=== PATIENT | male | born 1975 | race Caucasian/White ===

== ENCOUNTER 2017-05-29 23:29 | Inpatient (IN) | payer BC ==
[~2017-05-29] VITALS: Ht 182.9 cm; Wt 120.7 kg
[2017-05-29 23:34] VITALS: BP 114/59; PULSE 78; RESP 16; TEMP 98.5; O2SAT 98
[2017-05-29 23:39] VITALS: BP 104/69; PULSE 103; RESP 20; TEMP 97.8; O2SAT 97
[2017-05-29] MEDS ORDERED: SODIUM CHLOR 0.9% 1000 ML INJ 1,000 ML IV SCH (23:46)
[2017-05-29] MEDS ORDERED: PANTOPRAZOLE INJ 80 MG in SODIUM CHLORIDE 0.9% INJ 35 ML IV ONE (23:46)
[2017-05-29 23:53] VITALS: BP 99/56; PULSE 89; RESP 12; O2SAT 98
--- NOTE | 2017-05-29 23:56 | PD ---
HPI Chief Complaint: GI Complaint Time Seen by Provider: 23:40 Travel History International Travel<30 days: No Contact w/Intl Traveler<30days: No Traveled to known affect area: No History of Present Illness HPI 41-year-old male here for evaluation of hematemesis. Patient reports that about 2 hours ago he developed cramping in his bilateral legs. He then became nauseous and had 3 episodes of hematemesis. He is having some generalized weakness. He denies noticing melena or hematochezia. He uses ibuprofen almost daily, especially when he works. Drinks alcohol occasionally, never in excess. No abdominal pain. No antiplatelets or anticoagulants. PFSH Past Medical History Medical History: Denies Significant Hx Past Surgical History Surgical History: No Previous Surgery Social History Alcohol Use: No Tobacco Use: No Substance Use: No Allergies-Medications (Allergen,Severity, Reaction): Coded Allergies: No Known Allergies (Unverified , 05/29/17) Reported Meds & Prescriptions Reported Meds & Active Scripts Active Reported Ibuprofen 400 Mg Tab 400 Mg PO DAILY Review of Systems Except as stated in HPI: all other systems reviewed are Neg Physical Exam Narrative GENERAL: Well-developed, well-nourished, comfortable, no acute distress. SKIN: Focused skin assessment warm/dry. Diffuse pallor. HEAD: Atraumatic. Normocephalic. EYES: Pupils equal and round. No scleral icterus. No injection or drainage. Conjunctival pallor. ENT: Mucous membranes pink and moist. Dried blood in oropharynx. NECK: Trachea midline. No JVD. CARDIOVASCULAR: Tachycardic, rate 105, regular. RESPIRATORY: No accessory muscle use. Clear to auscultation. Breath sounds equal bilaterally. GASTROINTESTINAL: Abdomen soft, non-tender, nondistended. RECTUM: No masses, no fissures, no hemorrhoids, heme positive black stool. MUSCULOSKELETAL: No obvious deformities. No clubbing. No cyanosis. No edema. NEUROLOGICAL: Awake and alert. No obvious cranial nerve deficits. Motor grossly within normal limits. Normal speech. PSYCHIATRIC: Appropriate mood and affect; insight and judgment normal. Data Data Last Documented VS Vital Signs Date Time Temp Pulse Resp B/P (MAP) Pulse Ox O2 Delivery O2 Flow Rate FiO2 05/30/17 00:35 82 14 90/55 (67) 96 05/29/17 23:53 Room Air 05/29/17 23:39 97.8 Orders Orders Complete Blood Count With Diff (05/29/17 23:46) Comprehensive Metabolic Panel (05/29/17 23:46) Prothrombin Time / Inr (Pt) (05/29/17 23:46) Act Partial Throm Time (Ptt) (05/29/17 23:46) Type And Screen (05/29/17 23:46) Ecg Monitoring (05/29/17 23:46) Iv Access Insert/Monitor (05/29/17 23:46) Oximetry (05/29/17 23:46) Ondansetron Inj (Zofran Inj) (05/30/17 00:00) Sodium Chlor 0.9% 1000 Ml Inj (Ns 1000 M (05/29/17 23:46) Sodium Chloride 0.9% Flush (Ns Flush) (05/30/17 00:00) Sodium Chloride 0.9... W/Pantoprazole In (05/29/17 23:46) Sodium Chloride 0.9... W/Pantoprazole In (05/29/17 23:46) Chest, Single Ap (05/30/17 ) Admit To Inpatient (05/30/17 ) Vital Signs (Adult) Q4H (05/30/17 01:04) Activity Oob With Assistance (05/30/17 01:04) Aerial Photographer / Telemetry .CONTINUOUS (05/30/17 01:04) Diet Npo (05/30/17 Breakfast) Sodium Chlor 0.9% 1000 Ml Inj (Ns 1000 M (05/30/17 01:04) Sodium Chloride 0.9% Flush (Ns Flush) (05/30/17 01:15) Sodium Chloride 0.9% Flush (Ns Flush) (05/30/17 09:00) Basic Metabolic Panel (Bmp) (05/31/17 06:00) Complete Blood Count With Diff (05/31/17 06:00) Scd Bilateral/Knee High URMILA.BID (05/30/17 01:04) Naloxone Inj (Narcan Inj) (05/30/17 01:15) Inpatient Certification (05/30/17 ) Consult Gastroenterology (05/30/17 ) Admit Order (Ed Use Only) (05/30/17 01:06) Labs Laboratory Tests Test 05/29/17 23:50 White Blood Count 10.0 TH/MM3 Red Blood Count 4.55 MIL/MM3 Hemoglobin 11.4 GM/DL Hematocrit 35.4 % Mean Corpuscular Volume 78.0 FL Mean Corpuscular Hemoglobin 25.1 PG Mean Corpuscular Hemoglobin Concent 32.1 % Red Cell Distribution Width 15.4 % Platelet Count 88 TH/MM3 Mean Platelet Volume 9.9 FL Neutrophils (%) (Auto) 74.8 % Lymphocytes (%) (Auto) 9.8 % Monocytes (%) (Auto) 11.2 % Eosinophils (%) (Auto) 3.2 % Basophils (%) (Auto) 1.0 % Neutrophils # (Auto) 7.5 TH/MM3 Lymphocytes # (Auto) 1.0 TH/MM3 Monocytes # (Auto) 1.1 TH/MM3 Eosinophils # (Auto) 0.3 TH/MM3 Basophils # (Auto) 0.1 TH/MM3 CBC Comment AUTO DIFF Differential Comment AUTO DIFF CONFIRMED Platelet Estimate LOW Platelet Morphology Comment NORMAL Prothrombin Time 13.4 SEC Prothromb Time International Ratio 1.2 RATIO Activated Partial Thromboplast Time 25.9 SEC Blood Urea Nitrogen 27 MG/DL Creatinine 0.85 MG/DL Random Glucose 86 MG/DL Total Protein 6.3 GM/DL Albumin 2.8 GM/DL Calcium Level 8.6 MG/DL Alkaline Phosphatase 160 U/L Aspartate Amino Transf (AST/SGOT) 56 U/L Alanine Aminotransferase (ALT/SGPT) 59 U/L Total Bilirubin 1.4 MG/DL Sodium Level 144 MEQ/L Potassium Level 3.8 MEQ/L Chloride Level 110 MEQ/L Carbon Dioxide Level 27.6 MEQ/L Anion Gap 6 MEQ/L Estimat Glomerular Filtration Rate 100 ML/MIN [facility] Medical Decision Making Medical Screen Exam Complete: Yes Emergency Medical Condition: Yes Differential Diagnosis Upper GI bleed, anemia, peptic ulcer disease, gastritis, esophageal varicies, dashawn thomas tears, Boerhaave syndrome unlikely Narrative Course Initial vital signs show heart rate 103, blood pressure 104/69, pulse ox 97% on room air, oral temp of 97.8F. Blood pressure at one point dropped to 85/47. The patient was given a liter of normal saline IV bolus with improvement in pressure to 90/55. CBC shows to be BC 10, hemoglobin 11.4, hematocrit 35.4, platelets 88. CMP is remarkable for AST 56, ALT 59, albumin 2.8, BUN 27 which is likely because of his upper GI bleed. Chest x-ray interpreted by me shows no free air, no ptx, no PNA, normal mediastinum. Patient was given a liter of normal saline IV, a bolus of IV Protonix followed by Protonix drip. He was also given Zofran with improvement in nausea. His stool is heme positive and black. He likely is suffering from an upper GI bleed given hematemesis and melena. He is also slightly tachycardic and hypotensive. He will be admitted for further treatment and evaluation and likely GI consultation. Case discussed with hospitalist Dr Kearney who will admit the patient to her service. HemaPrompt Point of Care Internal Pos. & Neg. Controls: Passed Fecal Specimen Occult Blood: Positive Comment Heme positive, black stool. Diagnosis Primary Impression: Hematemesis Qualified Codes: K92.0 - Hematemesis; R11.0 - Nausea Additional Impressions: Melena Thrombocytopenia Donte Almonte MD May 29, 2017 23:56
[2017-05-30] VITALS (22 sets, daily range): BP systolic 67–117; BP diastolic 38–65; PULSE 81–112; RESP 12–22; TEMP 96.5–100.3; O2SAT 91–100
[2017-05-30] MEDS ORDERED: ONDANSETRON HCL 4 MG/2 ML VIAL IVP ONE
[2017-05-30] MEDS ORDERED: SODIUM CHLORIDE 0.9% FLUSH 10 ML FLUSH IVF PRN
[2017-05-30 00:19] LABS: AUTOMATED NEUTROPHIL # 7.5 TH/MM3 (1.8-7.7); BASOPHIL # 0.1 TH/MM3 (0-0.2); EOSINOPHIL # 0.3 TH/MM3 (0-0.4); EOSINOPHIL % 3.2 % (0.0-4.0); HEMATOCRIT 35.4 % (39.0-51.0); LYMPH % 9.8 % (9.0-44.0); MEAN CORPUSCULAR HEMOGLOBIN 25.1 PG (27.0-34.0); MEAN CORPUSCULAR HGB CONC 32.1 % (32.0-36.0); MONO % 11.2 % (0.0-8.0); NEUT % 74.8 % (16.0-70.0); PLATELET COUNT 88 TH/MM3 (150-450); RED BLOOD COUNT 4.55 MIL/MM3 (4.50-5.90); RED CELL DISTRIBUTION WIDTH 15.4 % (11.6-17.2)
[2017-05-30 00:30] LABS: APTT (PATIENT) 25.9 SEC (24.3-30.1); INTERNATIONAL NORMALIZED RATIO 1.2 RATIO; PROTHROMBIN TIME - PATIENT 13.4 SEC (9.8-11.6)
[2017-05-30 00:36] LABS: ALT (GPT) 59 U/L (12-78); ANION GAP 6 MEQ/L (5-15); AST (GOT) 56 U/L (15-37); BICARBONATE 27.6 MEQ/L (21.0-32.0); BLOOD UREA NITROGEN 27 MG/DL (7-18); CHLORIDE 110 MEQ/L (98-107); GLOMERULAR FILTRATION RATE 100 ML/MIN (>89); POTASSIUM 3.8 MEQ/L (3.5-5.1); SODIUM (NA) 144 MEQ/L (136-145)
[2017-05-30 00:38] LABS: ALKALINE PHOSPHATASE 160 U/L (45-117); TOTAL BILIRUBIN ADULT 1.4 MG/DL (0.2-1.0)
[2017-05-30] MEDS: PANTOPRAZOLE INJ 80 MG in SODIUM CHLORIDE 0.9% INJ 100 ML IV SCH ×3 (00:43→23:45)
[2017-05-30 00:47] LABS: HEMO FLAGS AUTO DIFF; PLATELET ESTIMATE SMEAR LOW (NORMAL); PLATELET MORPHOLOGY NORMAL (NORMAL); SCAN/DIFF AUTO DIFF CONFIRMED
[2017-05-30] MEDS ORDERED: IBUP400T20 PO (00:56)
[2017-05-30] MEDS: SODIUM CHLOR 0.9% 1000 ML INJ 1,000 ML IV SCH ×3 (01:04→11:43)
[2017-05-30] MEDS ORDERED: SODIUM CHLORIDE 0.9% FLUSH 10 ML FLUSH IV FLUSH PRN (01:15)
[2017-05-30] MEDS ORDERED: NALOXONE HCL 0.4 MG/ML AMP IV PRN (01:15)
--- NOTE | 2017-05-30 01:17 | RADRPT ---
EXAM DATE/TIME: 05/30/2017 01:02 [facility] COMPARISON: No previous studies available for comparison. INDICATIONS : Short of breath. MEDICAL HISTORY : None. SURGICAL HISTORY : None. ENCOUNTER: Initial ACUITY: 1 day PAIN SCORE: 7/10 LOCATION: Left chest FINDINGS: A single view of the chest demonstrates the lungs to be symmetrically aerated without evidence of mas s, infiltrate or effusion. The cardiomediastinal contours are unremarkable. Osseous structures are intact. CONCLUSION: 1. No acute cardiopulmonary disease. Oh Escobedo MD on May 30, 2017 at 1:15 Board Certified Radiologist. This report was verified electronically.
[2017-05-30] MEDS: ONDANSETRON HCL 4 MG/2 ML VIAL IV PUSH PRN ×2 (01:55→16:53)
--- NOTE | 2017-05-30 02:07 | HHI.HP ---
HPI Service [facility] Primary Care Physician No Primary Care Physician Admission Diagnosis hematemesis, melena, thrombocytopenia Diagnoses: (1) GI bleed (2) Transaminitis (3) Hematemesis (4) Melena (5) Thrombocytopenia Chief Complaint: hematemesis, melena Travel History International Travel<30 Days: No Contact w/Intl Traveler <30 Da: No Traveled to Known Affected Are: No History of Present Illness Written by Karol Lopez, acting as scribe for Dr. Kearney on 05/30/17 at 02:06. Patient reports hematemesis over about an hour and a half. The color was dark; accompanied by nausea but denies abdominal pain. Just had a dark stool. The patient reports taking Tylenol 1000 mg per day 5 days per week. He denies any history of peptic ulcer. He started taking generic Aleve or naproxen 200 mg when extra strength Tylenol wore off over the past week. The patient reports that last week he had "a really nasty flu". He had also put in extra hours at work last week and thought it might be related to work-related exhaustion. He denies chest pain, shortness of breath. . Review of Systems Except as stated in HPI: all other systems reviewed are Neg Past Family Social History Past Medical History Denies hypertension, diabetes, CAD, CHF, respiratory problems, liver problems, kidney problems, DVT, PE, CVA, seizures, thyroid problems, or cancers Past Surgical History Denies . Reported Medications Tylenol 1000 mg daily 5 days per week Naproxen 200 mg as needed for pain Allergies: Coded Allergies: No Known Allergies (Unverified , 05/29/17) Active Ordered Medications Current Medications Ondansetron HCl (Zofran Inj) 4 mg ONCE ONCE IVP Last administered on 05/30/17 00:04; Start 05/30/17 at 00:00; Stop 05/30/17 at 00:01; Status DC Sodium Chloride 1,000 ml @ 1,000 mls/hr Q1H IV Last administered on 05/30/17 00:03; Start 05/29/17 at 23:46; Stop 05/30/17 at 00:45; Status DC Sodium Chloride (NS Flush) 2 ml UNSCH PRN IVF FLUSH AFTER USING IV ACCESS; Start 05/30/17 at 00:00 Pantoprazole Sodium 80 mg/ Sodium Chloride 35 ml @ 420 mls/hr Q5M ONCE IV Last administered on 05/30/17 00:05; Start 05/29/17 at 23:46; Stop 05/29/17 at 23: 50; Status DC Pantoprazole Sodium 80 mg/ Sodium Chloride 100 ml @ 10 mls/hr Q10H IV Last administered on 05/30/17 00:43; Start 05/29/17 at 23:46 Sodium Chloride 1,000 ml @ 100 mls/hr Q10H IV Last administered on 05/30/17 02 :06; Start 05/30/17 at 01:04 Sodium Chloride (NS Flush) 2 ml UNSCH PRN IV FLUSH FLUSH AFTER USING IV ACCESS ; Start 05/30/17 at 01:15 Sodium Chloride (NS Flush) 2 ml BID IV FLUSH ; Start 05/30/17 at 09:00 Naloxone HCl (Narcan Inj) 0.4 mg UNSCH PRN IV SEE LABEL COMMENTS; Start at 01:15 Ondansetron HCl (Zofran Inj) 4 mg Q6HR PRN IV PUSH nausea Last administered on 05/30/17 01:55; Start 05/30/17 at 01:45 . Family History Mother with cancer Father with hypertension, RADHA, Alzheimer's . Social History Tobacco: denies every smoking Alcohol: infrequent drinker, denies any heavy use ever Illicit Drugs: stopped smoking marijuana a few months ago . Physical Exam Vital Signs Vital Signs Date Time Temp Pulse Resp B/P (MAP) Pulse Ox O2 Delivery O2 Flow Rate FiO2 05/30/17 01:00 88 14 100/59 (73) 96 Room Air 05/30/17 00:35 82 14 90/55 (67) 96 05/30/17 00:05 84 14 85/47 (60) 97 05/29/17 23:53 89 12 99/56 (70) 98 Room Air 05/29/17 23:39 97.8 103 20 104/69 (81) 97 05/29/17 23:34 98.5 78 16 114/59 (77) 98 Room Air Physical Exam GENERAL: This is a jaundiced, pale patient, complaining of nausea, appearing very tired. SKIN: No rashes, ecchymoses or lesions. Cool and dry. HEAD: Atraumatic. Normocephalic. EYES: No scleral icterus. No injection or drainage. ENT: Nose without bleeding, purulent drainage or septal hematoma. NECK: Trachea midline. No JVD. CARDIOVASCULAR: Regular rate and rhythm without murmurs, gallops, or rubs. RESPIRATORY: Clear to auscultation. Breath sounds equal bilaterally. No wheezes , rales, or rhonchi. GASTROINTESTINAL: Abdomen soft, non-tender, nondistended. MUSCULOSKELETAL: Extremities without clubbing, cyanosis, or edema. NEUROLOGICAL: Awake and alert. Motor and sensory grossly within normal limits. Normal speech. . Laboratory Laboratory Tests Test 05/29/17 23:50 White Blood Count 10.0 Red Blood Count 4.55 Hemoglobin 11.4 Hematocrit 35.4 Mean Corpuscular Volume 78.0 Mean Corpuscular Hemoglobin 25.1 Mean Corpuscular Hemoglobin Concent 32.1 Red Cell Distribution Width 15.4 Platelet Count 88 Mean Platelet Volume 9.9 Neutrophils (%) (Auto) 74.8 Lymphocytes (%) (Auto) 9.8 Monocytes (%) (Auto) 11.2 Eosinophils (%) (Auto) 3.2 Basophils (%) (Auto) 1.0 Neutrophils # (Auto) 7.5 Lymphocytes # (Auto) 1.0 Monocytes # (Auto) 1.1 Eosinophils # (Auto) 0.3 Basophils # (Auto) 0.1 CBC Comment AUTO DIFF Differential Comment AUTO DIFF CONFIRMED Platelet Estimate LOW Platelet Morphology Comment NORMAL Prothrombin Time 13.4 Prothromb Time International Ratio 1.2 Activated Partial Thromboplast Time 25.9 Blood Urea Nitrogen 27 Creatinine 0.85 Random Glucose 86 Total Protein 6.3 Albumin 2.8 Calcium Level 8.6 Alkaline Phosphatase 160 Aspartate Amino Transf (AST/SGOT) 56 Alanine Aminotransferase (ALT/SGPT) 59 Total Bilirubin 1.4 Sodium Level 144 Potassium Level 3.8 Chloride Level 110 Carbon Dioxide Level 27.6 Anion Gap 6 Estimat Glomerular Filtration Rate 100 Result Diagram: 05/29/17 2350 05/29/17 2350 Imaging Last Impressions Chest X-Ray 05/30/17 0000 Signed Impressions: Service Date/Time: May 01:02 - CONCLUSION: 1. No acute cardiopulmonary disease. Oh Escobedo MD . Capdiamond VTE Risk Assessment Caprini VTE Risk Assessment: Mod/High Risk (score >= 2) Caprini Risk Assessment Model Point Value = 1 Point Value = 2 Point Value = 3 Point Value = 5 Age 41-60 Minor surgery BMI > 25 kg/m2 Swollen legs Varicose veins or History of unexplained or recurrent spontaneous Oral contraceptives or hormone replacement Sepsis (< 1 month) Serious lung disease, including pneumonia (< 1 month) Abnormal pulmonary function Acute myocardial infarction Congestive heart failure (< 1 month) History of inflammatory bowel disease Medical patient at bed rest Age 61-74 Arthroscopic surgery Major open surgery (> 45 min) Laparoscopic surgery (> 45 min) Malignancy Confined to bed (> 72 hours) Immobilizing plaster cast Central venous access Age >= 75 History of VTE Family history of VTE Factor V Leiden Prothrombin [id number] Lupus anticoagulant Anticardiolipin antibodies Elevated serum homocysteine Heparin-induced thrombocytopenia Other congenital or acquired thrombophilia Stroke (< 1 month) Elective arthroplasty Hip, pelvis, or leg fracture Acute spinal cord injury (< 1 month) Prophylaxis Regimen Total Risk Factor Score Risk Level Prophylaxis Regimen 0-1 Low Early ambulation 2 Moderate Order ONE of the following: *Sequential Compression Device (SCD) *Heparin 5000 units SQ BID 3-4 Higher Order ONE of the following medications: *Heparin 5000 units SQ TID *Enoxaparin/Lovenox 40 mg SQ daily (WT < 150 kg, CrCl > 30 mL/min) *Enoxaparin/Lovenox 30 mg SQ daily (WT < 150 kg, CrCl > 10-29 mL/min) *Enoxaparin/Lovenox 30 mg SQ BID (WT < 150 kg, CrCl > 30 mL/min) AND/OR *Sequential Compression Device (SCD) 5 or more Highest Order ONE of the following medications: *Heparin 5000 units SQ TID (Preferred with Epidurals) *Enoxaparin/Lovenox 40 mg SQ daily (WT < 150 kg, CrCl > 30 mL/min) *Enoxaparin/Lovenox 30 mg SQ daily (WT < 150 kg, CrCl > 10-29 mL/min) *Enoxaparin/Lovenox 30 mg SQ BID (WT < 150 kg, CrCl > 30 mL/min) AND *Sequential Compression Device (SCD) Assessment and Plan Problem List: (1) GI bleed ICD Code: K92.2 - Gastrointestinal hemorrhage, unspecified (2) Melena ICD Code: K92.1 - Melena Status: Acute (3) Hematemesis ICD Code: K92.0 - Hematemesis Status: Acute (4) Transaminitis ICD Code: R74.0 - Nonspecific elevation of levels of transaminase and lactic acid dehydrogenase [LDH] (5) Thrombocytopenia ICD Code: D69.6 - Thrombocytopenia, unspecified Status: Acute Assessment and Plan 41 y/o male who presented with hematemesis and melena: Suspected GI bleed with hypotension (sbp dropped to 85) - initial H&H 11.4/35.4 - no prior available for comparison - Stat repeat H&H - follow results - NS bolus x 1 liter in ED, maintenance IVF NS at 100 cc/hr - Gastroenterology consultation - Protonix drip Transaminitis Daily Tylenol use - Hepatitis Profile - Liver ultrasound - Check Tylenol level Thrombocytopenia - Platelet count 88,000 - suspect liver disease - repeat CBC in a.m. and follow results - transfuse platelets if needed DVT prophylaxis - Early ambulation - SCDs/TEDs This note was transcribed by [email or web address] [Karol Lopez]. I, Dr. Afshan Kearney personally performed the history, physical exam, and medical decision making; and confirmed the accuracy of the information in the transcribed note. Authenticated by Dr. Afshan Kearney on 05/30/17 at 02:06. . Discussed Condition With ER physician or patient . Physician Certification 2 Midnight Certification Type: Admission for Inpatient Services Order for Inpatient Services The services are ordered in accordance with Medicare regulations or non- Medicare payer requirements, as applicable. In the case of services not specified as inpatient-only, they are appropriately provided as inpatient services in accordance with the 2-midnight benchmark. Estimated LOS (days): 3 days is the estimated time the patient will need to remain in the hospital, assuming treatment plan goals are met and no additional complications. Post-Hospital Plan: Home Problem Qualifiers (1) Hematemesis: Qualified Codes: K92.0 - Hematemesis; R11.0 - Nausea Karol Lopez May 30, 2017 02:07 Afhsan Kearney MD May 30, 2017 07:27
[2017-05-30] MEDS ORDERED: MEDI220T PO (02:17)
[2017-05-30] MEDS ORDERED: EXTRTAB5 PO (02:17)
[2017-05-30 02:19] LABS: HEMATOCRIT 27.6 % (39.0-51.0)
[2017-05-30 02:21] LABS: REVIEW FLAG FINAL
[2017-05-30] MEDS ORDERED: ONDANSETRON HCL 4 MG/2 ML VIAL IV PUSH ONE ×2 (02:30→12:00)
[2017-05-30] MEDS ORDERED: OCTREOTIDE INJ 50 MCG/ML AMP IV PUSH ONE (03:45)
[2017-05-30] MEDS ORDERED: CHLORHEXIDINE GLUCONATE 2 % 1 PACK (2 CLOTHS)(extra cloths) TOPICAL PRN (04:15)
[2017-05-30] MEDS: OCTREOTIDE INJ 500 MCG in SODIUM CHLORID 0.9% 500 ML INJ 499.5 ML IV SCH ×2 (05:50→16:33)
[2017-05-30] MEDS: SODIUM CHLORIDE 0.9% FLUSH 10 ML FLUSH IV FLUSH SCH ×2 (08:47→23:47)
--- NOTE | 2017-05-30 10:13 | HHI.PR ---
Subjective Remarks f/u GI bleed abdominal pain 11/02, had BM with dark colored stool before 2 am, last episode of emesis still bloody at 2 am, no N/V, no fever or SOB Objective Vitals Vital Signs Date Time Temp Pulse Resp B/P (MAP) Pulse Ox O2 Delivery O2 Flow Rate FiO2 05/30/17 08:26 98.2 102 12 106/59 97 05/30/17 08:00 99.8 100 18 103/53 96 05/30/17 06:00 96 Nasal Cannula 2.00 05/30/17 06:00 81 05/30/17 05:21 99.0 88 20 67/38 91 05/30/17 04:17 99.0 100 20 117/55 (75) 94 05/30/17 04:15 105 05/30/17 03:02 96.5 99 18 92/55 (67) 95 05/30/17 02:32 86 18 102/53 (69) 96 Room Air 05/30/17 02:20 86 16 91/53 (66) 96 05/30/17 01:00 88 14 100/59 (73) 96 Room Air 05/30/17 00:35 82 14 90/55 (67) 96 05/30/17 00:05 84 14 85/47 (60) 97 05/29/17 23:53 89 12 99/56 (70) 98 Room Air 05/29/17 23:39 97.8 103 20 104/69 (81) 97 05/29/17 23:34 98.5 78 16 114/59 (77) 98 Room Air I/O 05/29/17 05/29/17 05/29/17 05/30/17 05/30/17 05/30/17 07:00 15:00 23:00 07:00 15:00 23:00 Intake Total 649 ml 296 ml Balance 649 ml 296 ml Intake IV Total 649 ml Packed Cells 250 ml Blood Product IV Normal Saline Flush 46 ml # Voids 0 Result Diagram: 05/30/17 0201 05/29/17 4400 Objective Remarks GENERAL: This is a jaundiced, pale patient, complaining of nausea, appearing very tired. ENT: Nose without bleeding, purulent drainage or septal hematoma. NECK: Trachea midline. No JVD. CARDIOVASCULAR: Regular rate and rhythm without murmurs, gallops, or rubs. RESPIRATORY: Clear to auscultation. Breath sounds equal bilaterally. No wheezes , rales, or rhonchi. GASTROINTESTINAL: Abdomen soft, mildly tender, nondistended. MUSCULOSKELETAL: Extremities without clubbing, cyanosis, or edema. AAOx3 no focal deficits A/P Problem List: (1) GI bleed ICD Code: K92.2 - Gastrointestinal hemorrhage, unspecified (2) Melena ICD Code: K92.1 - Melena Status: Acute (3) Hematemesis ICD Code: K92.0 - Hematemesis Status: Acute (4) Transaminitis ICD Code: R74.0 - Nonspecific elevation of levels of transaminase and lactic acid dehydrogenase [LDH] (5) Thrombocytopenia ICD Code: D69.6 - Thrombocytopenia, unspecified Status: Acute Assessment and Plan 41 y/o male who presented with hematemesis and melena: Suspected GI bleed with hypotension (sbp dropped to 85) - initial H&H 11.4/35.4 - no prior available for comparison, receiving blood right now, recheck H/H, GI input pending, continue IVF, cont PPI drip and octreotide, patient has history of taking Aleve, NPO Transaminitis with Daily Tylenol use - Hepatitis Profile pending, very mild, liver US pending. Thrombocytopenia - Platelet count 88,000 , suspect liver disease, follow CBC DVT prophylaxis - Early ambulation - SCDs/TEDs Problem Qualifiers (1) Hematemesis: Qualified Codes: K92.0 - Hematemesis; R11.0 - Nausea Telly Tello MD May 30, 2017 10:13
--- NOTE | 2017-05-30 10:16 | RADRPT ---
EXAM DATE/TIME: 05/30/2017 09:04 [facility] COMPARISON: No previous studies available for comparison. INDICATIONS : Increased lab values. MEDICAL HISTORY : Hematemesis. SURGICAL HISTORY : None. ENCOUNTER: Initial ACUITY: 1 day PAIN SCORE: 10/02 LOCATION: Bilateral upper quadrant MEASUREMENTS: LIVER: 17.0 cm length COMMON DUCT: 7 mm RIGHT KIDNEY: 12.6 x 5.9 x 4.9 cm SPLEEN: 21.5 cm length FINDINGS: Small volume ascites. LIVER: Cirrhotic appearance. Heterogeneous echotexture. Question right lobe mass anteriorly where a vague ar ea of focally altered echogenicity is present measuring between 2 and 3 cm in size. Bidirectional ruth w in the portal vein. COMMON DUCT: No intraluminal mass or stone visualized. GALLBLADDER: Small stone in the gallbladder neck. No evidence of gallbladder wall thickening or distention. PANCREAS: The visualized portions are within normal limits. RIGHT KIDNEY: No hydronephrosis, stone or mass. SPLEEN: Enlarged without focal mass CONCLUSION: Cirrhotic liver appearance. Question focal right lobe mass. Recommend further evaluation with hepatic MRI with [facility]. David Terrazas MD on May 30, 2017 at 10:10 Board Certified Radiologist. This report was verified electronically.
--- NOTE | 2017-05-30 12:53 | PD.CONS ---
HPI History of Present Illness This is a 41 year old male with pos family hx leukemia and colon ca who presented with nausea and hematemesis. Started last night, had 3 episodes, none today. Never had hematemesis or GIB before. Also had dark blood intermingled in stool, per pt he was told after rectal exam his stool appeared black. Has been taking extra strength tylenol daily. He has also been taking aleve regularly for the last few months. No significant medical history. Never had EGD or colonoscopy. Does not have PCP. Denies weight loss, diarrhea. Admits occasional constipation he associates with stress and diet. (Ruchi Casas) PFSH Past Medical History Denies hypertension, diabetes, CAD, CHF, respiratory problems, liver problems, kidney problems, DVT, PE, CVA, seizures, thyroid problems, or cancers Past Surgical History Denies . (Ruchi Casas) Coded Allergies: No Known Allergies (Unverified , 05/29/17) Family History Mother with colon cancer, leukemia Father with hypertension, RADHA, Alzheimer's . Social History Tobacco: denies every smoking Alcohol: infrequent drinker, denies any heavy use ever Illicit Drugs: stopped smoking marijuana a few months ago . (Ruchi Casas) Review of Systems Constitutional: DENIES: Weight loss Eyes: DENIES: Blurred vision Ears, nose, mouth, throat: DENIES: Hearing loss Respiratory: DENIES: Hemoptysis Cardiovascular: DENIES: Chest pain Gastrointestinal: COMPLAINS OF: Black stools, Bloody stools, Nausea, Vomiting, Hematemesis, DENIES: Abdominal pain, Constipation, Diarrhea Genitourinary: DENIES: Hematuria Musculoskeletal: DENIES: Joint Swelling Integumentary: DENIES: Pruritus, Jaundice Neurologic: DENIES: Abnormal gait Psychiatric: DENIES: Confusion (Ruchi Casas) GI Exam Vitals I&O Vital Signs Date Time Temp Pulse Resp B/P (MAP) Pulse Ox O2 Delivery O2 Flow Rate FiO2 05/30/17 12:00 99.7 97 19 98/55 (69) 95 05/30/17 12:00 97 05/30/17 12:00 95 Nasal Cannula 1.50 05/30/17 10:15 99.2 101 22 104/57 94 05/30/17 10:00 103 05/30/17 08:26 98.2 102 12 106/59 97 05/30/17 08:00 99.8 100 18 103/53 96 05/30/17 08:00 96 Nasal Cannula 1.50 05/30/17 08:00 99.8 100 18 103/53 (70) 96 05/30/17 08:00 100 05/30/17 06:00 96 Nasal Cannula 2.00 05/30/17 06:00 81 05/30/17 05:21 99.0 88 20 67/38 91 05/30/17 04:17 99.0 100 20 117/55 (75) 94 05/30/17 04:15 105 05/30/17 03:02 96.5 99 18 92/55 (67) 95 05/30/17 02:32 86 18 102/53 (69) 96 Room Air 05/30/17 02:20 86 16 91/53 (66) 96 05/30/17 01:00 88 14 100/59 (73) 96 Room Air 05/30/17 00:35 82 14 90/55 (67) 96 05/30/17 00:05 84 14 85/47 (60) 97 05/29/17 23:53 89 12 99/56 (70) 98 Room Air 05/29/17 23:39 97.8 103 20 104/69 (81) 97 05/29/17 23:34 98.5 78 16 114/59 (77) 98 Room Air I/O 05/29/17 05/29/17 05/29/17 05/30/17 05/30/17 05/30/17 07:00 15:00 23:00 07:00 15:00 23:00 Intake Total 649 ml 1713 ml Balance 649 ml 1713 ml Intake IV Total 649 ml 1100 ml Packed Cells 500 ml Blood Product IV Normal Saline Flush 113 ml # Voids 0 Imaging Last Impressions Liver Ultrasound 05/30/17 0000 Signed Impressions: Service Date/Time: May 09:04 - CONCLUSION: Cirrhotic liver appearance. Question focal right lobe mass. Recommend further evaluation with hepatic MRI with Eovist. David Terrazas MD Chest X-Ray 05/30/17 0000 Signed Impressions: Service Date/Time: May 01:02 - CONCLUSION: 1. No acute cardiopulmonary disease. Oh Escobedo MD Laboratory Test 05/29/17 23:50 05/30/17 02:01 05/30/17 04:10 05/30/17 04:29 White Blood Count 10.0 TH/MM3 Red Blood Count 4.55 MIL/MM3 Hemoglobin 11.4 GM/DL 9.2 GM/DL Hematocrit 35.4 % 27.6 % Mean Corpuscular Volume 78.0 FL Mean Corpuscular Hemoglobin 25.1 PG Mean Corpuscular Hemoglobin Concent 32.1 % Red Cell Distribution Width 15.4 % Platelet Count 88 TH/MM3 Mean Platelet Volume 9.9 FL Neutrophils (%) (Auto) 74.8 % Lymphocytes (%) (Auto) 9.8 % Monocytes (%) (Auto) 11.2 % Eosinophils (%) (Auto) 3.2 % Basophils (%) (Auto) 1.0 % Neutrophils # (Auto) 7.5 TH/MM3 Lymphocytes # (Auto) 1.0 TH/MM3 Monocytes # (Auto) 1.1 TH/MM3 Eosinophils # (Auto) 0.3 TH/MM3 Basophils # (Auto) 0.1 TH/MM3 CBC Comment AUTO DIFF Differential Comment AUTO DIFF CONFIRMED Platelet Estimate LOW Platelet Morphology Comment NORMAL Prothrombin Time 13.4 SEC Prothromb Time International Ratio 1.2 RATIO Activated Partial Thromboplast Time 25.9 SEC Blood Urea Nitrogen 27 MG/DL Creatinine 0.85 MG/DL Random Glucose 86 MG/DL Total Protein 6.3 GM/DL Albumin 2.8 GM/DL Calcium Level 8.6 MG/DL Alkaline Phosphatase 160 U/L Aspartate Amino Transf (AST/SGOT) 56 U/L Alanine Aminotransferase (ALT/SGPT) 59 U/L Total Bilirubin 1.4 MG/DL Sodium Level 144 MEQ/L Potassium Level 3.8 MEQ/L Chloride Level 110 MEQ/L Carbon Dioxide Level 27.6 MEQ/L Anion Gap 6 MEQ/L Estimat Glomerular Filtration Rate 100 ML/MIN Acetaminophen Level LESS THAN 2.0 MCG/ML Nasal Screen MRSA (PCR) MRSA NOT DETECTED Physical Examination HEENT: PERRL; normocephalic; atraumatic; no jaundice. CHEST: CTA CARDIAC: RRR ABDOMEN: Soft, nondistended, nontender; no hepatosplenomegaly; bowel sounds are present in all four quadrants. EXTREMITIES: No clubbing, cyanosis, or edema. SKIN: Normal; no rash; no jaundice. [employer]: No focal deficits; alert and oriented times three. (Ruchi Casas) Assessment and Plan Plan PLAN - hematemesis - 3 episodes last night, none in the last 5 hours. recent hx NSAID use frequently. no prior hx GIB or significant medical hx. never had EGD or colonoscopy - anemia - 11.4 on admission and drop to 9.2 today, s/p 2 x PRBC and repeat HH pending - elev LFTs - mild, admits frequent use APAP. hep panel pending. no significant etoh use. APAP level >2.0 US showed cirrhotic liver appearance, questionable focal right lobe mass, suggested MRI liver with evoist - family hx colon ca - mother dx age 60 - thrombocytopenia - PLT 88 PLAN - EGD tonight - obtain consent - NPO - consider colonoscopy next week - continue ocreotide - continue protonix - MRI liver w/ evoist as outpatient - liver w/u - monitior CBC - transfuse as needed - further recs to follow This pt seen by myself and Dr Kinney and this note is written on his behalf (Ruchi Casas) Physician Comments Patient seen and examined, agree with the above noted, I was called by the nursing staff to tell me that the patient had been vomiting blood minutes, with some drop in his blood pressure. We will hold off on colonoscopy proceeded to an urgent upper endoscopy now meanwhile we'll continue supportive care packed RBC as needed, colonoscopy can be done as an outpatient in the near future (Jolly Kinney MD) Ruchi Casas May 30, 2017 12:53 Jolly Kinney MD May 30, 2017 19:23
[2017-05-30 15:23] LABS: HEMATOCRIT 28.8 % (39.0-51.0)
[2017-05-30 15:34] LABS: REVIEW FLAG FINAL
[2017-05-30] MEDS ORDERED: MAGNESIUM CITRATE SOLN 300 ML BTL PO ONE ×2 (16:00→18:00)
[2017-05-30] MEDS ORDERED: DO NOT ADM ANY ANTICOAGULANT DRUGS PRN (19:06)
[2017-05-30 19:19] LABS: HEMATOCRIT 23.4 % (39.0-51.0); REVIEW FLAG FINAL
[2017-05-30] MEDS ORDERED: PROPOFOL 1000 MG/100 ML INJ 100 ML ONE ×2 (19:38→22:14)
--- NOTE | 2017-05-30 19:40 | PD.PROCEDR ---
GI Procedure REFERRING PHYSICIAN Lizette PROCEDURE PERFORMED EGD with banding INDICATION FOR PROCEDURE Hematemesis PROCEDURE: The procedure, risks and benefits were discussed with Mr. Myers and informed consent was obtained. Anesthesia sedated him with Diprivan. He was placed in the left lateral decubitus position. EGD: The Pentax videoscope was introduced through the oropharynx and advanced to the second portion of the duodenum under direct visualization. Retroflexion was performed in the stomach. FINDINGS: The esophagus there was a large esophageal varix extending from top to bottom with active bleeding in the distal portion 3 bands were applied along the length of the varix and especially over the bleeding section The stomach this was filled with blood and it was a limited evaluation The duodenum was unremarkable ESTIMATED BLOOD LOSS: About 300 cc SPECIMENS REMOVED: None COMPLICATIONS: None IMPRESSION: Bleeding esophageal varices PLAN: Continue with current supportive care Monitor labs and transfuse as needed Coagulopathy needs to be corrected Continue with octreotide and Protonix drips We will proceed with CT of the abdomen for the abnormal ultrasound findings We'll evaluate for causes of liver cirrhosis Repeat EGD early next week Villa Mcdowell MD May 30, 2017 19:40
[2017-05-30] MEDS ORDERED: PHENYLEPHRINE HCL 10 MG/ML VIAL ONE (19:45)
[2017-05-30] MEDS ORDERED: PROPOFOL 200 MG/20 ML AMP IV PUSH ONE (19:50)
[2017-05-30] MEDS: PHENYLEPHRINE 40 MG in D5W 500 ML IV PRN (20:00)
[2017-05-30 20:33] LABS: BLOOD GAS BASE EXCESS -5.1 mmol/L (-2-2); BLOOD GAS CARBOXYHEMOGLOBIN 1.6 % (0-4); BLOOD GAS HCO3 20 mmol/L (22-26); BLOOD GAS METHEMOGLOBIN 1.1 % (0-2); BLOOD GAS O2 HGB SATURATION 97 % (90-100); BLOOD GAS OXYGEN CONTENT 11.5 Vol % (12.0-20.0); BLOOD GAS PCO2 43 mmHg (38-42); BLOOD GAS PO2 247 mmHg (61-120); CRITICAL VALUE NO; OXYGEN DEVICE VENTILATOR; TEMP CORR TO 98.6
[2017-05-30 20:34] LABS: DRAW SITE RT RADIAL; FIO2 100 %; NUMBER OF ARTERIAL PUNCTURES 1; STAT NO; ULNAR PULSE PRESENT; VENT SETTINGS IMV12/500/10PS/5PEEP
--- NOTE | 2017-05-30 22:16 | PD.CONS ---
HPI Service Critical Care Medicine Consult Requested By Primary Care Physician No Primary Care Physician History of Present Illness 41-year-old gentleman admitted with complaints of hematemesis over about an hour and a half. The color was dark; accompanied by nausea but denies abdominal pain. Just had a dark stool. He was taking Tylenol 1000 mg per day 5 days per week. He denies any history of peptic ulcer. He started taking generic Aleve or naproxen 200 mg when extra strength Tylenol wore off over the past week. The patient reports that last week he had "a really nasty flu". He had also put in extra hours at work last week and thought it might be related to work-related exhaustion. He denies chest pain, shortness of breath. He underwent urgent EGD by gastroenterology with the finding of a large esophageal varix extending from top to bottom with active bleeding in the distal portion, 3 bands were applied along the length of the varix and especially over the bleeding section. The stomach this was filled with blood and it was a limited evaluation. The duodenum was unremarkable. He has returned to ICU from OR sedated and intubated. . Review of Systems ROS Unobtainable patient is sedated and intubated Past Family Social History Allergies: Coded Allergies: No Known Allergies (Unverified , 05/29/17) Past Medical History No significant past medical history Past Surgical History Denies per chart Reported Medications Reported Meds & Active Scripts Active Reported Naproxen Sodium 220 Mg Tab 220 Mg PO DAILY Extra Strength Pain Relief (Acetaminophen) 500 Mg Tab 1,000 Mg PO DAILY Active Ordered Medications Current Medications Medications (Trade) Dose Ordered Sig/Maksim Route PRN Reason Start Time Stop Time Status Last Admin Dose Admin Sodium Chloride (NS Flush) 2 ml UNSCH PRN IVF FLUSH AFTER USING IV ACCESS 05/30/17 00:00 Pantoprazole Sodium 80 mg/ Sodium Chloride 100 ml @ 10 mls/hr Q10H IV 05/29/17 23:46 05/30/17 23:45 Sodium Chloride 1,000 ml @ 100 mls/hr Q10H IV 05/30/17 01:04 05/30/17 11:43 Sodium Chloride (NS Flush) 2 ml UNSCH PRN IV FLUSH FLUSH AFTER USING IV ACCESS 05/30/17 01:15 Sodium Chloride (NS Flush) 2 ml BID IV FLUSH 05/30/17 09:00 05/30/17 23:47 Naloxone HCl (Narcan Inj) 0.4 mg UNSCH PRN IV SEE LABEL COMMENTS 05/30/17 01:15 Ondansetron HCl (Zofran Inj) 4 mg Q6HR PRN IV PUSH nausea 05/30/17 01:45 05/30/17 16:53 Octreotide Acetate 500 mcg/ Sodium Chloride 500 ml @ 50 mls/hr Q10H IV 05/30/17 03:31 05/30/17 16:33 Miscellaneous Information Patient in critical care unit? Ass... [id number] .XX 05/30/17 04:15 05/30/17 04:15 Chlorhexidine Gluconate (Chlorhexidine 2% Cloth) 3 pack DAILY@04 TOPICAL 05/31/17 04:00 06/04/17 04:01 Chlorhexidine Gluconate (Chlorhexidine 2% Cloth) 3 pack UNSCH PRN TOPICAL HYGIENIC CARE 05/30/17 04:15 06/04/17 04:13 Phenylephrine HCl 40 mg/Dextrose 500 ml @ 30 mls/hr TITRATE PRN IV Blood Pressure Management 05/30/17 21:30 05/30/17 20:00 Miscellaneous Information ALL NURSING DEPARTME... UNSCH PRN .XX SEE LABEL COMMENTS 05/30/17 19:06 05/31/17 19:05 Propofol 100 ml @ 3.111 mls/ hr TITRATE PRN IV SEDATION 05/30/17 22:30 Family History Positive for cancer and diabetes Social History Denies alcohol or tobacco abuse Quit smoking medical marijuana few months ago Physical Exam Vital Signs Vital Signs Date Time Temp Pulse Resp B/P (MAP) Pulse Ox O2 Delivery O2 Flow Rate FiO2 05/30/17 21:25 100 05/30/17 21:25 98.3 86 20 90/52 (65) 99 Mechanical Ventilator 100 05/30/17 21:15 86 20 90/52 (65) 99 Mechanical Ventilator 100 05/30/17 21:00 86 20 91/44 (60) 100 Mechanical Ventilator 100 05/30/17 20:45 92 20 87/47 (60) 98 Mechanical Ventilator 100 05/30/17 20:30 101 20 100/55 (70) 96 Mechanical Ventilator 100 05/30/17 20:15 94 20 92/43 (59) 100 Mechanical Ventilator 100 05/30/17 20:00 100 87/53 05/30/17 19:56 100 05/30/17 19:56 98.3 109 20 72/39 (50) 92 Mechanical Ventilator 100 05/30/17 18:00 112 05/30/17 16:00 100.3 109 19 105/65 (78) 96 05/30/17 16:00 109 05/30/17 16:00 96 Nasal Cannula 1.50 05/30/17 14:00 99 05/30/17 12:00 99.7 97 19 98/55 (69) 95 05/30/17 12:00 97 05/30/17 12:00 95 Nasal Cannula 1.50 05/30/17 10:15 99.2 101 22 104/57 94 05/30/17 10:00 103 05/30/17 08:26 98.2 102 12 106/59 97 05/30/17 08:00 99.8 100 18 103/53 96 05/30/17 08:00 96 Nasal Cannula 1.50 05/30/17 08:00 99.8 100 18 103/53 (70) 96 05/30/17 08:00 100 05/30/17 06:00 96 Nasal Cannula 2.00 05/30/17 06:00 81 05/30/17 05:21 99.0 88 20 67/38 91 05/30/17 04:17 99.0 100 20 117/55 (75) 94 05/30/17 04:15 105 05/30/17 03:02 96.5 99 18 92/55 (67) 95 05/30/17 02:32 86 18 102/53 (69) 96 Room Air 05/30/17 02:20 86 16 91/53 (66) 96 05/30/17 01:00 88 14 100/59 (73) 96 Room Air 05/30/17 00:35 82 14 90/55 (67) 96 05/30/17 00:05 84 14 85/47 (60) 97 05/29/17 23:53 89 12 99/56 (70) 98 Room Air 05/29/17 23:39 97.8 103 20 104/69 (81) 97 05/29/17 23:34 98.5 78 16 114/59 (77) 98 Room Air Physical Exam GENERAL: Well-nourished, well-developed patient. Sedated and intubated SKIN: Warm and dry. HEAD: Normocephalic. EYES: No scleral icterus. No injection or drainage. NECK: Supple, trachea midline. No JVD or lymphadenopathy. CARDIOVASCULAR: Regular rate and rhythm without murmurs, gallops, or rubs. RESPIRATORY: Breath sounds equal bilaterally. No accessory muscle use. GASTROINTESTINAL: Abdomen soft, non-tender, nondistended. MUSCULOSKELETAL: No cyanosis, or edema. BACK: Nontender without obvious deformity. NEURO EXAM: GCS: M5 V5 E3 Mental Status: The patient is sedated and intubated Cranial Nerves: Pupils are round, reactive to light. Reflexes: Biceps, patellar, and Achilles are 2/4 bilaterally. No clonus. Laboratory Laboratory Tests Test 05/29/17 23:50 05/30/17 02:01 05/30/17 04:10 05/30/17 04:29 White Blood Count 10.0 Red Blood Count 4.55 Hemoglobin 11.4 9.2 Hematocrit 35.4 27.6 Mean Corpuscular Volume 78.0 Mean Corpuscular Hemoglobin 25.1 Mean Corpuscular Hemoglobin Concent 32.1 Red Cell Distribution Width 15.4 Platelet Count 88 Mean Platelet Volume 9.9 Neutrophils (%) (Auto) 74.8 Lymphocytes (%) (Auto) 9.8 Monocytes (%) (Auto) 11.2 Eosinophils (%) (Auto) 3.2 Basophils (%) (Auto) 1.0 Neutrophils # (Auto) 7.5 Lymphocytes # (Auto) 1.0 Monocytes # (Auto) 1.1 Eosinophils # (Auto) 0.3 Basophils # (Auto) 0.1 CBC Comment AUTO DIFF Differential Comment AUTO DIFF CONFIRMED Platelet Estimate LOW Platelet Morphology Comment NORMAL Prothrombin Time 13.4 Prothromb Time International Ratio 1.2 Activated Partial Thromboplast Time 25.9 Blood Urea Nitrogen 27 Creatinine 0.85 Random Glucose 86 Total Protein 6.3 Albumin 2.8 Calcium Level 8.6 Alkaline Phosphatase 160 Aspartate Amino Transf (AST/SGOT) 56 Alanine Aminotransferase (ALT/SGPT) 59 Total Bilirubin 1.4 Sodium Level 144 Potassium Level 3.8 Chloride Level 110 Carbon Dioxide Level 27.6 Anion Gap 6 Estimat Glomerular Filtration Rate 100 Acetaminophen Level LESS THAN 2.0 Nasal Screen MRSA (PCR) MRSA NOT DETECTED Test 05/30/17 14:54 05/30/17 19:05 05/30/17 20:17 Hemoglobin 9.5 7.5 Hematocrit 28.8 23.4 Blood Gas Puncture Site RT RADIAL Blood Gas Patient Temperature 98.6 Blood Gas HCO3 20 Blood Gas Base Excess -5.1 Blood Gas Oxygen Saturation 97 Arterial Blood pH 7.30 Arterial Blood Partial Pressure CO2 43 Arterial Blood Partial Pressure O2 247 Arterial Blood Oxygen Content 11.5 Arterial Blood Carboxyhemoglobin 1.6 Arterial Blood Methemoglobin 1.1 Blood Gas Hemoglobin 8.0 Oxygen Delivery Device VENTILATOR Blood Gas Ventilator Setting IMV12/500/10PS/5PEEP Blood Gas Inspired Oxygen 100 Result Diagram: 05/30/17 1905 05/29/17 4090 Assessment and Plan Assessment and Plan Respiratory failure - Postop - Intubated for an airway protection - Start weaning can extubated hemodynamically and H&H stable - Vent bundle - DuoNeb's when necessary GI bleed - large esophageal varix - 3 bands applied by GI - Protonix drip - Octreotide drip - Further management per GI Transaminitis/liver cirrhosis - Due to daily Tylenol use - Hepatitis Profile pending - Liver ultrasound reveals cirrhotic liver image - Tylenol level negative - Workup per gastroenterology Thrombocytopenia - Platelet count 88,000 - Due to liver cirrhosis - transfuse platelets if signs of acute bleeding DVT GI prophylaxis - Early ambulation - SCDs/TEDs - Protonix drip Critical Care: The total critical care time was 35 minutes. Time to perform other separately billable procedures was not included in the critical care time. Clarence Avendano MD May 30, 2017 22:16
[2017-05-31] VITALS (19 sets, daily range): BP systolic 77–120; BP diastolic 49–60; PULSE 96–129; RESP 20–134; TEMP 98.4–101.4; O2SAT 90–100
[2017-05-31] MEDS: PROPOFOL 1000 MG/100 ML INJ 100 ML IV PRN ×5 (01:30→19:02)
[2017-05-31 01:33] LABS: HEMATOCRIT 25.2 % (39.0-51.0)
[2017-05-31] MEDS: CHLORHEXIDINE GLUCONATE 2 % 1 PACK (2 CLOTHS)(taper/protocol) TOPICAL SCH (04:00)
[2017-05-31] MEDS ORDERED: SODIUM CHLOR 0.9% 1000 ML INJ 2,000 ML IV ONE (04:00)
[2017-05-31] MEDS: SODIUM CHLOR 0.9% 1000 ML INJ 1,000 ML IV SCH ×2 (06:00→13:11)
[2017-05-31] MEDS: OCTREOTIDE INJ 500 MCG in SODIUM CHLORID 0.9% 500 ML INJ 499.5 ML IV SCH ×3 (06:03→17:28)
[2017-05-31] MEDS: PANTOPRAZOLE INJ 80 MG in SODIUM CHLORIDE 0.9% INJ 100 ML IV SCH ×3 (06:04→23:34)
[2017-05-31 06:11] LABS: AUTOMATED NEUTROPHIL # 11.2 TH/MM3 (1.8-7.7); BASOPHIL # 0.1 TH/MM3 (0-0.2); BASOPHIL % 0.6 % (0.0-2.0); EOSINOPHIL # 0.4 TH/MM3 (0-0.4); EOSINOPHIL % 2.7 % (0.0-4.0); HEMATOCRIT 25.6 % (39.0-51.0); LYMPHOCYTE # 2.1 TH/MM3 (1.0-4.8); MEAN CELL VOLUME 80.7 FL (80.0-100.0); MEAN CORPUSCULAR HEMOGLOBIN 26.7 PG (27.0-34.0); MEAN CORPUSCULAR HGB CONC 33.1 % (32.0-36.0); MONO % 8.2 % (0.0-8.0); NEUT % 74.5 % (16.0-70.0); PLATELET COUNT 93 TH/MM3 (150-450); RED BLOOD COUNT 3.18 MIL/MM3 (4.50-5.90); RED CELL DISTRIBUTION WIDTH 16.7 % (11.6-17.2); WHITE BLOOD COUNT 15.1 TH/MM3 (4.0-11.0)
[2017-05-31 06:30] LABS: HEMO FLAGS AUTO DIFF
[2017-05-31 06:58] LABS: ANION GAP 6 MEQ/L (5-15); BICARBONATE 24.2 MEQ/L (21.0-32.0); BLOOD UREA NITROGEN 58 MG/DL (7-18); CHLORIDE 114 MEQ/L (98-107); FERRITIN 35 NG/ML (26-388); GLOMERULAR FILTRATION RATE 55 ML/MIN (>89); POTASSIUM 5.3 MEQ/L (3.5-5.1); SODIUM (NA) 144 MEQ/L (136-145); TRANSFERRIN IRON PROFILE 218 MG/DL (200-360)
[2017-05-31 07:17] LABS: CALCIUM-PROTEIN CORRECTED 8.2 MG/DL (8.5-10.1)
[2017-05-31 07:54] LABS: OVALOCYTES 1+ (NORMAL); PLATELET ESTIMATE SMEAR LOW (NORMAL); PLATELET MORPHOLOGY ENLARGED (NORMAL); SCAN/DIFF AUTO DIFF CONFIRMED
[2017-05-31] MEDS ORDERED: SODIUM CHLOR 0.9% 1000 ML INJ 1,000 ML IV ONE ×3 (12:00→22:30)
--- NOTE | 2017-05-31 12:05 | HHI.CCPN ---
Subjective Remarks/Hospital Course 41-year-old gentleman admitted with complaints of hematemesis over about an hour and a half. The color was dark; accompanied by nausea but denies abdominal pain. Just had a dark stool. He was taking Tylenol 1000 mg per day 5 days per week. He denies any history of peptic ulcer. He started taking generic Aleve or naproxen 200 mg when extra strength Tylenol wore off over the past week. The patient reports that last week he had "a really nasty flu". He had also put in extra hours at work last week and thought it might be related to work-related exhaustion. He denies chest pain, shortness of breath. He underwent urgent EGD by gastroenterology with the finding of a large esophageal varix extending from top to bottom with active bleeding in the distal portion, 3 bands were applied along the length of the varix and especially over the bleeding section. The stomach this was filled with blood and it was a limited evaluation. The duodenum was unremarkable. He has returned to ICU from OR sedated and intubated. Subjective: 05/31: Afebrile. The patient is noted to have low urine output, and sinus tachycardia heart rate 105-110, patient bolused with 1 L normal saline. Normal saline infusion continues at 100 cc/hour. H&H pending .Continues on Protonix and octreotide infusions currently remains sedated. The patient was noted to have 2 large melanotic stools postoperatively. Objective Vital Signs Date Time Temp Pulse Resp B/P (MAP) Pulse Ox O2 Delivery O2 Flow Rate FiO2 05/31/17 11:18 96 50 05/31/17 10:00 114 05/31/17 08:00 100.0 20 114/57 (76) 99/60 (73) 05/30/17 21:25 Mechanical Ventilator 05/30/17 16:00 1.50 Intake and Output 05/31/17 05/31/17 06/01/17 08:00 16:00 00:00 Intake Total 3266 ml Output Total 775 ml Balance 2491 ml Result Diagram: 05/31/17 0442 05/31/17 0442 Other Results Laboratory Tests Test 05/30/17 20:17 Blood Gas Puncture Site RT RADIAL Blood Gas Patient Temperature 98.6 Blood Gas HCO3 20 mmol/L (22-26) Blood Gas Base Excess -5.1 mmol/L (-2-2) Blood Gas Oxygen Saturation 97 % (90-100) Arterial Blood pH 7.30 (7.380-7.420) Arterial Blood Partial Pressure CO2 43 mmHg (38-42) Arterial Blood Partial Pressure O2 247 mmHg (61-120) Arterial Blood Oxygen Content 11.5 Vol % (12.0-20.0) Arterial Blood Carboxyhemoglobin 1.6 % (0-4) Arterial Blood Methemoglobin 1.1 % (0-2) Blood Gas Hemoglobin 8.0 G/DL (12.0-16.0) Oxygen Delivery Device VENTILATOR Blood Gas Ventilator Setting IMV12/500/10PS/5PEEP Blood Gas Inspired Oxygen 100 % Imaging Last Impressions Liver Ultrasound 05/30/17 0000 Signed Impressions: Service Date/Time: May 09:04 - CONCLUSION: Cirrhotic liver appearance. Question focal right lobe mass. Recommend further evaluation with hepatic MRI with Eovist. David Terrazas MD Chest X-Ray 05/30/17 0000 Signed Impressions: Service Date/Time: May 01:02 - CONCLUSION: 1. No acute cardiopulmonary disease. hO Escobedo MD Objective Remarks GENERAL: Well-nourished, well-developed patient. Sedated and intubated SKIN: Warm and dry. HEAD: Normocephalic. EYES: No scleral icterus. No injection or drainage. NECK: Supple, trachea midline. No JVD or lymphadenopathy. Orally intubated CARDIOVASCULAR: Regular rate and rhythm without murmurs, gallops, or rubs. RESPIRATORY: Mechanical ventilation Breath sounds equal bilaterally. No accessory muscle use. GASTROINTESTINAL: Abdomen soft, non-tender, nondistended. MUSCULOSKELETAL: No cyanosis, or edema. BACK: Nontender without obvious deformity. NEURO EXAM: GCS: M1 V1 E1 (3T) Mental Status: The patient is sedated and intubated Cranial Nerves: Pupils are round, reactive to light. Reflexes: Biceps, patellar, and Achilles are 2/4 bilaterally. No clonus. Procedures 05/30- EGD Urinary Catheter: Yes Assessment to: Continue A/P Assessment and Plan Respiratory failure - Postop - Intubated for an airway protection - Will wean and extubate when hemodynamically and H&H stable - Vent bundle - DuoNeb's when necessary GI bleed - large esophageal varix - 3 bands applied by GI - Protonix drip - Octreotide drip - Further management per GI - Monitor H&H every 6 hours, obtain fibrinogen level Sinus tachycardia -Bolused 1 L of normal saline -Continue normal saline at 100 cc/hour -Follow-up hemoglobin level Transaminitis/liver cirrhosis - Due to daily Tylenol use - Hepatitis Profile pending - Liver ultrasound reveals cirrhotic liver image - Tylenol level negative - Workup per gastroenterology -Monitor PT/INR Thrombocytopenia - Platelet count 88,000 - Due to liver cirrhosis - transfuse platelets if signs of acute bleeding, or less than 50,000 DVT GI prophylaxis - Early ambulation - SCDs/TEDs - Protonix drip Dispo: Discussed with [employer] SUPERINTENDENT at bedside. This patient remains critically ill with one or more organ systems which are or may become a threat to life. I have spent in excess of 31 minutes discontinuously in the care and management of this patient. This time is exclusive of procedures, and includes, but is not limited to, evaluation of the patient, review of the medical record, discussions with family, consultants, nursing staff, or respiratory therapy, and documentation in the medical record. Physician Sheela Herrera MD May 31, 2017 12:05
[2017-05-31] MEDS: SODIUM CHLORIDE 0.9% FLUSH 10 ML FLUSH IV FLUSH SCH ×2 (12:30→21:00)
[2017-05-31 13:19] LABS: HEMATOCRIT 27.7 % (39.0-51.0); REVIEW FLAG FINAL
[2017-05-31 13:31] LABS: INTERNATIONAL NORMALIZED RATIO 1.2 RATIO; PROTHROMBIN TIME - PATIENT 13.4 SEC (9.8-11.6)
--- NOTE | 2017-05-31 15:17 | HHI.GIFU ---
Subjective Remarks Resting in bed. Sedated on vent. Nurse reports that patient had one large dark maroon stool earlier. Became tachycardic- 120, mild hypotension. Also febrile per nurse. (Mercedes Richards) Objective Vitals I&O Vital Signs Date Time Temp Pulse Resp B/P (MAP) Pulse Ox O2 Delivery O2 Flow Rate FiO2 05/31/17 12:00 117 05/31/17 12:00 50 05/31/17 12:00 100.5 117 20 104/55 (71) 95 86/51 (63) 05/31/17 11:18 96 50 05/31/17 10:00 114 05/31/17 08:09 97 50 05/31/17 08:00 100.0 108 20 114/57 (76) 97 99/60 (73) 05/31/17 08:00 50 05/31/17 08:00 50 05/31/17 08:00 108 05/31/17 06:00 106 05/31/17 04:00 98.4 101 60 100/52 (68) 100 86/54 (65) 05/31/17 04:00 80 05/31/17 04:00 101 05/31/17 03:57 100 60 05/31/17 02:00 96 05/31/17 01:21 100 70 05/31/17 00:00 80 05/31/17 00:00 98.7 104 134 93/49 (64) 100 77/52 (60) 05/31/17 00:00 104 05/30/17 22:15 96 80 05/30/17 22:00 102 05/30/17 22:00 100 05/30/17 21:25 100 05/30/17 21:25 98.3 86 20 90/52 (65) 99 Mechanical Ventilator 100 05/30/17 21:25 100 100 05/30/17 21:15 86 20 90/52 (65) 99 Mechanical Ventilator 100 05/30/17 21:00 86 20 91/44 (60) 100 Mechanical Ventilator 100 05/30/17 20:45 92 20 87/47 (60) 98 Mechanical Ventilator 100 05/30/17 20:30 101 20 100/55 (70) 96 Mechanical Ventilator 100 05/30/17 20:15 94 20 92/43 (59) 100 Mechanical Ventilator 100 05/30/17 20:00 100 87/53 05/30/17 19:56 100 05/30/17 19:56 98.3 109 20 72/39 (50) 92 Mechanical Ventilator 100 05/30/17 19:50 99 100 05/30/17 18:00 112 05/30/17 16:00 100.3 109 19 105/65 (78) 96 05/30/17 16:00 109 05/30/17 16:00 96 Nasal Cannula 1.50 I/O 05/30/17 05/30/17 05/30/17 05/31/17 05/31/17 05/31/17 07:00 15:00 23:00 07:00 15:00 23:00 Intake Total 649 ml 1713 ml 2280 ml 3266 ml Output Total 1460 ml 775 ml Balance 649 ml 1713 ml 820 ml 2491 ml Intake Oral 480 ml IV Total 649 ml 1100 ml 500 ml 3266 ml Packed Cells 500 ml Blood Product IV Normal Saline Flush 113 ml Other 1300 ml Output Urine Total 860 ml 775 ml Emesis 600 ml # Voids 0 # Bowel Movements 1 3 Laboratory Laboratory Tests Test 05/30/17 14:54 05/30/17 19:05 05/30/17 20:17 05/31/17 01:10 Hemoglobin 9.5 7.5 8.3 Hematocrit 28.8 23.4 25.2 Blood Gas Puncture Site RT RADIAL Blood Gas Patient Temperature 98.6 Blood Gas HCO3 20 Blood Gas Base Excess -5.1 Blood Gas Oxygen Saturation 97 Arterial Blood pH 7.30 Arterial Blood Partial Pressure CO2 43 Arterial Blood Partial Pressure O2 247 Arterial Blood Oxygen Content 11.5 Arterial Blood Carboxyhemoglobin 1.6 Arterial Blood Methemoglobin 1.1 Blood Gas Hemoglobin 8.0 Oxygen Delivery Device VENTILATOR Blood Gas Ventilator Setting IMV12/500/10PS/5PEEP Blood Gas Inspired Oxygen 100 Test 05/31/17 04:42 05/31/17 12:38 White Blood Count 15.1 Red Blood Count 3.18 Hemoglobin 8.5 8.9 Hematocrit 25.6 27.7 Mean Corpuscular Volume 80.7 Mean Corpuscular Hemoglobin 26.7 Mean Corpuscular Hemoglobin Concent 33.1 Red Cell Distribution Width 16.7 Platelet Count 93 Mean Platelet Volume 9.3 Neutrophils (%) (Auto) 74.5 Lymphocytes (%) (Auto) 14.0 Monocytes (%) (Auto) 8.2 Eosinophils (%) (Auto) 2.7 Basophils (%) (Auto) 0.6 Neutrophils # (Auto) 11.2 Lymphocytes # (Auto) 2.1 Monocytes # (Auto) 1.2 Eosinophils # (Auto) 0.4 Basophils # (Auto) 0.1 CBC Comment AUTO DIFF Differential Comment AUTO DIFF CONFIRMED Platelet Estimate LOW Platelet Morphology Comment ENLARGED Ovalocytes 1+ Blood Urea Nitrogen 58 Creatinine 1.44 Random Glucose 139 Total Protein 4.5 Calcium Level 6.8 Sodium Level 144 Potassium Level 5.3 Chloride Level 114 Carbon Dioxide Level 24.2 Anion Gap 6 Estimat Glomerular Filtration Rate 55 Protein Corrected Calcium 8.2 Iron Level 66 Total Iron Binding Capacity 305 Percent Iron Saturation 21.6 Ferritin 35 Tumor Marker Alpha Fetoprotein 1.8 Anti-Nuclear Antibody Screen NEG Prothrombin Time 13.4 Prothromb Time International Ratio 1.2 Fibrinogen 146 Imaging Last Impressions Liver Ultrasound 05/30/17 0000 Signed Impressions: Service Date/Time: May 09:04 - CONCLUSION: Cirrhotic liver appearance. Question focal right lobe mass. Recommend further evaluation with hepatic MRI with Eovist. David Terrazas MD Chest X-Ray 05/30/17 0000 Signed Impressions: Service Date/Time: May 01:02 - CONCLUSION: 1. No acute cardiopulmonary disease. Oh Escobedo MD Physical Exam HEENT: Normocephalic; atraumatic; no jaundice. CHEST: Respirations even/unlabored. OETT to vent. CARDIAC: ST ABDOMEN: Soft, hepatosplenomegaly; bowel sounds are present in all four quadrants. EXTREMITIES: No clubbing, cyanosis, or edema. CASE SPECIALIST: Sedated on vent. (Mercedes Richards) Assessment and Plan Plan PLAN - Upper GIB with hematemesis on admission. S/P EGD (05/31/17)-----> Bleeding esophageal varices. On octreotide gtt, protonix gtt. No hematemesis, but patient passed a large maroon stool today x 1. HH has remained stable with this. Likely residual blood. Will closely monitor. - Anemia acute blood loss. S/P 2 units prbc, HH 8.9/27.7. - Coagulopathy/thrombocytopenia. Stable. - Elevated LFTs. Liver US (05/30/17)---> Cirrhotic liver appearance. Question focal right lobe mass. Recommend further evaluation with hepatic MRI with Eovist. Hepatitis profile negative. STEPHANIE negative. AMA and ASMA pending. AFP 1.8. Ceruloplasmin, ALpha [address] Scan abdomen and pelvis to further evaluation. CT scan abdomen and pelvis pending. - family hx colon ca - mother dx age 60 - thrombocytopenia - PLT 88 PLAN - NPO - Cont. Octreotide Gtt - Cont. Protonix Gtt - Monitor labs - Transfuse as needed - CT Scan abdomen and pelvis - Await liver workup - EGD next week - Supportive care - Further recommendations to follow based on results of above - Pt seen and examined by myself and Dr. Kinney and this note is written on his behalf (Mercedes Richards) Plan Patient was seen and examined, agree with the above note, patient had variceal bleed yesterday which was controlled by banding. Patient is still high risk for bleeding, we will continue monitoring and we will make sure that he is anticoagulation corrected as much as we can (Jolly Kinney MD) Mercedes Richards May 31, 2017 15:17 Jolly Kinney MD May 31, 2017 21:46
[2017-05-31] MEDS ORDERED: MIDAZOLAM 100 MG/100 ML INJ 100 ML IV PRN ×2 (19:45)
[2017-05-31] MEDS ORDERED: MIDAZOLAM HCL 2 MG/2 ML VIAL IV PUSH ONE (19:45)
[2017-05-31] MEDS ORDERED: fentaNYL DRIP 250 ML IV PRN (19:45)
[2017-05-31 19:49] LABS: HEMATOCRIT 26.8 % (39.0-51.0)
[2017-05-31 19:51] LABS: REVIEW FLAG FINAL
[2017-05-31] MEDS ORDERED: MIDAZOLAM HCL 5 MG/ML VIAL (1 ML) ONE (19:52)
[2017-05-31] MEDS ORDERED: VANCOMYCIN INJ 1,000 MG in SODIUM CHLOR 0.9% 250 ML INJ 250 ML IV ONE (21:30)
[2017-05-31] MEDS ORDERED: Vancomycin Consult Pharmacy 1 EA OTHER SCH (21:30)
[2017-05-31] MEDS ORDERED: ACETAMINOPHEN 1000 MG/100 ML VIAL IV ONE (21:45)
--- NOTE | 2017-05-31 21:50 | RADRPT ---
EXAM DATE/TIME: 05/31/2017 21:31 [facility] COMPARISON: CHEST SINGLE AP, May 30, 2017, 1:02. INDICATIONS : Shortness of breath. MEDICAL HISTORY : None. SURGICAL HISTORY : None. ENCOUNTER: Initial ACUITY: 1 day PAIN SCORE: Non-responsive. LOCATION: Bilateral chest FINDINGS: A single view of the chest demonstrates right basilar density most characteristic of atelectasis. No significant effusion. No pneumothorax. Endotracheal tube in satisfactory position. CONCLUSION: 1. Basilar atelectasis. Endotracheal tube in satisfactory position. Yuri Herring MD on May 31, 2017 at 21:46 Board Certified Radiologist. This report was verified electronically.
[2017-05-31] MEDS: CEFEPIME INJ 2,000 MG in SODIUM CHLORIDE 0.9% INJ 100 ML IV SCH (22:00)
[2017-05-31] MEDS ORDERED: CALCIUM GLUCONATE INJ 2 GM in SODIUM CHLORIDE 0.9% INJ 100 ML IV ONE (23:00)
[2017-05-31] MEDS ORDERED: VANCOMYCIN INJ 2,500 MG in SODIUM CHLORID 0.9% 500 ML INJ 500 ML IV ONE (23:00)
[2017-05-31] MEDS: fentaNYL DRIP 250 ML IV PRN (23:24)
[2017-05-31 23:28] LABS: HEMATOCRIT 25.6 % (39.0-51.0); REVIEW FLAG FINAL
[2017-06-01] VITALS (30 sets, daily range): BP systolic 92–150; BP diastolic 48–71; PULSE 105–129; RESP 10–29; TEMP 98.2–101.7; O2SAT 89–97
[2017-06-01 00:19] LABS: BLOOD GAS BASE EXCESS -7.5 mmol/L (-2-2); BLOOD GAS CARBOXYHEMOGLOBIN 1.7 % (0-4); BLOOD GAS HCO3 17 mmol/L (22-26); BLOOD GAS METHEMOGLOBIN 1.2 % (0-2); BLOOD GAS O2 HGB SATURATION 88 % (90-100); BLOOD GAS OXYGEN CONTENT 10.3 Vol % (12.0-20.0); BLOOD GAS PCO2 34 mmHg (38-42); BLOOD GAS PO2 67 mmHg (61-120); BLOOD GAS TOTAL HGB 8.3 G/DL (12.0-16.0); TEMP CORR TO 98.6
[2017-06-01 00:20] LABS: CRITICAL VALUE YES; OXYGEN DEVICE VENT
[2017-06-01 00:21] LABS: DRAW SITE ART LINE; FIO2 80 %; STAT NO; ULNAR PULSE PRESENT; VENT SETTINGS SEE COMMENTS
[2017-06-01] MEDS: AZITHROMYCIN INJ 500 MG in SODIUM CHLOR 0.9% 250 ML INJ 250 ML IV SCH ×2 (00:46→21:47)
[2017-06-01] MEDS ORDERED: IODIXANOL 320 MG/ML 10 ML VIAL (for Rad CT) IV ONE (02:45)
--- NOTE | 2017-06-01 03:08 | RADRPT ---
EXAM DATE/TIME: 06/01/2017 02:39 [facility] COMPARISON: No previous studies available for comparison. INDICATIONS : Respiratory failure. Evaluate for pulmonary embolism. IV CONTRAST: 89 cc Visipaque (iodixanol) IV ; Cumulative dose for multiple exams. RADIATION DOSE: 23.20 CTDIvol (mGy) MEDICAL HISTORY : Bleeding esophageal varices SURGICAL HISTORY : None. ENCOUNTER: Initial ACUITY: 1 day PAIN SCALE: Non-responsive LOCATION: chest TECHNIQUE: Volumetric scanning of the chest was performed using a pulmonary embolism protocol MIP images were re constructed. Using automated exposure control and adjustment of the mA and/or kV according to patien t size, radiation dose was kept as low as reasonably achievable to obtain optimal diagnostic quality images. DICOM format image data is available electronically for review and comparison. Follow-up recommendations for detected pulmonary nodules are based at a minimum on nodule size and pa tient risk factors according to Fleischner Society Guidelines. FINDINGS: Poor opacification of pulmonary arteries. Relatively decreased opacification seen in the left upper l obe, series 4 image 47 and left lower lobe, series 4 image 59, of concern for left-sided pulmonary em boli. There is no pulmonary embolus on the right demonstrated. Densely atelectatic lower lobes are noted, right more so than left. There is also some patchy in filtrate/pneumonia in the right lower lobe. An ill-defined right infrahilar/subcarinal mass is seen, estimated at approximately 4.2 x 4.8 cm in size. CONCLUSION: 1. Suspected left upper lobe and left lower lobe pulmonary emboli. No pulmonary embolus on the right. 2. Right infrahilar/subcarinal mass. 3. Bilateral lower lobe atelectasis, right worse than left. Also patchy pneumonia of the right lower lobe. David Quintero MD on June 01, 2017 at 3:03 Board Certified Radiologist. This report was verified electronically.
--- NOTE | 2017-06-01 03:14 | RADRPT ---
EXAM DATE/TIME: 06/01/2017 02:39 [facility] COMPARISON: CT PULMONARY ANGIOGRAM, June 01, 2017, 2:39. INDICATIONS : Abnormal liver on ultrasound IV CONTRAST: 89 cc Visipaque (iodixanol) IV ; Cumulative dose for multiple exams. ORAL CONTRAST: No oral contrast ingested. RADIATION DOSE: 17.03 CTDIvol (mGy) MEDICAL HISTORY : Bleeding esophageal varices SURGICAL HISTORY : None. ENCOUNTER: Initial ACUITY: 1 day PAIN SCALE: Non-responsive LOCATION: abdomen TECHNIQUE: Volumetric scanning of the abdomen and pelvis was performed. Using automated exposure control and ad justment of the mA and/or kV according to patient size, radiation dose was kept as low as reasonably achievable to obtain optimal diagnostic quality images. DICOM format image data is available electro nically for review and comparison. FINDINGS: Liver is cirrhotic and there is marked splenomegaly. Mildly heterogeneous enhancement of the liver bu t no well-defined/measurable mass. There are florid portosystemic collaterals including gastroesophageal varices. The varices extend int o the lower chest posterior mediastinum and may be responsible for the masslike area seen in the subc arinal/right infrahilar region on the CT pulmonary angiogram. Esophageal wall is thickened. Small ascites. There is also body wall edema. Thickening noted of the colonic wall. No bowel obstruct ion. CONCLUSION: 1. Cirrhosis. Heterogeneously enhancing liver without a distinct/measurable focal lesion. 2. Marked splenomegaly, 10.3 x 17.6 x 18.1 cm. 3. Very severe portosystemic collaterals including gastroesophageal varices. The varices extend into the lower chest and probably account for the subcarinal/right infrahilar mass seen by chest CT. 4. Diffuse wall thickening of the colon, colitis versus secondary changes from cirrhosis. 5. Small ascites. Body wall edema/anasarca. David Quintero MD on June 01, 2017 at 3:07 Board Certified Radiologist. This report was verified electronically.
[2017-06-01] MEDS: CHLORHEXIDINE GLUCONATE 2 % 1 PACK (2 CLOTHS)(taper/protocol) TOPICAL SCH (04:00)
[2017-06-01 04:23] LABS: HEMATOCRIT 24.7 % (39.0-51.0); REVIEW FLAG FINAL
[2017-06-01 04:26] LABS: INTERNATIONAL NORMALIZED RATIO 1.2 RATIO; PROTHROMBIN TIME - PATIENT 13.6 SEC (9.8-11.6)
[2017-06-01 05:04] LABS: BICARBONATE 20.5 MEQ/L (21.0-32.0); CALCIUM-PROTEIN CORRECTED 8.1 MG/DL (8.5-10.1); MAGNESIUM 2.4 MG/DL (1.5-2.5); POTASSIUM 5.2 MEQ/L (3.5-5.1); TOTAL BILIRUBIN ADULT 2.1 MG/DL (0.2-1.0)
[2017-06-01] MEDS: OCTREOTIDE INJ 500 MCG in SODIUM CHLORID 0.9% 500 ML INJ 499.5 ML IV SCH ×3 (05:31→16:23)
--- NOTE | 2017-06-01 05:33 | PD.PROCEDR ---
Procedure Note Procedure Centerline placement A time-out was completed verifying correct patient, procedure, site, positioning , and special equipment if applicable. The patient was placed in a dependent position appropriate for central line placement based on the vein to be cannulated. The patients right neck was prepped and draped in sterile fashion. 1% Lidocaine was used to anesthetize the surrounding skin area. A triple lumen 9 -St Helenian Cordis catheter was introduced into the the internal jugular vein using the Seldinger technique and under ultrasound guidance. The catheter was threaded smoothly over the guide wire and appropriate blood return was obtained. Each lumen of the catheter was evacuated of air and flushed with sterile saline. The catheter was then sutured in place to the skin and a sterile dressing applied. Perfusion to the extremity distal to the point of catheter insertion was checked and found to be adequate. Estimated Blood Loss: 1ml The patient tolerated the procedure well and there were no complications. Clarence Avednano MD Jun 01, 2017 5:33 am
[2017-06-01 05:41] LABS: BLOOD GAS BASE EXCESS -8.6 mmol/L (-2-2); BLOOD GAS CARBOXYHEMOGLOBIN 1.6 % (0-4); BLOOD GAS HCO3 16 mmol/L (22-26); BLOOD GAS METHEMOGLOBIN 1.1 % (0-2); BLOOD GAS O2 HGB SATURATION 94 % (90-100); BLOOD GAS OXYGEN CONTENT 10.5 Vol % (12.0-20.0); BLOOD GAS PCO2 33 mmHg (38-42); BLOOD GAS PO2 86 mmHg (61-120); BLOOD GAS TOTAL HGB 7.9 G/DL (12.0-16.0); TEMP CORR TO 98.6
[2017-06-01 05:45] LABS: CRITICAL VALUE YES; DRAW SITE ART LINE; FIO2 90 %; OXYGEN DEVICE VENT; STAT NO; ULNAR PULSE PRESENT; VENT SETTINGS SEE COMMENTS
--- NOTE | 2017-06-01 06:11 | RADRPT ---
EXAM DATE/TIME: 06/01/2017 05:41 [facility] COMPARISON: CHEST SINGLE AP, May 31, 2017, 21:31. INDICATIONS : Central line placement, MEDICAL HISTORY : None. SURGICAL HISTORY : None. ENCOUNTER: Subsequent ACUITY: 2 days PAIN SCORE: Non-responsive. LOCATION: Bilateral chest FINDINGS: Trace right base atelectasis noted. No pleural effusion. No pneumothorax. New right internal jugular central venous catheter has its tip at the atriocaval junction. Endotracheal tube remains in place, tip about 4 cm above the eboni. CONCLUSION: 1. No significant change trace right base atelectasis. 2. Right IJ line has been placed, tip at the atriocaval junction. No pneumothorax. David Quintero MD on June 01, 2017 at 6:08 Board Certified Radiologist. This report was verified electronically.
[2017-06-01] MEDS: PHENYLEPHRINE 40 MG in D5W 500 ML IV PRN (07:09)
[2017-06-01] MEDS: SODIUM BICARBONATE 8.4% INJ 150 MEQ in DEXTROSE 5% IN WATE 1000ML INJ 1,000 ML IV SCH ×4 (07:10→21:51)
[2017-06-01] MEDS: SODIUM CHLORIDE 0.9% FLUSH 10 ML FLUSH IV FLUSH SCH (09:00)
[2017-06-01] MEDS: CEFEPIME INJ 2,000 MG in SODIUM CHLORIDE 0.9% INJ 100 ML IV SCH ×2 (10:42→21:50)
[2017-06-01] MEDS: PANTOPRAZOLE INJ 80 MG in SODIUM CHLORIDE 0.9% INJ 100 ML IV SCH ×2 (10:42→21:41)
[2017-06-01] MEDS: VANCOMYCIN 1,500 MG/NS 500 ML IV SCH ×4 (10:43→23:41)
[2017-06-01 12:46] LABS: BLOOD GAS BASE EXCESS -10.9 mmol/L (-2-2); BLOOD GAS CARBOXYHEMOGLOBIN 1.6 % (0-4); BLOOD GAS HCO3 14 mmol/L (22-26); BLOOD GAS METHEMOGLOBIN 1.2 % (0-2); BLOOD GAS O2 HGB SATURATION 93 % (90-100); BLOOD GAS OXYGEN CONTENT 9.3 Vol % (12.0-20.0); BLOOD GAS PCO2 30 mmHg (38-42); BLOOD GAS PO2 82 mmHg (61-120); TEMP CORR TO 98.6
[2017-06-01 12:47] LABS: FIO2 90 %; OXYGEN DEVICE VENT
[2017-06-01 12:48] LABS: DRAW SITE ALINE; STAT NO
--- NOTE | 2017-06-01 13:11 | HHI.CCPN ---
Subjective Remarks/Hospital Course 41-year-old gentleman admitted with complaints of hematemesis over about an hour and a half. The color was dark; accompanied by nausea but denies abdominal pain. Just had a dark stool. He was taking Tylenol 1000 mg per day 5 days per week. He denies any history of peptic ulcer. He started taking generic Aleve or naproxen 200 mg when extra strength Tylenol wore off over the past week. The patient reports that last week he had "a really nasty flu". He had also put in extra hours at work last week and thought it might be related to work-related exhaustion. He denies chest pain, shortness of breath. He underwent urgent EGD by gastroenterology with the finding of a large esophageal varix extending from top to bottom with active bleeding in the distal portion, 3 bands were applied along the length of the varix and especially over the bleeding section. The stomach this was filled with blood and it was a limited evaluation. The duodenum was unremarkable. He has returned to ICU from OR sedated and intubated. Subjective: 05/31: Afebrile. The patient is noted to have low urine output, and sinus tachycardia heart rate 105-110, patient bolused with 1 L normal saline. Normal saline infusion continues at 100 cc/hour. H&H pending .Continues on Protonix and octreotide infusions currently remains sedated. The patient was noted to have 2 large melanotic stools postoperatively. 06/01: During the night the patient became hypoxic and tachycardic. CTA pulmonary perform revealed bilateral upper and lower left lobe pulmonary embolus. Oxygen requirement significantly increased to currently FiO2 of 0.9. Patient not a candidate for TPA in the setting of acute upper GI bleed currently on Protonix and octreotide. Discussed with interventional radiology, , regarding possibility of catheter directed TPA to left upper and lower lobe, patient also deemed not a candidate. Ultrasound bilateral upper and lower extremities ordered today. Plan for IVC filter placement. Patient currently hemodynamically unstable requiring phenylephrine infusion, stat echo pending. The patient was noted to have abnormal liver ultrasound CT abdomen and pelvis was also performed revealing esophageal varices extending into the lower chest and florid portal systemic collaterals. Objective Vital Signs Date Time Temp Pulse Resp B/P (MAP) Pulse Ox O2 Delivery O2 Flow Rate FiO2 06/01/17 12:05 92 90 06/01/17 07:09 119 95/54 06/01/17 04:00 100.2 10 05/30/17 21:25 Mechanical Ventilator 05/30/17 16:00 1.50 Intake and Output 06/01/17 06/01/17 06/01/17 07:59 15:59 23:59 Intake Total 3814 ml 341 ml Output Total 650 ml Balance 3164 ml 341 ml Result Diagram: 06/01/17 0400 06/01/17 0400 Other Results Microbiology Date/Time Source Procedure Growth Status 05/31/17 23:00 Urine Catheterized Urine Legionella Antigen - Final PRESUMPTIVE NEGATIVE FOR LEGIONELLA P... Complete 05/31/17 23:00 Urine Catheterized Urine Streptococcus pneumoniae Antigen (M - Final PRESUMPTIVE NEGATIVE FOR STREPTOCOCCU... Complete Laboratory Tests Test 06/01/17 00:00 06/01/17 05:25 Blood Gas Puncture Site ART LINE ART LINE Blood Gas Patient Temperature 98.6 98.6 Blood Gas HCO3 17 mmol/L (22-26) 16 mmol/L (22-26) Blood Gas Base Excess -7.5 mmol/L (-2-2) -8.6 mmol/L (-2-2) Blood Gas Oxygen Saturation 88 % (90-100) 94 % (90-100) Arterial Blood pH 7.33 (7.380-7.420) 7.32 (7.380-7.420) Arterial Blood Partial Pressure CO2 34 mmHg (38-42) 33 mmHg (38-42) Arterial Blood Partial Pressure O2 67 mmHg (61-120) 86 mmHg (61-120) Arterial Blood Oxygen Content 10.3 Vol % (12.0-20.0) 10.5 Vol % (12.0-20.0) Arterial Blood Carboxyhemoglobin 1.7 % (0-4) 1.6 % (0-4) Arterial Blood Methemoglobin 1.2 % (0-2) 1.1 % (0-2) Blood Gas Hemoglobin 8.3 G/DL (12.0-16.0) 7.9 G/DL (12.0-16.0) Oxygen Delivery Device VENT VENT Blood Gas Ventilator Setting SEE COMMENTS SEE COMMENTS Blood Gas Inspired Oxygen 80 % 90 % Imaging Last Impressions Liver Ultrasound 05/30/17 0000 Signed Impressions: Service Date/Time: May 09:04 - CONCLUSION: Cirrhotic liver appearance. Question focal right lobe mass. Recommend further evaluation with hepatic MRI with Eovist. David Terrazas MD Chest X-Ray 05/30/17 0000 Signed Impressions: Service Date/Time: , May 30, 2017 01:02 - CONCLUSION: 1. No acute cardiopulmonary disease. Oh Escobedo MD Objective Remarks GENERAL: Well-nourished, well-developed patient. Sedated and intubated SKIN: Warm and dry. HEAD: Normocephalic. EYES: No scleral icterus. No injection or drainage. NECK: Supple, trachea midline. No JVD or lymphadenopathy. Orally intubated CARDIOVASCULAR: Regular rate and rhythm without murmurs, gallops, or rubs. RESPIRATORY: Mechanical ventilation Breath sounds equal bilaterally. No accessory muscle use. GASTROINTESTINAL: Abdomen soft, non-tender, nondistended. MUSCULOSKELETAL: No cyanosis, or edema. BACK: Nontender without obvious deformity. NEURO EXAM: GCS: M1 V1 E1 (3T) Mental Status: The patient is sedated and intubated Cranial Nerves: Pupils are round, reactive to light. Reflexes: Biceps, patellar, and Achilles are 2/4 bilaterally. No clonus. Procedures 05/30- EGD Side: Right Location: Subclavian Reason for Continuation Vasopressor support A/P Assessment and Plan Hypoxic Respiratory failure Pulmonary embolus-left upper lobe, left lower lobe Multilobar Pneumonia - Maintain O2 saturation greater than 92%, -Fentanyl infusion 50 mics/hour for ventilator synchrony -05/29 Intubated for an airway protection - Vent bundle - DuoNeb's every 6 hours scheduled every 2 hours when necessary -06/01 CTA pulmonary-suspected left upper lobe, left lower lobe pulmonary emboli, no pulmonary emboli on the right. Bilateral lower lobe atelectasis. Patchy pneumonia right lower lobe. Noted ill-defined right infrahilar/subcarinal mass 4.2 x 4.8 cm (likely esophageal varices- per CT abdomen report). Extensive discussion with Dr. Terrazas (IR) patient is not a candidate for catheter directed TPA in the setting of GI bleeding. -Patient on azithromycin, cefepime and vancomycin empiric antibiotics -Consult for IVC filter -Pulmonology consulted GI bleed Hematemesis Splenomegaly Cirrhosis Esophageal varices Elevated transaminase levels Hyperammonemia Ascites - large esophageal varix -06/01 CT abdomen-splenomegaly, ascites, esophageal varices extend into the lower chest and may account for subcarinal and infrahilar masses. Florid portosystemic collaterals - 3 bands applied by GI - Protonix drip - Octreotide drip - Further management per GI- Dr. Chong - Monitor H&H every 6 hours, 8.2->7.8 will transfuse if < 7. Obtain 2 units packed red blood cells ahead Sinus tachycardia Shock-cardiogenic versus hypovolemic -Bolused 1 L of normal saline -Sodium bicarbonate 75 cc/hour -Follow-up hemoglobin level -06/01 Obtain stat echo-evaluate function and clot burden Transaminitis/liver cirrhosis - Due to daily Tylenol use - Hepatitis Profile pending -AST 692, ALT 593, T bili 2.1 - Liver ultrasound reveals cirrhotic liver image - Tylenol level negative - Workup per gastroenterology -Monitor PT/INR -06/01 CT abdomen Thrombocytopenia -Monitor H&H every 6 hours -Fibrinogen level 146, follow up fibrinogen level if decreases plan for cryoprecipitate post placement of IVC filter - transfuse platelets if signs of acute bleeding, or less than 50,000 -Hematology consulted DVT GI prophylaxis - No pharmacological DVT prophylaxis. Plan for IVC filter -06/01 follow-up ultrasound venous Doppler bilateral upper extremities and bilateral lower extremities - SCDs/TEDs - Protonix drip Dispo: Discussed with HERBIC[employer] SPRAYER at bedside. Following patient's mother and updated her on patient's medical status. the patient's prognosis is guarded at this point, family made aware. This patient remains critically ill with one or more organ systems which are or may become a threat to life. I have spent in excess of 67 minutes discontinuously in the care and management of this patient. This time is exclusive of procedures, and includes, but is not limited to, evaluation of the patient, review of the medical record, discussions with family, consultants, nursing staff, or respiratory therapy, and documentation in the medical record. Physician Sheela Herrera MD Jun 01, 2017 13:11
[2017-06-01 13:38] LABS: HEMATOCRIT 26.5 % (39.0-51.0)
[2017-06-01 13:39] LABS: REVIEW FLAG FINAL
--- NOTE | 2017-06-01 15:13 | RADRPT ---
EXAM DATE/TIME: 06/01/2017 13:30 [facility] COMPARISON: No previous studies available for comparison. INDICATIONS : Bilateral leg swelling. MEDICAL HISTORY : Nausea/vomiting. Hematemesis. Melena. SURGICAL HISTORY : None. ENCOUNTER: Initial ACUITY: 1 day PAIN SCORE: Non-responsive LOCATION: Bilateral leg. TECHNIQUE: Venous ultrasound of the left and right leg was performed from the inguinal ligament to the proximal calf. Real-time, color Doppler and spectral tracing, compression and augmentation techniques were us ed. FINDINGS: RIGHT LEG: There is normal compressibility of the deep venous system from the inguinal region to the proximal ca lf. No echogenic clot is seen in the lumen of the common femoral, femoral, popliteal, and posterior tibial veins. There is a normal response of the venous system to proximal and distal augmentation an d respiration. LEFT LEG: There is normal compressibility of the deep venous system from the inguinal region to the proximal ca lf. No echogenic clot is seen in the lumen of the common femoral, femoral, popliteal, and posterior tibial veins. There is a normal response of the venous system to proximal and distal augmentation an d respiration. CONCLUSION: No evidence of lower extremity DVT on the right or left. Angel Paredes MD on June 01, 2017 at 15:10 Board Certified Radiologist. This report was verified electronically.
--- NOTE | 2017-06-01 15:28 | RADRPT ---
EXAM DATE/TIME: 06/01/2017 13:47 [facility] COMPARISON: No previous studies available for comparison. INDICATIONS : Bilateral arm swelling. MEDICAL HISTORY : Nausea/vomiting. Hematemesis. Melena. SURGICAL HISTORY : None. ENCOUNTER: Initial ACUITY: 1 day PAIN SCORE: Non-responsive LOCATION: Bilateral arm. FINDINGS: RIGHT UPPER EXTREMITY: There is spontaneous flow documented in the brachial, basilic, cephalic, axillary, and subclavian vei ns. The vessels are compressible and augmentation response is documented. No filling defects are se en. The flow is phasic with respiration. Direction of flow in the jugular vein is caudal. LEFT UPPER EXTREMITY: There is spontaneous flow documented in the brachial, basilic, cephalic, axillary, and subclavian vei ns. The vessels are compressible and augmentation response is documented. No filling defects are se en. The flow is phasic with respiration. Direction of flow in the jugular vein is caudal. CONCLUSION: No evidence of upper extremity DVT on the right or left. Angel Paredes MD on June 01, 2017 at 15:26 Board Certified Radiologist. This report was verified electronically.
[2017-06-01] MEDS: fentaNYL DRIP 250 ML IV PRN (17:08)
--- NOTE | 2017-06-01 17:18 | MB ---
cc: YOSEF,YOSEF DATE OF CONSULTATION 06/01/17 REASON FOR CONSULTATION Respiratory failure, pulmonary embolism. HISTORY OF PRESENT ILLNESS The patient is a 41-year-old male admitted with hematemesis found to have large esophageal varices. The patient was intubated 05/29/2017 for hypoxemia and to protect his airway. The patient does not relate any history. His history is obtained from his record. The patient did undergo upper endoscopy and three bands were applied to the patient's varices. There is no active bleeding at present. He remains intubated on ventilatory support. PAST MEDICAL HISTORY Negative for diabetes, hypertension or heart disease. PAST SURGICAL HISTORY No previous surgeries. ALLERGIES None known to medication MEDICATIONS Upon presentation 1. Naprosyn. 2. Tylenol. Because of the patient's persistent, CT angiography was undertaken with evidence of left upper and lower lobe emboli. The right lung seems. Question mass lesion in the infrahilar region was suspect, however, there was a question whether this is indeed a mass or soft tissues related to his varices. Because of the patient's pulmonary embolization and GI bleed, IVC filter is planned. FAMILY HISTORY Noncontributory. REVIEW OF SYSTEMS 12-point review of systems as per HPI and past history otherwise negative. PHYSICAL EXAMINATION GENERAL: The patient sedated on ventilatory support VITAL SIGNS: Temperature 98, pulse 100, respirations 18, blood pressure 136, O2 saturation 94% on inspired oxygen fraction at 90%. HEENT: Exam unremarkable. Eyes without icterus. NECK: Without adenopathy or thyroid enlargement. CHEST: Without dullness to percussion, clear to auscultation. CARDIAC: PMI distant. S1-S2 audible. No murmur or rub. ABDOMEN: Lax, audible bowel sounds. EXTREMITIES: No clubbing, cyanosis or edema. LABORATORY DATA Hemoglobin 18.4, hematocrit 26, sodium 147, potassium 5.2, BUN 71, creatinine 1.9. Arterial blood gas today - pH 7.30, pCO2 30, pO2 82, 90% inspired oxygen fraction, INR 1.2. IMAGING STUDIES CT angiogram as discussed above with right pulmonary emboli, patchy bilateral infiltrates. IMPRESSION 1. Respiratory failure on ventilatory support 2. Pulmonary embolism. 3. GI bleed 4. Question lung mass 5. Thrombocytopenia, splenomegaly, ascites and esophageal varices being evaluated by GI at present. PLAN We will continue the patient's ventilatory support. I do agree with IVC filter placement in view of the patient's active bleeding, thrombocytopenia which precludes anticoagulation at least at present. Meanwhile, hematology evaluation for hypocoagulable state would be appropriate as well. We will follow the patient's course along with you and depending on progress proceed further. Yosef Navas MD WWW/ /3:12 PM /5:01 PM
--- NOTE | 2017-06-01 21:48 | MB ---
cc: ANTOINE PIERSON M.D. DATE OF CONSULTATION 06/01/17 REASON FOR CONSULTATION Consult requested by scrap dealer for evaluation of suspected pulmonary embolism in a patient who is admitted with massive GI bleeding. HISTORY OF PRESENT ILLNESS Liam is a 41-year-old male. He is on the ventilator, unable to give any history. The patient presented to the emergency room with hematemesis. GI was consulted. The patient underwent upper endoscopy which showed bleeding varices. The patient underwent bending of the varices by chief of vital statistics. The patient was kept on the ventilator to protect his airway. The patient is in the Intensive Care Unit. The patient had a CT angiogram which showed suspicious for left upper lobe and left lower lobe pulmonary embolism. There is no pulmonary embolism noted on the right side. There was a right infrahilar subcarinal mass noted. There is a bilateral lower lobe atelectasis noted more on the right than the left. Also, there is a patchy pneumonia on the right lower lobe noted as well. He had a Doppler ultrasound of both upper and lower extremities which failed to show any DVTs. He had an ultrasound of the liver which shows cirrhotic liver with questionable focal right lobe mass. Hepatic MRI with Eovist had been recommended by radiologist. I have been asked to see the patient for evaluation of pulmonary embolism. The patient is unable to give any history due to being on the ventilator. REVIEW OF SYSTEMS Review of systems is not possible. PAST MEDICAL HISTORY Unremarkable. PAST SURGICAL HISTORY Unremarkable. ALLERGIES None. MEDICATIONS Reported to be: 1. Tylenol. 2. Naprosyn. FAMILY HISTORY Noncontributory. SOCIAL HISTORY The patient drinks alcohol. Does not smoke cigarettes. PHYSICAL EXAMINATION GENERAL: This is a well-developed white male who is on the ventilator. VITAL SIGNS: Temperature 101, heart rate is 109, blood pressure is 125/60, O2 saturation 95%. HEENT: PERRLA, EOMI. ET-tube noted. NECK: No lymphadenopathy noted. LUNGS: Lungs are clear. No wheezing, rhonchi or rales. HEART: Heart is tachycardia. ABDOMEN: Soft. Bowel sounds present. EXTREMITIES: No pedal edema. NEUROLOGY: The patient is sedated on the ventilator. SKIN: No significant lesions noted. ASSESSMENT 1. GI bleeding due to varices. 2. Cirrhosis of the liver. 3. 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 4. Suspected pulmonary embolism on the left side with no evidence of DVT in the upper or lower extremities. PLAN I have reviewed his available records. Anticoagulation is contraindicated for his suspected pulmonary embolism due to the active GI bleeding. The IVC filter has been planned which I agree with that. The patient is also found to have right hilar mass and pulmonary, Dr. Navas has been consulted. The patient also has possible liver mass and an MRI of the liver has been recommended. His alpha-fetoprotein is normal at 1.8. GI is ordering the workup to find the cause of the cirrhosis of the liver. The patient is critically ill at this time. We will closely monitor him. Further recommendations based on his hospital stay. Thank you for asking my opinion. Harpal Pierson MD /NAYE /8:14 PM /9:24 PM CHARLENE
[2017-06-01 23:27] LABS: HEMATOCRIT 23.9 % (39.0-51.0); REVIEW FLAG FINAL
[2017-06-02] VITALS (24 sets, daily range): BP systolic 109–146; BP diastolic 55–70; PULSE 93–112; TEMP 99.8–101; O2SAT 97–100
[2017-06-02] MEDS: SODIUM CHLORIDE 0.9% FLUSH 10 ML FLUSH IV FLUSH SCH ×3 (01:03→20:46)
[2017-06-02] MEDS: CHLORHEXIDINE GLUCONATE 2 % 1 PACK (2 CLOTHS)(taper/protocol) TOPICAL SCH (04:00)
--- NOTE | 2017-06-02 04:25 | RADRPT ---
EXAM DATE/TIME: 06/02/2017 03:14 [facility] COMPARISON: CHEST SINGLE AP, June 01, 2017, 5:41. INDICATIONS : Shortness of breath. MEDICAL HISTORY : Nausea/vomiting. Hematemesis. Melena. SURGICAL HISTORY : None. ENCOUNTER: Initial ACUITY: 2 days PAIN SCORE: Non-responsive. LOCATION: Bilateral chest FINDINGS: Mild right base opacity persists, not significantly changed. Left lung appears clear. No large effusi on demonstrated. No evidence of pneumothorax. Endotracheal tube tip is about 4 cm above the eboni. There is a right internal jugular central venou s catheter with tip in the superior vena cava. CONCLUSION: No significant change. Mild right base airspace disease again noted. David Quintero MD on June 02, 2017 at 4:22 Board Certified Radiologist. This report was verified electronically.
[2017-06-02] MEDS: OCTREOTIDE INJ 500 MCG in SODIUM CHLORID 0.9% 500 ML INJ 499.5 ML IV SCH ×2 (04:57→15:46)
[2017-06-02 06:17] LABS: AUTOMATED NEUTROPHIL # 17.9 TH/MM3 (1.8-7.7); BASOPHIL # 0.1 TH/MM3 (0-0.2); BASOPHIL % 0.4 % (0.0-2.0); EOSINOPHIL # 1.1 TH/MM3 (0-0.4); EOSINOPHIL % 4.2 % (0.0-4.0); HEMATOCRIT 24.1 % (39.0-51.0); LYMPH % 14.7 % (9.0-44.0); LYMPHOCYTE # 3.7 TH/MM3 (1.0-4.8); MEAN CELL VOLUME 82.1 FL (80.0-100.0); MEAN CORPUSCULAR HEMOGLOBIN 26.3 PG (27.0-34.0); MONO % 10.3 % (0.0-8.0); NEUT % 70.4 % (16.0-70.0); PLATELET COUNT 137 TH/MM3 (150-450); RED BLOOD COUNT 2.94 MIL/MM3 (4.50-5.90); RED CELL DISTRIBUTION WIDTH 18.2 % (11.6-17.2); WHITE BLOOD COUNT 25.4 TH/MM3 (4.0-11.0)
[2017-06-02] MEDS: PHENYLEPHRINE HCL 160 MG/D5W 484 ML ADMIX IV PRN ×2 (06:21)
[2017-06-02] MEDS: PANTOPRAZOLE INJ 80 MG in SODIUM CHLORIDE 0.9% INJ 100 ML IV SCH ×2 (06:26→15:48)
[2017-06-02 06:36] LABS: HEMO FLAGS AUTO DIFF
[2017-06-02 07:25] LABS: CALCIUM-PROTEIN CORRECTED 7.5 MG/DL (8.5-10.1); MAGNESIUM 2.7 MG/DL (1.5-2.5); POTASSIUM 4.8 MEQ/L (3.5-5.1); TOTAL BILIRUBIN ADULT 2.7 MG/DL (0.2-1.0)
[2017-06-02] MEDS: CEFEPIME INJ 2,000 MG in SODIUM CHLORIDE 0.9% INJ 100 ML IV SCH (08:34)
--- NOTE | 2017-06-02 08:37 | ECHRPT ---
Indication: shortness of breath CONCLUSIONS The left ventricular systolic function is normal with an estimated ejection fraction in the range of 55-60%. Normal left ventricular size. Wall thickness is normal. No regional wall motion abnormalities are present. The aortic valve is not well visualized. There is trace tricuspid valve regurgitation. Normal estimated pulmonary pressures. Though very technically difficult, grossly normal heart and valve function seen. BP: 136 / 61 HR: 86 Rhythm: Sinus MEASUREMENTS (Male / Female) Normal Values Technical Quality:Very technically difficult study 2D ECHO LV Diastolic Diameter PLAX 3.8 cm 4.2 - 5.9 / 3.9 - 5.3 cm LV Systolic Diameter PLAX 2.6 cm IVS Diastolic Thickness 0.9 cm 0.6 - 1.0 / 0.6 - 0.9 cm LVPW Diastolic Thickness 1.0 cm 0.6 - 1.0 / 0.6 - 0.9 cm LV Relative Wall Thickness 0.5 LVOT Diameter 2.0 cm M-MODE Aortic Root Diameter MM 3.9 cm AV Cusp Separation MM 2.4 cm DOPPLER AV Peak Velocity 138.0 cm/s AV Peak Gradient 7.6 mmHg LVOT Peak Velocity 133.0 cm/s LVOT Peak Gradient 7.1 mmHg AV Area Cont Eq pk 3.0 cm MV Area PHT 5.9 cm Mitral E Point Velocity 86.9 cm/s Mitral A Point Velocity 69.1 cm/s Mitral E to A Ratio 1.3 LV E' Lateral Velocity 12.6 cm/s Mitral E to LV E' Lateral Ratio 6.9 LV E' Septal Velocity 8.1 cm/s Mitral E to LV E' Septal Ratio 10.7 TR Peak Velocity 134.0 cm/s TR Peak Gradient 7.2 mmHg FINDINGS LEFT VENTRICLE The left ventricular systolic function is normal with an estimated ejection fraction in the range of 55-60%. Normal left ventricular size. Wall thickness is normal. No regional wall motion abnormalities are present. RIGHT VENTRICLE Normal right ventricular size and systolic function. LEFT ATRIUM The left atrial size is normal. RIGHT ATRIUM The right atrial size is normal. ATRIAL SEPTUM Normal atrial septal thickness without atrial level shunting by limited color doppler interrogation. AORTA The aortic root and proximal ascending aorta are normal in size on limited imaging. MITRAL VALVE Structurally normal mitral valve. No mitral valve stenosis or regurgitation. AORTIC VALVE The aortic valve is not well visualized. TRICUSPID VALVE There is trace tricuspid valve regurgitation. Normal estimated pulmonary pressures. PULMONARY VALVE The pulmonary valve is not well visualized. VESSELS The inferior vena cava is normal in size. PERICARDIUM No pericardial effusion. Alden Martin MD (Electronically Signed) Final Date:02 June 2017 08:36
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
[2017-06-02] MEDS ORDERED: PHARMACY ORDERED LAB ONE (11:45)
[2017-06-02] MEDS ORDERED: Vancomycin Consult Pharmacy 1 EA OTHER SCH (11:45)
--- NOTE | 2017-06-02 11:45 | HHI.CCPN ---
Subjective Remarks/Hospital Course 41-year-old gentleman admitted with complaints of hematemesis over about an hour and a half. The color was dark; accompanied by nausea but denies abdominal pain. Just had a dark stool. He was taking Tylenol 1000 mg per day 5 days per week. He denies any history of peptic ulcer. He started taking generic Aleve or naproxen 200 mg when extra strength Tylenol wore off over the past week. The patient reports that last week he had "a really nasty flu". He had also put in extra hours at work last week and thought it might be related to work-related exhaustion. He denies chest pain, shortness of breath. He underwent urgent EGD by gastroenterology with the finding of a large esophageal varix extending from top to bottom with active bleeding in the distal portion, 3 bands were applied along the length of the varix and especially over the bleeding section. The stomach this was filled with blood and it was a limited evaluation. The duodenum was unremarkable. He has returned to ICU from OR sedated and intubated. Subjective: 05/31: Afebrile. The patient is noted to have low urine output, and sinus tachycardia heart rate 105-110, patient bolused with 1 L normal saline. Normal saline infusion continues at 100 cc/hour. H&H pending .Continues on Protonix and octreotide infusions currently remains sedated. The patient was noted to have 2 large melanotic stools postoperatively. 06/01: During the night the patient became hypoxic and tachycardic. CTA pulmonary perform revealed bilateral upper and lower left lobe pulmonary embolus. Oxygen requirement significantly increased to currently FiO2 of 0.9. Patient not a candidate for TPA in the setting of acute upper GI bleed currently on Protonix and octreotide. Discussed with interventional radiology, , regarding possibility of catheter directed TPA to left upper and lower lobe, patient also deemed not a candidate. Ultrasound bilateral upper and lower extremities ordered today. Plan for IVC filter placement. Patient currently hemodynamically unstable requiring phenylephrine infusion, stat echo pending. The patient was noted to have abnormal liver ultrasound CT abdomen and pelvis was also performed revealing esophageal varices extending into the lower chest and florid portal systemic collaterals. 06/02: Remains unstable. Hgb no change. LFTs indicate deteriorating hepatic function. Objective Vital Signs Date Time Temp Pulse Resp B/P (MAP) Pulse Ox O2 Delivery O2 Flow Rate FiO2 06/02/17 09:30 102 06/02/17 09:30 139/60 (86) 98 126/61 (82) 06/02/17 08:00 60 06/02/17 06:00 99.8 06/01/17 14:00 11 05/30/17 21:25 Mechanical Ventilator 05/30/17 16:00 1.50 Intake and Output 06/02/17 06/02/17 06/02/17 07:59 15:59 23:59 Output Total 500 ml Balance -500 ml Result Diagram: 06/02/17 0545 06/02/17 0545 Other Results Microbiology Date/Time Source Procedure Growth Status 05/31/17 23:00 Urine Catheterized Urine Legionella Antigen - Final PRESUMPTIVE NEGATIVE FOR LEGIONELLA P... Complete 05/31/17 23:00 Urine Catheterized Urine Streptococcus pneumoniae Antigen (M - Final PRESUMPTIVE NEGATIVE FOR STREPTOCOCCU... Complete Laboratory Tests Test 06/01/17 12:30 Blood Gas Puncture Site STEFANI Blood Gas Patient Temperature 98.6 Blood Gas HCO3 14 mmol/L (22-26) Blood Gas Base Excess -10.9 mmol/L (-2-2) Blood Gas Oxygen Saturation 93 % (90-100) Arterial Blood pH 7.30 (7.380-7.420) Arterial Blood Partial Pressure CO2 30 mmHg (38-42) Arterial Blood Partial Pressure O2 82 mmHg (61-120) Arterial Blood Oxygen Content 9.3 Vol % (12.0-20.0) Arterial Blood Carboxyhemoglobin 1.6 % (0-4) Arterial Blood Methemoglobin 1.2 % (0-2) Blood Gas Hemoglobin 7.0 G/DL (12.0-16.0) Oxygen Delivery Device VENT Blood Gas Ventilator Setting AC.12.550/10/90 Blood Gas Inspired Oxygen 90 % Imaging Last Impressions Liver Ultrasound 05/30/17 0000 Signed Impressions: Service Date/Time: May 09:04 - CONCLUSION: Cirrhotic liver appearance. Question focal right lobe mass. Recommend further evaluation with hepatic MRI with Eovist. David Terrazas MD Chest X-Ray 05/30/17 0000 Signed Impressions: Service Date/Time: May 01:02 - CONCLUSION: 1. No acute cardiopulmonary disease. Oh Escobedo MD Objective Remarks GENERAL: Sedated and intubated SKIN: Warm and dry. HEAD: Normocephalic. EYES: Conjunctival icterus present. No injection or drainage. NECK: Supple, trachea midline. Orally intubated CARDIOVASCULAR: Regular rate and rhythm without murmurs, gallops, or rubs. RESPIRATORY: Mechanical ventilation. Breath sounds equal bilaterally. Clear. GASTROINTESTINAL: Abdomen soft, non-tender, nondistended. BS active. MUSCULOSKELETAL: No cyanosis, or edema. Well perfused. NEURO EXAM: Moves 4 limbs spontaneously. CECY. Breathes over vent Procedures 05/30- EGD Side: Right Location: Subclavian A/P Assessment and Plan Hypoxic Respiratory failure Pulmonary embolus-left upper lobe, left lower lobe Multilobar Pneumonia - Maintain O2 saturation greater than 92%, -Fentanyl infusion 50 mics/hour for ventilator synchrony -05/29 Intubated for an airway protection - Vent bundle - DuoNeb's every 6 hours scheduled every 2 hours when necessary -06/01 CTA pulmonary-suspected left upper lobe, left lower lobe pulmonary emboli, no pulmonary emboli on the right. Bilateral lower lobe atelectasis. Patchy pneumonia right lower lobe. Noted ill-defined right infrahilar/subcarinal mass 4.2 x 4.8 cm (likely esophageal varices- per CT abdomen report). Extensive discussion with Dr. Terrazas (IR) patient is not a candidate for catheter directed TPA in the setting of GI bleeding. -Patient on azithromycin, cefepime and vancomycin empiric antibiotics -Consult for IVC filter -Pulmonology consulted GI bleed Hematemesis Splenomegaly Cirrhosis Esophageal varices Elevated transaminase levels Hyperammonemia Ascites - large esophageal varix -06/01 CT abdomen-splenomegaly, ascites, esophageal varices extend into the lower chest and may account for subcarinal and infrahilar masses. Florid portosystemic collaterals - 3 bands applied by GI - Protonix drip - Octreotide drip - Further management per GI- Dr. Chong - Monitor H&H every 6 hours, 8.2->7.8 will transfuse if < 7. Obtain 2 units packed red blood cells ahead Sinus tachycardia Shock-cardiogenic versus hypovolemic -Bolused 1 L of normal saline -Sodium bicarbonate 75 cc/hour -Follow-up hemoglobin level -9/9 Obtain stat echo-evaluate function and clot burden Transaminitis/liver cirrhosis - Due to daily Tylenol use - Hepatitis Profile pending -AST 692, ALT 593, T bili 2.1 - Liver ultrasound reveals cirrhotic liver image - Tylenol level negative - Workup per gastroenterology -Monitor PT/INR -06/01 CT abdomen Thrombocytopenia -Monitor H&H every 6 hours -Fibrinogen level 146, follow up fibrinogen level if decreases plan for cryoprecipitate post placement of IVC filter - transfuse platelets if signs of acute bleeding, or less than 50,000 -Hematology consulted DVT GI prophylaxis - No pharmacological DVT prophylaxis. 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 Overall impression: Deteriorating clinical condition. Unable to wean ventilator. Worsening hepatic function. Critical Care 44 mins Billy Chavarria MD Jun 02, 2017 11:45
[2017-06-02] MEDS: VANCOMYCIN 1,500 MG/NS 500 ML IV SCH ×2 (12:13)
[2017-06-02] MEDS: SODIUM BICARBONATE 8.4% INJ 150 MEQ in DEXTROSE 5% IN WATE 1000ML INJ 1,000 ML IV SCH ×2 (12:14)
--- NOTE | 2017-06-02 12:14 | HHI.GIFU ---
Subjective Remarks Resting in bed. No active bleeding. Sedated on vent. (Mercedes Richards) Objective Vitals I&O Vital Signs Date Time Temp Pulse Resp B/P (MAP) Pulse Ox O2 Delivery O2 Flow Rate FiO2 06/02/17 11:50 97 60 06/02/17 09:30 102 06/02/17 09:30 102 139/60 (86) 98 126/61 (82) 06/02/17 09:00 103 132/60 (84) 97 127/62 (83) 06/02/17 09:00 103 06/02/17 08:30 102 137/62 (87) 98 122/61 (81) 06/02/17 08:30 102 06/02/17 08:00 102 130/60 (83) 100 122/60 (80) 06/02/17 08:00 60 06/02/17 08:00 102 06/02/17 07:51 100 60 06/02/17 06:21 101 117/56 06/02/17 06:00 99 06/02/17 06:00 90 06/02/17 06:00 99.8 99 134/61 (85) 99 126/58 (80) 06/02/17 03:06 100 70 06/02/17 02:00 96 06/02/17 01:05 97 80 06/02/17 00:00 90 06/02/17 00:00 101.0 96 122/56 (78) 100 113/55 (74) 06/02/17 00:00 96 06/01/17 22:00 105 06/01/17 20:03 96 80 06/01/17 20:00 101.7 106 119/57 (77) 97 112/57 (75) 06/01/17 20:00 90 06/01/17 20:00 106 06/01/17 18:00 90 06/01/17 18:00 107 124/58 (80) 96 112/58 (76) 06/01/17 17:00 107 128/56 (80) 96 113/60 (77) 06/01/17 16:00 101.0 108 125/60 (81) 95 114/60 (78) 06/01/17 16:00 90 06/01/17 15:00 109 129/59 (82) 96 115/62 (79) 06/01/17 14:56 96 90 06/01/17 14:00 111 11 129/61 (83) 95 114/62 (79) 06/01/17 14:00 90 06/01/17 13:30 114 06/01/17 13:00 117 06/01/17 13:00 117 21 136/61 (86) 94 118/64 (82) 06/01/17 12:30 119 13 142/67 (92) 91 120/62 (81) 06/01/17 12:30 119 I/O 06/01/17 06/01/17 06/01/17 06/02/17 06/02/17 06/02/17 07:00 15:00 23:00 07:00 15:00 23:00 Intake Total 3814 ml 341 ml 515 ml Output Total 650 ml 950 ml 500 ml Balance 3164 ml 341 ml -435 ml -500 ml IV Total 3814 ml 341 ml 515 ml Output Urine Total 650 ml 950 ml 350 ml Stool Total 0 ml Drainage Total 150 ml # Bowel Movements 1 1 Laboratory Laboratory Tests Test 06/01/17 12:30 06/01/17 13:20 06/01/17 22:28 06/02/17 05:45 Blood Gas Puncture Site STEFANI Blood Gas Patient Temperature 98.6 Blood Gas HCO3 14 Blood Gas Base Excess -10.9 Blood Gas Oxygen Saturation 93 Arterial Blood pH 7.30 Arterial Blood Partial Pressure CO2 30 Arterial Blood Partial Pressure O2 82 Arterial Blood Oxygen Content 9.3 Arterial Blood Carboxyhemoglobin 1.6 Arterial Blood Methemoglobin 1.2 Blood Gas Hemoglobin 7.0 Oxygen Delivery Device VENT Blood Gas Ventilator Setting AC.12.550/10/90 Blood Gas Inspired Oxygen 90 Hemoglobin 8.4 7.7 7.7 Hematocrit 26.5 23.9 24.1 Fibrinogen 357 White Blood Count 25.4 Red Blood Count 2.94 Mean Corpuscular Volume 82.1 Mean Corpuscular Hemoglobin 26.3 Mean Corpuscular Hemoglobin Concent 32.0 Red Cell Distribution Width 18.2 Platelet Count 137 Mean Platelet Volume 8.1 Neutrophils (%) (Auto) 70.4 Lymphocytes (%) (Auto) 14.7 Monocytes (%) (Auto) 10.3 Eosinophils (%) (Auto) 4.2 Basophils (%) (Auto) 0.4 Neutrophils # (Auto) 17.9 Lymphocytes # (Auto) 3.7 Monocytes # (Auto) 2.6 Eosinophils # (Auto) 1.1 Basophils # (Auto) 0.1 CBC Comment AUTO DIFF Blood Urea Nitrogen 84 Creatinine 1.39 Random Glucose 153 Total Protein 4.7 Albumin 1.9 Calcium Level 6.3 Phosphorus Level 2.2 Magnesium Level 2.7 Alkaline Phosphatase 121 Aspartate Amino Transf (AST/SGOT) 748 Alanine Aminotransferase (ALT/SGPT) 912 Total Bilirubin 2.7 Sodium Level 145 Potassium Level 4.8 Chloride Level 116 Carbon Dioxide Level 26.0 Anion Gap 3 Estimat Glomerular Filtration Rate 57 Protein Corrected Calcium 7.5 Date/Time Source Procedure Growth Status 06/01/17 01:53 Blood Peripheral Aerobic Blood Culture - Preliminary NO GROWTH IN 1 DAY Resulted 06/01/17 01:53 Blood Peripheral Anaerobic Blood Culture - Preliminary NO GROWTH IN 1 DAY Resulted 06/01/17 03:30 Sputum Endotracheal Gram Stain - Final Resulted 06/01/17 03:30 Sputum Culture - Preliminary S. Aureus Mrsa Resulted 05/31/17 23:00 Urine Catheterized Urine Legionella Antigen - Final PRESUMPTIVE NEGATIVE FOR LEGIONELLA P... Complete 05/31/17 23:00 Urine Catheterized Urine Streptococcus pneumoniae Antigen (M - Final PRESUMPTIVE NEGATIVE FOR STREPTOCOCCU... Complete Imaging Last Impressions Chest X-Ray 06/02/17 0600 Signed Impressions: Service Date/Time: Friday, June 02, 2017 03:14 - CONCLUSION: No significant change. Mild right base airspace disease again noted. David Quintero MD Upper Extremity Ultrasound 06/01/17 0000 Signed Impressions: Service Date/Time: Thursday, June 01, 2017 13:47 - CONCLUSION: No evidence of upper extremity DVT on the right or left. Angel Paredes MD Lower Extremity Ultrasound 06/01/17 0000 Signed Impressions: Service Date/Time: Thursday, June 01, 2017 13:30 - CONCLUSION: No evidence of lower extremity DVT on the right or left. Angel Paredes MD CT Angiography 06/01/17 0000 Signed Impressions: Service Date/Time: Thursday, June 01, 2017 02:39 - CONCLUSION: 1. Suspected left upper lobe and left lower lobe pulmonary emboli. No pulmonary embolus on the right. 2. Right infrahilar/subcarinal mass. 3. Bilateral lower lobe atelectasis, right worse than left. Also patchy pneumonia of the right lower lobe. David Quintero MD Abdomen/Pelvis CT 06/01/17 0000 Signed Impressions: Service Date/Time: Thursday, June 01, 2017 02:39 - CONCLUSION: 1. Cirrhosis. Heterogeneously enhancing liver without a distinct/measurable focal lesion. 2. Marked splenomegaly, 10.3 x 17.6 x 18.1 cm. 3. Very severe portosystemic collaterals including gastroesophageal varices. The varices extend into the lower chest and probably account for the subcarinal/right infrahilar mass seen by chest CT. 4. Diffuse wall thickening of the colon, colitis versus secondary changes from cirrhosis. 5. Small ascites. Body wall edema/anasarca. David Quintero MD Liver Ultrasound 05/30/17 0000 Signed Impressions: Service Date/Time: May 09:04 - CONCLUSION: Cirrhotic liver appearance. Question focal right lobe mass. Recommend further evaluation with hepatic MRI with Eovist. David Terrazas MD Physical Exam HEENT: Normocephalic; atraumatic; no jaundice. CHEST: Respirations even/unlabored. OETT to vent. CARDIAC: ST- 100 ABDOMEN: Soft, hepatosplenomegaly; bowel sounds are present in all four quadrants. EXTREMITIES: No clubbing, cyanosis, or edema. 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 (Mercedes Richards) Assessment and Plan Plan PLAN - Upper GIB with hematemesis on admission. S/P EGD (05/31/17)-----> Bleeding esophageal varices. On octreotide gtt, protonix gtt. No hematemesis, but patient passed a large maroon stool Saturday x 1. HH remained stable with this. Likely residual blood. Nurse reports that he has not had any further GI bleeding. HH 7.7/24.1. - Anemia acute blood loss. S/P 2 units prbc, HH 7.7/24.1. - Coagulopathy/thrombocytopenia. Stable. - Elevated LFTs. Liver US (05/30/17)---> Cirrhotic liver appearance. Question focal right lobe mass. Recommend further evaluation with hepatic MRI with Eovist. Hepatitis profile negative. STEPHANIE negative. AMA pending, ASMA neg. AFP 1.8. Ceruloplasmin, ALpha [address] Scan abdomen and pelvis to further evaluation. CT scan abdomen and pelvis with iv contrast (06/01/17)----> cirrhosis, heterogeneously enhancing liver without a distinct/measurable focal lesion, marked splenomegaly, 10.3 x 17.6 x 18.1 cm, very severe portosystemic collaterals including gastroesophageal varices. The varices extend into the lower chest and probably accound for the subcarinal/right infrahilar mass seen by chest CT, diffuse wall thickening of the colon, colitis versus secondary changes from cirrhosis. Small ascites, body wall edema/anasarca. T. Bili 2.7, AST 748, ALT 912, Alk Phosph 121. - Hepatic encephalopathy with ammonia 183. Add lactulose - family hx colon ca - mother dx age 60 - thrombocytopenia - PLT 137 - AKIKO. Creat 1.39 - Resp. Failure. Vent per [facility] PLAN - NPO - Cont. Octreotide Gtt - Cont. Protonix Gtt - Add Lactulose enemas (no ngt) - Monitor labs - Transfuse as needed - Await liver workup - EGD next week, ? NGT placement with endoscopy at that time vs. TPN (of note, does have worsening LFTs) - Supportive care - Further recommendations to follow based on results of above - Pt seen and examined by myself and Dr. Rubin and this note is written on her behalf (Mercedes Richards) Mercedes Richards Jun 02, 2017 12:14 Sofy Rubin MD Jun 02, 2017 19:58
[2017-06-02] MEDS: fentaNYL DRIP 250 ML IV PRN ×2 (12:15→23:19)
[2017-06-02] MEDS ORDERED: RIFAXIMIN 550 MG TAB PO SCH (12:15)
[2017-06-02] MEDS ORDERED: LACTULOSE SYRUP 20 GM/30 ML CUP PO SCH (13:00)
[2017-06-02 13:23] LABS: BANDS 1 % (0-6); CORRECTED NUCLEATED RBC 1 /100 WBC (0-0); EOSINOPHILS 4 % (0-4); NEUTROPHIL # MANUAL DIFF 21.6 TH/MM3 (1.8-7.7); POLYS (SEG NEUTROPHILS) 84 % (16-70); WBC DIFF SAMPLE 100
[2017-06-02 13:24] LABS: OVALOCYTES 1+ (NORMAL); PLATELET ESTIMATE SMEAR LOW (NORMAL); PLATELET MORPHOLOGY NORMAL (NORMAL); POLYCHROMASIA 2.7 % (0.0-1.9); SCAN/DIFF FINAL DIFF MANUAL
--- NOTE | 2017-06-02 13:42 | HHI.PR ---
Subjective Remarks Sedated on the ventilator Objective Laboratory Tests Test 05/30/17 14:54 05/30/17 19:05 05/30/17 20:17 05/31/17 01:10 Hemoglobin 9.5 GM/DL (13.0-17.0) 7.5 GM/DL (13.0-17.0) 8.3 GM/DL (13.0-17.0) Hematocrit 28.8 % (39.0-51.0) 23.4 % (39.0-51.0) 25.2 % (39.0-51.0) Blood Gas HCO3 20 mmol/L (22-26) Blood Gas Base Excess -5.1 mmol/L (-2-2) Arterial Blood pH 7.30 (7.380-7.420) Arterial Blood Partial Pressure CO2 43 mmHg (38-42) Arterial Blood Partial Pressure O2 247 mmHg (61-120) Arterial Blood Oxygen Content 11.5 Vol % (12.0-20.0) Blood Gas Hemoglobin 8.0 G/DL (12.0-16.0) Test 05/31/17 04:42 05/31/17 12:38 05/31/17 19:30 05/31/17 22:45 White Blood Count 15.1 TH/MM3 (4.0-11.0) Red Blood Count 3.18 MIL/MM3 (4.50-5.90) Hemoglobin 8.5 GM/DL (13.0-17.0) 8.9 GM/DL (13.0-17.0) 8.6 GM/DL (13.0-17.0) 8.2 GM/DL (13.0-17.0) Hematocrit 25.6 % (39.0-51.0) 27.7 % (39.0-51.0) 26.8 % (39.0-51.0) 25.6 % (39.0-51.0) Mean Corpuscular Hemoglobin 26.7 PG (27.0-34.0) Platelet Count 93 TH/MM3 (150-450) Neutrophils (%) (Auto) 74.5 % (16.0-70.0) Monocytes (%) (Auto) 8.2 % (0.0-8.0) Neutrophils # (Auto) 11.2 TH/MM3 (1.8-7.7) Monocytes # (Auto) 1.2 TH/MM3 (0-0.9) Platelet Estimate LOW (NORMAL) Platelet Morphology Comment ENLARGED (NORMAL) Ovalocytes 1+ (NORMAL) Blood Urea Nitrogen 58 MG/DL (7-18) Creatinine 1.44 MG/DL (0.60-1.30) Random Glucose 139 MG/DL (74-106) Total Protein 4.5 GM/DL (6.4-8.2) Calcium Level 6.8 MG/DL (8.5-10.1) Potassium Level 5.3 MEQ/L (3.5-5.1) Chloride Level 114 MEQ/L (98-107) Estimat Glomerular Filtration Rate 55 ML/MIN (>89) Protein Corrected Calcium 8.2 MG/DL (8.5-10.1) Prothrombin Time 13.4 SEC (9.8-11.6) Fibrinogen 146 mg/dL (227-377) Test 06/01/17 00:00 06/01/17 04:00 06/01/17 05:25 06/01/17 12:30 Blood Gas HCO3 17 mmol/L (22-26) 16 mmol/L (22-26) 14 mmol/L (22-26) Blood Gas Base Excess -7.5 mmol/L (-2-2) -8.6 mmol/L (-2-2) -10.9 mmol/L (-2-2) Blood Gas Oxygen Saturation 88 % (90-100) Arterial Blood pH 7.33 (7.380-7.420) 7.32 (7.380-7.420) 7.30 (7.380-7.420) Arterial Blood Partial Pressure CO2 34 mmHg (38-42) 33 mmHg (38-42) 30 mmHg (38-42) Arterial Blood Oxygen Content 10.3 Vol % (12.0-20.0) 10.5 Vol % (12.0-20.0) 9.3 Vol % (12.0-20.0) Blood Gas Hemoglobin 8.3 G/DL (12.0-16.0) 7.9 G/DL (12.0-16.0) 7.0 G/DL (12.0-16.0) Hemoglobin 7.8 GM/DL (13.0-17.0) Hematocrit 24.7 % (39.0-51.0) Prothrombin Time 13.6 SEC (9.8-11.6) Blood Urea Nitrogen 71 MG/DL (7-18) Creatinine 1.93 MG/DL (0.60-1.30) Random Glucose 137 MG/DL (74-106) Total Protein 4.5 GM/DL (6.4-8.2) Albumin 1.9 GM/DL (3.4-5.0) Calcium Level 6.7 MG/DL (8.5-10.1) Aspartate Amino Transf (AST/SGOT) 692 U/L (15-37) Alanine Aminotransferase (ALT/SGPT) 593 U/L (12-78) Total Bilirubin 2.1 MG/DL (0.2-1.0) Sodium Level 147 MEQ/L (136-145) Potassium Level 5.2 MEQ/L (3.5-5.1) Chloride Level 118 MEQ/L (98-107) Carbon Dioxide Level 20.5 MEQ/L (21.0-32.0) Estimat Glomerular Filtration Rate 39 ML/MIN (>89) Protein Corrected Calcium 8.1 MG/DL (8.5-10.1) Ammonia 183 MCMOL/L (11-32) Test 06/01/17 13:20 06/01/17 22:28 06/02/17 05:45 Hemoglobin 8.4 GM/DL (13.0-17.0) 7.7 GM/DL (13.0-17.0) 7.7 GM/DL (13.0-17.0) Hematocrit 26.5 % (39.0-51.0) 23.9 % (39.0-51.0) 24.1 % (39.0-51.0) White Blood Count 25.4 TH/MM3 (4.0-11.0) Red Blood Count 2.94 MIL/MM3 (4.50-5.90) Mean Corpuscular Hemoglobin 26.3 PG (27.0-34.0) Red Cell Distribution Width 18.2 % (11.6-17.2) Platelet Count 137 TH/MM3 (150-450) Neutrophils (%) (Auto) 70.4 % (16.0-70.0) Monocytes (%) (Auto) 10.3 % (0.0-8.0) Eosinophils (%) (Auto) 4.2 % (0.0-4.0) Neutrophils # (Auto) 17.9 TH/MM3 (1.8-7.7) Monocytes # (Auto) 2.6 TH/MM3 (0-0.9) Eosinophils # (Auto) 1.1 TH/MM3 (0-0.4) Neutrophils % (Manual) 84 % (16-70) Lymphocytes % 7 % (9-44) Neutrophils # (Manual) 21.6 TH/MM3 (1.8-7.7) Nucleated Red Blood Cells 1 /100 WBC (0-0) Platelet Estimate LOW (NORMAL) Polychromasia 2.7 % (0.0-1.9) Ovalocytes 1+ (NORMAL) Blood Urea Nitrogen 84 MG/DL (7-18) Creatinine 1.39 MG/DL (0.60-1.30) Random Glucose 153 MG/DL (74-106) Total Protein 4.7 GM/DL (6.4-8.2) Albumin 1.9 GM/DL (3.4-5.0) Calcium Level 6.3 MG/DL (8.5-10.1) Phosphorus Level 2.2 MG/DL (2.5-4.9) Magnesium Level 2.7 MG/DL (1.5-2.5) Alkaline Phosphatase 121 U/L (45-117) Aspartate Amino Transf (AST/SGOT) 748 U/L (15-37) Alanine Aminotransferase (ALT/SGPT) 912 U/L (12-78) Total Bilirubin 2.7 MG/DL (0.2-1.0) Chloride Level 116 MEQ/L (98-107) Anion Gap 3 MEQ/L (5-15) Estimat Glomerular Filtration Rate 57 ML/MIN (>89) Protein Corrected Calcium 7.5 MG/DL (8.5-10.1) Vital Signs Date Time Temp Pulse Resp B/P (MAP) Pulse Ox O2 Delivery O2 Flow Rate FiO2 06/02/17 12:30 104 06/02/17 12:00 60 06/02/17 12:00 105 06/02/17 11:50 97 60 06/02/17 09:30 102 06/02/17 09:30 102 139/60 (86) 98 126/61 (82) 06/02/17 09:00 103 132/60 (84) 97 127/62 (83) 06/02/17 09:00 103 06/02/17 08:30 102 137/62 (87) 98 122/61 (81) 06/02/17 08:30 102 06/02/17 08:00 102 130/60 (83) 100 122/60 (80) 06/02/17 08:00 60 06/02/17 08:00 102 06/02/17 07:51 100 60 06/02/17 06:21 101 117/56 06/02/17 06:00 99 06/02/17 06:00 90 06/02/17 06:00 99.8 99 134/61 (85) 99 126/58 (80) 06/02/17 03:06 100 70 06/02/17 02:00 96 06/02/17 01:05 97 80 06/02/17 00:00 90 06/02/17 00:00 101.0 96 122/56 (78) 100 113/55 (74) 06/02/17 00:00 96 06/01/17 22:00 105 06/01/17 20:03 96 80 06/01/17 20:00 101.7 106 119/57 (77) 97 112/57 (75) 06/01/17 20:00 90 06/01/17 20:00 106 06/01/17 18:00 90 06/01/17 18:00 107 124/58 (80) 96 112/58 (76) 06/01/17 17:00 107 128/56 (80) 96 113/60 (77) 06/01/17 16:00 101.0 108 125/60 (81) 95 114/60 (78) 06/01/17 16:00 90 06/01/17 15:00 109 129/59 (82) 96 115/62 (79) 06/01/17 14:56 96 90 06/01/17 14:00 111 11 129/61 (83) 95 114/62 (79) 06/01/17 14:00 90 I/O 06/01/17 06/01/17 06/01/17 06/02/17 06/02/17 06/02/17 06:59 14:59 22:59 06:59 14:59 22:59 Intake Total 3814 ml 341 ml 515 ml 100 ml Output Total 650 ml 950 ml 500 ml Balance 3164 ml 341 ml -435 ml -500 ml 100 ml IV Total 3814 ml 341 ml 515 ml 100 ml Output Urine Total 650 ml 950 ml 350 ml Stool Total 0 ml Drainage Total 150 ml # Bowel Movements 1 1 Result Diagram: 06/02/17 0545 06/02/17 0545 Objective Remarks GENERAL: SKIN: Warm and dry. HEAD: Atraumatic. Normocephalic. EYES: Pupils equal and round. No scleral icterus. No injection or drainage. ENT: No nasal bleeding or discharge. Mucous membranes pink and moist. NECK: Trachea midline. No JVD. CARDIOVASCULAR: Regular rate and rhythm. RESPIRATORY: No accessory muscle use. Clear to auscultation. Breath sounds equal bilaterally. GASTROINTESTINAL: Abdomen soft, non-tender, nondistended. Hepatic and splenic margins not palpable. MUSCULOSKELETAL: Extremities without clubbing, cyanosis, or edema. No obvious deformities. NEUROLOGICAL: Awake and alert. No obvious cranial nerve deficits. Motor grossly within normal limits. Five out of 5 muscle strength in the arms and legs. Normal speech. PSYCHIATRIC: Appropriate mood and affect; insight and judgment normal. Assessment and Plan Assessment and Plan respiratory failure pneumonia pulmonary embolism Gi bleed PLAN Ventilatory support ANTIBIOTICS IVC FILTER WEAN TOLERATED Yosef Navas MD Jun 02, 2017 13:42
--- NOTE | 2017-06-02 13:51 | PD.ID.CON ---
History of Present Illness Service ID Consult Requested By Dr Villarreal Reason for Consult PNA Primary Care Physician No Primary Care Physician Diagnoses: History of Present Illness pt is a 41 yo male wo significant ppast med history who presented with hematoemesis 4 days ago He was scopped and was found to have bleeding esophageal varices that were banded' He was diagnosed with liver cirrhosis He also was co of flu like symptoms and presented with worsening hypoxia He was started initially on broad spectruma abx and now he is on vancomycin On 06/01 during the night the patient became hypoxic and tachycardic. CTA pulmonary perform revealed bilateral upper and lower left lobe pulmonary embolus. Oxygen requirement significantly increased to currently FiO2 of 0.9. Patient not a candidate for TPA in the setting of acute upper GI bleed He was found to have PE involving TREVON and LLL as well as RLL PNA His sputum clx is + for MRSA Patient currently hemodynamically unstable requiring phenylephrine infusion, LFTs indicate deteriorating hepatic function. Ammonia over 180s Creatinine improved In the last 24 hrs, pt is febrile up to 101.7 F, WBC went up to 25 K bLood clx are negative Review of Systems ROS Limitations: Clinical Condition, Intubated, Altered Mental Status, Unresponsive Past Family Social History Allergies: Coded Allergies: No Known Allergies (Unverified , 05/29/17) Past Medical History none prior Past Surgical History none Active Ordered Medications Medications where reviewed in EMR Antibiotics Include: vancomycin azithro, cefepime - stopped Family History Mother with cancer Father with hypertension, RADHA, Alzheimer's Social History Tobacco: denies every smoking Alcohol: infrequent drinker, denies any heavy use ever Illicit Drugs: stopped smoking marijuana a few months ago . Physical Exam Vital Signs Vital Signs Date Time Temp Pulse Resp B/P (MAP) Pulse Ox O2 Delivery O2 Flow Rate FiO2 06/02/17 12:30 104 06/02/17 12:00 60 06/02/17 12:00 105 06/02/17 11:50 97 60 06/02/17 09:30 102 06/02/17 09:30 102 139/60 (86) 98 126/61 (82) 06/02/17 09:00 103 132/60 (84) 97 127/62 (83) 06/02/17 09:00 103 06/02/17 08:30 102 137/62 (87) 98 122/61 (81) 06/02/17 08:30 102 9/10/17 08:00 102 130/60 (83) 100 122/60 (80) 06/02/17 08:00 60 06/02/17 08:00 102 06/02/17 07:51 100 60 06/02/17 06:21 101 117/56 06/02/17 06:00 99 06/02/17 06:00 90 06/02/17 06:00 99.8 99 134/61 (85) 99 126/58 (80) 06/02/17 03:06 100 70 06/02/17 02:00 96 06/02/17 01:05 97 80 06/02/17 00:00 90 06/02/17 00:00 101.0 96 122/56 (78) 100 113/55 (74) 06/02/17 00:00 96 06/01/17 22:00 105 06/01/17 20:03 96 80 06/01/17 20:00 101.7 106 119/57 (77) 97 112/57 (75) 06/01/17 20:00 90 06/01/17 20:00 106 06/01/17 18:00 90 06/01/17 18:00 107 124/58 (80) 96 112/58 (76) 06/01/17 17:00 107 128/56 (80) 96 113/60 (77) 06/01/17 16:00 101.0 108 125/60 (81) 95 114/60 (78) 06/01/17 16:00 90 06/01/17 15:00 109 129/59 (82) 96 115/62 (79) 06/01/17 14:56 96 90 06/01/17 14:00 111 11 129/61 (83) 95 114/62 (79) 06/01/17 14:00 90 06/01/17 13:30 114 Physical Exam CONSTITUTIONAL/GENERAL: This is an adequately nourished patient, in no apparent distress. TUBES/LINES/DRAINS: SKIN: No jaundice, rashes, or lesions. Skin temperature appropriate. Not diaphoretic. HEAD: Atraumatic. Normocephalic. EYES: Pupils equal and round and reactive. Extraocular motions intact. + mild scleral icterus. No injection or drainage. Fundi not examined. ENT: Hearing not tested Nose without bleeding or purulent drainage. oral mucosae partially visulaised without visible erythema, exudates, masses, or lesions. NECK: Trachea midline. Supple, nontender. CARDIOVASCULAR: Regular rate and rhythm without murmurs, gallops, or rubs. No JVD. Peripheral pulses symmetric. RESPIRATORY/CHEST: Symmetric, unlabored respirations. Clear to auscultation. Breath sounds equal bilaterally. No wheezes, rales, or rhonchi. GASTROINTESTINAL: Abdomen soft, non-tender, nondistended. No hepato-splenomegaly , or palpable masses. No guarding. Bowel sounds present. GENITOURINARY: Without palpable bladder distension. Menchaca catheter in place with clear yellow urine MUSCULOSKELETAL: Extremities without clubbing, cyanosis, + trace edema. No joint tenderness or effusion noted. No calf tenderness. No mottling or clubbing. LYMPHATICS: No palpable cervical or supraclavicular adenopathy. NEUROLOGICAL: Sedated. Unresponsive PSYCHIATRIC: unable to assess Laboratory Laboratory Tests Test 06/01/17 22:28 06/02/17 05:45 Hemoglobin 7.7 7.7 Hematocrit 23.9 24.1 Fibrinogen 357 White Blood Count 25.4 Red Blood Count 2.94 Mean Corpuscular Volume 82.1 Mean Corpuscular Hemoglobin 26.3 Mean Corpuscular Hemoglobin Concent 32.0 Red Cell Distribution Width 18.2 Platelet Count 137 Mean Platelet Volume 8.1 Neutrophils (%) (Auto) 70.4 Lymphocytes (%) (Auto) 14.7 Monocytes (%) (Auto) 10.3 Eosinophils (%) (Auto) 4.2 Basophils (%) (Auto) 0.4 Neutrophils # (Auto) 17.9 Lymphocytes # (Auto) 3.7 Monocytes # (Auto) 2.6 Eosinophils # (Auto) 1.1 Basophils # (Auto) 0.1 CBC Comment AUTO DIFF Blood Urea Nitrogen 84 Creatinine 1.39 Random Glucose 153 Total Protein 4.7 Albumin 1.9 Calcium Level 6.3 Phosphorus Level 2.2 Magnesium Level 2.7 Alkaline Phosphatase 121 Aspartate Amino Transf (AST/SGOT) 748 Alanine Aminotransferase (ALT/SGPT) 912 Total Bilirubin 2.7 Sodium Level 145 Potassium Level 4.8 Chloride Level 116 Carbon Dioxide Level 26.0 Anion Gap 3 Estimat Glomerular Filtration Rate 57 Protein Corrected Calcium 7.5 Date/Time Source Procedure Growth Status 06/01/17 01:53 Blood Peripheral Aerobic Blood Culture - Preliminary NO GROWTH IN 1 DAY Resulted 06/01/17 01:53 Blood Peripheral Anaerobic Blood Culture - Preliminary NO GROWTH IN 1 DAY Resulted 06/01/17 03:30 Sputum Endotracheal Gram Stain - Final Resulted 06/01/17 03:30 Sputum Culture - Preliminary S. Aureus Mrsa Resulted 05/31/17 23:00 Urine Catheterized Urine Legionella Antigen - Final PRESUMPTIVE NEGATIVE FOR LEGIONELLA P... Complete 05/31/17 23:00 Urine Catheterized Urine Streptococcus pneumoniae Antigen (M - Final PRESUMPTIVE NEGATIVE FOR STREPTOCOCCU... Complete Result Diagram: 06/02/17 0545 06/02/17 0545 Imaging Last Impressions Chest X-Ray 06/02/17 0600 Signed Impressions: Service Date/Time: Friday, June 02, 2017 03:14 - CONCLUSION: No significant change. Mild right base airspace disease again noted. David Quintero MD Upper Extremity Ultrasound 06/01/17 0000 Signed Impressions: Service Date/Time: Thursday, June 01, 2017 13:47 - CONCLUSION: No evidence of upper extremity DVT on the right or left. Angel Paredes MD Lower Extremity Ultrasound 06/01/17 0000 Signed Impressions: Service Date/Time: Thursday, June 01, 2017 13:30 - CONCLUSION: No evidence of lower extremity DVT on the right or left. Angel Paredes MD CT Angiography 06/01/17 0000 Signed Impressions: Service Date/Time: Thursday, June 01, 2017 02:39 - CONCLUSION: 1. Suspected left upper lobe and left lower lobe pulmonary emboli. No pulmonary embolus on the right. 2. Right infrahilar/subcarinal mass. 3. Bilateral lower lobe atelectasis, right worse than left. Also patchy pneumonia of the right lower lobe. David Quintero MD Abdomen/Pelvis CT 06/01/17 0000 Signed Impressions: Service Date/Time: Thursday, June 01, 2017 02:39 - CONCLUSION: 1. Cirrhosis. Heterogeneously enhancing liver without a distinct/measurable focal lesion. 2. Marked splenomegaly, 10.3 x 17.6 x 18.1 cm. 3. Very severe portosystemic collaterals including gastroesophageal varices. The varices extend into the lower chest and probably account for the subcarinal/right infrahilar mass seen by chest CT. 4. Diffuse wall thickening of the colon, colitis versus secondary changes from cirrhosis. 5. Small ascites. Body wall edema/anasarca. David Quintero MD Liver Ultrasound 05/30/17 0000 Signed Impressions: Service Date/Time: May 09:04 - CONCLUSION: Cirrhotic liver appearance. Question focal right lobe mass. Recommend further evaluation with hepatic MRI with Eovist. David Terrazas MD Assessment and Plan Assessment and Plan Liver cirrhosis Upper GI bleed 2/2 esophageal varices VDRF MRSA PNA PE, multilobar change vancomycin to zyvox monitor WBC, temps monitor clincally - monitor CBC , bicarb while on zyvox Karon Thomson MD Jun 02, 2017 13:51
[2017-06-02] MEDS: LACTULOSE LIQ 300 ML in WATER STERILE FOR IRR BTL 700 ML RECTAL SCH ×2 (15:57→20:00)
[2017-06-02] MEDS: LINEZOLID 600 MG PREMIX 300 ML IV SCH (16:27)
[2017-06-03] VITALS (42 sets, daily range): BP systolic 95–140; BP diastolic 52–105; PULSE 90–129; TEMP 100.4–102.7; O2SAT 96–100
[2017-06-03] MEDS: PANTOPRAZOLE INJ 80 MG in SODIUM CHLORIDE 0.9% INJ 100 ML IV SCH ×3 (00:57→22:05)
[2017-06-03] MEDS: OCTREOTIDE INJ 500 MCG in SODIUM CHLORID 0.9% 500 ML INJ 499.5 ML IV SCH ×3 (00:58→22:05)
[2017-06-03 03:24] LABS: AUTOMATED NEUTROPHIL # 14.9 TH/MM3 (1.8-7.7); BASOPHIL # 0.1 TH/MM3 (0-0.2); BASOPHIL % 0.3 % (0.0-2.0); EOSINOPHIL # 1.5 TH/MM3 (0-0.4); EOSINOPHIL % 6.4 % (0.0-4.0); HEMATOCRIT 22.7 % (39.0-51.0); LYMPH % 17.2 % (9.0-44.0); LYMPHOCYTE # 3.9 TH/MM3 (1.0-4.8); MEAN CELL VOLUME 82.9 FL (80.0-100.0); MEAN CORPUSCULAR HEMOGLOBIN 26.6 PG (27.0-34.0); MEAN CORPUSCULAR HGB CONC 32.1 % (32.0-36.0); MONO % 10.6 % (0.0-8.0); NEUT % 65.5 % (16.0-70.0); PLATELET COUNT 128 TH/MM3 (150-450); RED BLOOD COUNT 2.74 MIL/MM3 (4.50-5.90); RED CELL DISTRIBUTION WIDTH 18.9 % (11.6-17.2); WHITE BLOOD COUNT 22.8 TH/MM3 (4.0-11.0)
[2017-06-03 03:28] LABS: HEMO FLAGS AUTO DIFF
[2017-06-03 03:33] LABS: APTT (PATIENT) 33.4 SEC (24.3-30.1); INTERNATIONAL NORMALIZED RATIO 1.1 RATIO
[2017-06-03 03:45] LABS: BICARBONATE 28.1 MEQ/L (21.0-32.0); INDIRECT BILIRUBIN 0.8 MG/DL (0.0-0.8); POTASSIUM 4.9 MEQ/L (3.5-5.1); TOTAL BILIRUBIN ADULT 2.6 MG/DL (0.2-1.0)
[2017-06-03] MEDS: LINEZOLID 600 MG PREMIX 300 ML IV SCH (04:25)
[2017-06-03] MEDS: PHENYLEPHRINE HCL 160 MG/D5W 484 ML ADMIX IV PRN ×2 (04:34)
[2017-06-03 04:45] LABS: CALCIUM-PROTEIN CORRECTED 8.3 MG/DL (8.5-10.1)
[2017-06-03 05:00] LABS: BANDS 8 % (0-6); BASOPHILS 1 % (0-2); CORRECTED NUCLEATED RBC 4 /100 WBC (0-0); EOSINOPHILS 5 % (0-4); NEUTROPHIL # MANUAL DIFF 19.6 TH/MM3 (1.8-7.7); POLYS (SEG NEUTROPHILS) 78 % (16-70); WBC DIFF SAMPLE 100
[2017-06-03 05:01] LABS: PLATELET ESTIMATE SMEAR LOW (NORMAL); PLATELET MORPHOLOGY NORMAL (NORMAL); SCAN/DIFF FINAL DIFF MANUAL
[2017-06-03 05:11] LABS: SPHEROCYTES OCC (NORMAL)
[2017-06-03] MEDS: LACTULOSE LIQ 300 ML in WATER STERILE FOR IRR BTL 700 ML RECTAL SCH ×4 (05:38→21:15)
[2017-06-03] MEDS: SODIUM BICARBONATE 8.4% INJ 150 MEQ in DEXTROSE 5% IN WATE 1000ML INJ 1,000 ML IV SCH ×2 (07:43)
[2017-06-03] MEDS: SODIUM CHLORIDE 0.9% FLUSH 10 ML FLUSH IV FLUSH SCH ×2 (07:44→21:15)
--- NOTE | 2017-06-03 12:10 | HHI.IDPN ---
Subjective Subjective Remarks remains on vent + secretions off pressors having bloody diarrhea + fever up to 102.7 this am Antibiotics zyvox iv Allergies: Coded Allergies: No Known Allergies (Unverified , 05/29/17) Objective . Vital Signs Date Time Temp Pulse Resp B/P (MAP) Pulse Ox O2 Delivery O2 Flow Rate FiO2 06/03/17 11:00 105 06/03/17 10:30 101 06/03/17 10:00 101 06/03/17 09:45 101 133/62 (85) 100 06/03/17 09:30 101 06/03/17 09:30 101 140/68 (92) 100 132/68 (89) 06/03/17 09:28 101 136/65 (88) 100 115/105 (108) 06/03/17 09:28 101 06/03/17 09:15 102 115/92 (100) 100 06/03/17 09:00 101 06/03/17 09:00 101 133/62 (85) 100 126/71 (89) 06/03/17 08:45 100 117/87 (97) 100 06/03/17 08:30 98 06/03/17 08:30 98 138/59 (85) 100 131/66 (87) 06/03/17 08:15 98 102/86 (91) 100 06/03/17 08:00 50 06/03/17 08:00 96 134/60 (84) 100 111/70 (84) 06/03/17 08:00 96 06/03/17 07:06 96 50 06/03/17 06:00 91 06/03/17 05:46 98 06/03/17 04:34 97 134/61 06/03/17 04:00 50 06/03/17 04:00 102.7 98 139/63 (88) 98 127/53 (77) 06/03/17 03:57 97 50 06/03/17 02:00 93 06/03/17 01:02 100 50 06/03/17 00:00 60 06/03/17 00:00 90 06/03/17 00:00 100.6 90 137/62 (87) 100 116/52 (73) 06/02/17 22:00 93 06/02/17 20:47 100 60 06/02/17 20:00 97 06/02/17 20:00 60 06/02/17 20:00 100.7 97 143/62 (89) 100 118/55 (76) 06/02/17 18:00 100 06/02/17 16:30 105 138/63 (88) 100 136/70 (92) 06/02/17 16:00 112 146/70 (95) 98 131/68 (89) 06/02/17 16:00 112 06/02/17 16:00 60 06/02/17 15:16 100 60 06/02/17 14:30 99 06/02/17 14:30 99 140/60 (86) 100 115/57 (76) 06/02/17 14:00 101 06/02/17 14:00 101 139/60 (86) 100 115/57 (76) 06/02/17 13:30 101 133/59 (83) 100 113/58 (76) 06/02/17 13:00 103 130/60 (83) 99 109/57 (74) 06/02/17 12:30 104 137/60 (85) 98 113/58 (76) 06/02/17 12:30 104 . Laboratory Tests Test 06/01/17 13:20 06/01/17 22:28 06/02/17 05:45 06/03/17 03:00 Hemoglobin 8.4 GM/DL 7.7 GM/DL 7.7 GM/DL 7.3 GM/DL Hematocrit 26.5 % 23.9 % 24.1 % 22.7 % White Blood Count 25.4 TH/MM3 22.8 TH/MM3 Red Blood Count 2.94 MIL/MM3 2.74 MIL/MM3 Mean Corpuscular Volume 82.1 FL 82.9 FL Mean Corpuscular Hemoglobin 26.3 PG 26.6 PG Mean Corpuscular Hemoglobin Concent 32.0 % 32.1 % Red Cell Distribution Width 18.2 % 18.9 % Platelet Count 137 TH/MM3 128 TH/MM3 Mean Platelet Volume 8.1 FL 8.6 FL Neutrophils (%) (Auto) 70.4 % 65.5 % Lymphocytes (%) (Auto) 14.7 % 17.2 % Monocytes (%) (Auto) 10.3 % 10.6 % Eosinophils (%) (Auto) 4.2 % 6.4 % Basophils (%) (Auto) 0.4 % 0.3 % Neutrophils # (Auto) 17.9 TH/MM3 14.9 TH/MM3 Lymphocytes # (Auto) 3.7 TH/MM3 3.9 TH/MM3 Monocytes # (Auto) 2.6 TH/MM3 2.4 TH/MM3 Eosinophils # (Auto) 1.1 TH/MM3 1.5 TH/MM3 Basophils # (Auto) 0.1 TH/MM3 0.1 TH/MM3 CBC Comment AUTO DIFF AUTO DIFF Differential Total Cells Counted 100 100 Neutrophils % (Manual) 84 % 78 % Band Neutrophils % 1 % 8 % Lymphocytes % 7 % 7 % Monocytes % 4 % 1 % Eosinophils % 4 % 5 % Neutrophils # (Manual) 21.6 TH/MM3 19.6 TH/MM3 Nucleated Red Blood Cells 1 /100 WBC 4 /100 WBC Differential Comment FINAL DIFF MANUAL FINAL DIFF MANUAL Platelet Estimate LOW LOW Platelet Morphology Comment NORMAL NORMAL Polychromasia 2.7 % 2.0 % Ovalocytes 1+ Basophils % 1 % Basophilic Stippling FAINT Spherocytes OCC Laboratory Tests Test 06/02/17 05:45 06/03/17 03:00 06/03/17 03:15 Blood Urea Nitrogen 84 MG/DL 70 MG/DL Creatinine 1.39 MG/DL 1.19 MG/DL Random Glucose 153 MG/DL 140 MG/DL Total Protein 4.7 GM/DL 4.9 GM/DL Albumin 1.9 GM/DL 1.9 GM/DL Calcium Level 6.3 MG/DL 7.1 MG/DL Phosphorus Level 2.2 MG/DL Magnesium Level 2.7 MG/DL Alkaline Phosphatase 121 U/L 146 U/L Aspartate Amino Transf (AST/SGOT) 748 U/L 599 U/L Alanine Aminotransferase (ALT/SGPT) 912 U/L 889 U/L Total Bilirubin 2.7 MG/DL 2.6 MG/DL Sodium Level 145 MEQ/L 149 MEQ/L Potassium Level 4.8 MEQ/L 4.9 MEQ/L Chloride Level 116 MEQ/L 118 MEQ/L Carbon Dioxide Level 26.0 MEQ/L 28.1 MEQ/L Anion Gap 3 MEQ/L 3 MEQ/L Estimat Glomerular Filtration Rate 57 ML/MIN 68 ML/MIN Protein Corrected Calcium 7.5 MG/DL 8.3 MG/DL Direct Bilirubin 1.8 MG/DL Indirect Bilirubin 0.8 MG/DL Ammonia 84 MCMOL/L Microbiology Date/Time Source Procedure Growth Status 06/01/17 01:53 Blood Peripheral Aerobic Blood Culture - Preliminary NO GROWTH IN 2 DAYS Resulted 06/01/17 01:53 Blood Peripheral Anaerobic Blood Culture - Preliminary NO GROWTH IN 2 DAYS Resulted 05/31/17 22:45 Blood Peripheral Aerobic Blood Culture - Preliminary NO GROWTH IN 3 DAYS Resulted 05/31/17 22:45 Blood Peripheral Anaerobic Blood Culture - Preliminary NO GROWTH IN 3 DAYS Resulted 06/01/17 03:30 Sputum Endotracheal Gram Stain - Final Complete 06/01/17 03:30 Sputum Culture - Final Staphylococcus Aureus Complete 05/31/17 23:00 Urine Catheterized Urine Legionella Antigen - Final PRESUMPTIVE NEGATIVE FOR LEGIONELLA P... Complete 05/31/17 23:00 Urine Catheterized Urine Streptococcus pneumoniae Antigen (M - Final PRESUMPTIVE NEGATIVE FOR STREPTOCOCCU... Complete 05/31/17 23:00 Urine Catheterized Urine Urine Culture - Final NO GROWTH IN 48 HOURS. Complete Imaging Last Impressions Chest X-Ray 06/02/17 0600 Signed Impressions: Service Date/Time: Friday, June 02, 2017 03:14 - CONCLUSION: No significant change. Mild right base airspace disease again noted. David Quintero MD Upper Extremity Ultrasound 06/01/17 0000 Signed Impressions: Service Date/Time: Thursday, June 01, 2017 13:47 - CONCLUSION: No evidence of upper extremity DVT on the right or left. Angel Paredes MD Lower Extremity Ultrasound 06/01/17 0000 Signed Impressions: Service Date/Time: Thursday, June 01, 2017 13:30 - CONCLUSION: No evidence of lower extremity DVT on the right or left. Angel Paredes MD CT Angiography 06/01/17 0000 Signed Impressions: Service Date/Time: Thursday, June 01, 2017 02:39 - CONCLUSION: 1. Suspected left upper lobe and left lower lobe pulmonary emboli. No pulmonary embolus on the right. 2. Right infrahilar/subcarinal mass. 3. Bilateral lower lobe atelectasis, right worse than left. Also patchy pneumonia of the right lower lobe. David Quintero MD Abdomen/Pelvis CT 06/01/17 0000 Signed Impressions: Service Date/Time: Thursday, June 01, 2017 02:39 - CONCLUSION: 1. Cirrhosis. Heterogeneously enhancing liver without a distinct/measurable focal lesion. 2. Marked splenomegaly, 10.3 x 17.6 x 18.1 cm. 3. Very severe portosystemic collaterals including gastroesophageal varices. The varices extend into the lower chest and probably account for the subcarinal/right infrahilar mass seen by chest CT. 4. Diffuse wall thickening of the colon, colitis versus secondary changes from cirrhosis. 5. Small ascites. Body wall edema/anasarca. David Quintero MD Liver Ultrasound 05/30/17 0000 Signed Impressions: Service Date/Time: May 09:04 - CONCLUSION: Cirrhotic liver appearance. Question focal right lobe mass. Recommend further evaluation with hepatic MRI with Eovist. David Terrazas MD Physical Exam CONSTITUTIONAL/GENERAL: This is an adequately nourished patient, in no apparent distress. TUBES/LINES/DRAINS: SKIN: No jaundice, rashes, or lesions. Skin temperature appropriate. Not diaphoretic. EYES: Pupils equal and round and reactive. Extraocular motions intact. + mild scleral icterus. No injection or drainage. Fundi not examined. ENT: Hearing not tested Nose without bleeding or purulent drainage. oral mucosae partially visulaised without visible erythema, exudates, masses, or lesions. CARDIOVASCULAR: Regular rate and rhythm without murmurs, gallops, or rubs. No JVD. Peripheral pulses symmetric. RESPIRATORY/CHEST: Symmetric, unlabored respirations. Clear to auscultation. Breath sounds equal bilaterally. No wheezes, rales, or rhonchi. GASTROINTESTINAL: Abdomen soft, non-tender, nondistended. No hepato-splenomegaly , or palpable masses. No guarding. Bowel sounds present. Incontinent of bloody dark brown stool GENITOURINARY: Without palpable bladder distension. Menchaca catheter in place with clear yellow urine MUSCULOSKELETAL: Extremities without clubbing, cyanosis, + trace edema. No joint tenderness or effusion noted. No calf tenderness. No mottling or clubbing. LYMPHATICS: No palpable cervical or supraclavicular adenopathy. NEUROLOGICAL: Sedated. Unresponsive PSYCHIATRIC: unable to assess Assessment & Plan Remarks Liver cirrhosis Upper GI bleed 2/2 esophageal varices VDRF MSSA PNA - final S showed MSSA PE, multilobar High fever x 24-48 hrs - wortse dc zyvox repeat blood clx start cefepime , vancomycin repeat sputum, UA/C+S monitor WBC, temps Karon Thomson MD Jun 03, 2017 12:10
[2017-06-03] MEDS ORDERED: Vancomycin Consult Pharmacy 1 EA OTHER SCH (12:15)
[2017-06-03] MEDS: CEFEPIME INJ 2,000 MG in SODIUM CHLORIDE 0.9% INJ 100 ML IV SCH ×2 (13:40→21:44)
--- NOTE | 2017-06-03 13:57 | HHI.CCPN ---
Subjective Remarks/Hospital Course 41-year-old gentleman admitted with complaints of hematemesis over about an hour and a half. The color was dark; accompanied by nausea but denies abdominal pain. Just had a dark stool. He was taking Tylenol 1000 mg per day 5 days per week. He denies any history of peptic ulcer. He started taking generic Aleve or naproxen 200 mg when extra strength Tylenol wore off over the past week. The patient reports that last week he had "a really nasty flu". He had also put in extra hours at work last week and thought it might be related to work-related exhaustion. He denies chest pain, shortness of breath. He underwent urgent EGD by gastroenterology with the finding of a large esophageal varix extending from top to bottom with active bleeding in the distal portion, 3 bands were applied along the length of the varix and especially over the bleeding section. The stomach this was filled with blood and it was a limited evaluation. The duodenum was unremarkable. He has returned to ICU from OR sedated and intubated. Subjective: 05/31: Afebrile. The patient is noted to have low urine output, and sinus tachycardia heart rate 105-110, patient bolused with 1 L normal saline. Normal saline infusion continues at 100 cc/hour. H&H pending .Continues on Protonix and octreotide infusions currently remains sedated. The patient was noted to have 2 large melanotic stools postoperatively. 06/01: During the night the patient became hypoxic and tachycardic. CTA pulmonary perform revealed bilateral upper and lower left lobe pulmonary embolus. Oxygen requirement significantly increased to currently FiO2 of 0.9. Patient not a candidate for TPA in the setting of acute upper GI bleed currently on Protonix and octreotide. Discussed with interventional radiology, , regarding possibility of catheter directed TPA to left upper and lower lobe, patient also deemed not a candidate. Ultrasound bilateral upper and lower extremities ordered today. Plan for IVC filter placement. Patient currently hemodynamically unstable requiring phenylephrine infusion, stat echo pending. The patient was noted to have abnormal liver ultrasound CT abdomen and pelvis was also performed revealing esophageal varices extending into the lower chest and florid portal systemic collaterals. 06/02: Remains unstable. Hgb no change. LFTs indicate deteriorating hepatic function. 06/03: No lower or upper extremity DVT.ECHO normal. Now off Neosynephrine. Hgb unchanged. Transaminitis resolving. Etiology of hepatic injury appears chronic; unclear what role tylenol played. Objective Vital Signs Date Time Temp Pulse Resp B/P (MAP) Pulse Ox O2 Delivery O2 Flow Rate FiO2 06/03/17 12:45 111 06/03/17 12:45 140/69 (92) 100 95/78 (84) 06/03/17 12:00 50 06/03/17 04:00 102.7 06/01/17 14:00 11 05/30/17 21:25 Mechanical Ventilator 05/30/17 16:00 1.50 Intake and Output 06/03/17 06/03/17 06/04/17 08:00 16:00 00:00 Intake Total 300 ml Output Total 1400 ml Balance -1100 ml Result Diagram: 06/03/17 0300 06/03/17 0300 Other Results Microbiology Date/Time Source Procedure Growth Status 06/01/17 03:30 Sputum Endotracheal Gram Stain - Final Complete 06/01/17 03:30 Sputum Culture - Final Staphylococcus Aureus Complete 05/31/17 23:00 Urine Catheterized Urine Legionella Antigen - Final PRESUMPTIVE NEGATIVE FOR LEGIONELLA P... Complete 05/31/17 23:00 Urine Catheterized Urine Streptococcus pneumoniae Antigen (M - Final PRESUMPTIVE NEGATIVE FOR STREPTOCOCCU... Complete 05/31/17 23:00 Urine Catheterized Urine Urine Culture - Final NO GROWTH IN 48 HOURS. Complete Imaging Last Impressions Liver Ultrasound 05/30/17 0000 Signed Impressions: Service Date/Time: May 09:04 - CONCLUSION: Cirrhotic liver appearance. Question focal right lobe mass. Recommend further evaluation with hepatic MRI with Eovist. David Terrazas MD Chest X-Ray 05/30/17 0000 Signed Impressions: Service Date/Time: May 01:02 - CONCLUSION: 1. No acute cardiopulmonary disease. Oh Escobedo MD Objective Remarks GENERAL: Lightly sedated and intubated SKIN: Warm and dry. HEAD: Normocephalic. EYES: Conjunctival icterus present. No injection or drainage. NECK: Supple, trachea midline. Orally intubated CARDIOVASCULAR: Regular rate and rhythm without murmurs, gallops, or rubs. No JVD. RESPIRATORY: Mechanical ventilation. Breath sounds equal bilaterally. Clear. No wheezes or crackles. GASTROINTESTINAL: Abdomen soft, non-tender, nondistended. BS active. MUSCULOSKELETAL: No cyanosis, or edema. Well perfused. Pale toes, tepid. NEURO EXAM: Moves 4 limbs spontaneously. CECY. Breathes over vent Procedures 05/30- EGD Side: Right Location: Subclavian A/P Assessment and Plan Hypoxic Respiratory failure Pulmonary embolus-left upper lobe, left lower lobe Multilobar Pneumonia - Maintain O2 saturation greater than 92%, -Fentanyl infusion 50 mics/hour for ventilator synchrony -05/29 Intubated for an airway protection - Vent bundle - DuoNeb's every 6 hours scheduled every 2 hours when necessary -06/01 CTA pulmonary-suspected left upper lobe, left lower lobe pulmonary emboli, no pulmonary emboli on the right. Bilateral lower lobe atelectasis. Patchy pneumonia right lower lobe. Noted ill-defined right infrahilar/subcarinal mass 4.2 x 4.8 cm (likely esophageal varices- per CT abdomen report). Extensive discussion with Dr. Terrazas (IR) patient is not a candidate for catheter directed TPA in the setting of GI bleeding. -Patient on azithromycin, cefepime and vancomycin empiric antibiotics -Consult for IVC filter -Pulmonology consulted GI bleed Hematemesis Splenomegaly Cirrhosis Esophageal varices Elevated transaminase levels Hyperammonemia Ascites - large esophageal varix -06/01 CT abdomen-splenomegaly, ascites, esophageal varices extend into the lower chest and may account for subcarinal and infrahilar masses. Florid portosystemic collaterals - 3 bands applied by GI - Protonix drip - Octreotide drip - Further management per GI- Dr. Chong - Monitor H&H every 6 hours, 8.2->7.8 will transfuse if < 7. - Ammonia decreasing Sinus tachycardia Shock, hypovolemic -Bolused 1 L of normal saline -Sodium bicarbonate 75 cc/hour -Follow-up hemoglobin level -06/01 Obtain stat echo-evaluate function and clot burden Transaminitis/liver cirrhosis - Due to daily Tylenol use - Hepatitis Profile pending -AST 692, ALT 593, T bili 2.1 - Liver ultrasound reveals cirrhotic liver image - Tylenol level negative - Workup per gastroenterology -Monitor PT/INR -06/01 CT abdomen Thrombocytopenia -Monitor H&H every 6 hours -Fibrinogen level 146, follow up fibrinogen level if decreases plan for cryoprecipitate post placement of IVC filter - transfuse platelets if signs of acute bleeding, or less than 50,000 -Hematology consulted DVT GI prophylaxis - No pharmacological DVT prophylaxis. Plan for IVC filter -06/01 follow-up ultrasound venous Doppler bilateral upper extremities and bilateral lower extremities - SCDs/TEDs - Protonix drip Dispo: Discussed with NOVELTY CANDY MAKER at bedside. Overall impression: Critically ill but less unstable today. Better peripheral perfusion. Etiology of hepatic dysfunction unclear; hep screen negative. Critical Care 38 mins Billy Chavarria MD Jun 03, 2017 13:57
[2017-06-03] MEDS: LACTATED RINGER'S 1000 ML INJ 1,000 ML IV SCH (14:51)
--- NOTE | 2017-06-03 16:36 | PD.ONC.PN ---
Subjective Subjective Remarks obtunded. Objective Data Date Time Temp Pulse Resp B/P (MAP) Pulse Ox O2 Delivery O2 Flow Rate FiO2 06/03/17 15:00 120 06/03/17 14:55 100 35 06/03/17 14:45 115 06/03/17 14:31 117 06/03/17 14:15 115 06/03/17 14:00 114 06/03/17 12:45 111 06/03/17 12:45 111 140/69 (92) 100 95/78 (84) 06/03/17 12:45 111 06/03/17 12:30 106 130/64 (86) 100 127/61 (83) 06/03/17 12:30 106 06/03/17 12:30 106 06/03/17 12:15 108 134/65 (88) 100 132/61 (84) 06/03/17 12:15 108 06/03/17 12:15 108 06/03/17 12:00 106 06/03/17 12:00 106 06/03/17 12:00 106 134/63 (86) 100 139/60 (86) 06/03/17 12:00 50 06/03/17 11:00 105 06/03/17 10:30 101 06/03/17 10:00 101 06/03/17 09:45 101 133/62 (85) 100 06/03/17 09:30 101 06/03/17 09:30 101 140/68 (92) 100 132/68 (89) 06/03/17 09:28 101 136/65 (88) 100 115/105 (108) 06/03/17 09:28 101 06/03/17 09:15 102 115/92 (100) 100 06/03/17 09:00 101 06/03/17 09:00 101 133/62 (85) 100 126/71 (89) 06/03/17 08:45 100 117/87 (97) 100 06/03/17 08:30 98 06/03/17 08:30 98 138/59 (85) 100 131/66 (87) 06/03/17 08:15 98 102/86 (91) 100 06/03/17 08:00 50 06/03/17 08:00 96 134/60 (84) 100 111/70 (84) 06/03/17 08:00 96 06/03/17 07:06 96 50 06/03/17 06:00 91 06/03/17 05:46 98 06/03/17 04:34 97 134/61 06/03/17 04:00 50 06/03/17 04:00 102.7 98 139/63 (88) 98 127/53 (77) 06/03/17 03:57 97 50 06/03/17 02:00 93 06/03/17 01:02 100 50 06/03/17 00:00 60 06/03/17 00:00 90 06/03/17 00:00 100.6 90 137/62 (87) 100 116/52 (73) 06/02/17 22:00 93 06/02/17 20:47 100 60 06/02/17 20:00 97 06/02/17 20:00 60 06/02/17 20:00 100.7 97 143/62 (89) 100 118/55 (76) 06/02/17 18:00 100 06/02/17 16:30 105 138/63 (88) 100 136/70 (92) 06/03/17 06/03/17 06/03/17 07:00 15:00 23:00 Intake Total 300 ml Output Total 1400 ml Balance -1100 ml Result Diagram: 06/03/17 0300 06/03/17 0300 Laboratory Results Laboratory Tests Test 06/03/17 03:00 06/03/17 03:15 White Blood Count 22.8 TH/MM3 Red Blood Count 2.74 MIL/MM3 Hemoglobin 7.3 GM/DL Hematocrit 22.7 % Mean Corpuscular Volume 82.9 FL Mean Corpuscular Hemoglobin 26.6 PG Mean Corpuscular Hemoglobin Concent 32.1 % Red Cell Distribution Width 18.9 % Platelet Count 128 TH/MM3 Mean Platelet Volume 8.6 FL Neutrophils (%) (Auto) 65.5 % Lymphocytes (%) (Auto) 17.2 % Monocytes (%) (Auto) 10.6 % Eosinophils (%) (Auto) 6.4 % Basophils (%) (Auto) 0.3 % Neutrophils # (Auto) 14.9 TH/MM3 Lymphocytes # (Auto) 3.9 TH/MM3 Monocytes # (Auto) 2.4 TH/MM3 Eosinophils # (Auto) 1.5 TH/MM3 Basophils # (Auto) 0.1 TH/MM3 CBC Comment AUTO DIFF Differential Total Cells Counted 100 Neutrophils % (Manual) 78 % Band Neutrophils % 8 % Lymphocytes % 7 % Monocytes % 1 % Eosinophils % 5 % Basophils % 1 % Neutrophils # (Manual) 19.6 TH/MM3 Nucleated Red Blood Cells 4 /100 WBC Differential Comment FINAL DIFF MANUAL Platelet Estimate LOW Platelet Morphology Comment NORMAL Polychromasia 2.0 % Basophilic Stippling FAINT Spherocytes OCC Prothrombin Time 12.0 SEC Prothromb Time International Ratio 1.1 RATIO Activated Partial Thromboplast Time 33.4 SEC Blood Urea Nitrogen 70 MG/DL Creatinine 1.19 MG/DL Random Glucose 140 MG/DL Total Protein 4.9 GM/DL Albumin 1.9 GM/DL Calcium Level 7.1 MG/DL Alkaline Phosphatase 146 U/L Aspartate Amino Transf (AST/SGOT) 599 U/L Alanine Aminotransferase (ALT/SGPT) 889 U/L Total Bilirubin 2.6 MG/DL Direct Bilirubin 1.8 MG/DL Sodium Level 149 MEQ/L Potassium Level 4.9 MEQ/L Chloride Level 118 MEQ/L Carbon Dioxide Level 28.1 MEQ/L Anion Gap 3 MEQ/L Estimat Glomerular Filtration Rate 68 ML/MIN Protein Corrected Calcium 8.3 MG/DL Indirect Bilirubin 0.8 MG/DL Ammonia 84 MCMOL/L Culture Results Microbiology Date/Time Source Procedure Growth Status 06/01/17 01:53 Blood Peripheral Aerobic Blood Culture - Preliminary NO GROWTH IN 2 DAYS Resulted 06/01/17 01:53 Blood Peripheral Anaerobic Blood Culture - Preliminary NO GROWTH IN 2 DAYS Resulted 05/31/17 22:45 Blood Peripheral Aerobic Blood Culture - Preliminary NO GROWTH IN 3 DAYS Resulted 05/31/17 22:45 Blood Peripheral Anaerobic Blood Culture - Preliminary NO GROWTH IN 3 DAYS Resulted 06/01/17 03:30 Sputum Endotracheal Gram Stain - Final Complete 06/01/17 03:30 Sputum Culture - Final Staphylococcus Aureus Complete 05/31/17 23:00 Urine Catheterized Urine Legionella Antigen - Final PRESUMPTIVE NEGATIVE FOR LEGIONELLA P... Complete 05/31/17 23:00 Urine Catheterized Urine Streptococcus pneumoniae Antigen (M - Final PRESUMPTIVE NEGATIVE FOR STREPTOCOCCU... Complete 05/31/17 23:00 Urine Catheterized Urine Urine Culture - Final NO GROWTH IN 48 HOURS. Complete Administered Medications Medications (Trade) Dose Ordered Sig/Maksim Route PRN Reason Start Time Stop Time Status Last Admin Dose Admin Pantoprazole Sodium 80 mg/ Sodium Chloride 100 ml @ 10 mls/hr Q10H IV 05/29/17 23:46 06/03/17 13:41 Sodium Chloride (NS Flush) 2 ml BID IV FLUSH 05/30/17 09:00 06/02/17 20:46 Ondansetron HCl (Zofran Inj) 4 mg Q6HR PRN IV PUSH nausea 05/30/17 01:45 05/30/17 16:53 Octreotide Acetate 500 mcg/ Sodium Chloride 500 ml @ 50 mls/hr Q10H IV 05/30/17 03:31 06/03/17 07:44 Miscellaneous Information Patient in critical care unit? Ass... Q361D .XX 05/30/17 04:15 05/30/17 04:15 Chlorhexidine Gluconate (Chlorhexidine 2% Cloth) 3 pack DAILY@04 TOPICAL 05/31/17 04:00 06/04/17 04:01 06/01/17 04:00 Propofol 100 ml @ 3.111 mls/ hr TITRATE PRN IV SEDATION 05/30/17 22:30 Future Hold 05/31/17 19:02 Fentanyl Citrate 250 ml @ 5 mls/hr TITRATE PRN IV SEDATION 05/31/17 21:30 06/02/17 23:19 Phenylephrine HCl 160 mg/Dextrose 500 ml @ 7.5 mls/hr TITRATE PRN IV Blood Pressure Management 06/01/17 10:00 06/03/17 04:34 Lactulose 300 ml/ Sterile Water 1,000 ml @ 0 mls/hr Q6H RECTAL 06/02/17 14:00 06/03/17 13:40 Cefepime HCl 2000 mg/Sodium Chloride 100 ml @ 200 mls/hr Q8HR IV 06/03/17 14:00 06/03/17 13:40 Lactated Ringer's 1,000 ml @ 84 mls/hr [id number] IV 06/03/17 14:15 06/03/17 14:51 Objective Remarks GENERAL: Well-nourished, overweight. SKIN: Warm and dry. HEAD: Normocephalic. EYES: slight icterus. No injection or drainage. NECK: Supple, trachea midline. No JVD or lymphadenopathy. LYMPHATIC: No adenopathy. CARDIOVASCULAR: Regular rate and rhythm without murmurs. RESPIRATORY: Breath sounds equal bilaterally. No accessory muscle use. GASTROINTESTINAL: Abdomen soft, non-tender, nondistended. EXTREMITIES: No cyanosis, or edema. MUSCULOSKELETAL: Adequate muscle tone. NEUROLOGICAL: sedated. Assessment/Plan Assessment 1:41 y/o male admitted with GI bleeding, found to also have probable pulmonary embolism. He remains acutely ill and agree with placement of umbrella given recent bleeding and presence of varices. 2: once he has recovered it will be essential to evaluate liver and lung. will order CEA and Alpha fetoprotein. Miguel Ángel Hassan MD Jun 03, 2017 16:36
[2017-06-03] MEDS: VANCOMYCIN INJ 1,500 MG in SODIUM CHLORID 0.9% 500 ML INJ 500 ML IV SCH (16:42)
[2017-06-03] MEDS: fentaNYL DRIP 250 ML IV PRN (16:48)
--- NOTE | 2017-06-03 17:27 | HHI.GIFU ---
GI Follow-up Note Consult Follow-up Subjective: Patient laying in bed comfortably, no new complaints except Objective: PHYSICAL EXAMINATION: Vitals signs stable No fever HEENT: Pupils round and reactive to light; normocephalic; atraumatic; jaundice. Throat is clear. NECK: Neck is supple, no JVD, no lymphadenopathy. CHEST: Chest is clear to auscultation and percussion. CARDIAC: Regular rate and rhythm with no murmur gallop or rubs. ABDOMEN: Soft, distended, nontender; no hepatosplenomegaly; bowel sounds are present in all four quadrants. EXTREMITIES: No clubbing, cyanosis, edema 2 plus. SKIN: Normal; no rash; jaundice. EQUITY TRADER: No focal deficits; alert and oriented times three. Available Data (labs, X- Rays, Procedues) : Vital Signs Date Time Temp Pulse Resp B/P (MAP) Pulse Ox O2 Delivery O2 Flow Rate FiO2 06/03/17 15:00 120 06/03/17 14:55 100 35 06/03/17 14:45 115 06/03/17 14:31 117 06/03/17 14:15 115 06/03/17 14:00 114 06/03/17 12:45 111 06/03/17 12:45 111 140/69 (92) 100 95/78 (84) 06/03/17 12:45 111 06/03/17 12:30 106 130/64 (86) 100 127/61 (83) 06/03/17 12:30 106 06/03/17 12:30 106 06/03/17 12:15 108 134/65 (88) 100 132/61 (84) 06/03/17 12:15 108 06/03/17 12:15 108 06/03/17 12:00 106 06/03/17 12:00 106 06/03/17 12:00 106 134/63 (86) 100 139/60 (86) 06/03/17 12:00 50 06/03/17 11:00 105 06/03/17 10:30 101 06/03/17 10:00 101 06/03/17 09:45 101 133/62 (85) 100 06/03/17 09:30 101 06/03/17 09:30 101 140/68 (92) 100 132/68 (89) 9/11/17 09:28 101 136/65 (88) 100 115/105 (108) 06/03/17 09:28 101 ASSESSMENT/PLAN: portal hypertension-unclear etiology at this point -work-up negative - ceruloplasmin pending no reports of etoh , still possible chronic use of etoh, doubt this is the only cause of his liver disease gi bleeding secondary esophageal varices-s/p banding elevated lfts-worsening -possible superimposed tylenol effect/hypoperfusipn Recommendations consider liver biopsy if not better and no etiology for his liver disease identified celiac panel egd in [facility] possible ngt placement we will send hep b and c viral load mucomyst lasix/spironolactone/albumin if increase in edema and ascites It was a pleasure seeing Calvin Myers. Thank you for this consult. Entered by: Sofy Wilcox MD Jun 03, 2017 17:27
[2017-06-03] MEDS ORDERED: ACETYLCYSTEINE IV 6000 MG/30 ML VIAL IV SCH (17:30)
[2017-06-03] MEDS ORDERED: ACETYLCYSTEINE INJ 15,000 MG in DEXTROSE 5% IN WATER INJ 200 ML IV ONE ×2 (19:00)
[2017-06-03 19:02] LABS: BACTERIA, URINE RARE /hpf; BLOOD, URINE MOD (NEG); GLUCOSE,URINE NEG (NEG); KETONE, URINE NEG (NEG); MUCUS URINE FEW /lpf (OCC); NITRITE,URINE NEG (NEG); PH, URINE 5.5 (5.0-8.5); SQUAMOUS EPITHELIAL CELL URINE <1 /hpf (0-5); URINE COLOR YELLOW (YELLW/STRAW)
[2017-06-03 19:03] LABS: COMMENT (UR) CATH-CULTURE IND; CULTURE IF INDICATED CATH CULTURE IND
--- NOTE | 2017-06-03 19:24 | HHI.PR ---
Subjective Remarks Sedated on the ventilator Objective Vital Signs Date Time Temp Pulse Resp B/P (MAP) Pulse Ox O2 Delivery O2 Flow Rate FiO2 06/03/17 18:15 118 06/03/17 18:00 117 06/03/17 17:30 118 134/63 (86) 99 06/03/17 17:30 118 06/03/17 17:15 117 135/63 (87) 100 06/03/17 17:15 117 06/03/17 17:00 117 130/60 (83) 98 06/03/17 17:00 117 06/03/17 16:45 117 06/03/17 16:45 117 130/59 (82) 100 06/03/17 16:30 117 133/62 (85) 99 06/03/17 16:30 117 06/03/17 16:15 118 131/60 (83) 98 06/03/17 16:15 118 06/03/17 16:00 35 06/03/17 16:00 117 06/03/17 16:00 117 130/62 (84) 98 06/03/17 15:00 120 06/03/17 14:55 100 35 06/03/17 14:45 115 06/03/17 14:31 117 06/03/17 14:15 115 06/03/17 14:00 114 06/03/17 12:45 111 06/03/17 12:45 111 140/69 (92) 100 95/78 (84) 06/03/17 12:45 111 06/03/17 12:30 106 130/64 (86) 100 127/61 (83) 06/03/17 12:30 106 06/03/17 12:30 106 06/03/17 12:15 108 134/65 (88) 100 132/61 (84) 06/03/17 12:15 108 06/03/17 12:15 108 06/03/17 12:00 106 06/03/17 12:00 106 06/03/17 12:00 106 134/63 (86) 100 139/60 (86) 06/03/17 12:00 50 06/03/17 11:00 105 06/03/17 10:30 101 06/03/17 10:00 101 06/03/17 09:45 101 133/62 (85) 100 06/03/17 09:30 101 9/11/17 09:30 101 140/68 (92) 100 132/68 (89) 06/03/17 09:28 101 136/65 (88) 100 115/105 (108) 06/03/17 09:28 101 06/03/17 09:15 102 115/92 (100) 100 06/03/17 09:00 101 06/03/17 09:00 101 133/62 (85) 100 126/71 (89) 06/03/17 08:45 100 117/87 (97) 100 06/03/17 08:30 98 06/03/17 08:30 98 138/59 (85) 100 131/66 (87) 06/03/17 08:15 98 102/86 (91) 100 06/03/17 08:00 50 06/03/17 08:00 96 134/60 (84) 100 111/70 (84) 06/03/17 08:00 96 06/03/17 07:06 96 50 06/03/17 06:00 91 06/03/17 05:46 98 06/03/17 04:34 97 134/61 06/03/17 04:00 50 06/03/17 04:00 102.7 98 139/63 (88) 98 127/53 (77) 06/03/17 03:57 97 50 06/03/17 02:00 93 06/03/17 01:02 100 50 06/03/17 00:00 60 06/03/17 00:00 90 06/03/17 00:00 100.6 90 137/62 (87) 100 116/52 (73) 06/02/17 22:00 93 06/02/17 20:47 100 60 06/02/17 20:00 97 06/02/17 20:00 60 06/02/17 20:00 100.7 97 143/62 (89) 100 118/55 (76) I/O 06/02/17 06/02/17 06/02/17 06/03/17 06/03/17 06/03/17 07:00 15:00 23:00 07:00 15:00 23:00 Intake Total 100 ml 300 ml 2060 ml Output Total 500 ml 1100 ml 1400 ml 3050 ml Balance -500 ml 100 ml -1100 ml -1100 ml -990 ml IV Total 100 ml 300 ml 2060 ml Output Urine Total 350 ml 1100 ml 1400 ml 1250 ml Stool Total 1800 ml Drainage Total 150 ml # Bowel Movements 1 1 Result Diagram: 06/03/1729906/03/17299 Objective Remarks GENERAL: SKIN: Warm and dry. HEAD: Atraumatic. Normocephalic. EYES: Pupils equal and round. No scleral icterus. No injection or drainage. ENT: No nasal bleeding or discharge. Mucous membranes pink and moist. NECK: Trachea midline. No JVD. CARDIOVASCULAR: Regular rate and rhythm. RESPIRATORY: No accessory muscle use. Clear to auscultation. Breath sounds equal bilaterally. GASTROINTESTINAL: Abdomen soft, non-tender, nondistended. Hepatic and splenic margins not palpable. MUSCULOSKELETAL: Extremities without clubbing, cyanosis, or edema. No obvious deformities. NEUROLOGICAL: Awake and alert. No obvious cranial nerve deficits. Motor grossly within normal limits. Five out of 5 muscle strength in the arms and legs. Normal speech. PSYCHIATRIC: Appropriate mood and affect; insight and judgment normal. Assessment and Plan Assessment and Plan respiratory failure pneumonia pulmonary embolism Gi bleed PLAN Ventilatory support ANTIBIOTICS IVC FILTER WEAN TOLERATED Yosef Navas MD Jun 03, 2017 19:24
[2017-06-03] MEDS ORDERED: ACETYLCYSTEINE INJ 5,000 MG in DEXTROSE 5% IN WATE 500 ML INJ 500 ML IV ONE ×2 (20:00)
[2017-06-04] VITALS (17 sets, daily range): BP systolic 136–174; BP diastolic 66–96; PULSE 79–126; RESP 12–14; TEMP 99.6–100.5; O2SAT 90–99
[2017-06-04] MEDS ORDERED: LACTATED RINGER'S 1000 ML INJ 1,000 ML IV ONE
[2017-06-04] MEDS ORDERED: ACETYLCYSTEINE INJ 10,000 MG in DEXTROSE 5% IN WATE 1000ML INJ 1,000 ML IV ONE ×2
[2017-06-04 00:52] LABS: REVIEW FLAG FINAL
[2017-06-04 00:53] LABS: HEMATOCRIT 21.2 % (39.0-51.0)
[2017-06-04] MEDS ORDERED: SODIUM CHLOR 0.9% 250 ML INJ 250 ML IV ONE ×2 (01:45→07:00)
[2017-06-04] MEDS: LACTULOSE LIQ 300 ML in WATER STERILE FOR IRR BTL 700 ML RECTAL SCH ×3 (02:00→14:18)
[2017-06-04] MEDS: LACTATED RINGER'S 1000 ML INJ 1,000 ML IV SCH ×2 (02:18→14:18)
[2017-06-04] MEDS: CEFEPIME INJ 2,000 MG in SODIUM CHLORIDE 0.9% INJ 100 ML IV SCH ×2 (06:06→14:18)
[2017-06-04] MEDS: fentaNYL DRIP 250 ML IV PRN ×2 (06:06→16:16)
[2017-06-04 06:26] LABS: AUTOMATED NEUTROPHIL # 9.6 TH/MM3 (1.8-7.7); BASOPHIL % 0.3 % (0.0-2.0); EOSINOPHIL # 0.6 TH/MM3 (0-0.4); EOSINOPHIL % 4.4 % (0.0-4.0); HEMATOCRIT 22.1 % (39.0-51.0); LYMPH % 8.7 % (9.0-44.0); LYMPHOCYTE # 1.1 TH/MM3 (1.0-4.8); MEAN CELL VOLUME 82.5 FL (80.0-100.0); MEAN CORPUSCULAR HEMOGLOBIN 26.9 PG (27.0-34.0); MEAN CORPUSCULAR HGB CONC 32.6 % (32.0-36.0); MONO % 9.7 % (0.0-8.0); NEUT % 76.9 % (16.0-70.0); PLATELET COUNT 66 TH/MM3 (150-450); RED BLOOD COUNT 2.67 MIL/MM3 (4.50-5.90); RED CELL DISTRIBUTION WIDTH 18.8 % (11.6-17.2); WHITE BLOOD COUNT 12.6 TH/MM3 (4.0-11.0)
[2017-06-04 06:28] LABS: HEMO FLAGS AUTO DIFF
[2017-06-04 06:33] LABS: INTERNATIONAL NORMALIZED RATIO 1.1 RATIO; PROTHROMBIN TIME - PATIENT 12.5 SEC (9.8-11.6)
[2017-06-04] MEDS: VANCOMYCIN INJ 1,500 MG in SODIUM CHLORID 0.9% 500 ML INJ 500 ML IV SCH ×2 (06:52→16:17)
[2017-06-04 06:59] LABS: BICARBONATE 29.2 MEQ/L (21.0-32.0); CALCIUM-PROTEIN CORRECTED 8.6 MG/DL (8.5-10.1); POTASSIUM 4.2 MEQ/L (3.5-5.1); TOTAL BILIRUBIN ADULT 2.1 MG/DL (0.2-1.0)
[2017-06-04 07:41] LABS: BANDS 10 % (0-6); CORRECTED NUCLEATED RBC 5 /100 WBC (0-0); EOSINOPHILS 2 % (0-4); NEUTROPHIL # MANUAL DIFF 10.1 TH/MM3 (1.8-7.7); POLYS (SEG NEUTROPHILS) 70 % (16-70); WBC DIFF SAMPLE 100
[2017-06-04 07:42] LABS: OVALOCYTES 1+ (NORMAL); PLATELET ESTIMATE SMEAR LOW (NORMAL); PLATELET MORPHOLOGY ENLARGED (NORMAL)
[2017-06-04 07:43] LABS: SCAN/DIFF FINAL DIFF MANUAL
[2017-06-04] MEDS: PANTOPRAZOLE INJ 80 MG in SODIUM CHLORIDE 0.9% INJ 100 ML IV SCH ×2 (08:10→18:19)
[2017-06-04] MEDS: SODIUM CHLORIDE 0.9% FLUSH 10 ML FLUSH IV FLUSH SCH ×2 (08:10→20:45)
[2017-06-04] MEDS: OCTREOTIDE INJ 500 MCG in SODIUM CHLORID 0.9% 500 ML INJ 499.5 ML IV SCH ×2 (08:10→18:19)
--- NOTE | 2017-06-04 08:42 | PD.ONC.PN ---
Subjective Subjective Remarks Tmax 100.5 overnight. Patient intubated, sedated. Objective Data Date Time Temp Pulse Resp B/P (MAP) Pulse Ox O2 Delivery O2 Flow Rate FiO2 06/04/17 07:58 98 35 06/04/17 06:00 116 06/04/17 04:00 116 06/04/17 04:00 35 06/04/17 04:00 100.3 116 12 150/73 (98) 98 06/04/17 03:35 99 35 06/04/17 02:00 79 06/04/17 00:00 100.5 122 12 136/66 (89) 97 06/04/17 00:00 121 06/04/17 00:00 35 06/03/17 22:00 129 06/03/17 20:00 35 06/03/17 20:00 119 06/03/17 20:00 100.4 119 137/63 (87) 97 Arterial Line 06/03/17 19:55 96 35 06/03/17 18:15 118 06/03/17 18:00 117 06/03/17 17:30 118 134/63 (86) 99 06/03/17 17:30 118 06/03/17 17:15 117 135/63 (87) 100 06/03/17 17:15 117 06/03/17 17:00 117 130/60 (83) 98 06/03/17 17:00 117 06/03/17 16:45 117 06/03/17 16:45 117 130/59 (82) 100 06/03/17 16:30 117 133/62 (85) 99 06/03/17 16:30 117 06/03/17 16:15 118 131/60 (83) 98 06/03/17 16:15 118 06/03/17 16:00 35 06/03/17 16:00 117 06/03/17 16:00 117 130/62 (84) 98 06/03/17 15:00 120 06/03/17 14:55 100 35 06/03/17 14:45 115 06/03/17 14:31 117 06/03/17 14:15 115 06/03/17 14:00 114 06/03/17 12:45 111 06/03/17 12:45 111 140/69 (92) 100 95/78 (84) 06/03/17 12:45 111 9/11/17 12:30 106 130/64 (86) 100 127/61 (83) 06/03/17 12:30 106 06/03/17 12:30 106 06/03/17 12:15 108 134/65 (88) 100 132/61 (84) 06/03/17 12:15 108 06/03/17 12:15 108 06/03/17 12:00 106 06/03/17 12:00 106 06/03/17 12:00 106 134/63 (86) 100 139/60 (86) 06/03/17 12:00 50 06/03/17 11:00 105 06/03/17 10:30 101 06/03/17 10:00 101 06/03/17 09:45 101 133/62 (85) 100 06/03/17 09:30 101 06/03/17 09:30 101 140/68 (92) 100 132/68 (89) 06/03/17 09:28 101 136/65 (88) 100 115/105 (108) 06/03/17 09:28 101 06/03/17 09:15 102 115/92 (100) 100 06/03/17 09:00 101 06/03/17 09:00 101 133/62 (85) 100 126/71 (89) 06/03/17 08:45 100 117/87 (97) 100 06/04/17 06/04/17 06/04/17 07:00 15:00 23:00 Intake Total 1525 ml 155 ml Output Total 2450 ml Balance -925 ml 155 ml Result Diagram: 06/04/1761406/04/17614 Laboratory Results Laboratory Tests Test 06/03/17 12:40 06/04/17 00:05 06/04/17 06:15 Urine Color YELLOW Urine Turbidity CLEAR Urine pH 5.5 Urine Specific [place] 1.023 Urine Protein TRACE mg/dL Urine Glucose (UA) NEG mg/dL Urine Ketones NEG mg/dL Urine Occult Blood MOD Urine Nitrite NEG Urine Bilirubin NEG Urine Urobilinogen LESS THAN 2.0 MG/DL Urine Leukocyte Esterase TRACE Urine RBC 132 /hpf Urine WBC 5 /hpf Urine Squamous Epithelial Cells <1 /hpf Urine Amorphous Sediment RARE Urine Bacteria RARE /hpf Urine Mucus FEW /lpf Microscopic Urinalysis Comment CATH-CULTURE IND Hemoglobin 6.7 GM/DL 7.2 GM/DL Hematocrit 21.2 % 22.1 % White Blood Count 12.6 TH/MM3 Red Blood Count 2.67 MIL/MM3 Mean Corpuscular Volume 82.5 FL Mean Corpuscular Hemoglobin 26.9 PG Mean Corpuscular Hemoglobin Concent 32.6 % Red Cell Distribution Width 18.8 % Platelet Count 66 TH/MM3 Mean Platelet Volume 8.2 FL Neutrophils (%) (Auto) 76.9 % Lymphocytes (%) (Auto) 8.7 % Monocytes (%) (Auto) 9.7 % Eosinophils (%) (Auto) 4.4 % Basophils (%) (Auto) 0.3 % Neutrophils # (Auto) 9.6 TH/MM3 Lymphocytes # (Auto) 1.1 TH/MM3 Monocytes # (Auto) 1.2 TH/MM3 Eosinophils # (Auto) 0.6 TH/MM3 Basophils # (Auto) 0.0 TH/MM3 CBC Comment AUTO DIFF Differential Total Cells Counted 100 Neutrophils % (Manual) 70 % Band Neutrophils % 10 % Lymphocytes % 9 % Monocytes % 9 % Eosinophils % 2 % Neutrophils # (Manual) 10.1 TH/MM3 Nucleated Red Blood Cells 5 /100 WBC Differential Comment FINAL DIFF MANUAL Platelet Estimate LOW Platelet Morphology Comment ENLARGED Ovalocytes 1+ Prothrombin Time 12.5 SEC Prothromb Time International Ratio 1.1 RATIO Blood Urea Nitrogen 46 MG/DL Creatinine 0.84 MG/DL Random Glucose 139 MG/DL Total Protein 5.0 GM/DL Albumin 1.7 GM/DL Calcium Level 7.4 MG/DL Alkaline Phosphatase 138 U/L Aspartate Amino Transf (AST/SGOT) 305 U/L Alanine Aminotransferase (ALT/SGPT) 699 U/L Total Bilirubin 2.1 MG/DL Sodium Level 150 MEQ/L Potassium Level 4.2 MEQ/L Chloride Level 117 MEQ/L Carbon Dioxide Level 29.2 MEQ/L Anion Gap 4 MEQ/L Estimat Glomerular Filtration Rate 102 ML/MIN Protein Corrected Calcium 8.6 MG/DL Ammonia 46 MCMOL/L Tumor Marker Alpha Fetoprotein 2.0 NG/ML Carcinoembryonic Antigen 1.9 NG/ML Culture Results Microbiology Date/Time Source Procedure Growth Status 06/04/17 00:05 Blood Peripheral Aerobic Blood Culture Pending Received 06/04/17 00:05 Blood Peripheral Anaerobic Blood Culture Pending Received 06/03/17 12:40 Urine Catheterized Urine Urine Culture Pending Received Administered Medications Medications (Trade) Dose Ordered Sig/Maksim Route PRN Reason Start Time Stop Time Status Last Admin Dose Admin Pantoprazole Sodium 80 mg/ Sodium Chloride 100 ml @ 10 mls/hr Q10H IV 05/29/17 23:46 06/04/17 08:10 Sodium Chloride (NS Flush) 2 ml BID IV FLUSH 05/30/17 09:00 06/04/17 08:10 Ondansetron HCl (Zofran Inj) 4 mg Q6HR PRN IV PUSH nausea 05/30/17 01:45 05/30/17 16:53 Octreotide Acetate 500 mcg/ Sodium Chloride 500 ml @ 50 mls/hr Q10H IV 05/30/17 03:31 06/04/17 08:10 Miscellaneous Information Patient in critical care unit? Ass... Q361D .XX 05/30/17 04:15 05/30/17 04:15 Propofol 100 ml @ 3.111 mls/ hr TITRATE PRN IV SEDATION 05/30/17 22:30 Future Hold 05/31/17 19:02 Fentanyl Citrate 250 ml @ 5 mls/hr TITRATE PRN IV SEDATION 05/31/17 21:30 06/04/17 06:06 Lactulose 300 ml/ Sterile Water 1,000 ml @ 0 mls/hr Q6H RECTAL 06/02/17 14:00 06/03/17 21:15 Cefepime HCl 2000 mg/Sodium Chloride 100 ml @ 200 mls/hr Q8HR IV 06/03/17 14:00 06/04/17 06:06 Lactated Ringer's 1,000 ml @ 84 mls/hr [id number] IV 06/03/17 14:15 06/04/17 02:18 Vancomycin HCl 1500 mg/Sodium Chloride 515 ml @ 257.5 mls/ hr Q12H IV 06/03/17 16:00 06/04/17 06:52 Acetylcysteine 21825 mg/Dextrose 1,050 ml @ 62.5 mls/hr ONCE ONCE IV 06/04/17 00:00 06/04/17 16:47 06/04/17 00:09 Sodium Chloride 250 ml @ 15 mls/hr ONCE ONCE IV 06/04/17 01:45 06/04/17 18:24 06/04/17 06:07 Objective Remarks GENERAL: Edematous sedated, intubated male, supine in bed. SKIN: Warm and dry. HEAD: Normocephalic. EYES: No scleral icterus. No injection or drainage. NECK: Supple, trachea midline. CARDIOVASCULAR: +S1/S2, tachy RESPIRATORY: anterior yost clear. on mechanical ventilation. GASTROINTESTINAL: Abdomen soft, nondistended. EXTREMITIES: No cyanosis. +anasarca NEUROLOGICAL: intubated, sedated Assessment/Plan Problem List: (1) Pulmonary embolism ICD Codes: I26.99 - Other pulmonary embolism without acute cor pulmonale Plan: 06/04: hold anticoagulation. plan for IVC filter placement once available. -- CT angiogram showed suspicion for left upper lobe and left lower lobe pulmonary embolism -- Also noted was a right infrahilar subcarinal mass -- Upper and lower ultrasound extremities showed no evidence of DVT. Hx/Workup: Initially presented to the emergency room with hematemesis. Recent upper endoscopy with short bleeding varices. These were banded by the financial services internship. He has been intubated to protect his airway. (2) GI bleed ICD Codes: K92.2 - Gastrointestinal hemorrhage, unspecified Plan: -- GI following -- hogan-endoscopy planned --transfuse as needed (3) Liver mass, right lobe ICD Codes: R16.0 - Hepatomegaly, not elsewhere classified Plan: -- Ultrasound of the liver shows a questionable right lobe liver mass -- The radiologist recommends MRI for further evaluation. -- Will do once stabilized Assessment 41 y/o male admitted with GI bleeding, found to also have a pulmonary embolism. Attending Statement SEDATED AND ON VENT. FOR REPEAT EGD TODAY. D/W DR NORTH. NO ANTICOAG. AWAIT IVC FILTER. The exam, history, and the medical decision-making described in the above note were completed with the assistance of the mid-level provider. I reviewed and agree with the findings presented. I attest that I had a [id number] encounter with the patient on the same day, and personally performed and documented my assessment and findings in the medical record. Kiara Laneg Jun 04, 2017 08:42 Irma Pierson MD Jun 04, 2017 15:46
[2017-06-04 10:41] LABS: CRITICAL VALUE YES
--- NOTE | 2017-06-04 13:49 | HHI.PR ---
Subjective Remarks Sedated on the ventilator no furthur bleeding Objective Laboratory Tests Test 06/01/17 22:28 06/02/17 05:45 06/02/17 12:05 06/03/17 03:00 Hemoglobin 7.7 GM/DL (13.0-17.0) 7.7 GM/DL (13.0-17.0) 7.3 GM/DL (13.0-17.0) Hematocrit 23.9 % (39.0-51.0) 24.1 % (39.0-51.0) 22.7 % (39.0-51.0) White Blood Count 25.4 TH/MM3 (4.0-11.0) 22.8 TH/MM3 (4.0-11.0) Red Blood Count 2.94 MIL/MM3 (4.50-5.90) 2.74 MIL/MM3 (4.50-5.90) Mean Corpuscular Hemoglobin 26.3 PG (27.0-34.0) 26.6 PG (27.0-34.0) Red Cell Distribution Width 18.2 % (11.6-17.2) 18.9 % (11.6-17.2) Platelet Count 137 TH/MM3 (150-450) 128 TH/MM3 (150-450) Neutrophils (%) (Auto) 70.4 % (16.0-70.0) Monocytes (%) (Auto) 10.3 % (0.0-8.0) 10.6 % (0.0-8.0) Eosinophils (%) (Auto) 4.2 % (0.0-4.0) 6.4 % (0.0-4.0) Neutrophils # (Auto) 17.9 TH/MM3 (1.8-7.7) 14.9 TH/MM3 (1.8-7.7) Monocytes # (Auto) 2.6 TH/MM3 (0-0.9) 2.4 TH/MM3 (0-0.9) Eosinophils # (Auto) 1.1 TH/MM3 (0-0.4) 1.5 TH/MM3 (0-0.4) Neutrophils % (Manual) 84 % (16-70) 78 % (16-70) Lymphocytes % 7 % (9-44) 7 % (9-44) Neutrophils # (Manual) 21.6 TH/MM3 (1.8-7.7) 19.6 TH/MM3 (1.8-7.7) Nucleated Red Blood Cells 1 /100 WBC (0-0) 4 /100 WBC (0-0) Platelet Estimate LOW (NORMAL) LOW (NORMAL) Polychromasia 2.7 % (0.0-1.9) 2.0 % (0.0-1.9) Ovalocytes 1+ (NORMAL) Blood Urea Nitrogen 84 MG/DL (7-18) 70 MG/DL (7-18) Creatinine 1.39 MG/DL (0.60-1.30) Random Glucose 153 MG/DL (74-106) 140 MG/DL (74-106) Total Protein 4.7 GM/DL (6.4-8.2) 4.9 GM/DL (6.4-8.2) Albumin 1.9 GM/DL (3.4-5.0) 1.9 GM/DL (3.4-5.0) Calcium Level 6.3 MG/DL (8.5-10.1) 7.1 MG/DL (8.5-10.1) Phosphorus Level 2.2 MG/DL (2.5-4.9) Magnesium Level 2.7 MG/DL (1.5-2.5) Alkaline Phosphatase 121 U/L (45-117) 146 U/L (45-117) Aspartate Amino Transf (AST/SGOT) 748 U/L (15-37) 599 U/L (15-37) Alanine Aminotransferase (ALT/SGPT) 912 U/L (12-78) 889 U/L (12-78) Total Bilirubin 2.7 MG/DL (0.2-1.0) 2.6 MG/DL (0.2-1.0) Chloride Level 116 MEQ/L (98-107) 118 MEQ/L (98-107) Anion Gap 3 MEQ/L (5-15) 3 MEQ/L (5-15) Estimat Glomerular Filtration Rate 57 ML/MIN (>89) 68 ML/MIN (>89) Protein Corrected Calcium 7.5 MG/DL (8.5-10.1) 8.3 MG/DL (8.5-10.1) Vancomycin Level Trough 18.1 MCG/ML (5.0-10.0) Band Neutrophils % 8 % (0-6) Eosinophils % 5 % (0-4) Basophilic Stippling FAINT (NORMAL) Prothrombin Time 12.0 SEC (9.8-11.6) Activated Partial Thromboplast Time 33.4 SEC (24.3-30.1) Direct Bilirubin 1.8 MG/DL (0.0-0.2) Sodium Level 149 MEQ/L (136-145) Test 06/03/17 03:15 06/03/17 12:40 06/04/17 00:05 06/04/17 06:15 Ammonia 84 MCMOL/L (11-32) 46 MCMOL/L (11-32) Urine Occult Blood MOD (NEG) Urine Leukocyte Esterase TRACE (NEG) Urine RBC 132 /hpf (0-3) Urine Bacteria RARE /hpf (NONE) Urine Mucus FEW /lpf (OCC) Hemoglobin 6.7 GM/DL (13.0-17.0) 7.2 GM/DL (13.0-17.0) Hematocrit 21.2 % (39.0-51.0) 22.1 % (39.0-51.0) White Blood Count 12.6 TH/MM3 (4.0-11.0) Red Blood Count 2.67 MIL/MM3 (4.50-5.90) Mean Corpuscular Hemoglobin 26.9 PG (27.0-34.0) Red Cell Distribution Width 18.8 % (11.6-17.2) Platelet Count 66 TH/MM3 (150-450) Neutrophils (%) (Auto) 76.9 % (16.0-70.0) Lymphocytes (%) (Auto) 8.7 % (9.0-44.0) Monocytes (%) (Auto) 9.7 % (0.0-8.0) Eosinophils (%) (Auto) 4.4 % (0.0-4.0) Neutrophils # (Auto) 9.6 TH/MM3 (1.8-7.7) Monocytes # (Auto) 1.2 TH/MM3 (0-0.9) Eosinophils # (Auto) 0.6 TH/MM3 (0-0.4) Band Neutrophils % 10 % (0-6) Monocytes % 9 % (0-8) Neutrophils # (Manual) 10.1 TH/MM3 (1.8-7.7) Nucleated Red Blood Cells 5 /100 WBC (0-0) Platelet Estimate LOW (NORMAL) Platelet Morphology Comment ENLARGED (NORMAL) Ovalocytes 1+ (NORMAL) Prothrombin Time 12.5 SEC (9.8-11.6) Blood Urea Nitrogen 46 MG/DL (7-18) Random Glucose 139 MG/DL (74-106) Total Protein 5.0 GM/DL (6.4-8.2) Albumin 1.7 GM/DL (3.4-5.0) Calcium Level 7.4 MG/DL (8.5-10.1) Alkaline Phosphatase 138 U/L (45-117) Aspartate Amino Transf (AST/SGOT) 305 U/L (15-37) Alanine Aminotransferase (ALT/SGPT) 699 U/L (12-78) Total Bilirubin 2.1 MG/DL (0.2-1.0) Sodium Level 150 MEQ/L (136-145) Chloride Level 117 MEQ/L (98-107) Anion Gap 4 MEQ/L (5-15) Vital Signs Date Time Temp Pulse Resp B/P (MAP) Pulse Ox O2 Delivery O2 Flow Rate FiO2 06/04/17 12:00 126 06/04/17 12:00 99.6 126 13 174/96 (122) 90 06/04/17 12:00 35 06/04/17 10:30 99.6 118 13 145/71 93 06/04/17 10:30 99.6 118 13 145/71 93 06/04/17 10:00 117 06/04/17 08:00 35 06/04/17 08:00 115 06/04/17 08:00 99.8 115 14 141/78 (99) 98 06/04/17 07:58 98 35 06/04/17 06:00 116 06/04/17 04:00 116 06/04/17 04:00 35 06/04/17 04:00 100.3 116 12 150/73 (98) 98 06/04/17 03:35 99 35 06/04/17 02:00 79 06/04/17 00:00 100.5 122 12 136/66 (89) 97 06/04/17 00:00 121 06/04/17 00:00 35 06/03/17 22:00 129 06/03/17 20:00 35 06/03/17 20:00 119 06/03/17 20:00 100.4 119 137/63 (87) 97 Arterial Line 06/03/17 19:55 96 35 06/03/17 18:15 118 06/03/17 18:00 117 06/03/17 17:30 118 134/63 (86) 99 06/03/17 17:30 118 06/03/17 17:15 117 135/63 (87) 100 06/03/17 17:15 117 06/03/17 17:00 117 130/60 (83) 98 06/03/17 17:00 117 06/03/17 16:45 117 06/03/17 16:45 117 130/59 (82) 100 06/03/17 16:30 117 133/62 (85) 99 06/03/17 16:30 117 06/03/17 16:15 118 131/60 (83) 98 06/03/17 16:15 118 06/03/17 16:00 35 06/03/17 16:00 117 06/03/17 16:00 117 130/62 (84) 98 06/03/17 15:00 120 06/03/17 14:55 100 35 06/03/17 14:45 115 06/03/17 14:31 117 06/03/17 14:15 115 06/03/17 14:00 114 I/O 06/03/17 06/03/17 06/03/17 06/04/17 06/04/17 06/04/17 07:00 15:00 23:00 07:00 15:00 23:00 Intake Total 300 ml 2335 ml 1525 ml 1262 ml Output Total 1400 ml 3050 ml 2450 ml Balance -1100 ml -715 ml -925 ml 1262 ml IV Total 300 ml 2335 ml 1525 ml 881 ml Packed Cells 341 ml Blood Product IV Normal Saline Flush 40 ml Output Urine Total 1400 ml 1250 ml 1450 ml Stool Total 1800 ml 1000 ml Result Diagram: 06/04/1761406/04/17614 Objective Remarks GENERAL: SKIN: Warm and dry. HEAD: Atraumatic. Normocephalic. EYES: Pupils equal and round. No scleral icterus. No injection or drainage. ENT: No nasal bleeding or discharge. Mucous membranes pink and moist. NECK: Trachea midline. No JVD. CARDIOVASCULAR: Regular rate and rhythm. RESPIRATORY: No accessory muscle use. Clear to auscultation. Breath sounds equal bilaterally. GASTROINTESTINAL: Abdomen soft, non-tender, nondistended. Hepatic and splenic margins not palpable. MUSCULOSKELETAL: Extremities without clubbing, cyanosis, or edema. No obvious deformities. NEUROLOGICAL: Awake and alert. No obvious cranial nerve deficits. Motor grossly within normal limits. Five out of 5 muscle strength in the arms and legs. Normal speech. PSYCHIATRIC: Appropriate mood and affect; insight and judgment normal. Assessment and Plan Assessment and Plan respiratory failure pneumonia pulmonary embolism Gi bleed portal htn ? lung mass PLAN Ventilatory support ANTIBIOTICS IVC FILTER WEAN TOLERATED Yosef Navas MD Jun 04, 2017 13:48
[2017-06-04 13:52] LABS: MITOCHONDRIAL ABS LESS THAN 20.0 U (<=20.0)
[2017-06-04] MEDS ORDERED: PROPOFOL 200 MG/20 ML AMP IV PUSH ONE (14:53)
--- NOTE | 2017-06-04 14:55 | GIPROC ---
[facility] [address] [facility]. [facility], [address] EGD PROCEDURE REPORT EXAM DATE: 06/04/2017 PATIENT NAME: Calvin Myers MR #: [id number] BIRTHDATE: 1975 ATTENDING: Sofy Rubin MD ORDER #: [id number] LATHER APPRENTICE: Viviane Alexander and Iraj Badillo STATUS: inpatient INDICATIONS: The patient is a 41 yr old male here for an EGD due to liver cirrhosis esophgeal varices needs ngt placement PROCEDURE PERFORMED: egd with og placement MEDICATIONS: None and Per Anesthesia. TOPICAL ANESTHETIC: none CONSENT: The patient understands the risks and benefits of the procedure and understands that these risks include, but are not limited to: sedation, allergic reaction, infection, perforation and/or bleeding. Alternative means of evaluation and treatment include, among others: physical exam, x-rays, and/or surgical intervention. The patient elects to proceed with this endoscopic procedure. medical equipment was checked for proper function. Hand hygiene and appropriate measures for infection prevention was taken. After the risks, benefits and alternatives of the procedure were thoroughly explained, Informed consent was verified, confirmed and timeout was successfully executed by the treatment team. The patient was anesthetized with topical anesthesia and the Pentax EG-[id number] endoscope was introduced through the mouth and advanced to the second portion of the duodenum. Retroflexed views revealed a hiatal hernia and Retroflexed views revealed gastric varices The gastroscope was then slowly withdrawn and removed. Esophageal varices grade 3 old bands seen over variceal columns og tube placed in stomach under direct visualisation. Portal gastopathy. ADVERSE EVENTS: There were no complications. IMPRESSIONS: 1. Esophageal varices grade 3 old bands seen over variceal columns og tube placed in stomach under direct visualisation 2. Retroflexed views revealed a hiatal hernia 3. Retroflexed views revealed gastric varices RECOMMENDATIONS: Start tf lactuloa/rifaximin/pentoxifillin PATIENT CONDITION: stable DISPOSITION: Inpatient REPEAT EXAM: Return 2 weeks EGD Sofy Rubin MD eSigned: Sofy Rubin MD 06/04/2017 2:54 PM cc:
[2017-06-04 15:38] LABS: HEMATOCRIT 24.2 % (39.0-51.0)
[2017-06-04 15:39] LABS: REVIEW FLAG FINAL
[2017-06-04] MEDS: ceFAZolin 2 GM PREMIX 50 ML IV SCH (17:15)
[2017-06-04] MEDS: LACTULOSE SYRUP 20 GM/30 ML CUP PO SCH ×2 (17:15→20:45)
--- NOTE | 2017-06-04 18:22 | HHI.CCPN ---
Subjective Remarks/Hospital Course 41-year-old gentleman admitted with complaints of hematemesis over about an hour and a half. The color was dark; accompanied by nausea but denies abdominal pain. Just had a dark stool. He was taking Tylenol 1000 mg per day 5 days per week. He denies any history of peptic ulcer. He started taking generic Aleve or naproxen 200 mg when extra strength Tylenol wore off over the past week. The patient reports that last week he had "a really nasty flu". He had also put in extra hours at work last week and thought it might be related to work-related exhaustion. He denies chest pain, shortness of breath. He underwent urgent EGD by gastroenterology with the finding of a large esophageal varix extending from top to bottom with active bleeding in the distal portion, 3 bands were applied along the length of the varix and especially over the bleeding section. The stomach this was filled with blood and it was a limited evaluation. The duodenum was unremarkable. He has returned to ICU from OR sedated and intubated. Subjective: 05/31: Afebrile. The patient is noted to have low urine output, and sinus tachycardia heart rate 105-110, patient bolused with 1 L normal saline. Normal saline infusion continues at 100 cc/hour. H&H pending .Continues on Protonix and octreotide infusions currently remains sedated. The patient was noted to have 2 large melanotic stools postoperatively. 06/01: During the night the patient became hypoxic and tachycardic. CTA pulmonary perform revealed bilateral upper and lower left lobe pulmonary embolus. Oxygen requirement significantly increased to currently FiO2 of 0.9. Patient not a candidate for TPA in the setting of acute upper GI bleed currently on Protonix and octreotide. Discussed with interventional radiology, , regarding possibility of catheter directed TPA to left upper and lower lobe, patient also deemed not a candidate. Ultrasound bilateral upper and lower extremities ordered today. Plan for IVC filter placement. Patient currently hemodynamically unstable requiring phenylephrine infusion, stat echo pending. The patient was noted to have abnormal liver ultrasound CT abdomen and pelvis was also performed revealing esophageal varices extending into the lower chest and florid portal systemic collaterals. 06/02: Remains unstable. Hgb no change. LFTs indicate deteriorating hepatic function. 06/03: No lower or upper extremity DVT.ECHO normal. Now off Neosynephrine. Hgb unchanged. Transaminitis resolving. Etiology of hepatic injury appears chronic; unclear what role tylenol played. 06/04: Tmax 100.4. Patient was noted to have significant drop in hemoglobin overnight. The patient received 2 units packed blood cells. Repeat EGD was performed today, varices with no active bleeding. OGT was placed per gastroenterology, tube feeds have been ordered to begin. The patient continues on Sandostatin and Protonix infusions per gastroenterology. Objective Vital Signs Date Time Temp Pulse Resp B/P (MAP) Pulse Ox O2 Delivery O2 Flow Rate FiO2 06/04/17 17:41 97 35 06/04/17 16:00 119 06/04/17 16:00 100.0 13 152/76 (101) Intake and Output 06/04/17 06/04/17 06/05/17 08:00 16:00 00:00 Intake Total 1525 ml 2141 ml 610 ml Output Total 2450 ml Balance -925 ml 2141 ml 610 ml Result Diagram: 06/04/17 1400 06/04/17 0615 Imaging Last Impressions Liver Ultrasound 05/30/17 0000 Signed Impressions: Service Date/Time: May 09:04 - CONCLUSION: Cirrhotic liver appearance. Question focal right lobe mass. Recommend further evaluation with hepatic MRI with Eovist. David Terrazas MD Chest X-Ray 05/30/17 0000 Signed Impressions: Service Date/Time: May 01:02 - CONCLUSION: 1. No acute cardiopulmonary disease. Oh Escobedo MD Objective Remarks GENERAL: Critically ill-appearing male Lightly sedated and intubated SKIN: Warm and dry. HEAD: Normocephalic. EYES: Conjunctival icterus present. No injection or drainage. NECK: Supple, trachea midline. Orally intubated CARDIOVASCULAR: Regular rate and rhythm without murmurs, gallops, or rubs. No JVD. RESPIRATORY: Mechanical ventilation. Breath sounds equal bilaterally. Clear. No wheezes or crackles. GASTROINTESTINAL: Abdomen soft, non-tender, nondistended. BS active. MUSCULOSKELETAL: No cyanosis, or 2+ peripheral edema bilateral upper and lower extremities Well perfused. Pale toes, tepid. NEURO EXAM: Moves 4 limbs spontaneously. CECY. Breathes over vent Procedures 05/30- EGD 06/04-EGD Side: Right Location: Subclavian A/P Assessment and Plan Hypoxic Respiratory failure Pulmonary embolus-left upper lobe, left lower lobe Multilobar Pneumonia - Maintain O2 saturation greater than 92%, -Fentanyl infusion 50 mics/hour for ventilator synchrony -05/29 Intubated for an airway protection - Vent bundle - DuoNeb's every 6 hours scheduled every 2 hours when necessary -06/01 CTA pulmonary-suspected left upper lobe, left lower lobe pulmonary emboli, no pulmonary emboli on the right. Bilateral lower lobe atelectasis. Patchy pneumonia right lower lobe. Noted ill-defined right infrahilar/subcarinal mass 4.2 x 4.8 cm (likely esophageal varices- per CT abdomen report). Extensive discussion with Dr. Terrazas (IR) patient is not a candidate for catheter directed TPA in the setting of GI bleeding. -Patient on azithromycin, cefepime and vancomycin empiric antibiotics -06/01 Consulted for IVC filter-per Dr. Trejo not a candidate for IVC filter, ultrasound bilateral lower extremities negative for DVT -Pulmonology following GI bleed Hematemesis Splenomegaly Cirrhosis Esophageal varices Elevated transaminase levels Hyperammonemia Ascites - large esophageal varix -06/01 CT abdomen-splenomegaly, ascites, esophageal varices extend into the lower chest and may account for subcarinal and infrahilar masses. Florid portosystemic collaterals - 3 bands applied by GI - Protonix drip - Octreotide drip -06/05 repeat EGDvarices no active bleeding - Further management per GI - Monitor H&H every 6 hours, 8.2->7.8 will transfuse if < 7. - Ammonia decreasing Sinus tachycardia Shock, hypovolemic -Bolused 1 L of normal saline -Sodium bicarbonate 75 cc/hour -Follow-up hemoglobin level -06/01 ECHO ejection fraction 55-60%. No RWMA. Trace TR Transaminitis/liver cirrhosis - Due to daily Tylenol use-Mucomyst - Hepatitis Profile pending -AST 692, ALT 593, T bili 2.1 - Liver ultrasound reveals cirrhotic liver image - Tylenol level negative - Workup per gastroenterology -Monitor PT/INR -06/01 CT abdomen Thrombocytopenia -Monitor H&H every 12 hours - transfuse platelets if signs of acute bleeding, or less than 50,000 -Hematology following -06/04 2 units PRBC 6.7->7.2 DVT GI prophylaxis - No pharmacological DVT prophylaxis. Plan for IVC filter -06/01 follow-up ultrasound venous Doppler bilateral upper extremities and bilateral lower extremities - SCDs/TEDs - Protonix drip Dispo: Discussed with SUPERVISOR F[employer]RICATION at bedside. Overall impression: Critically ill but less unstable today. Better peripheral perfusion. Etiology of hepatic dysfunction unclear; hep screen negative. Critical Care 35 mins Physician Sheela Herrera MD Jun 04, 2017 18:22
[2017-06-04] MEDS: RIFAXIMIN 550 MG TAB PO SCH (20:45)
[2017-06-04 21:06] LABS: HEMATOCRIT 24.9 % (39.0-51.0)
[2017-06-04 21:07] LABS: REVIEW FLAG FINAL
[2017-06-05] VITALS (20 sets, daily range): BP systolic 133–146; BP diastolic 71–74; PULSE 113–130; RESP 12–14; TEMP 99–102; O2SAT 92–97
[2017-06-05] MEDS: ceFAZolin 2 GM PREMIX 50 ML IV SCH ×3 (01:21→18:39)
[2017-06-05] MEDS: fentaNYL DRIP 250 ML IV PRN ×3 (01:21→21:32)
[2017-06-05] MEDS: LACTATED RINGER'S 1000 ML INJ 1,000 ML IV SCH (03:21)
[2017-06-05] MEDS: PANTOPRAZOLE INJ 80 MG in SODIUM CHLORIDE 0.9% INJ 100 ML IV SCH ×2 (03:21→11:51)
[2017-06-05] MEDS: OCTREOTIDE INJ 500 MCG in SODIUM CHLORID 0.9% 500 ML INJ 499.5 ML IV SCH ×3 (03:22→22:56)
[2017-06-05] MEDS: CHLORHEXIDINE GLUCONATE 2 % 1 PACK (2 CLOTHS)(taper/protocol) TOPICAL SCH (03:23)
[2017-06-05] MEDS ORDERED: PHARMACY ORDERED LAB ONE (03:45)
[2017-06-05 04:29] LABS: BLOOD GAS BASE EXCESS 1.9 mmol/L (-2-2); BLOOD GAS HCO3 26 mmol/L (22-26); BLOOD GAS METHEMOGLOBIN 1.1 % (0-2); BLOOD GAS O2 HGB SATURATION 92 % (90-100); BLOOD GAS OXYGEN CONTENT 10.4 Vol % (12.0-20.0); BLOOD GAS PCO2 44 mmHg (38-42); BLOOD GAS PO2 73 mmHg (61-120); CRITICAL VALUE NO; TEMP CORR TO 98.6
[2017-06-05 04:30] LABS: DRAW SITE LT RADIAL; FIO2 35 %; NUMBER OF ARTERIAL PUNCTURES 1; OXYGEN DEVICE VENTILATOR; STAT NO; ULNAR PULSE PRESENT; VENT SETTINGS VAC12/550/PEEP8
[2017-06-05 05:46] LABS: HEMATOCRIT 24.4 % (39.0-51.0); MEAN CELL VOLUME 83.3 FL (80.0-100.0); MEAN CORPUSCULAR HEMOGLOBIN 26.6 PG (27.0-34.0); PLATELET COUNT 67 TH/MM3 (150-450); RED BLOOD COUNT 2.93 MIL/MM3 (4.50-5.90); RED CELL DISTRIBUTION WIDTH 18.8 % (11.6-17.2); WHITE BLOOD COUNT 14.4 TH/MM3 (4.0-11.0)
[2017-06-05 05:48] LABS: REVIEW FLAG FINAL
--- NOTE | 2017-06-05 06:06 | RADRPT ---
EXAM DATE/TIME: 06/05/2017 04:25 [place] COMPARISON: CHEST SINGLE AP, June 02, 2017, 3:14. INDICATIONS : Shortness of breath. MEDICAL HISTORY : None. SURGICAL HISTORY : None. ENCOUNTER: Subsequent ACUITY: 4 - 6 days PAIN SCORE: Non-responsive. LOCATION: Bilateral chest FINDINGS: A single view of the chest demonstrates endotracheal tube in good position. Nasogastric tube enters s tomach. Right central line in superior vena cava. Bilateral mostly basilar airspace disease. No signi ficant effusion. No pneumothorax. CONCLUSION: 1. Bilateral mostly basilar airspace disease most characteristic of atelectasis. Nasogastric tube, en dotracheal tube and right central line in good position. Yuri Herring MD on June 05, 2017 at 6:03 Board Certified Radiologist. This report was verified electronically.
[2017-06-05 06:39] LABS: BICARBONATE 28.2 MEQ/L (21.0-32.0); MAGNESIUM 2.7 MG/DL (1.5-2.5); POTASSIUM 4.2 MEQ/L (3.5-5.1)
[2017-06-05 07:03] LABS: CALCIUM-PROTEIN CORRECTED 8.2 MG/DL (8.5-10.1)
[2017-06-05] MEDS: LACTULOSE SYRUP 20 GM/30 ML CUP PO SCH ×4 (08:33→21:32)
[2017-06-05] MEDS: RIFAXIMIN 550 MG TAB PO SCH ×2 (08:33→21:32)
[2017-06-05] MEDS: SODIUM CHLORIDE 0.9% FLUSH 10 ML FLUSH IV FLUSH SCH ×2 (08:34→21:33)
--- NOTE | 2017-06-05 09:19 | HHI.GIFU ---
Subjective Remarks Sedated on vent. No active GI bleeding noted per nurse. Tolerating TF. (Mercedes Richards) Objective Vitals I&O Vital Signs Date Time Temp Pulse Resp B/P (MAP) Pulse Ox O2 Delivery O2 Flow Rate FiO2 06/05/17 08:05 95 35 06/05/17 06:00 118 06/05/17 04:07 96 35 06/05/17 04:00 35 06/05/17 04:00 99.1 118 139/71 (93) 96 06/05/17 04:00 118 06/05/17 02:00 118 06/05/17 01:45 96 35 06/05/17 00:00 100.6 121 141/74 (96) 97 06/05/17 00:00 121 06/05/17 00:00 35 06/04/17 22:00 122 06/04/17 21:07 99 35 06/04/17 20:00 100.4 123 154/78 (103) 97 06/04/17 20:00 123 06/04/17 20:00 35 06/04/17 18:00 121 06/04/17 17:41 97 35 06/04/17 16:00 35 06/04/17 16:00 119 06/04/17 16:00 100.0 119 13 152/76 (101) 97 06/04/17 14:00 117 06/04/17 12:00 126 06/04/17 12:00 99.6 126 13 174/96 (122) 90 06/04/17 12:00 35 06/04/17 10:30 99.6 118 13 145/71 93 06/04/17 10:30 99.6 118 13 145/71 93 06/04/17 10:00 117 I/O 06/04/17 06/04/17 06/04/17 06/05/17 06/05/17 06/05/17 07:00 15:00 23:00 07:00 15:00 23:00 Intake Total 1525 ml 2141 ml 2477 ml 944 ml Output Total 2450 ml 1200 ml 1100 ml Balance -925 ml 2141 ml 1277 ml -156 ml IV Total 1525 ml 1660 ml 2377 ml 752 ml Tube Feeding 132 ml Packed Cells 341 ml Blood Product IV Normal Saline Flush 40 ml Other 100 ml 100 ml 60 ml Output Urine Total 1450 ml 900 ml 700 ml Stool Total 1000 ml 300 ml 400 ml Laboratory Laboratory Tests Test 06/04/17 14:00 06/04/17 20:30 06/05/17 04:09 06/05/17 05:30 Hemoglobin 7.8 7.9 7.8 Hematocrit 24.2 24.9 24.4 Blood Gas Puncture Site LT RADIAL Blood Gas Patient Temperature 98.6 Blood Gas HCO3 26 Blood Gas Base Excess 1.9 Blood Gas Oxygen Saturation 92 Arterial Blood pH 7.39 Arterial Blood Partial Pressure CO2 44 Arterial Blood Partial Pressure O2 73 Arterial Blood Oxygen Content 10.4 Arterial Blood Carboxyhemoglobin 2.0 Arterial Blood Methemoglobin 1.1 Blood Gas Hemoglobin 8.0 Oxygen Delivery Device VENTILATOR Blood Gas Ventilator Setting VAC12/550/PEEP8 Blood Gas Inspired Oxygen 35 White Blood Count 14.4 Red Blood Count 2.93 Mean Corpuscular Volume 83.3 Mean Corpuscular Hemoglobin 26.6 Mean Corpuscular Hemoglobin Concent 32.0 Red Cell Distribution Width 18.8 Platelet Count 67 Mean Platelet Volume 7.9 Blood Urea Nitrogen 38 Creatinine 0.94 Random Glucose 144 Total Protein 5.2 Calcium Level 7.2 Phosphorus Level 1.8 Magnesium Level 2.7 Sodium Level 154 Potassium Level 4.2 Chloride Level 120 Carbon Dioxide Level 28.2 Anion Gap 6 Estimat Glomerular Filtration Rate 89 Protein Corrected Calcium 8.2 Date/Time Source Procedure Growth Status 06/04/17 05:35 Blood Peripheral Aerobic Blood Culture Pending Received 06/04/17 05:35 Blood Peripheral Anaerobic Blood Culture Pending Received 06/01/17 03:30 Sputum Endotracheal Gram Stain - Final Complete 06/01/17 03:30 Sputum Culture - Final Staphylococcus Aureus Complete 06/03/17 12:40 Urine Catheterized Urine Urine Culture - Preliminary NO GROWTH IN 24 HOURS. Resulted Imaging Last Impressions Chest X-Ray 06/05/17 0600 Signed Impressions: Service Date/Time: Monday, June 05, 2017 04:25 - CONCLUSION: 1. Bilateral mostly basilar airspace disease most characteristic of atelectasis. Nasogastric tube, endotracheal tube and right central line in good position. Yuri Herring MD Upper Extremity Ultrasound 06/01/17 0000 Signed Impressions: Service Date/Time: Thursday, June 01, 2017 13:47 - CONCLUSION: No evidence of upper extremity DVT on the right or left. Angel Paredes MD Lower Extremity Ultrasound 06/01/17 0000 Signed Impressions: Service Date/Time: Thursday, June 01, 2017 13:30 - CONCLUSION: No evidence of lower extremity DVT on the right or left. Angel Paredes MD CT Angiography 06/01/17 0000 Signed Impressions: Service Date/Time: Thursday, June 01, 2017 02:39 - CONCLUSION: 1. Suspected left upper lobe and left lower lobe pulmonary emboli. No pulmonary embolus on the right. 2. Right infrahilar/subcarinal mass. 3. Bilateral lower lobe atelectasis, right worse than left. Also patchy pneumonia of the right lower lobe. David Quintero MD Abdomen/Pelvis CT 06/01/17 0000 Signed Impressions: Service Date/Time: Thursday, June 01, 2017 02:39 - CONCLUSION: 1. Cirrhosis. Heterogeneously enhancing liver without a distinct/measurable focal lesion. 2. Marked splenomegaly, 10.3 x 17.6 x 18.1 cm. 3. Very severe portosystemic collaterals including gastroesophageal varices. The varices extend into the lower chest and probably account for the subcarinal/right infrahilar mass seen by chest CT. 4. Diffuse wall thickening of the colon, colitis versus secondary changes from cirrhosis. 5. Small ascites. Body wall edema/anasarca. David Quintero MD Liver Ultrasound 05/30/17 0000 Signed Impressions: Service Date/Time: May 09:04 - CONCLUSION: Cirrhotic liver appearance. Question focal right lobe mass. Recommend further evaluation with hepatic MRI with Eovist. David Terrazas MD Physical Exam HEENT: Normocephalic; atraumatic; CHEST: Respirations even/unlabored. OETT to vent. CARDIAC: ST- 116 ABDOMEN: Soft, hepatosplenomegaly; bowel sounds are present in all four quadrants. EXTREMITIES: Generalized edema. CAREERS ADVISER: Sedated on vent. (Mercedes Richards) Assessment and Plan Plan PLAN - Upper GIB with hematemesis on admission. S/P EGD (05/31/17)-----> Bleeding esophageal varices. Rpt. EGD with OGT placement (06/04/17)---> 1. Esophageal varices grade 3 old bands seen over variceal columns, og tube placed in stomach under direct visualization 2. Retroflexed views revealed a hiatal hernia 3. Retroflexed views revealed gastric varices. HH did drop yesterday to 6.7, but no obvious active bleeding noted per nurse. S/P 6 units PRBC, HH 7.8/24.4. Octreotide Gtt, Protonix Gtt. - Anemia acute blood loss. S/P 6 units prbc, HH 7.7/24.1. - Coagulopathy/thrombocytopenia. Plt 67,000. INR 1.1. - Elevated LFTs. Liver US (05/30/17)---> Cirrhotic liver appearance. Question focal right lobe mass. Recommend further evaluation with hepatic MRI with Eovist. Hepatitis profile negative. STEPHANIE negative. AMA pending, ASMA neg. AFP 1.8. Ceruloplasmin 24, ALpha [address] Scan abdomen and pelvis to further evaluation. CT scan abdomen and pelvis with iv contrast (06/01/17)----> cirrhosis, heterogeneously enhancing liver without a distinct/measurable focal lesion, marked splenomegaly, 10.3 x 17.6 x 18.1 cm, very severe portosystemic collaterals including gastroesophageal varices. The varices extend into the lower chest and probably account for the subcarinal/right infrahilar mass seen by chest CT, diffuse wall thickening of the colon, colitis versus secondary changes from cirrhosis. Small ascites, body wall edema/anasarca. LFTs slowly trending down. Pentoxifylline. - Hepatic encephalopathy with ammonia. Lactulose, Xifaxan. - Family hx colon ca. Mother dx age 60 - Thrombocytopenia - PLT 67,000 - AKIKO. Creat 0.94 - Resp. Failure. Vent per [facility] PLAN - TF as tolerated - Cont. Octreotide Gtt - Cont. Protonix Gtt - Cont. Xifaxan - Cont. Lactulose - Cont. Pentoxifylline - Monitor labs - Transfuse as needed - Supportive care - Further recommendations to follow based on results of above - Pt seen and examined by myself and Dr. Rubin and this note is written on her behalf (Mercedes Richards) Mercedes Richards Jun 05, 2017 09:19 oSfy Rubin MD Jun 06, 2017 05:06
--- NOTE | 2017-06-05 11:52 | HHI.CCPN ---
Subjective Remarks/Hospital Course 41-year-old gentleman admitted with complaints of hematemesis over about an hour and a half. The color was dark; accompanied by nausea but denies abdominal pain. Just had a dark stool. He was taking Tylenol 1000 mg per day 5 days per week. He denies any history of peptic ulcer. He started taking generic Aleve or naproxen 200 mg when extra strength Tylenol wore off over the past week. The patient reports that last week he had "a really nasty flu". He had also put in extra hours at work last week and thought it might be related to work-related exhaustion. He denies chest pain, shortness of breath. He underwent urgent EGD by gastroenterology with the finding of a large esophageal varix extending from top to bottom with active bleeding in the distal portion, 3 bands were applied along the length of the varix and especially over the bleeding section. The stomach this was filled with blood and it was a limited evaluation. The duodenum was unremarkable. He has returned to ICU from OR sedated and intubated. Subjective: 05/31: Afebrile. The patient is noted to have low urine output, and sinus tachycardia heart rate 105-110, patient bolused with 1 L normal saline. Normal saline infusion continues at 100 cc/hour. H&H pending .Continues on Protonix and octreotide infusions currently remains sedated. The patient was noted to have 2 large melanotic stools postoperatively. 06/01: During the night the patient became hypoxic and tachycardic. CTA pulmonary perform revealed bilateral upper and lower left lobe pulmonary embolus. Oxygen requirement significantly increased to currently FiO2 of 0.9. Patient not a candidate for TPA in the setting of acute upper GI bleed currently on Protonix and octreotide. Discussed with interventional radiology, , regarding possibility of catheter directed TPA to left upper and lower lobe, patient also deemed not a candidate. Ultrasound bilateral upper and lower extremities ordered today. Plan for IVC filter placement. Patient currently hemodynamically unstable requiring phenylephrine infusion, stat echo pending. The patient was noted to have abnormal liver ultrasound CT abdomen and pelvis was also performed revealing esophageal varices extending into the lower chest and florid portal systemic collaterals. 06/02: Remains unstable. Hgb no change. LFTs indicate deteriorating hepatic function. 06/03: No lower or upper extremity DVT.ECHO normal. Now off Neosynephrine. Hgb unchanged. Transaminitis resolving. Etiology of hepatic injury appears chronic; unclear what role tylenol played. 06/04: Tmax 100.4. Patient was noted to have significant drop in hemoglobin overnight. The patient received 2 units packed blood cells. Repeat EGD was performed today, varices with no active bleeding. OGT was placed per gastroenterology, tube feeds have been ordered to begin. The patient continues on Sandostatin and Protonix infusions per gastroenterology. 06/05: EGD today, No bleeding. Off pressors, start to diurese. Objective Vital Signs Date Time Temp Pulse Resp B/P (MAP) Pulse Ox O2 Delivery O2 Flow Rate FiO2 06/05/17 10:23 94 35 06/05/17 10:00 115 06/05/17 08:00 100.6 14 133/72 (92) Intake and Output 06/05/17 06/05/17 06/06/17 08:00 16:00 00:00 Intake Total 944 ml Output Total 1100 ml Balance -156 ml Result Diagram: 06/05/17 0530 06/05/17 0530 Other Results Microbiology Date/Time Source Procedure Growth Status 06/03/17 12:40 Urine Catheterized Urine Urine Culture - Final NO GROWTH IN 48 HOURS. Complete Laboratory Tests Test 06/05/17 04:09 Blood Gas Puncture Site LT RADIAL Blood Gas Patient Temperature 98.6 Blood Gas HCO3 26 mmol/L (22-26) Blood Gas Base Excess 1.9 mmol/L (-2-2) Blood Gas Oxygen Saturation 92 % (90-100) Arterial Blood pH 7.39 (7.380-7.420) Arterial Blood Partial Pressure CO2 44 mmHg (38-42) Arterial Blood Partial Pressure O2 73 mmHg (61-120) Arterial Blood Oxygen Content 10.4 Vol % (12.0-20.0) Arterial Blood Carboxyhemoglobin 2.0 % (0-4) Arterial Blood Methemoglobin 1.1 % (0-2) Blood Gas Hemoglobin 8.0 G/DL (12.0-16.0) Oxygen Delivery Device VENTILATOR Blood Gas Ventilator Setting VAC12/550/PEEP8 Blood Gas Inspired Oxygen 35 % Imaging Last Impressions Liver Ultrasound 05/30/17 0000 Signed Impressions: Service Date/Time: May 09:04 - CONCLUSION: Cirrhotic liver appearance. Question focal right lobe mass. Recommend further evaluation with hepatic MRI with Eovist. David Terrazas MD Chest X-Ray 05/30/17 0000 Signed Impressions: Service Date/Time: May 01:02 - CONCLUSION: 1. No acute cardiopulmonary disease. Oh Escobedo MD Objective Remarks GENERAL: Critically ill-appearing male Lightly sedated and intubated SKIN: Warm and dry. HEAD: Normocephalic. EYES: Conjunctival icterus present. No injection or drainage. NECK: Supple, trachea midline. Orally intubated CARDIOVASCULAR: Regular rate and rhythm without murmurs, gallops, or rubs. No JVD. RESPIRATORY: Mechanical ventilation. Breath sounds equal bilaterally. Clear. No wheezes or crackles. GASTROINTESTINAL: Abdomen soft, non-tender, nondistended. BS active. MUSCULOSKELETAL: No cyanosis, or 2+ peripheral edema bilateral upper and lower extremities Well perfused. Pale toes, tepid. NEURO EXAM: Moves 4 limbs spontaneously but does not follow commands.. CECY. Breathes over vent Procedures 05/30- EGD 06/04-EGD Side: Right Location: Subclavian A/P Assessment and Plan Hypoxic Respiratory failure Pulmonary embolus-left upper lobe, left lower lobe Multilobar Pneumonia - Maintain O2 saturation greater than 92%, -Fentanyl infusion 50 mics/hour for ventilator synchrony -05/29 Intubated for an airway protection - Vent bundle - DuoNeb's every 6 hours scheduled every 2 hours when necessary -06/01 CTA pulmonary-suspected left upper lobe, left lower lobe pulmonary emboli, no pulmonary emboli on the right. Bilateral lower lobe atelectasis. Patchy pneumonia right lower lobe. Noted ill-defined right infrahilar/subcarinal mass 4.2 x 4.8 cm (likely esophageal varices- per CT abdomen report). Extensive discussion with Dr. Terrazas (IR) patient is not a candidate for catheter directed TPA in the setting of GI bleeding. -Patient on azithromycin, cefepime and vancomycin empiric antibiotics -06/01 Consulted for IVC filter-per Dr. Trejo not a candidate for IVC filter, ultrasound bilateral lower extremities negative for DVT -Pulmonology following GI bleed Hematemesis Splenomegaly Cirrhosis Esophageal varices Elevated transaminase levels Hyperammonemia Ascites - large esophageal varix -9/9 CT abdomen-splenomegaly, ascites, esophageal varices extend into the lower chest and may account for subcarinal and infrahilar masses. Florid portosystemic collaterals - 3 bands applied by GI - Protonix drip - Octreotide drip -06/05 repeat EGDvarices no active bleeding - Further management per GI - Monitor H&H every 6 hours, 8.2->7.8 will transfuse if < 7. - Ammonia decreasing Sinus tachycardia Shock, hypovolemic -Bolused 1 L of normal saline -Sodium bicarbonate 75 cc/hour -Follow-up hemoglobin level -06/01 ECHO ejection fraction 55-60%. No RWMA. Trace TR Transaminitis/liver cirrhosis - Due to daily Tylenol use-Mucomyst - Hepatitis Profile pending -AST 692, ALT 593, T bili 2.1 - Liver ultrasound reveals cirrhotic liver image - Tylenol level negative - Workup per gastroenterology -Monitor PT/INR -06/01 CT abdomen Thrombocytopenia -Monitor H&H every 12 hours - transfuse platelets if signs of acute bleeding, or less than 50,000 -Hematology following -06/04 2 units PRBC 6.7->7.2 DVT GI prophylaxis - No pharmacological DVT prophylaxis. Plan for IVC filter -06/01 follow-up ultrasound venous Doppler bilateral upper extremities and bilateral lower extremities - SCDs/TEDs - Protonix drip Dispo: Discussed with KITCHEN CLEANER at bedside. Overall impression: Critically ill but less unstable today. Better peripheral perfusion and weaning vasopressors. Etiology of hepatic dysfunction unclear; hep screen negative. Unresponsive, lactulose increased. Critical Care 37 mins Billy Chavarria MD Jun 05, 2017 11:52
--- NOTE | 2017-06-05 11:53 | PD.ONC.PN ---
Subjective Subjective Remarks Off pressors per RN Has not yet had IVC filter placed No obvious bleeding Repeat EGD yesterday showed no bleeding Objective Data Date Time Temp Pulse Resp B/P (MAP) Pulse Ox O2 Delivery O2 Flow Rate FiO2 06/05/17 10:23 94 35 06/05/17 10:00 115 06/05/17 08:05 95 35 06/05/17 08:00 113 06/05/17 08:00 100.6 113 14 133/72 (92) 95 06/05/17 08:00 35 06/05/17 06:00 118 06/05/17 04:07 96 35 06/05/17 04:00 35 06/05/17 04:00 99.1 118 139/71 (93) 96 06/05/17 04:00 118 06/05/17 02:00 118 06/05/17 01:45 96 35 06/05/17 00:00 100.6 121 141/74 (96) 97 06/05/17 00:00 121 06/05/17 00:00 35 06/04/17 22:00 122 06/04/17 21:07 99 35 06/04/17 20:00 100.4 123 154/78 (103) 97 06/04/17 20:00 123 06/04/17 20:00 35 06/04/17 18:00 121 06/04/17 17:41 97 35 06/04/17 16:00 35 06/04/17 16:00 119 06/04/17 16:00 100.0 119 13 152/76 (101) 97 06/04/17 14:00 117 06/04/17 12:00 126 06/04/17 12:00 99.6 126 13 174/96 (122) 90 06/04/17 12:00 35 06/05/17 06/05/17 06/05/17 07:00 15:00 23:00 Intake Total 944 ml Output Total 1100 ml Balance -156 ml Result Diagram: 06/05/17 0530 06/05/17 0530 Laboratory Results Laboratory Tests Test 06/04/17 14:00 06/04/17 20:30 06/05/17 04:09 06/05/17 05:30 Hemoglobin 7.8 GM/DL 7.9 GM/DL 7.8 GM/DL Hematocrit 24.2 % 24.9 % 24.4 % Blood Gas Puncture Site LT RADIAL Blood Gas Patient Temperature 98.6 Blood Gas HCO3 26 mmol/L Blood Gas Base Excess 1.9 mmol/L Blood Gas Oxygen Saturation 92 % Arterial Blood pH 7.39 Arterial Blood Partial Pressure CO2 44 mmHg Arterial Blood Partial Pressure O2 73 mmHg Arterial Blood Oxygen Content 10.4 Vol % Arterial Blood Carboxyhemoglobin 2.0 % Arterial Blood Methemoglobin 1.1 % Blood Gas Hemoglobin 8.0 G/DL Oxygen Delivery Device VENTILATOR Blood Gas Ventilator Setting VAC12/550/PEEP8 Blood Gas Inspired Oxygen 35 % White Blood Count 14.4 TH/MM3 Red Blood Count 2.93 MIL/MM3 Mean Corpuscular Volume 83.3 FL Mean Corpuscular Hemoglobin 26.6 PG Mean Corpuscular Hemoglobin Concent 32.0 % Red Cell Distribution Width 18.8 % Platelet Count 67 TH/MM3 Mean Platelet Volume 7.9 FL Blood Urea Nitrogen 38 MG/DL Creatinine 0.94 MG/DL Random Glucose 144 MG/DL Total Protein 5.2 GM/DL Calcium Level 7.2 MG/DL Phosphorus Level 1.8 MG/DL Magnesium Level 2.7 MG/DL Sodium Level 154 MEQ/L Potassium Level 4.2 MEQ/L Chloride Level 120 MEQ/L Carbon Dioxide Level 28.2 MEQ/L Anion Gap 6 MEQ/L Estimat Glomerular Filtration Rate 89 ML/MIN Protein Corrected Calcium 8.2 MG/DL Culture Results Microbiology Date/Time Source Procedure Growth Status 06/04/17 05:35 Blood Peripheral Aerobic Blood Culture Pending Received 06/04/17 05:35 Blood Peripheral Anaerobic Blood Culture Pending Received 06/04/17 00:05 Blood Peripheral Aerobic Blood Culture - Preliminary NO GROWTH IN 1 DAY Resulted 06/04/17 00:05 Blood Peripheral Anaerobic Blood Culture - Preliminary NO GROWTH IN 1 DAY Resulted 06/03/17 12:40 Urine Catheterized Urine Urine Culture - Final NO GROWTH IN 48 HOURS. Complete Imaging Studies Last 24 hours Impressions Chest X-Ray 06/05/17 0600 Signed Impressions: Service Date/Time: Monday, June 05, 2017 04:25 - CONCLUSION: 1. Bilateral mostly basilar airspace disease most characteristic of atelectasis. Nasogastric tube, endotracheal tube and right central line in good position. Yuri Herring MD Administered Medications Medications (Trade) Dose Ordered Sig/Maksim Route PRN Reason Start Time Stop Time Status Last Admin Dose Admin Pantoprazole Sodium 80 mg/ Sodium Chloride 100 ml @ 10 mls/hr Q10H IV 05/29/17 23:46 06/05/17 03:21 Sodium Chloride (NS Flush) 2 ml BID IV FLUSH 05/30/17 09:00 06/05/17 08:34 Ondansetron HCl (Zofran Inj) 4 mg Q6HR PRN IV PUSH nausea 05/30/17 01:45 05/30/17 16:53 Octreotide Acetate 500 mcg/ Sodium Chloride 500 ml @ 50 mls/hr Q10H IV 05/30/17 03:31 06/05/17 03:22 Miscellaneous Information Patient in critical care unit? Ass... [id number] 05/30/17 04:15 05/30/17 04:15 Propofol 100 ml @ 3.111 mls/ hr TITRATE PRN IV SEDATION 05/30/17 22:30 Future Hold 05/31/17 19:02 Fentanyl Citrate 250 ml @ 5 mls/hr TITRATE PRN IV SEDATION 05/31/17 21:30 06/05/17 01:21 Lactated Ringer's 1,000 ml @ 84 mls/hr [id number] IV 06/03/17 14:15 06/05/17 03:21 Lactulose (Lactulose Liq) 30 ml QID PO 06/04/17 18:00 06/05/17 08:33 Rifaximin (Xifaxan) 550 mg BID PO 06/04/17 21:00 06/05/17 08:33 Cefazolin Sodium/ Dextrose 50 ml @ 150 mls/hr Q8H IV 06/04/17 17:00 06/05/17 08:32 Objective Remarks GENERAL: Young male, resting in bed sedated and mechanically ventilated. SKIN: Warm and dry. HEAD: Normocephalic. EYES: No injection or drainage. NECK: Supple, trachea midline. CARDIOVASCULAR: CM shows ST in the 110's RESPIRATORY: Clear anteriorly. Mechanically ventilated. GASTROINTESTINAL: Abdomen soft, non-tender, nondistended. EXTREMITIES: No cyanosis. Generalized edema. MUSCULOSKELETAL: Adequate muscle tone. NEUROLOGICAL: Sedated. Assessment/Plan Problem List: (1) Pulmonary embolism ICD Codes: I26.99 - Other pulmonary embolism without acute cor pulmonale Plan: 06/05: Reconsulted IR for IVC filter. Continue to monitor for bleeding. No anticoagulation. -- CT angiogram showed suspicion for left upper lobe and left lower lobe pulmonary embolism -- Also noted was a right infrahilar subcarinal mass -- Upper and lower ultrasound extremities showed no evidence of DVT. Hx/Workup: Initially presented to the emergency room with hematemesis. Recent upper endoscopy with short bleeding varices. 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 He has been intubated to protect his airway. (2) GI bleed ICD Codes: K92.2 - Gastrointestinal hemorrhage, unspecified Plan: -- GI following -- hogan-endoscopy planned --transfuse as needed (3) Liver mass, right lobe ICD Codes: R16.0 - Hepatomegaly, not elsewhere classified Plan: -- Ultrasound of the liver shows a questionable right lobe liver mass -- The radiologist recommends MRI for further evaluation. -- Will do once stabilized Assessment 41 y/o male admitted with GI bleeding, found to also have a pulmonary embolism. Attending Statement sedated, on vent Repeat EGD = no bleeding. Reconsult IR for IVC filter. will follow, The exam, history, and the medical decision-making described in the above note were completed with the assistance of the mid-level provider. I reviewed and agree with the findings presented. I attest that I had a [id number] encounter with the patient on the same day, and personally performed and documented my assessment and findings in the medical record. Ivy Maradiaga Jun 05, 2017 11:53 Irma Pierson MD Jun 05, 2017 23:44
[2017-06-05] MEDS: FUROSEMIDE 40 MG/4 ML VIAL IV PUSH SCH ×2 (12:09→18:39)
[2017-06-05] MEDS: D5W + KCL 20 MEQ INJ 1,000 ML IV SCH (12:09)
--- NOTE | 2017-06-05 12:13 | HHI.PR ---
Subjective Remarks Sedated on the ventilator no furthur bleeding Objective Vital Signs Date Time Temp Pulse Resp B/P (MAP) Pulse Ox O2 Delivery O2 Flow Rate FiO2 06/05/17 10:23 94 35 06/05/17 10:00 115 06/05/17 08:05 95 35 06/05/17 08:00 113 06/05/17 08:00 100.6 113 14 133/72 (92) 95 06/05/17 08:00 35 06/05/17 06:00 118 06/05/17 04:07 96 35 06/05/17 04:00 35 06/05/17 04:00 99.1 118 139/71 (93) 96 06/05/17 04:00 118 06/05/17 02:00 118 06/05/17 01:45 96 35 06/05/17 00:00 100.6 121 141/74 (96) 97 06/05/17 00:00 121 06/05/17 00:00 35 06/04/17 22:00 122 06/04/17 21:07 99 35 06/04/17 20:00 100.4 123 154/78 (103) 97 06/04/17 20:00 123 06/04/17 20:00 35 06/04/17 18:00 121 06/04/17 17:41 97 35 06/04/17 16:00 35 06/04/17 16:00 119 06/04/17 16:00 100.0 119 13 152/76 (101) 97 06/04/17 14:00 117 I/O 06/04/17 06/04/17 06/04/17 06/05/17 06/05/17 06/05/17 06:59 14:59 22:59 06:59 14:59 22:59 Intake Total 1525 ml 2141 ml 2477 ml 944 ml 635 ml Output Total 2450 ml 1200 ml 1100 ml Balance -925 ml 2141 ml 1277 ml -156 ml 635 ml IV Total 1525 ml 1660 ml 2377 ml 752 ml 635 ml Tube Feeding 132 ml Packed Cells 341 ml Blood Product IV Normal Saline Flush 40 ml Other 100 ml 100 ml 60 ml Output Urine Total 1450 ml 900 ml 700 ml Stool Total 1000 ml 300 ml 400 ml Result Diagram: 06/05/1752906/05/17529 Objective Remarks GENERAL: SKIN: Warm and dry. HEAD: Atraumatic. Normocephalic. EYES: Pupils equal and round. No scleral icterus. No injection or drainage. ENT: No nasal bleeding or discharge. Mucous membranes pink and moist. NECK: Trachea midline. No JVD. CARDIOVASCULAR: Regular rate and rhythm. RESPIRATORY: No accessory muscle use. Clear to auscultation. Breath sounds equal bilaterally. GASTROINTESTINAL: Abdomen soft, non-tender, nondistended. Hepatic and splenic margins not palpable. MUSCULOSKELETAL: Extremities without clubbing, cyanosis, or edema. No obvious deformities. NEUROLOGICAL: Awake and alert. No obvious cranial nerve deficits. Motor grossly within normal limits. Five out of 5 muscle strength in the arms and legs. Normal speech. PSYCHIATRIC: Appropriate mood and affect; insight and judgment normal. Assessment and Plan Assessment and Plan respiratory failure pneumonia pulmonary embolism Gi bleed portal htn ? lung mass PLAN Ventilatory support ANTIBIOTICS IVC FILTER WEAN TOLERATED Yosef Navas MD Jun 05, 2017 12:12
--- NOTE | 2017-06-05 16:55 | PD.RAD ---
Post Procedure Progress Note Pre Procedure Diagnosis: (1) GI bleed (2) Pulmonary embolism Post Procedure Diagnosis: (1) GI bleed (2) Pulmonary embolism Procedure Date: Jun 05, 2017 Supervising Radiologist: Chetan Aguila Anesthesia: Local Plan of Activity Patient to Unit: Critical Care Patient Condition: Poor Additional Comments: Retrievable IVC filter placed via a right jugular access. Filter is in good position. Full dictated report to follow See PACS Report for procedural detail/treatment Chetan Aguila MD Jun 05, 2017 16:55
[2017-06-05] MEDS ORDERED: IOHEXOL 350 MG/ML 50 ML BTL (for RAD DIAG) IVCONTRAST ONE (16:59)
--- NOTE | 2017-06-05 19:33 | HHI.IDPN ---
Subjective Subjective Remarks remains on vent + secretions + low grade fever sp IVC filter placement today Antibiotics cefaozline Allergies: Coded Allergies: No Known Allergies (Unverified , 05/29/17) Objective . Vital Signs Date Time Temp Pulse Resp B/P (MAP) Pulse Ox O2 Delivery O2 Flow Rate FiO2 06/05/17 18:00 130 06/05/17 17:38 96 50 06/05/17 16:09 97 06/05/17 16:00 99.0 124 12 146/71 (96) 94 06/05/17 16:00 124 06/05/17 16:00 35 06/05/17 14:00 123 06/05/17 13:01 92 35 06/05/17 12:00 117 06/05/17 12:00 35 06/05/17 12:00 100.0 117 12 137/72 (93) 94 06/05/17 10:23 94 35 06/05/17 10:00 115 06/05/17 08:05 95 35 06/05/17 08:00 113 06/05/17 08:00 100.6 113 14 133/72 (92) 95 06/05/17 08:00 35 06/05/17 06:00 118 06/05/17 04:07 96 35 06/05/17 04:00 35 06/05/17 04:00 99.1 118 139/71 (93) 96 06/05/17 04:00 118 06/05/17 02:00 118 06/05/17 01:45 96 35 06/05/17 00:00 100.6 121 141/74 (96) 97 06/05/17 00:00 121 06/05/17 00:00 35 06/04/17 22:00 122 06/04/17 21:07 99 35 06/04/17 20:00 100.4 123 154/78 (103) 97 06/04/17 20:00 123 06/04/17 20:00 35 06/05/17 06/05/17 06/06/17 15:00 23:00 07:00 Intake Total 718 ml 2036 ml Output Total 2000 ml Balance 718 ml 36 ml IV Total 718 ml 1477 ml Tube Feeding 379 ml Other 180 ml Output Urine Total 2000 ml . Laboratory Tests Test 06/04/17 00:05 06/04/17 06:15 06/04/17 14:00 06/04/17 20:30 Hemoglobin 6.7 GM/DL 7.2 GM/DL 7.8 GM/DL 7.9 GM/DL Hematocrit 21.2 % 22.1 % 24.2 % 24.9 % White Blood Count 12.6 TH/MM3 Red Blood Count 2.67 MIL/MM3 Mean Corpuscular Volume 82.5 FL Mean Corpuscular Hemoglobin 26.9 PG Mean Corpuscular Hemoglobin Concent 32.6 % Red Cell Distribution Width 18.8 % Platelet Count 66 TH/MM3 Mean Platelet Volume 8.2 FL Neutrophils (%) (Auto) 76.9 % Lymphocytes (%) (Auto) 8.7 % Monocytes (%) (Auto) 9.7 % Eosinophils (%) (Auto) 4.4 % Basophils (%) (Auto) 0.3 % Neutrophils # (Auto) 9.6 TH/MM3 Lymphocytes # (Auto) 1.1 TH/MM3 Monocytes # (Auto) 1.2 TH/MM3 Eosinophils # (Auto) 0.6 TH/MM3 Basophils # (Auto) 0.0 TH/MM3 CBC Comment AUTO DIFF Differential Total Cells Counted 100 Neutrophils % (Manual) 70 % Band Neutrophils % 10 % Lymphocytes % 9 % Monocytes % 9 % Eosinophils % 2 % Neutrophils # (Manual) 10.1 TH/MM3 Nucleated Red Blood Cells 5 /100 WBC Differential Comment FINAL DIFF MANUAL Platelet Estimate LOW Platelet Morphology Comment ENLARGED Ovalocytes 1+ Test 06/05/17 05:30 White Blood Count 14.4 TH/MM3 Red Blood Count 2.93 MIL/MM3 Hemoglobin 7.8 GM/DL Hematocrit 24.4 % Mean Corpuscular Volume 83.3 FL Mean Corpuscular Hemoglobin 26.6 PG Mean Corpuscular Hemoglobin Concent 32.0 % Red Cell Distribution Width 18.8 % Platelet Count 67 TH/MM3 Mean Platelet Volume 7.9 FL Laboratory Tests Test 06/04/17 06:15 06/05/17 05:30 Blood Urea Nitrogen 46 MG/DL 38 MG/DL Creatinine 0.84 MG/DL 0.94 MG/DL Random Glucose 139 MG/DL 144 MG/DL Total Protein 5.0 GM/DL 5.2 GM/DL Albumin 1.7 GM/DL Calcium Level 7.4 MG/DL 7.2 MG/DL Alkaline Phosphatase 138 U/L Aspartate Amino Transf (AST/SGOT) 305 U/L Alanine Aminotransferase (ALT/SGPT) 699 U/L Total Bilirubin 2.1 MG/DL Sodium Level 150 MEQ/L 154 MEQ/L Potassium Level 4.2 MEQ/L 4.2 MEQ/L Chloride Level 117 MEQ/L 120 MEQ/L Carbon Dioxide Level 29.2 MEQ/L 28.2 MEQ/L Anion Gap 4 MEQ/L 6 MEQ/L Estimat Glomerular Filtration Rate 102 ML/MIN 89 ML/MIN Protein Corrected Calcium 8.6 MG/DL 8.2 MG/DL Ammonia 46 MCMOL/L Tumor Marker Alpha Fetoprotein 2.0 NG/ML Carcinoembryonic Antigen 1.9 NG/ML Phosphorus Level 1.8 MG/DL Magnesium Level 2.7 MG/DL Microbiology Date/Time Source Procedure Growth Status 06/04/17 05:35 Blood Peripheral Aerobic Blood Culture Pending Received 06/04/17 05:35 Blood Peripheral Anaerobic Blood Culture Pending Received 06/04/17 00:05 Blood Peripheral Aerobic Blood Culture - Preliminary NO GROWTH IN 1 DAY Resulted 06/04/17 00:05 Blood Peripheral Anaerobic Blood Culture - Preliminary NO GROWTH IN 1 DAY Resulted 06/03/17 12:40 Urine Catheterized Urine Urine Culture - Final NO GROWTH IN 48 HOURS. Complete Imaging Last Impressions Chest X-Ray 06/05/17 0600 Signed Impressions: Service Date/Time: Monday, June 05, 2017 04:25 - CONCLUSION: 1. Bilateral mostly basilar airspace disease most characteristic of atelectasis. Nasogastric tube, endotracheal tube and right central line in good position. Yuri Herring MD Upper Extremity Ultrasound 06/01/17 0000 Signed Impressions: Service Date/Time: Thursday, June 01, 2017 13:47 - CONCLUSION: No evidence of upper extremity DVT on the right or left. Angel Paredes MD Lower Extremity Ultrasound 06/01/17 0000 Signed Impressions: Service Date/Time: Thursday, June 01, 2017 13:30 - CONCLUSION: No evidence of lower extremity DVT on the right or left. Angel Paredes MD CT Angiography 06/01/17 0000 Signed Impressions: Service Date/Time: Thursday, June 01, 2017 02:39 - CONCLUSION: 1. Suspected left upper lobe and left lower lobe pulmonary emboli. No pulmonary embolus on the right. 2. Right infrahilar/subcarinal mass. 3. Bilateral lower lobe atelectasis, right worse than left. Also patchy pneumonia of the right lower lobe. David Quintero MD Abdomen/Pelvis CT 06/01/17 0000 Signed Impressions: Service Date/Time: Thursday, June 01, 2017 02:39 - CONCLUSION: 1. Cirrhosis. Heterogeneously enhancing liver without a distinct/measurable focal lesion. 2. Marked splenomegaly, 10.3 x 17.6 x 18.1 cm. 3. Very severe portosystemic collaterals including gastroesophageal varices. The varices extend into the lower chest and probably account for the subcarinal/right infrahilar mass seen by chest CT. 4. Diffuse wall thickening of the colon, colitis versus secondary changes from cirrhosis. 5. Small ascites. Body wall edema/anasarca. David Quintero MD Liver Ultrasound 05/30/17 0000 Signed Impressions: Service Date/Time: May 09:04 - CONCLUSION: Cirrhotic liver appearance. Question focal right lobe mass. Recommend further evaluation with hepatic MRI with Eovist. David Terrazas MD Physical Exam CONSTITUTIONAL/GENERAL: This is an adequately nourished patient, in no apparent distress. TUBES/LINES/DRAINS: SKIN: No jaundice, rashes, or lesions. EYES: Pupils equal and round and reactive. Extraocular motions intact. + mild scleral icterus. No injection or drainage. Fundi not examined. ENT: Hearing not tested Nose without bleeding or purulent drainage. oral mucosae partially visulaised without visible erythema, exudates, masses, or lesions. CARDIOVASCULAR: Regular rate and rhythm without murmurs, gallops, or rubs. No JVD. Peripheral pulses symmetric. RESPIRATORY/CHEST: Symmetric, unlabored respirations. Clear to auscultation. Breath sounds equal bilaterally. No wheezes, rales, or rhonchi. GASTROINTESTINAL: Abdomen soft, non-tender, nondistended. No hepato-splenomegaly , or palpable masses. No guarding. Bowel sounds present. GENITOURINARY: Without palpable bladder distension. [place] catheter in place with clear yellow urine MUSCULOSKELETAL: Extremities without clubbing, cyanosis, + trace edema. NEUROLOGICAL: Sedated. Unresponsive PSYCHIATRIC: unable to assess Assessment & Plan Remarks Liver cirrhosis Upper GI bleed 2/2 esophageal varices VDRF MSSA PNA - final S showed MSSA PE, multilobar sp IVC filter placement High fever - improved Worsening leukocytosis cont cefaolizne repeat sputum, monitor WBC, temps Karon Thomson MD Jun 05, 2017 19:33
[2017-06-05 22:45] LABS: HEMATOCRIT 25.2 % (39.0-51.0)
[2017-06-05 22:50] LABS: REVIEW FLAG FINAL
[2017-06-06] VITALS (23 sets, daily range): BP systolic 116–153; BP diastolic 56–79; PULSE 100–129; TEMP 98.3–100.7; O2SAT 92–100
[2017-06-06] MEDS: D5W + KCL 20 MEQ INJ 1,000 ML IV SCH ×2 (00:41→12:07)
[2017-06-06] MEDS: PANTOPRAZOLE INJ 80 MG in SODIUM CHLORIDE 0.9% INJ 100 ML IV SCH ×3 (00:42→22:00)
[2017-06-06] MEDS: ceFAZolin 2 GM PREMIX 50 ML IV SCH ×3 (00:59→17:17)
[2017-06-06] MEDS ORDERED: SODIUM PHOSPHATE INJ 30 MMOL in SODIUM CHLOR 0.9% 250 ML INJ 240 ML IV PRN (01:00)
[2017-06-06] MEDS ORDERED: POTASSIUM PHOSPHATE MONOBASIC 500 MG TAB PO/TUBE PRN (01:00)
[2017-06-06] MEDS ORDERED: MAGNESIUM SULFATE INJ 4 GM in SODIUM CHLORIDE 0.9% INJ 92 ML IV PRN (01:00)
[2017-06-06] MEDS ORDERED: POTASSIUM CHLOR 20 MEQ PREMIX 100 ML IV PRN ×2 (01:00)
[2017-06-06] MEDS ORDERED: MAGNESIUM SULFATE INJ 2 GM in SODIUM CHLORIDE 0.9% INJ 96 ML IV PRN (01:00)
[2017-06-06] MEDS ORDERED: MAGNESIUM OXIDE 400 MG TAB PO PRN (01:00)
[2017-06-06] MEDS ORDERED: POTASSIUM PHOSPHATE INJ 30 MMOL in SODIUM CHLOR 0.9% 250 ML INJ 250 ML IV PRN (01:00)
[2017-06-06] MEDS ORDERED: POTASSIUM PHOSPHATE MONOBASIC 500 MG TAB PO PRN (01:00)
[2017-06-06] MEDS ORDERED: POTASSIUM CHLOR 40 MEQ PREMIX 100 ML IV PRN ×2 (01:00)
[2017-06-06] MEDS ORDERED: POTASSIUM CHLORIDE 25 MEQ EFFERVESCENT TAB PO PRN (01:00)
[2017-06-06] MEDS: PROPOFOL 1000 MG/100 ML INJ 100 ML IV PRN ×2 (02:27→06:15)
[2017-06-06] MEDS: fentaNYL DRIP 250 ML IV PRN (06:15)
[2017-06-06 06:48] LABS: AUTOMATED NEUTROPHIL # 7.6 TH/MM3 (1.8-7.7); BASOPHIL % 0.4 % (0.0-2.0); EOSINOPHIL # 0.4 TH/MM3 (0-0.4); EOSINOPHIL % 4.2 % (0.0-4.0); HEMATOCRIT 22.1 % (39.0-51.0); LYMPH % 11.7 % (9.0-44.0); LYMPHOCYTE # 1.2 TH/MM3 (1.0-4.8); MEAN CELL VOLUME 84.8 FL (80.0-100.0); MEAN CORPUSCULAR HEMOGLOBIN 26.7 PG (27.0-34.0); MEAN CORPUSCULAR HGB CONC 31.5 % (32.0-36.0); MONO % 11.2 % (0.0-8.0); NEUT % 72.5 % (16.0-70.0); PLATELET COUNT 62 TH/MM3 (150-450); RED BLOOD COUNT 2.61 MIL/MM3 (4.50-5.90); RED CELL DISTRIBUTION WIDTH 19.4 % (11.6-17.2); WHITE BLOOD COUNT 10.5 TH/MM3 (4.0-11.0)
[2017-06-06 07:01] LABS: BICARBONATE 29.9 MEQ/L (21.0-32.0); MAGNESIUM 2.4 MG/DL (1.5-2.5)
[2017-06-06 07:04] LABS: HEMO FLAGS AUTO DIFF
[2017-06-06 07:27] LABS: CALCIUM-PROTEIN CORRECTED 8.7 MG/DL (8.5-10.1)
[2017-06-06] MEDS: SODIUM CHLORIDE 0.9% FLUSH 10 ML FLUSH IV FLUSH SCH ×2 (08:01→21:15)
[2017-06-06] MEDS: FUROSEMIDE 40 MG/4 ML VIAL IV PUSH SCH ×2 (08:01→17:17)
[2017-06-06] MEDS: RIFAXIMIN 550 MG TAB PO SCH ×2 (08:01→21:15)
[2017-06-06] MEDS: LACTULOSE SYRUP 20 GM/30 ML CUP PO SCH ×4 (08:01→21:00)
[2017-06-06 08:08] LABS: BANDS 10 % (0-6); CORRECTED NUCLEATED RBC 3 /100 WBC (0-0); EOSINOPHILS 2 % (0-4); METAMYELOCYTES 1 % (0-1); PLATELET ESTIMATE SMEAR LOW (NORMAL); PLATELET MORPHOLOGY NORMAL (NORMAL); POLYS (SEG NEUTROPHILS) 75 % (16-70); SCAN/DIFF FINAL DIFF MANUAL; WBC DIFF SAMPLE 100
[2017-06-06] MEDS: OCTREOTIDE INJ 500 MCG in SODIUM CHLORID 0.9% 500 ML INJ 499.5 ML IV SCH (08:54)
--- NOTE | 2017-06-06 11:17 | HHI.GIFU ---
Subjective Remarks Awake, on cpap. Possible extubation today. No active gi bleeding. Denies abdominal pain. Denies ever being told that he has liver cirrhosis before. Denies significant ETOH use. (Mercedes Richards) Objective Vitals I&O Vital Signs Date Time Temp Pulse Resp B/P (MAP) Pulse Ox O2 Delivery O2 Flow Rate FiO2 06/06/17 08:10 96 35 06/06/17 08:00 99.1 06/06/17 08:00 35 06/06/17 06:00 102 06/06/17 04:10 94 35 06/06/17 04:00 99.0 106 116/56 (76) 95 06/06/17 04:00 40 06/06/17 04:00 106 06/06/17 02:00 121 06/06/17 00:15 94 40 06/06/17 00:00 129 06/06/17 00:00 100.7 129 153/76 (101) 98 06/06/17 00:00 40 06/05/17 22:00 128 146/73 (97) 93 06/05/17 22:00 128 06/05/17 20:23 96 50 06/05/17 20:00 127 06/05/17 20:00 40 06/05/17 20:00 102.0 127 144/73 (96) 96 06/05/17 18:00 130 06/05/17 17:38 96 50 06/05/17 16:09 97 06/05/17 16:00 99.0 124 12 146/71 (96) 94 06/05/17 16:00 124 06/05/17 16:00 35 06/05/17 14:00 123 06/05/17 13:01 92 35 06/05/17 12:00 117 06/05/17 12:00 35 06/05/17 12:00 100.0 117 12 137/72 (93) 94 I/O 06/05/17 06/05/17 06/05/17 06/06/17 06/06/17 06/06/17 07:00 15:00 23:00 07:00 15:00 23:00 Intake Total 944 ml 718 ml 2164 ml 1313 ml Output Total 1100 ml 2000 ml 1900 ml Balance -156 ml 718 ml 164 ml -587 ml IV Total 752 ml 718 ml 1605 ml 850 ml Tube Feeding 132 ml 379 ml 343 ml Other 60 ml 180 ml 120 ml Output Urine Total 700 ml 2000 ml 1400 ml Stool Total 400 ml 500 ml Laboratory Laboratory Tests Test 06/05/17 22:00 06/06/17 05:00 Hemoglobin 7.9 7.0 Hematocrit 25.2 22.1 White Blood Count 10.5 Red Blood Count 2.61 Mean Corpuscular Volume 84.8 Mean Corpuscular Hemoglobin 26.7 Mean Corpuscular Hemoglobin Concent 31.5 Red Cell Distribution Width 19.4 Platelet Count 62 Mean Platelet Volume 8.8 Neutrophils (%) (Auto) 72.5 Lymphocytes (%) (Auto) 11.7 Monocytes (%) (Auto) 11.2 Eosinophils (%) (Auto) 4.2 Basophils (%) (Auto) 0.4 Neutrophils # (Auto) 7.6 Lymphocytes # (Auto) 1.2 Monocytes # (Auto) 1.2 Eosinophils # (Auto) 0.4 Basophils # (Auto) 0.0 CBC Comment AUTO DIFF Differential Total Cells Counted 100 Neutrophils % (Manual) 75 Band Neutrophils % 10 Lymphocytes % 7 Monocytes % 5 Eosinophils % 2 Neutrophils # (Manual) 9.0 Metamyelocytes 1 Nucleated Red Blood Cells 3 Differential Comment FINAL DIFF MANUAL Platelet Estimate LOW Platelet Morphology Comment NORMAL Polychromasia 2.0 Basophilic Stippling FAINT Blood Urea Nitrogen 33 Creatinine 1.11 Random Glucose 135 Total Protein 4.5 Calcium Level 7.2 Phosphorus Level 2.4 Magnesium Level 2.4 Sodium Level 153 Potassium Level 4.0 Chloride Level 119 Carbon Dioxide Level 29.9 Anion Gap 4 Estimat Glomerular Filtration Rate 74 Protein Corrected Calcium 8.7 Date/Time Source Procedure Growth Status 06/04/17 05:35 Blood Peripheral Aerobic Blood Culture - Preliminary NO GROWTH IN 1 DAY Resulted 06/04/17 05:35 Blood Peripheral Anaerobic Blood Culture - Preliminary NO GROWTH IN 1 DAY Resulted 06/01/17 03:30 Sputum Endotracheal Gram Stain - Final Complete 06/01/17 03:30 Sputum Culture - Final Staphylococcus Aureus Complete 06/03/17 12:40 Urine Catheterized Urine Urine Culture - Final NO GROWTH IN 48 HOURS. Complete Imaging Last Impressions Chest X-Ray 06/05/17 0600 Signed Impressions: Service Date/Time: Saturday, June 05, 2017 04:25 - CONCLUSION: 1. Bilateral mostly basilar airspace disease most characteristic of atelectasis. Nasogastric tube, endotracheal tube and right central line in good position. Yuri Herring MD Upper Extremity Ultrasound 06/01/17 Signed Impressions: Service Date/Time: Thursday, June 01, 2017 13:47 - CONCLUSION: No evidence of upper extremity DVT on the right or left. Angel Paredes MD Lower Extremity Ultrasound 06/01/17 Signed Impressions: Service Date/Time: Thursday, June 01, 2017 13:30 - CONCLUSION: No evidence of lower extremity DVT on the right or left. Angel Paredes MD CT Angiography 06/01/17 Signed Impressions: Service Date/Time: Thursday, June 01, 2017 02:39 - CONCLUSION: 1. Suspected left upper lobe and left lower lobe pulmonary emboli. No pulmonary embolus on the right. 2. Right infrahilar/subcarinal mass. 3. Bilateral lower lobe atelectasis, right worse than left. Also patchy pneumonia of the right lower lobe. David Quintero MD Abdomen/Pelvis CT 06/01/17 Signed Impressions: Service Date/Time: Thursday, June 01, 2017 02:39 - CONCLUSION: 1. Cirrhosis. Heterogeneously enhancing liver without a distinct/measurable focal lesion. 2. Marked splenomegaly, 10.3 x 17.6 x 18.1 cm. 3. Very severe portosystemic collaterals including gastroesophageal varices. The varices extend into the lower chest and probably account for the subcarinal/right infrahilar mass seen by chest CT. 4. Diffuse wall thickening of the colon, colitis versus secondary changes from cirrhosis. 5. Small ascites. Body wall edema/anasarca. David Quintero MD Liver Ultrasound 05/30/17 Signed Impressions: Service Date/Time: May 09:04 - CONCLUSION: Cirrhotic liver appearance. Question focal right lobe mass. Recommend further evaluation with hepatic MRI with Eovist. David Terrazas MD Physical Exam HEENT: Normocephalic; atraumatic; CHEST: Respirations even/unlabored. OETT to CPAP CARDIAC: ST- 120's ABDOMEN: Soft, hepatosplenomegaly; bowel sounds are present in all four quadrants. EXTREMITIES: Generalized edema. [employer]: Awake on vent, nods appropriately, follows commands (Mercedes Richardsissa [facility]) Assessment and Plan Plan PLAN - Upper GIB with hematemesis on admission. S/P EGD (05/31/17)-----> Bleeding esophageal varices. Rpt. EGD with OGT placement (06/04/17)---> 1. Esophageal varices grade 3 old bands seen over variceal columns, og tube placed in stomach under direct visualization 2. Retroflexed views revealed a hiatal hernia 3. Retroflexed views revealed gastric varices. S/ P 6 units PRBC, HH 7.8/24.4. Octreotide Gtt, Protonix Gtt. - Anemia acute blood loss. S/P 6 units prbc, HH 7.0/22.1 - Coagulopathy/thrombocytopenia. Plt 62,000. INR 1.1. - Elevated LFTs. Liver US (05/30/17)---> Cirrhotic liver appearance. Question focal right lobe mass. Recommend further evaluation with hepatic MRI with Eovist. Hepatitis profile negative. STEPHANIE negative. AMA <20.0, ASMA neg. AFP 1.8. Ceruloplasmin 24, ALpha [address] Scan abdomen and pelvis to further evaluation. CT scan abdomen and pelvis with iv contrast (06/01/17)----> cirrhosis, heterogeneously enhancing liver without a distinct/measurable focal lesion, marked splenomegaly, 10.3 x 17.6 x 18.1 cm, very severe portosystemic collaterals including gastroesophageal varices. The varices extend into the lower chest and probably account for the subcarinal/right infrahilar mass seen by chest CT, diffuse wall thickening of the colon, colitis versus secondary changes from cirrhosis. Small ascites, body wall edema/anasarca. LFTs slowly trending down- last checked on 06/04. Will recheck in am. Pentoxifylline. - Hepatic encephalopathy with ammonia. Improved. He is on the ventilator, but awake and following commands. Lactulose, Xifaxan. - Family hx colon ca. Mother dx age 60 - Thrombocytopenia - PLT 67,000 - AKIKO. Creat 0.94. Improved - Resp. Failure, PE, PNA. S/P IVC filter. Vent per [facility] PLAN - TF as tolerated - Cont. Octreotide Gtt - Cont. Protonix Gtt - Cont. Xifaxan - Cont. Lactulose - Cont. Pentoxifylline - Monitor labs - Transfuse as needed - Supportive care - If extubated, then okay for clear liquids - Further recommendations to follow based on results of above - Pt seen and examined by myself and Dr. Rubin and this note is written on her behalf (Mercedes Richards) Physician Comments agree with above (Sofy Rubin MD) Mercedes Richards Jun 06, 2017 11:17 Sofy Rubin MD Jun 06, 2017 16:41
[2017-06-06 12:54] LABS: INDIRECT BILIRUBIN 0.4 MG/DL (0.0-0.8); TOTAL BILIRUBIN ADULT 1.7 MG/DL (0.2-1.0)
--- NOTE | 2017-06-06 12:54 | RADRPT ---
EXAM DATE/TIME: 06/05/2017 16:23 [place] COMPARISON: No previous studies available for comparison. INDICATIONS : Patient with history of PE and GI bleed in need of IVC filter placement. MEDICAL HISTORY : Hypertension Diabetes CAD CHF Respiratory problems Liver problems Kidney problems DVT PE CVA Seizures Thyroid problems SURGICAL HISTORY : None. ENCOUNTER: Initial ACUITY: 1 week PAIN SCORE: 0/10 FLUORO TIME: 2.4 minutes IMAGE SERIES: 2 ACCESS SITE: Right Internal jugular vein CONTRAST: 20 cc Omnipaque (iohexol) 350 DEVICE(S): 1.) Inferior vena cava retrievable Bard Jamee filter PROCEDURE : 1. Ultrasound-guided venipuncture. 2. Inferior venacavogram. 3. Inferior vena cava filter placement. 4. Conscious sedation with continuous EKG and oximetry monitoring. The risks, benefits and alternatives to the procedure were explained and verbal and written consent w as obtained. The site was prepped in sterile fashion. Full sterile technique was used, including ca p, mask, sterile gloves and gown and a large sterile sheet. Hand hygiene and 2% chlorhexidine and/or betadine/alcohol prep was utilized per protocol for cutaneous antisepsis. Sterile gel and sterile p robe cover were utilized for ultrasound guidance. The skin and subcutaneous tissues were infiltrated with local anesthetic solution. With ultrasound and fluoroscopic guidance the right internal jugular vein was punctured and a vascula r sheath was placed. Inferior venacavogram was performed to demonstrate level of renal veins. No cava l thrombus was identified. The filter was deployed in the infrarenal inferior vena cava. Following de ployment the filter was identified in good position. The procedure was performed in the presence of an independent trained radiology nurse to assist in th e monitoring of the patient. EKG and oximetry remained stable throughout the procedure. The patient tolerated the procedure well and there were no complications. The patient was sent back to the ICU i n stable condition. CONCLUSION: Uncomplicated inferior vena cava filter placement as above. A Bard Hemphill retrievable filter was placed. Chetan Aguila MD on June 06, 2017 at 12:46 Board Certified Radiologist. This report was verified electronically.
--- NOTE | 2017-06-06 13:19 | PD.ONC.PN ---
Subjective Subjective Remarks Patient currently on CPAP trials Per RN, no bleeding IVC filter placed yesterday Objective Data Date Time Temp Pulse Resp B/P (MAP) Pulse Ox O2 Delivery O2 Flow Rate FiO2 06/06/17 12:20 99 Nasal Cannula 4 06/06/17 08:10 Nasal Cannula 35 06/06/17 08:10 96 35 06/06/17 08:00 99.1 06/06/17 08:00 35 06/06/17 06:00 102 06/06/17 04:10 94 35 06/06/17 04:00 99.0 106 116/56 (76) 95 06/06/17 04:00 40 06/06/17 04:00 106 06/06/17 02:00 121 06/06/17 00:15 94 40 06/06/17 00:00 129 06/06/17 00:00 100.7 129 153/76 (101) 98 06/06/17 00:00 40 06/05/17 22:00 128 146/73 (97) 93 06/05/17 22:00 128 06/05/17 20:23 96 50 06/05/17 20:00 127 06/05/17 20:00 40 06/05/17 20:00 102.0 127 144/73 (96) 96 06/05/17 18:00 130 06/05/17 17:38 96 50 06/05/17 16:09 97 06/05/17 16:00 99.0 124 12 146/71 (96) 94 06/05/17 16:00 124 06/05/17 16:00 35 06/05/17 14:00 123 06/06/17 06/06/17 06/06/17 07:00 15:00 23:00 Intake Total 1313 ml Output Total 1900 ml Balance -587 ml Result Diagram: 06/06/17 0500 06/06/17 0500 Laboratory Results Laboratory Tests Test 06/05/17 22:00 06/06/17 05:00 06/06/17 12:05 Hemoglobin 7.9 GM/DL 7.0 GM/DL Hematocrit 25.2 % 22.1 % White Blood Count 10.5 TH/MM3 Red Blood Count 2.61 MIL/MM3 Mean Corpuscular Volume 84.8 FL Mean Corpuscular Hemoglobin 26.7 PG Mean Corpuscular Hemoglobin Concent 31.5 % Red Cell Distribution Width 19.4 % Platelet Count 62 TH/MM3 Mean Platelet Volume 8.8 FL Neutrophils (%) (Auto) 72.5 % Lymphocytes (%) (Auto) 11.7 % Monocytes (%) (Auto) 11.2 % Eosinophils (%) (Auto) 4.2 % Basophils (%) (Auto) 0.4 % Neutrophils # (Auto) 7.6 TH/MM3 Lymphocytes # (Auto) 1.2 TH/MM3 Monocytes # (Auto) 1.2 TH/MM3 Eosinophils # (Auto) 0.4 TH/MM3 Basophils # (Auto) 0.0 TH/MM3 CBC Comment AUTO DIFF Differential Total Cells Counted 100 Neutrophils % (Manual) 75 % Band Neutrophils % 10 % Lymphocytes % 7 % Monocytes % 5 % Eosinophils % 2 % Neutrophils # (Manual) 9.0 TH/MM3 Metamyelocytes 1 % Nucleated Red Blood Cells 3 /100 WBC Differential Comment FINAL DIFF MANUAL Platelet Estimate LOW Platelet Morphology Comment NORMAL Polychromasia 2.0 % Basophilic Stippling FAINT Blood Urea Nitrogen 33 MG/DL Creatinine 1.11 MG/DL Random Glucose 135 MG/DL Total Protein 4.5 GM/DL 5.3 GM/DL Calcium Level 7.2 MG/DL Phosphorus Level 2.4 MG/DL Magnesium Level 2.4 MG/DL Sodium Level 153 MEQ/L Potassium Level 4.0 MEQ/L Chloride Level 119 MEQ/L Carbon Dioxide Level 29.9 MEQ/L Anion Gap 4 MEQ/L Estimat Glomerular Filtration Rate 74 ML/MIN Protein Corrected Calcium 8.7 MG/DL Total Bilirubin 1.7 MG/DL Direct Bilirubin 1.3 MG/DL Indirect Bilirubin 0.4 MG/DL Aspartate Amino Transf (AST/SGOT) 97 U/L Alanine Aminotransferase (ALT/SGPT) 269 U/L Alkaline Phosphatase 126 U/L Ammonia 57 MCMOL/L Albumin 1.8 GM/DL Culture Results Microbiology Date/Time Source Procedure Growth Status 06/04/17 05:35 Blood Peripheral Aerobic Blood Culture - Preliminary NO GROWTH IN 1 DAY Resulted 06/04/17 05:35 Blood Peripheral Anaerobic Blood Culture - Preliminary NO GROWTH IN 1 DAY Resulted 06/04/17 00:05 Blood Peripheral Aerobic Blood Culture - Preliminary NO GROWTH IN 2 DAYS Resulted 06/04/17 00:05 Blood Peripheral Anaerobic Blood Culture - Preliminary NO GROWTH IN 2 DAYS Resulted Administered Medications Medications (Trade) Dose Ordered Sig/Maksim Route PRN Reason Start Time Stop Time Status Last Admin Dose Admin Pantoprazole Sodium 80 mg/ Sodium Chloride 100 ml @ 10 mls/hr Q10H IV 05/29/17 23:46 06/06/17 12:07 Sodium Chloride (NS Flush) 2 ml BID IV FLUSH 05/30/17 09:00 06/05/17 21:33 Ondansetron HCl (Zofran Inj) 4 mg Q6HR PRN IV PUSH nausea 05/30/17 01:45 05/30/17 16:53 Octreotide Acetate 500 mcg/ Sodium Chloride 500 ml @ 50 mls/hr Q10H IV 05/30/17 03:31 06/06/17 08:54 Miscellaneous Information Patient in critical care unit? Ass... [id number] .XX 05/30/17 04:15 05/30/17 04:15 Fentanyl Citrate 250 ml @ 5 mls/hr TITRATE PRN IV SEDATION 05/31/17 21:30 06/06/17 06:15 Lactulose (Lactulose Liq) 30 ml QID PO 06/04/17 18:00 06/06/17 08:01 Rifaximin (Xifaxan) 550 mg BID PO 06/04/17 21:00 06/06/17 08:01 Cefazolin Sodium/ Dextrose 50 ml @ 150 mls/hr Q8H IV 06/04/17 17:00 06/06/17 08:01 Potassium Chloride/Dextrose 1,000 ml @ 84 mls/hr [id number] IV 06/05/17 13:00 06/06/17 12:07 Furosemide (Lasix Inj) 40 mg BID@,18 IV PUSH 06/05/17 12:00 06/06/17 08:01 Sodium Phosphate 30 mmol/Sodium Chloride 250 ml @ 42 mls/hr UNSCH PRN IV For Phosphorus < 2.5 mg/dL 06/06/17 01:00 06/06/17 02:12 Objective Remarks GENERAL: Young male, resting in bed mechanically ventilated on CPAP trial SKIN: Warm and dry. HEAD: Normocephalic. EYES: No injection or drainage. NECK: Supple, trachea midline. CARDIOVASCULAR: CM shows ST in the 110's RESPIRATORY: Clear anteriorly. Mechanically ventilated. GASTROINTESTINAL: Abdomen soft, non-tender, nondistended. EXTREMITIES: No cyanosis. Generalized edema. MUSCULOSKELETAL: Adequate muscle tone. NEUROLOGICAL: Making eye contact. Shaking head yes/ no appropriately Assessment/Plan Problem List: (1) Pulmonary embolism ICD Codes: I26.99 - Other pulmonary embolism without acute cor pulmonale Plan: 06/06: IVC filter placed yesterday. Monitor CBC. Monitor for bleeding. 06/05: Reconsulted IR for IVC filter. Continue to monitor for bleeding. No anticoagulation. -- CT angiogram showed suspicion for left upper lobe and left lower lobe pulmonary embolism -- Also noted was a right infrahilar subcarinal mass -- Upper and lower ultrasound extremities showed no evidence of DVT. Hx/Workup: Initially presented to the emergency room with hematemesis. Recent upper endoscopy with short bleeding varices. These were banded by the patient support specialist. He has been intubated to protect his airway. (2) GI bleed ICD Codes: K92.2 - Gastrointestinal hemorrhage, unspecified Plan: -- GI following -- hogan-endoscopy planned --transfuse as needed (3) Liver mass, right lobe ICD Codes: R16.0 - Hepatomegaly, not elsewhere classified Plan: -- Ultrasound of the liver shows a questionable right lobe liver mass -- The radiologist recommends MRI for further evaluation. -- Will do once stabilized Assessment 41 y/o male admitted with GI bleeding, found to also have a pulmonary embolism. Attending Statement sedated , on vent no bleeding h/h stable. The exam, history, and the medical decision-making described in the above note were completed with the assistance of the mid-level provider. I reviewed and agree with the findings presented. I attest that I had a [id number] encounter with the patient on the same day, and personally performed and documented my assessment and findings in the medical record. Ivy Maradiaga Jun 06, 2017 13:19 Irma Pierson MD Jun 07, 2017 07:20
--- NOTE | 2017-06-06 16:10 | HHI.PR ---
Subjective Remarks extubated alert no sob Objective Vital Signs Date Time Temp Pulse Resp B/P (MAP) Pulse Ox O2 Delivery O2 Flow Rate FiO2 06/06/17 15:00 120 06/06/17 15:00 120 128/70 (89) 96 06/06/17 14:00 124 06/06/17 14:00 124 121/67 (85) 94 06/06/17 13:00 127 06/06/17 13:00 127 123/77 (92) 92 06/06/17 12:20 99 Nasal Cannula 4 06/06/17 12:00 129 128/78 (95) 95 06/06/17 12:00 129 06/06/17 11:00 124 06/06/17 10:00 124 06/06/17 09:00 126 06/06/17 08:10 Nasal Cannula 35 06/06/17 08:10 96 35 06/06/17 08:00 111 06/06/17 08:00 99.1 06/06/17 08:00 35 06/06/17 06:00 102 06/06/17 04:10 94 35 06/06/17 04:00 99.0 106 116/56 (76) 95 06/06/17 04:00 40 06/06/17 04:00 106 06/06/17 02:00 121 06/06/17 00:15 94 40 06/06/17 00:00 129 06/06/17 00:00 100.7 129 153/76 (101) 98 06/06/17 00:00 40 06/05/17 22:00 128 146/73 (97) 93 06/05/17 22:00 128 06/05/17 20:23 96 50 06/05/17 20:00 127 06/05/17 20:00 40 06/05/17 20:00 102.0 127 144/73 (96) 96 06/05/17 18:00 130 06/05/17 17:38 96 50 06/05/17 16:09 97 I/O 06/05/17 06/05/17 06/05/17 06/06/17 06/06/17 06/06/17 07:00 15:00 23:00 07:00 15:00 23:00 Intake Total 944 ml 718 ml 2164 ml 1313 ml 52 ml Output Total 1100 ml 2000 ml 1900 ml Balance -156 ml 718 ml 164 ml -587 ml 52 ml IV Total 752 ml 718 ml 1605 ml 850 ml 52 ml Tube Feeding 132 ml 379 ml 343 ml Other 60 ml 180 ml 120 ml Output Urine Total 700 ml 2000 ml 1400 ml Stool Total 400 ml 500 ml Result Diagram: 06/06/17 0500 06/06/17 0500 Objective Remarks GENERAL: SKIN: Warm and dry. HEAD: Atraumatic. Normocephalic. EYES: Pupils equal and round. No scleral icterus. No injection or drainage. ENT: No nasal bleeding or discharge. Mucous membranes pink and moist. NECK: Trachea midline. No JVD. CARDIOVASCULAR: Regular rate and rhythm. RESPIRATORY: No accessory muscle use. Clear to auscultation. Breath sounds equal bilaterally. GASTROINTESTINAL: Abdomen soft, non-tender, nondistended. Hepatic and splenic margins not palpable. MUSCULOSKELETAL: Extremities without clubbing, cyanosis, or edema. No obvious deformities. NEUROLOGICAL: Awake and alert. No obvious cranial nerve deficits. Motor grossly within normal limits. Five out of 5 muscle strength in the arms and legs. Normal speech. PSYCHIATRIC: Appropriate mood and affect; insight and judgment normal. Assessment and Plan Assessment and Plan extubated respiratory failure pneumonia pulmonary embolism Gi bleed portal htn ? lung mass PLAN o2 as needed ANTIBIOTICS IVC FILTER Yosef Navas MD Jun 06, 2017 16:10
--- NOTE | 2017-06-06 20:34 | HHI.CCPN ---
Subjective Remarks/Hospital Course 41-year-old gentleman admitted with complaints of hematemesis over about an hour and a half. The color was dark; accompanied by nausea but denies abdominal pain. Just had a dark stool. He was taking Tylenol 1000 mg per day 5 days per week. He denies any history of peptic ulcer. He started taking generic Aleve or naproxen 200 mg when extra strength Tylenol wore off over the past week. The patient reports that last week he had "a really nasty flu". He had also put in extra hours at work last week and thought it might be related to work-related exhaustion. He denies chest pain, shortness of breath. He underwent urgent EGD by gastroenterology with the finding of a large esophageal varix extending from top to bottom with active bleeding in the distal portion, 3 bands were applied along the length of the varix and especially over the bleeding section. The stomach this was filled with blood and it was a limited evaluation. The duodenum was unremarkable. He has returned to ICU from OR sedated and intubated. Subjective: 05/31: Afebrile. The patient is noted to have low urine output, and sinus tachycardia heart rate 105-110, patient bolused with 1 L normal saline. Normal saline infusion continues at 100 cc/hour. H&H pending .Continues on Protonix and octreotide infusions currently remains sedated. The patient was noted to have 2 large melanotic stools postoperatively. 06/01: During the night the patient became hypoxic and tachycardic. CTA pulmonary perform revealed bilateral upper and lower left lobe pulmonary embolus. Oxygen requirement significantly increased to currently FiO2 of 0.9. Patient not a candidate for TPA in the setting of acute upper GI bleed currently on Protonix and octreotide. Discussed with interventional radiology, , regarding possibility of catheter directed TPA to left upper and lower lobe, patient also deemed not a candidate. Ultrasound bilateral upper and lower extremities ordered today. Plan for IVC filter placement. Patient currently hemodynamically unstable requiring phenylephrine infusion, stat echo pending. The patient was noted to have abnormal liver ultrasound CT abdomen and pelvis was also performed revealing esophageal varices extending into the lower chest and florid portal systemic collaterals. 06/02: Remains unstable. Hgb no change. LFTs indicate deteriorating hepatic function. 06/03: No lower or upper extremity DVT.ECHO normal. Now off Neosynephrine. Hgb unchanged. Transaminitis resolving. Etiology of hepatic injury appears chronic; unclear what role tylenol played. 06/04: Tmax 100.4. Patient was noted to have significant drop in hemoglobin overnight. The patient received 2 units packed blood cells. Repeat EGD was performed today, varices with no active bleeding. OGT was placed per gastroenterology, tube feeds have been ordered to begin. The patient continues on Sandostatin and Protonix infusions per gastroenterology. 06/05: EGD today, No bleeding. Off pressors, start to diurese. 06/06: seen and evaluated around 06:45 this AM. delayed note entry. patient awake and alert this morning, on SBT. following commands. hgb slightly lower at 7, but no evidence of hypoperfusion and no evidence of ongoing active bleeding. Objective Vital Signs Date Time Temp Pulse Resp B/P (MAP) Pulse Ox O2 Delivery O2 Flow Rate FiO2 06/06/17 19:53 99 Nasal Cannula 3.00 06/06/17 18:00 111 06/06/17 17:00 140/75 (96) 06/06/17 08:10 35 06/06/17 08:00 99.1 06/05/17 16:00 12 Intake and Output 06/06/17 06/06/17 06/07/17 08:00 16:00 00:00 Intake Total 1313 ml 52 ml 861 ml Output Total 1900 ml 1900 ml Balance -587 ml 52 ml -1039 ml Result Diagram: 06/06/17 0500 06/06/17 0500 Imaging Last Impressions Liver Ultrasound 05/30/17 0000 Signed Impressions: Service Date/Time: May 09:04 - CONCLUSION: Cirrhotic liver appearance. Question focal right lobe mass. Recommend further evaluation with hepatic MRI with Eovist. David Terrazas MD Chest X-Ray 05/30/17 0000 Signed Impressions: Service Date/Time: May 01:02 - CONCLUSION: 1. No acute cardiopulmonary disease. Oh Escobedo MD Objective Remarks GENERAL: Critically ill-appearing male Lightly sedated and intubated SKIN: Warm and dry. HEAD: Normocephalic. EYES: Conjunctival icterus present. No injection or drainage. NECK: Supple, trachea midline. Orally intubated CARDIOVASCULAR: Regular rate and rhythm without murmurs, gallops, or rubs. No JVD. RESPIRATORY: Mechanical ventilation. Breath sounds equal bilaterally. Clear. No wheezes or crackles. GASTROINTESTINAL: Abdomen soft, non-tender, nondistended. MUSCULOSKELETAL: No cyanosis, or 2+ peripheral edema bilateral upper and lower extremities Well perfused. Pale toes, tepid. NEURO EXAM: Moves 4 limbs spontaneously. follows commands. RASS -1. Procedures 05/30- EGD 06/04-EGD Side: Right Location: Subclavian A/P Assessment and Plan Assessment: 41yM with ESLD, cirrhosis, complicated by multilobar pneumonia, PE, GI bleed. clinically starting to improve. will wean towards extubation today. Hypoxic Respiratory failure Pulmonary embolus-left upper lobe, left lower lobe Multilobar Pneumonia - Maintain O2 saturation greater than 92%, -Fentanyl infusion 50 mics/hour for ventilator synchrony -05/29 Intubated - Vent bundle - DuoNeb's every 6 hours scheduled every 2 hours when necessary -06/01 CTA pulmonary-suspected left upper lobe, left lower lobe pulmonary emboli, no pulmonary emboli on the right. Bilateral lower lobe atelectasis. Patchy pneumonia right lower lobe. Noted ill-defined right infrahilar/subcarinal mass 4.2 x 4.8 cm (likely esophageal varices- per CT abdomen report). Extensive discussion with Dr. Terrazas (IR) patient is not a candidate for catheter directed TPA in the setting of GI bleeding. -Patient on Ancef for MSSA pneumonia -06/01 Consulted for IVC filter-per Dr. Trejo not a candidate for IVC filter, ultrasound bilateral lower extremities negative for DVT -Pulmonology following - MSSA pneumonia. will continue abx until tomorrow and then d/c abx as he will have full 7 day course. GI bleed Hematemesis Splenomegaly Cirrhosis Esophageal varices Elevated transaminase levels Hyperammonemia Ascites - large esophageal varix -06/01 CT abdomen-splenomegaly, ascites, esophageal varices extend into the lower chest and may account for subcarinal and infrahilar masses. Florid portosystemic collaterals - 3 bands applied by GI - Protonix drip - Octreotide drip -06/05 repeat EGD varices no active bleeding - Further management per GI - Monitor H&H every 6 hours, 8.2->7.8 will transfuse if < 7. - Ammonia decreasing Sinus tachycardia Shock, hypovolemic- resolved. -06/01 ECHO ejection fraction 55-60%. No RWMA. Trace TR Transaminitis/liver cirrhosis - Due to daily Tylenol use-Mucomyst - Hepatitis Profile pending -AST 692, ALT 593, T bili 2.1 - Liver ultrasound reveals cirrhotic liver image - Tylenol level negative - Workup per gastroenterology -Monitor PT/INR -06/01 CT abdomen Thrombocytopenia -Monitor H&H every 12 hours - transfuse platelets if signs of acute bleeding, or less than 50,000 -Hematology following -06/04 2 units PRBC 6.7->7.2 DVT GI prophylaxis - No pharmacological DVT prophylaxis. Plan for IVC filter -06/01 follow-up ultrasound venous Doppler bilateral upper extremities and bilateral lower extremities - SCDs/TEDs - Protonix drip Dispo: Discussed with SAFETY PROFESSIONAL at bedside. Overall impression: Clinically starting to improve. highly complex with multiple organs involved which are still on the verge of failing. Salvatore Perkins MD Jun 06, 2017 20:34
[2017-06-06] MEDS: PROPRANOLOL HCL 10 MG TAB PO SCH (22:09)
[2017-06-07] VITALS (12 sets, daily range): BP systolic 86–121; BP diastolic 48–74; PULSE 81–100; RESP 16–25; TEMP 97.3–100.5; O2SAT 91–96
[2017-06-07 03:51] LABS: IGA SERUM 302 mg/dL (81-463)
[2017-06-07] MEDS: OCTREOTIDE INJ 500 MCG in SODIUM CHLORID 0.9% 500 ML INJ 499.5 ML IV SCH ×2 (04:19→11:31)
[2017-06-07] MEDS: ceFAZolin 2 GM PREMIX 50 ML IV SCH ×3 (04:19→16:30)
[2017-06-07] MEDS: PROPRANOLOL HCL 10 MG TAB PO SCH ×3 (05:21→21:07)
[2017-06-07] MEDS: PANTOPRAZOLE INJ 80 MG in SODIUM CHLORIDE 0.9% INJ 100 ML IV SCH (06:00)
[2017-06-07 07:07] LABS: BICARBONATE 29.5 MEQ/L (21.0-32.0); CALCIUM-PROTEIN CORRECTED 8.7 MG/DL (8.5-10.1); POTASSIUM 3.4 MEQ/L (3.5-5.1)
[2017-06-07 07:53] LABS: HCV RNA PCR IU/ML LESS THAN 15 IU/mL (0-14); HCV RNA PCR LOGIU/ML LESS THAN 1.18 (0-1.18)
--- NOTE | 2017-06-07 08:55 | HHI.PR ---
Subjective Remarks alert no sob Objective Vital Signs Date Time Temp Pulse Resp B/P (MAP) Pulse Ox O2 Delivery O2 Flow Rate FiO2 06/07/17 06:00 81 06/07/17 04:00 100 20 115/74 (88) 93 06/07/17 04:00 100 06/07/17 02:00 90 06/07/17 00:00 98.7 85 18 121/72 (88) 95 06/07/17 00:00 85 06/06/17 22:00 100 06/06/17 20:00 98.3 106 121/72 (88) 97 06/06/17 20:00 106 06/06/17 19:53 99 Nasal Cannula 3.00 06/06/17 18:00 111 100 06/06/17 18:00 111 06/06/17 17:16 99 Nasal Cannula 4.00 06/06/17 17:00 121 140/75 (96) 98 06/06/17 17:00 121 06/06/17 16:00 126 128/79 (95) 94 06/06/17 16:00 126 06/06/17 15:00 120 06/06/17 15:00 120 128/70 (89) 96 06/06/17 14:00 124 06/06/17 14:00 124 121/67 (85) 94 06/06/17 13:00 127 06/06/17 13:00 127 123/77 (92) 92 06/06/17 12:20 99 Nasal Cannula 4 06/06/17 12:00 129 128/78 (95) 95 06/06/17 12:00 129 06/06/17 11:00 124 06/06/17 10:00 124 06/06/17 09:00 126 I/O 06/06/17 06/06/17 06/06/17 06/07/17 06/07/17 06/07/17 07:00 15:00 23:00 07:00 15:00 23:00 Intake Total 1313 ml 52 ml 1861 ml 1250 ml Output Total 1900 ml 1900 ml 700 ml Balance -587 ml 52 ml -39 ml 550 ml Intake Oral 320 ml 600 ml IV Total 850 ml 52 ml 1000 ml 650 ml Tube Feeding 343 ml 241 ml 0 ml Other 120 ml 300 ml Output Urine Total 1400 ml 1700 ml 700 ml Stool Total 500 ml 200 ml # Bowel Movements 1 0 Result Diagram: 06/06/17 0500 06/07/17 0530 Objective Remarks GENERAL: SKIN: Warm and dry. HEAD: Atraumatic. Normocephalic. EYES: Pupils equal and round. No scleral icterus. No injection or drainage. ENT: No nasal bleeding or discharge. Mucous membranes pink and moist. NECK: Trachea midline. No JVD. CARDIOVASCULAR: Regular rate and rhythm. RESPIRATORY: No accessory muscle use. Clear to auscultation. Breath sounds equal bilaterally. GASTROINTESTINAL: Abdomen soft, non-tender, nondistended. Hepatic and splenic margins not palpable. MUSCULOSKELETAL: Extremities without clubbing, cyanosis, or edema. No obvious deformities. NEUROLOGICAL: Awake and alert. No obvious cranial nerve deficits. Motor grossly within normal limits. Five out of 5 muscle strength in the arms and legs. Normal speech. PSYCHIATRIC: Appropriate mood and affect; insight and judgment normal. Assessment and Plan Assessment and Plan respiratory failure pneumonia pulmonary embolism Gi bleed portal htn ? lung mass PLAN o2 as needed ANTIBIOTICS IVC FILTER Yosef Navas MD Jun 07, 2017 08:54
[2017-06-07] MEDS: SODIUM CHLORIDE 0.9% FLUSH 10 ML FLUSH IV FLUSH SCH ×2 (09:00→21:09)
--- NOTE | 2017-06-07 09:23 | HHI.PR ---
Subjective Remarks The patient was trying to climb out of bed. He said that he has not touched alcohol in 6 months. He said he is here because of taking Tylenol too frequently, along with Aleve. He had no acute complaints. Discussed with nursing at the bedside. Objective Vitals Vital Signs Date Time Temp Pulse Resp B/P (MAP) Pulse Ox O2 Delivery O2 Flow Rate FiO2 06/07/17 06:00 81 06/07/17 04:00 100 20 115/74 (88) 93 06/07/17 04:00 100 06/07/17 02:00 90 06/07/17 00:00 98.7 85 18 121/72 (88) 95 06/07/17 00:00 85 06/06/17 22:00 100 06/06/17 20:00 98.3 106 121/72 (88) 97 06/06/17 20:00 106 06/06/17 19:53 99 Nasal Cannula 3.00 06/06/17 18:00 111 100 06/06/17 18:00 111 06/06/17 17:16 99 Nasal Cannula 4.00 06/06/17 17:00 121 140/75 (96) 98 06/06/17 17:00 121 06/06/17 16:00 126 128/79 (95) 94 06/06/17 16:00 126 06/06/17 15:00 120 06/06/17 15:00 120 128/70 (89) 96 06/06/17 14:00 124 06/06/17 14:00 124 121/67 (85) 94 06/06/17 13:00 127 06/06/17 13:00 127 123/77 (92) 92 06/06/17 12:20 99 Nasal Cannula 4 06/06/17 12:00 129 128/78 (95) 95 06/06/17 12:00 129 06/06/17 11:00 124 06/06/17 10:00 124 I/O 06/06/17 06/06/17 06/06/17 06/07/17 06/07/17 06/07/17 07:00 15:00 23:00 07:00 15:00 23:00 Intake Total 1313 ml 52 ml 1861 ml 1250 ml Output Total 1900 ml 1900 ml 700 ml Balance -587 ml 52 ml -39 ml 550 ml Intake Oral 320 ml 600 ml IV Total 850 ml 52 ml 1000 ml 650 ml Tube Feeding 343 ml 241 ml 0 ml Other 120 ml 300 ml Output Urine Total 1400 ml 1700 ml 700 ml Stool Total 500 ml 200 ml # Bowel Movements 1 0 Result Diagram: 06/06/17 0500 06/07/17 0530 Imaging Last Impressions Chest X-Ray 06/05/17 0600 Signed Impressions: Service Date/Time: Monday, June 05, 2017 04:25 - CONCLUSION: 1. Bilateral mostly basilar airspace disease most characteristic of atelectasis. Nasogastric tube, endotracheal tube and right central line in good position. Yuri Herring MD IVC Filter Placement X-Ray 06/05/17 0000 Signed Impressions: Service Date/Time: Monday, June 05, 2017 16:23 - CONCLUSION: Uncomplicated inferior vena cava filter placement as above. A Bard Jamee retrievable filter was placed. Chetan Aguila MD Upper Extremity Ultrasound 06/01/17 0000 Signed Impressions: Service Date/Time: Thursday, June 01, 2017 13:47 - CONCLUSION: No evidence of upper extremity DVT on the right or left. Angel Paredes MD Lower Extremity Ultrasound 06/01/17 0000 Signed Impressions: Service Date/Time: Thursday, June 01, 2017 13:30 - CONCLUSION: No evidence of lower extremity DVT on the right or left. Angel Paredes MD CT Angiography 06/01/17 0000 Signed Impressions: Service Date/Time: Thursday, June 01, 2017 02:39 - CONCLUSION: 1. Suspected left upper lobe and left lower lobe pulmonary emboli. No pulmonary embolus on the right. 2. Right infrahilar/subcarinal mass. 3. Bilateral lower lobe atelectasis, right worse than left. Also patchy pneumonia of the right lower lobe. David Quintero MD Abdomen/Pelvis CT 06/01/17 0000 Signed Impressions: Service Date/Time: Thursday, June 01, 2017 02:39 - CONCLUSION: 1. Cirrhosis. Heterogeneously enhancing liver without a distinct/measurable focal lesion. 2. Marked splenomegaly, 10.3 x 17.6 x 18.1 cm. 3. Very severe portosystemic collaterals including gastroesophageal varices. The varices extend into the lower chest and probably account for the subcarinal/right infrahilar mass seen by chest CT. 4. Diffuse wall thickening of the colon, colitis versus secondary changes from cirrhosis. 5. Small ascites. Body wall edema/anasarca. David Quintero MD Liver Ultrasound 05/30/17 0000 Signed Impressions: Service Date/Time: May 09:04 - CONCLUSION: Cirrhotic liver appearance. Question focal right lobe mass. Recommend further evaluation with hepatic MRI with Eovist. David Terrazas MD Objective Remarks GENERAL: Appears restless in bed. SKIN: Warm and dry. HEAD: Normocephalic. EYES: Conjunctival icterus present. No injection or drainage. NECK: Supple, trachea midline. Orally intubated CARDIOVASCULAR: Regular rate and rhythm without murmurs, gallops, or rubs. No JVD. RESPIRATORY: Breath sounds equal bilaterally. Clear. No wheezes or crackles. GASTROINTESTINAL: Abdomen soft, non-tender, nondistended. MUSCULOSKELETAL: No cyanosis. 2+ peripheral edema bilateral upper and lower extremities. Well perfused. NEURO: A&O x 3. Moves upper and lower extremities. PSYCH: Flattened affect. Procedures 05/30- EGD 06/04-EGD Medications and IVs Current Medications Medications (Trade) Dose Ordered Sig/Maksim Route Start Time Stop Time Status Last Admin Pantoprazole Sodium 80 mg/ Sodium Chloride 100 ml @ 10 mls/hr Q10H IV 05/29/17 23:46 06/07/17 06:00 (NS Flush) 2 ml UNSCH PRN IV FLUSH 05/30/17 01:15 (NS Flush) 2 ml BID IV FLUSH 05/30/17 09:00 06/06/17 21:15 (Narcan Inj) 0.4 mg UNSCH PRN IV 05/30/17 01:15 (Zofran Inj) 4 mg Q6HR PRN IV PUSH 05/30/17 01:45 05/30/17 16:53 Octreotide Acetate 500 mcg/ Sodium Chloride 500 ml @ 50 mls/hr Q10H IV 05/30/17 03:31 06/07/17 04:19 Miscellaneous Information Patient in critical care unit? Ass... Q361D .XX 05/30/17 04:15 05/30/17 04:15 (Lactulose Liq) 30 ml QID PO 06/04/17 18:00 06/06/17 17:18 (Xifaxan) 550 mg BID PO 06/04/17 21:00 06/06/17 21:15 Cefazolin Sodium/ Dextrose 50 ml @ 150 mls/hr Q8H IV 06/04/17 17:00 06/07/17 17:00 06/07/17 04:19 (Lasix Inj) 40 mg BID@09,18 IV PUSH 06/05/17 12:00 06/06/17 17:17 Potassium Chloride 100 ml @ 50 mls/hr Q2H PRN IV 06/06/17 01:00 Potassium Chloride 100 ml @ 50 mls/hr Q2H PRN IV 06/06/17 01:00 (K-Lyte Cl Eff) 50 meq UNSCH PRN PO 06/06/17 01:00 Potassium Chloride 100 ml @ 25 mls/hr UNSCH PRN IV 06/06/17 01:00 Potassium Chloride 100 ml @ 50 mls/hr Q2H PRN IV 06/06/17 01:00 Magnesium Sulfate 4 gm/Sodium Chloride 100 ml @ 50 mls/hr UNSCH PRN IV 06/06/17 01:00 (Mag-Ox) 800 mg UNSCH PRN PO 06/06/17 01:00 Magnesium Sulfate 2 gm/Sodium Chloride 100 ml @ 50 mls/hr UNSCH PRN IV 06/06/17 01:00 (K-Phos) 2,000 mg Q4H PRN PO 06/06/17 01:00 Sodium Phosphate 30 mmol/Sodium Chloride 250 ml @ 42 mls/hr UNSCH PRN IV 06/06/17 01:00 06/06/17 02:12 (K-Phos) 2,000 mg UNSCH PRN PO/TUBE 06/06/17 01:00 Potassium Phosphate 30 mmol/ Sodium Chloride 260 ml @ 42 mls/hr UNSCH PRN IV 06/06/17 01:00 (Roxicodone) 5 mg Q4H PRN PO 06/06/17 20:30 (Inderal) 10 mg Q8HR PO 06/06/17 22:00 06/07/17 05:21 Side: Right Location: Subclavian A/P Problem List: (1) GI bleed ICD Code: K92.2 - Gastrointestinal hemorrhage, unspecified (2) Melena ICD Code: K92.1 - Melena Status: Acute (3) Hematemesis ICD Code: K92.0 - Hematemesis Status: Acute (4) Transaminitis ICD Code: R74.0 - Nonspecific elevation of levels of transaminase and lactic acid dehydrogenase [LDH] (5) Thrombocytopenia ICD Code: D69.6 - Thrombocytopenia, unspecified Status: Acute Assessment and Plan Hypoxic Respiratory failure 06/01 CTA pulmonary-suspected left upper lobe, left lower lobe pulmonary emboli, no pulmonary emboli on the right. Bilateral lower lobe atelectasis. Patchy pneumonia right lower lobe. Noted ill-defined right infrahilar/subcarinal mass 4.2 x 4.8 cm (likely esophageal varices- per CT abdomen report). Extensive discussion with Dr. Terrazas (IR) patient is not a candidate for catheter directed TPA in the setting of GI bleeding. Intubated 05/29 and extubated 06/06. Ultrasound bilateral lower extremities negative for DVT. 06/01 ECHO ejection fraction 55-60%. No RWMA. Trace TR. - Maintain O2 saturation greater than 92%. - DuoNeb's every 6 hours scheduled every 2 hours when necessary. - Patient on Ancef for MSSA pneumonia. Anticipate d/c 06/07. - S/p IVC filter. - Pulmonology following. - Incentive spirometry. - PT/ OT. GI bleed/ Hematemesis 06/01 CT abdomen-splenomegaly, ascites, esophageal varices extend into the lower chest and may account for subcarinal and infrahilar masses. [place] portosystemic collaterals. Large esophageal varix. 3 bands applied by GI. 06/05 repeat EGD varices no active bleeding. Ammonia decreasing. - Protonix drip. - Octreotide drip. - Further management per GI. - Monitor CBC and transfuse as needed. Transaminitis/liver cirrhosis Due to daily Tylenol use. S/p Mucomyst. AST 692, ALT 593, T bili 2.1. Liver ultrasound reveals cirrhotic liver image. Tylenol level negative. Hepatitis profile negative. - Workup per gastroenterology - Monitor PT/INR. - continue rifaximin, lactulose and pentoxifylline. Thrombocytopenia S/t liver disease. - Monitor CBC. - transfuse platelets if signs of acute bleeding, or less than 50,000. - Hematology following. Hypernatremia Sodium level has been elevated. - start D5W at 75 ml/hr and monitor. Hypokalemia Possibly s/t decreased PO intake. - on ICU protocol. - monitor and replete as needed. Liver mass Noted on imaging. - MRI per oncology. PPx: IVC filter Discharge Planning Transfer to the floor Problem Qualifiers (1) Hematemesis: Qualified Codes: K92.0 - Hematemesis; R11.0 - Nausea Kamari Platt DO Jun 07, 2017 09:22
[2017-06-07] MEDS: RIFAXIMIN 550 MG TAB PO SCH ×2 (09:29→21:07)
[2017-06-07] MEDS: FUROSEMIDE 40 MG/4 ML VIAL IV PUSH SCH ×2 (09:29→16:30)
[2017-06-07] MEDS: LACTULOSE SYRUP 20 GM/30 ML CUP PO SCH ×4 (09:29→21:08)
[2017-06-07] MEDS: DEXTROSE 5% IN WATE 1000ML INJ 1,000 ML IV SCH ×2 (10:36→22:07)
[2017-06-07 10:49] LABS: HEMATOCRIT 25.3 % (39.0-51.0); MEAN CELL VOLUME 82.7 FL (80.0-100.0); MEAN CORPUSCULAR HEMOGLOBIN 25.9 PG (27.0-34.0); MEAN CORPUSCULAR HGB CONC 31.3 % (32.0-36.0); PLATELET COUNT 82 TH/MM3 (150-450); RED BLOOD COUNT 3.06 MIL/MM3 (4.50-5.90); RED CELL DISTRIBUTION WIDTH 18.6 % (11.6-17.2); WHITE BLOOD COUNT 11.1 TH/MM3 (4.0-11.0)
[2017-06-07 10:52] LABS: REVIEW FLAG FINAL
--- NOTE | 2017-06-07 12:35 | PD.ONC.PN ---
Subjective Subjective Remarks Tmax 102F overnight. Patient resting in room with mother at bedside. No complaints. Objective Data Date Time Temp Pulse Resp B/P (MAP) Pulse Ox O2 Delivery O2 Flow Rate FiO2 06/07/17 10:36 92 Nasal Cannula 4.00 06/07/17 06:00 81 06/07/17 04:00 100 20 115/74 (88) 93 06/07/17 04:00 100 06/07/17 02:00 90 06/07/17 00:00 98.7 85 18 121/72 (88) 95 06/07/17 00:00 85 06/06/17 22:00 100 06/06/17 20:00 98.3 106 121/72 (88) 97 06/06/17 20:00 106 06/06/17 19:53 99 Nasal Cannula 3.00 06/06/17 18:00 111 100 06/06/17 18:00 111 06/06/17 17:16 99 Nasal Cannula 4.00 06/06/17 17:00 121 140/75 (96) 98 06/06/17 17:00 121 06/06/17 16:00 126 128/79 (95) 94 06/06/17 16:00 126 06/06/17 15:00 120 06/06/17 15:00 120 128/70 (89) 96 06/06/17 14:00 124 06/06/17 14:00 124 121/67 (85) 94 06/06/17 13:00 127 06/06/17 13:00 127 123/77 (92) 92 06/07/17 06/07/17 06/07/17 07:00 15:00 23:00 Intake Total 1250 ml Output Total 700 ml Balance 550 ml Result Diagram: 06/07/17 1010 06/07/17 0530 Laboratory Results Laboratory Tests Test 06/07/17 05:30 06/07/17 10:10 Blood Urea Nitrogen 29 MG/DL Creatinine 0.76 MG/DL Random Glucose 109 MG/DL Total Protein 4.7 GM/DL Albumin 1.6 GM/DL Calcium Level 7.3 MG/DL Alkaline Phosphatase 117 U/L Aspartate Amino Transf (AST/SGOT) 87 U/L Alanine Aminotransferase (ALT/SGPT) 178 U/L Total Bilirubin 2.0 MG/DL Sodium Level 150 MEQ/L Potassium Level 3.4 MEQ/L Chloride Level 115 MEQ/L Carbon Dioxide Level 29.5 MEQ/L Anion Gap 6 MEQ/L Estimat Glomerular Filtration Rate 114 ML/MIN Protein Corrected Calcium 8.7 MG/DL White Blood Count 11.1 TH/MM3 Red Blood Count 3.06 MIL/MM3 Hemoglobin 7.9 GM/DL Hematocrit 25.3 % Mean Corpuscular Volume 82.7 FL Mean Corpuscular Hemoglobin 25.9 PG Mean Corpuscular Hemoglobin Concent 31.3 % Red Cell Distribution Width 18.6 % Platelet Count 82 TH/MM3 Mean Platelet Volume 9.1 FL Administered Medications Medications (Trade) Dose Ordered Sig/Maksim Route PRN Reason Start Time Stop Time Status Last Admin Dose Admin Pantoprazole Sodium 80 mg/ Sodium Chloride 100 ml @ 10 mls/hr Q10H IV 05/29/17 23:46 06/07/17 06:00 Sodium Chloride (NS Flush) 2 ml BID IV FLUSH 05/30/17 09:00 06/06/17 21:15 Ondansetron HCl (Zofran Inj) 4 mg Q6HR PRN IV PUSH nausea 05/30/17 01:45 05/30/17 16:53 Octreotide Acetate 500 mcg/ Sodium Chloride 500 ml @ 50 mls/hr Q10H IV 05/30/17 03:31 06/07/17 04:19 Miscellaneous Information Patient in critical care unit? Ass... Q361D .XX 05/30/17 04:15 05/30/17 04:15 Lactulose (Lactulose Liq) 30 ml QID PO 06/04/17 18:00 06/07/17 09:29 Rifaximin (Xifaxan) 550 mg BID PO 06/04/17 21:00 06/07/17 09:29 Cefazolin Sodium/ Dextrose 50 ml @ 150 mls/hr Q8H IV 06/04/17 17:00 06/07/17 17:00 06/07/17 09:30 Furosemide (Lasix Inj) 40 mg BID@,18 IV PUSH 06/05/17 12:00 06/07/17 09:29 Sodium Phosphate 30 mmol/Sodium Chloride 250 ml @ 42 mls/hr UNSCH PRN IV For Phosphorus < 2.5 mg/dL 06/06/17 01:00 06/06/17 02:12 Propranolol HCl (Inderal) 10 mg Q8HR PO 06/06/17 22:00 06/07/17 05:21 Dextrose 1,000 ml @ 75 mls/hr [id number] IV 06/07/17 10:00 06/07/17 10:36 Objective Remarks GENERAL: Young man, sitting up right in bed. On O2 via NC SKIN: Warm and dry. HEAD: Normocephalic. EYES: No injection or drainage. NECK: Supple, trachea midline. CARDIOVASCULAR: Regular rate and rhythm RESPIRATORY: anterior yost clear. GASTROINTESTINAL: Abdomen soft, mildly distended, nontender EXTREMITIES: No cyanosis. edema noted all extremities. NEUROLOGICAL: awake and alert, normal speech. able to move extremities. somewhat slow in responding to questions/commands Assessment/Plan Problem List: (1) Pulmonary embolism ICD Codes: I26.99 - Other pulmonary embolism without acute cor pulmonale Plan: 06/07: monitor for bleeding. no anticoagulation 06/06: IVC filter placed yesterday. Monitor CBC. Monitor for bleeding. 06/05: Reconsulted IR for IVC filter. Continue to monitor for bleeding. No anticoagulation. -- CT angiogram showed suspicion for left upper lobe and left lower lobe pulmonary embolism -- Also noted was a right infrahilar subcarinal mass -- Upper and lower ultrasound extremities showed no evidence of DVT. Hx/Workup: Initially presented to the emergency room with hematemesis. Recent upper endoscopy with short bleeding varices. These were banded by the broadcast operations manager. He has been intubated to protect his airway. (2) GI bleed ICD Codes: K92.2 - Gastrointestinal hemorrhage, unspecified Plan: -- GI following -- EGD showed bleeding esophageal varices. --transfuse as needed --on sandostatin and protonix (3) Liver mass, right lobe ICD Codes: R16.0 - Hepatomegaly, not elsewhere classified Plan: -- Ultrasound of the liver shows a questionable right lobe liver mass -- The radiologist recommends MRI for further evaluation. -- Will do once stabilized (4) Mass of lung ICD Codes: R91.8 - Other nonspecific abnormal finding of lung field Plan: --CTA shows subcarinal mass. may need biopsy once stabilized Assessment 41 y/o male admitted with GI bleeding, found to also have a pulmonary embolism. Attending Statement no c/o no bleeding. s/p IVC filter plat are rising. The exam, history, and the medical decision-making described in the above note were completed with the assistance of the mid-level provider. I reviewed and agree with the findings presented. I attest that I had a [id number] encounter with the patient on the same day, and personally performed and documented my assessment and findings in the medical record. Kiara Lange Jun 07, 2017 12:34 Irma Pierson MD Jun 07, 2017 13:37
--- NOTE | 2017-06-07 13:19 | HHI.IDPN ---
Subjective Subjective Remarks remains on vent extubated, on NC O2 no fever sp IVC filter placement today Antibiotics cefaozline Allergies: Coded Allergies: No Known Allergies (Unverified , 05/29/17) Objective . Vital Signs Date Time Temp Pulse Resp B/P (MAP) Pulse Ox O2 Delivery O2 Flow Rate FiO2 06/07/17 10:36 92 Nasal Cannula 4.00 06/07/17 06:00 81 06/07/17 04:00 100 20 115/74 (88) 93 06/07/17 04:00 100 06/07/17 02:00 90 06/07/17 00:00 98.7 85 18 121/72 (88) 95 06/07/17 00:00 85 06/06/17 22:00 100 06/06/17 20:00 98.3 106 121/72 (88) 97 06/06/17 20:00 106 06/06/17 19:53 99 Nasal Cannula 3.00 06/06/17 18:00 111 100 06/06/17 18:00 111 06/06/17 17:16 99 Nasal Cannula 4.00 06/06/17 17:00 121 140/75 (96) 98 06/06/17 17:00 121 06/06/17 16:00 126 128/79 (95) 94 06/06/17 16:00 126 06/06/17 15:00 120 06/06/17 15:00 120 128/70 (89) 96 06/06/17 14:00 124 06/06/17 14:00 124 121/67 (85) 94 . Laboratory Tests Test 06/05/17 22:00 06/06/17 05:00 06/07/17 10:10 Hemoglobin 7.9 GM/DL 7.0 GM/DL 7.9 GM/DL Hematocrit 25.2 % 22.1 % 25.3 % White Blood Count 10.5 TH/MM3 11.1 TH/MM3 Red Blood Count 2.61 MIL/MM3 3.06 MIL/MM3 Mean Corpuscular Volume 84.8 FL 82.7 FL Mean Corpuscular Hemoglobin 26.7 PG 25.9 PG Mean Corpuscular Hemoglobin Concent 31.5 % 31.3 % Red Cell Distribution Width 19.4 % 18.6 % Platelet Count 62 TH/MM3 82 TH/MM3 Mean Platelet Volume 8.8 FL 9.1 FL Neutrophils (%) (Auto) 72.5 % Lymphocytes (%) (Auto) 11.7 % Monocytes (%) (Auto) 11.2 % Eosinophils (%) (Auto) 4.2 % Basophils (%) (Auto) 0.4 % Neutrophils # (Auto) 7.6 TH/MM3 Lymphocytes # (Auto) 1.2 TH/MM3 Monocytes # (Auto) 1.2 TH/MM3 Eosinophils # (Auto) 0.4 TH/MM3 Basophils # (Auto) 0.0 TH/MM3 CBC Comment AUTO DIFF Differential Total Cells Counted 100 Neutrophils % (Manual) 75 % Band Neutrophils % 10 % Lymphocytes % 7 % Monocytes % 5 % Eosinophils % 2 % Neutrophils # (Manual) 9.0 TH/MM3 Metamyelocytes 1 % Nucleated Red Blood Cells 3 /100 WBC Differential Comment FINAL DIFF MANUAL Platelet Estimate LOW Platelet Morphology Comment NORMAL Polychromasia 2.0 % Basophilic Stippling FAINT Laboratory Tests Test 06/06/17 05:00 06/06/17 12:05 06/07/17 05:30 Blood Urea Nitrogen 33 MG/DL 29 MG/DL Creatinine 1.11 MG/DL 0.76 MG/DL Random Glucose 135 MG/DL 109 MG/DL Total Protein 4.5 GM/DL 5.3 GM/DL 4.7 GM/DL Calcium Level 7.2 MG/DL 7.3 MG/DL Phosphorus Level 2.4 MG/DL Magnesium Level 2.4 MG/DL Sodium Level 153 MEQ/L 150 MEQ/L Potassium Level 4.0 MEQ/L 3.4 MEQ/L Chloride Level 119 MEQ/L 115 MEQ/L Carbon Dioxide Level 29.9 MEQ/L 29.5 MEQ/L Anion Gap 4 MEQ/L 6 MEQ/L Estimat Glomerular Filtration Rate 74 ML/MIN 114 ML/MIN Protein Corrected Calcium 8.7 MG/DL 8.7 MG/DL Total Bilirubin 1.7 MG/DL 2.0 MG/DL Direct Bilirubin 1.3 MG/DL Indirect Bilirubin 0.4 MG/DL Aspartate Amino Transf (AST/SGOT) 97 U/L 87 U/L Alanine Aminotransferase (ALT/SGPT) 269 U/L 178 U/L Alkaline Phosphatase 126 U/L 117 U/L Ammonia 57 MCMOL/L Albumin 1.8 GM/DL 1.6 GM/DL Imaging Last Impressions Chest X-Ray 06/05/17 0600 Signed Impressions: Service Date/Time: Monday, June 05, 2017 04:25 - CONCLUSION: 1. Bilateral mostly basilar airspace disease most characteristic of atelectasis. Nasogastric tube, endotracheal tube and right central line in good position. Yuri Herring MD IVC Filter Placement X-Ray 06/05/17 Signed Impressions: Service Date/Time: Monday, June 05, 2017 16:23 - CONCLUSION: Uncomplicated inferior vena cava filter placement as above. A Bard Lynn retrievable filter was placed. Chetan Aguila MD Upper Extremity Ultrasound 06/01/17 Signed Impressions: Service Date/Time: Thursday, June 01, 2017 13:47 - CONCLUSION: No evidence of upper extremity DVT on the right or left. Angel Paredes MD Lower Extremity Ultrasound 06/01/17 Signed Impressions: Service Date/Time: Thursday, June 01, 2017 13:30 - CONCLUSION: No evidence of lower extremity DVT on the right or left. Angel Paredes MD CT Angiography 06/01/17 Signed Impressions: Service Date/Time: Thursday, June 01, 2017 02:39 - CONCLUSION: 1. Suspected left upper lobe and left lower lobe pulmonary emboli. No pulmonary embolus on the right. 2. Right infrahilar/subcarinal mass. 3. Bilateral lower lobe atelectasis, right worse than left. Also patchy pneumonia of the right lower lobe. David Quintero MD Abdomen/Pelvis CT 06/01/17 Signed Impressions: Service Date/Time: Thursday, June 01, 2017 02:39 - CONCLUSION: 1. Cirrhosis. Heterogeneously enhancing liver without a distinct/measurable focal lesion. 2. Marked splenomegaly, 10.3 x 17.6 x 18.1 cm. 3. Very severe portosystemic collaterals including gastroesophageal varices. The varices extend into the lower chest and probably account for the subcarinal/right infrahilar mass seen by chest CT. 4. Diffuse wall thickening of the colon, colitis versus secondary changes from cirrhosis. 5. Small ascites. Body wall edema/anasarca. David Quintero MD Liver Ultrasound 05/30/17 Signed Impressions: Service Date/Time: May 09:04 - CONCLUSION: Cirrhotic liver appearance. Question focal right lobe mass. Recommend further evaluation with hepatic MRI with Eovist. David Terrazas MD Physical Exam CONSTITUTIONAL/GENERAL: This is an adequately nourished patient, in no apparent distress. TUBES/LINES/DRAINS: SKIN: No jaundice, rashes, or lesions. EYES: Pupils equal and round and reactive. Extraocular motions intact. no scleral icterus. No injection or drainage. Fundi not examined. ENT: Hearing normal Nose without bleeding or purulent drainage. oral mucosae partially visulaised without visible erythema, exudates, masses, or lesions. CARDIOVASCULAR: Regular rate and rhythm without murmurs, gallops, or rubs. No JVD. Peripheral pulses symmetric. RESPIRATORY/CHEST: Symmetric, unlabored respirations. Clear to auscultation. Breath sounds equal bilaterally. No wheezes, rales, or rhonchi. GASTROINTESTINAL: Abdomen soft, non-tender, nondistended. No hepato-splenomegaly , or palpable masses. No guarding. Bowel sounds present. GENITOURINARY: Without palpable bladder distension. MUSCULOSKELETAL: Extremities without clubbing, cyanosis, +2 pitting edema. NEUROLOGICAL:awake alert, non focal, normal speech PSYCHIATRIC: calm, coopertaive Assessment & Plan Remarks Liver cirrhosis - hepatitis profile negative - opt denies ETOh abuse Upper GI bleed 2/2 esophageal varices VDRF MSSA PNA - final S showed MSSA PE, multilobar sp IVC filter placement High fever - resolved Persistent mild leukocytosis complete cefaolizne tomorrow monitor WBC, temps will see as needed dw RN @ b/s Karon Thomson MD Jun 07, 2017 13:19
[2017-06-07 13:52] LABS: ENDOMYSIAL AB TITER ND (<1:5); TISSUE TRANSGLUTAMINASE AB LESS THAN 1 U/mL (0-4)
--- NOTE | 2017-06-07 14:57 | HHI.GIFU ---
Subjective Remarks Extubated. Denies any known hx of liver disease. States he only drinks socially- not heavy and that he has never been a heavy drinker. He reports that his cousin was told that she had liver disease and did not drink any ETOH. Abdomen bloated, tender, but no pain. (Mercedes Richards) Objective Vitals I&O Vital Signs Date Time Temp Pulse Resp B/P (MAP) Pulse Ox O2 Delivery O2 Flow Rate FiO2 06/07/17 10:36 92 Nasal Cannula 4.00 06/07/17 08:00 97.5 06/07/17 06:00 81 06/07/17 04:00 100 20 115/74 (88) 93 06/07/17 04:00 100 06/07/17 02:00 90 06/07/17 00:00 98.7 85 18 121/72 (88) 95 06/07/17 00:00 85 06/06/17 22:00 100 06/06/17 20:00 98.3 106 121/72 (88) 97 06/06/17 20:00 106 06/06/17 19:53 99 Nasal Cannula 3.00 06/06/17 18:00 111 100 06/06/17 18:00 111 06/06/17 17:16 99 Nasal Cannula 4.00 06/06/17 17:00 121 140/75 (96) 98 06/06/17 17:00 121 06/06/17 16:00 126 128/79 (95) 94 06/06/17 16:00 126 06/06/17 15:00 120 06/06/17 15:00 120 128/70 (89) 96 I/O 06/06/17 06/06/17 06/06/17 06/07/17 06/07/17 06/07/17 07:00 15:00 23:00 07:00 15:00 23:00 Intake Total 1313 ml 52 ml 1861 ml 1250 ml Output Total 1900 ml 1900 ml 700 ml Balance -587 ml 52 ml -39 ml 550 ml Intake Oral 320 ml 600 ml IV Total 850 ml 52 ml 1000 ml 650 ml Tube Feeding 343 ml 241 ml 0 ml Other 120 ml 300 ml Output Urine Total 1400 ml 1700 ml 700 ml Stool Total 500 ml 200 ml # Bowel Movements 1 0 Laboratory Laboratory Tests Test 06/07/17 05:30 06/07/17 10:10 Blood Urea Nitrogen 29 Creatinine 0.76 Random Glucose 109 Total Protein 4.7 Albumin 1.6 Calcium Level 7.3 Alkaline Phosphatase 117 Aspartate Amino Transf (AST/SGOT) 87 Alanine Aminotransferase (ALT/SGPT) 178 Total Bilirubin 2.0 Sodium Level 150 Potassium Level 3.4 Chloride Level 115 Carbon Dioxide Level 29.5 Anion Gap 6 Estimat Glomerular Filtration Rate 114 Protein Corrected Calcium 8.7 White Blood Count 11.1 Red Blood Count 3.06 Hemoglobin 7.9 Hematocrit 25.3 Mean Corpuscular Volume 82.7 Mean Corpuscular Hemoglobin 25.9 Mean Corpuscular Hemoglobin Concent 31.3 Red Cell Distribution Width 18.6 Platelet Count 82 Mean Platelet Volume 9.1 Date/Time Source Procedure Growth Status 06/04/17 05:35 Blood Peripheral Aerobic Blood Culture - Preliminary NO GROWTH IN 2 DAYS Resulted 06/04/17 05:35 Blood Peripheral Anaerobic Blood Culture - Preliminary NO GROWTH IN 2 DAYS Resulted 06/01/17 03:30 Sputum Endotracheal Gram Stain - Final Complete 06/01/17 03:30 Sputum Culture - Final Staphylococcus Aureus Complete 06/03/17 12:40 Urine Catheterized Urine Urine Culture - Final NO GROWTH IN 48 HOURS. Complete Imaging Last Impressions Chest X-Ray 06/05/17 0600 Signed Impressions: Service Date/Time: Monday, June 05, 2017 04:25 - CONCLUSION: 1. Bilateral mostly basilar airspace disease most characteristic of atelectasis. Nasogastric tube, endotracheal tube and right central line in good position. Yuri Herring MD IVC Filter Placement X-Ray 06/05/17 0000 Signed Impressions: Service Date/Time: Monday, June 05, 2017 16:23 - CONCLUSION: Uncomplicated inferior vena cava filter placement as above. A Bard Jamee retrievable filter was placed. Chetan Aguila MD Upper Extremity Ultrasound 06/01/17 0000 Signed Impressions: Service Date/Time: Thursday, June 01, 2017 13:47 - CONCLUSION: No evidence of upper extremity DVT on the right or left. Angel Paredes MD Lower Extremity Ultrasound 06/01/17 0000 Signed Impressions: Service Date/Time: Thursday, June 01, 2017 13:30 - CONCLUSION: No evidence of lower extremity DVT on the right or left. Angel Paredes MD CT Angiography 06/01/17 0000 Signed Impressions: Service Date/Time: Thursday, June 01, 2017 02:39 - CONCLUSION: 1. Suspected left upper lobe and left lower lobe pulmonary emboli. No pulmonary embolus on the right. 2. Right infrahilar/subcarinal mass. 3. Bilateral lower lobe atelectasis, right worse than left. Also patchy pneumonia of the right lower lobe. David Quintero MD Abdomen/Pelvis CT 06/01/17 0000 Signed Impressions: Service Date/Time: Thursday, June 01, 2017 02:39 - CONCLUSION: 1. Cirrhosis. Heterogeneously enhancing liver without a distinct/measurable focal lesion. 2. Marked splenomegaly, 10.3 x 17.6 x 18.1 cm. 3. Very severe portosystemic collaterals including gastroesophageal varices. The varices extend into the lower chest and probably account for the subcarinal/right infrahilar mass seen by chest CT. 4. Diffuse wall thickening of the colon, colitis versus secondary changes from cirrhosis. 5. Small ascites. Body wall edema/anasarca. David Quintero MD Liver Ultrasound 05/30/17 0000 Signed Impressions: Service Date/Time: May 09:04 - CONCLUSION: Cirrhotic liver appearance. Question focal right lobe mass. Recommend further evaluation with hepatic MRI with Eovist. David Terrazas MD Physical Exam HEENT: Normocephalic; atraumatic; CHEST: Respirations even/unlabored. Diminished CARDIAC: ST ABDOMEN: Soft, distended with ascites, hepatosplenomegaly; bowel sounds are present in all four quadrants. EXTREMITIES: Generalized edema. 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 S/P EGD (05/31/17)-----> Bleeding esophageal varices. Rpt. EGD with OGT placement (06/04/17)---> 1. Esophageal varices grade 3 old bands seen over variceal columns, og tube placed in stomach under direct visualization 2. Retroflexed views revealed a hiatal hernia 3. Retroflexed views revealed gastric varices. S/ P 6 units PRBC, HH 7.8/24.4. Octreotide Gtt, Protonix Gtt. No active bleeding. Will start soft low sodium diet. D/C octreotide and protonix gtts and start po PPI. - Anemia acute blood loss. S/P 6 units prbc, HH 7.8/24.4. - Coagulopathy/thrombocytopenia. Plt 82,000. INR 1.1. - Elevated LFTs. Liver US (05/30/17)---> Cirrhotic liver appearance. Question focal right lobe mass. Recommend further evaluation with hepatic MRI with Eovist. Hepatitis profile negative. STEPHANIE negative. AMA <20.0, ASMA neg. AFP 1.8. Ceruloplasmin 24, ALpha [address] Scan abdomen and pelvis to further evaluation. CT scan abdomen and pelvis with iv contrast (06/01/17)----> cirrhosis, heterogeneously enhancing liver without a distinct/measurable focal lesion, marked splenomegaly, 10.3 x 17.6 x 18.1 cm, very severe portosystemic collaterals including gastroesophageal varices. The varices extend into the lower chest and probably account for the subcarinal/right infrahilar mass seen by chest CT, diffuse wall thickening of the colon, colitis versus secondary changes from cirrhosis. Small ascites, body wall edema/anasarca. LFTs T. Bili 2.0, AST 87, ALT 178, Alk Phosph 117. Pentoxifylline. - Hepatic encephalopathy with ammonia. Improved. He is on the ventilator, but awake and following commands. Lactulose, Xifaxan. - Family hx colon ca. Mother dx age 60 - Thrombocytopenia - PLT 82,000 - AKIKO. Creat 0.76. Improved - Resp. Failure, PE, PNA. S/P IVC filter. Vent per [facility] PLAN - Heart healthy 2 gram sodium diet - D/C Octreotide Gtt - D/C Protonix Gtt - Protonix 40mg po BID - Cont. Xifaxan - Cont. Lactulose - Cont. Pentoxifylline - Monitor labs - Transfuse as needed - Supportive care - Further recommendations to follow based on results of above - Pt seen and examined by myself and Dr. Rubin and this note is written on her behalf (Mercedes Richards) Mercedes Richards Jun 07, 2017 14:57 Sofy Rubin MD Jun 07, 2017 20:08
[2017-06-07] MEDS: PANTOPRAZOLE SODIUM 40 MG VIAL IV PUSH SCH (16:30)
[2017-06-07 19:54] LABS: HEP B DNA R1 LESS THAN 20 IU/mL (0-19); HEP B DNA R2 LESS THAN 1.30 (<1.30)
[2017-06-08] VITALS (10 sets, daily range): BP systolic 109–132; BP diastolic 55–69; PULSE 74–96; RESP 18–25; TEMP 96.1–98.3; O2SAT 90–97
[2017-06-08] MEDS: ceFAZolin 2 GM PREMIX 50 ML IV SCH ×2 (00:50→09:33)
[2017-06-08] MEDS: PANTOPRAZOLE SODIUM 40 MG VIAL IV PUSH SCH ×2 (03:32→16:14)
[2017-06-08] MEDS: PROPRANOLOL HCL 10 MG TAB PO SCH ×3 (06:38→20:20)
[2017-06-08 07:34] LABS: HEMATOCRIT 24.1 % (39.0-51.0); MEAN CELL VOLUME 81.6 FL (80.0-100.0); MEAN CORPUSCULAR HEMOGLOBIN 26.2 PG (27.0-34.0); MEAN CORPUSCULAR HGB CONC 32.2 % (32.0-36.0); PLATELET COUNT 93 TH/MM3 (150-450); RED BLOOD COUNT 2.95 MIL/MM3 (4.50-5.90); RED CELL DISTRIBUTION WIDTH 18.6 % (11.6-17.2); WHITE BLOOD COUNT 9.3 TH/MM3 (4.0-11.0)
[2017-06-08 07:55] LABS: REVIEW FLAG FINAL
[2017-06-08 08:18] LABS: BICARBONATE 29.8 MEQ/L (21.0-32.0); INDIRECT BILIRUBIN 0.8 MG/DL (0.0-0.8); MAGNESIUM 1.9 MG/DL (1.5-2.5); TOTAL BILIRUBIN ADULT 1.9 MG/DL (0.2-1.0)
[2017-06-08 08:45] LABS: CALCIUM-PROTEIN CORRECTED 8.7 MG/DL (8.5-10.1)
[2017-06-08 08:51] LABS: POTASSIUM 2.8 MEQ/L (3.5-5.1)
[2017-06-08] MEDS: LACTULOSE SYRUP 20 GM/30 ML CUP PO SCH ×4 (09:32→20:21)
[2017-06-08] MEDS: SODIUM CHLORIDE 0.9% FLUSH 10 ML FLUSH IV FLUSH SCH ×2 (09:33→20:16)
[2017-06-08] MEDS: FUROSEMIDE 40 MG/4 ML VIAL IV PUSH SCH ×2 (09:35→18:07)
--- NOTE | 2017-06-08 10:03 | HHI.GIFU ---
Subjective Remarks Tx to medical floor yesterday. Doing well- no active gi bleeding. Denies n/v, abdominal pain. (Mercedes Richards) Objective Vitals I&O Vital Signs Date Time Temp Pulse Resp B/P (MAP) Pulse Ox O2 Delivery O2 Flow Rate FiO2 06/08/17 05:15 97.8 80 22 132/69 (90) 97 06/08/17 01:35 96.1 74 18 115/56 (75) 96 06/08/17 00:00 98.3 78 25 120/65 (83) 96 06/08/17 00:00 96 06/07/17 20:00 91 06/07/17 20:00 98.8 91 25 120/65 (83) 91 06/07/17 19:20 94 Nasal Cannula 4.00 06/07/17 16:00 98.6 82 16 117/67 (84) 96 06/07/17 16:00 82 06/07/17 12:00 97.3 06/07/17 12:00 87 06/07/17 10:45 100.5 92 25 86/48 (61) 95 06/07/17 10:36 92 Nasal Cannula 4.00 06/07/17 10:00 89 I/O 06/07/17 06/07/17 06/07/17 06/08/17 06/08/17 06/08/17 07:00 15:00 23:00 07:00 15:00 23:00 Intake Total 1250 ml 1520 ml 1320 ml Output Total 700 ml 400 ml 200 ml Balance 550 ml 1120 ml 1120 ml Intake Oral 600 ml 520 ml 900 ml IV Total 650 ml 1000 ml Tube Feeding 0 ml Packed Cells 400 ml Blood Product IV Normal Saline Flush 20 ml Output Urine Total 700 ml 400 ml 200 ml # Voids 4 # Bowel Movements 0 8 0 Laboratory Laboratory Tests Test 06/07/17 10:10 06/08/17 06:50 White Blood Count 11.1 9.3 Red Blood Count 3.06 2.95 Hemoglobin 7.9 7.7 Hematocrit 25.3 24.1 Mean Corpuscular Volume 82.7 81.6 Mean Corpuscular Hemoglobin 25.9 26.2 Mean Corpuscular Hemoglobin Concent 31.3 32.2 Red Cell Distribution Width 18.6 18.6 Platelet Count 82 93 Mean Platelet Volume 9.1 9.0 Blood Urea Nitrogen 27 Creatinine 0.94 Random Glucose 121 Total Protein 4.5 Albumin 1.5 Calcium Level 7.2 Magnesium Level 1.9 Alkaline Phosphatase 112 Aspartate Amino Transf (AST/SGOT) 73 Alanine Aminotransferase (ALT/SGPT) 118 Total Bilirubin 1.9 Direct Bilirubin 1.1 Sodium Level 146 Potassium Level 2.8 Chloride Level 109 Carbon Dioxide Level 29.8 Anion Gap 7 Estimat Glomerular Filtration Rate 89 Protein Corrected Calcium 8.7 Indirect Bilirubin 0.8 Date/Time Source Procedure Growth Status 06/04/17 05:35 Blood Peripheral Aerobic Blood Culture - Preliminary NO GROWTH IN 2 DAYS Resulted 06/04/17 05:35 Blood Peripheral Anaerobic Blood Culture - Preliminary NO GROWTH IN 2 DAYS Resulted 06/01/17 03:30 Sputum Endotracheal Gram Stain - Final Complete 06/01/17 03:30 Sputum Culture - Final Staphylococcus Aureus Complete 06/03/17 12:40 Urine Catheterized Urine Urine Culture - Final NO GROWTH IN 48 HOURS. Complete Imaging Last Impressions Chest X-Ray 06/05/17 0600 Signed Impressions: Service Date/Time: Monday, June 05, 2017 04:25 - CONCLUSION: 1. Bilateral mostly basilar airspace disease most characteristic of atelectasis. Nasogastric tube, endotracheal tube and right central line in good position. Yuri Herring MD IVC Filter Placement X-Ray 06/05/17 0000 Signed Impressions: Service Date/Time: Monday, June 05, 2017 16:23 - CONCLUSION: Uncomplicated inferior vena cava filter placement as above. A [place] retrievable filter was placed. Chetan Aguila MD Upper Extremity Ultrasound 06/01/17 0000 Signed Impressions: Service Date/Time: Thursday, June 01, 2017 13:47 - CONCLUSION: No evidence of upper extremity DVT on the right or left. Angel Paredes MD Lower Extremity Ultrasound 06/01/17 0000 Signed Impressions: Service Date/Time: Thursday, June 01, 2017 13:30 - CONCLUSION: No evidence of lower extremity DVT on the right or left. Angel Paredes MD CT Angiography 06/01/17 0000 Signed Impressions: Service Date/Time: Thursday, June 01, 2017 02:39 - CONCLUSION: 1. Suspected left upper lobe and left lower lobe pulmonary emboli. No pulmonary embolus on the right. 2. Right infrahilar/subcarinal mass. 3. Bilateral lower lobe atelectasis, right worse than left. Also patchy pneumonia of the right lower lobe. David Quintero MD Abdomen/Pelvis CT 06/01/17 0000 Signed Impressions: Service Date/Time: Thursday, June 01, 2017 02:39 - CONCLUSION: 1. Cirrhosis. Heterogeneously enhancing liver without a distinct/measurable focal lesion. 2. Marked splenomegaly, 10.3 x 17.6 x 18.1 cm. 3. Very severe portosystemic collaterals including gastroesophageal varices. The varices extend into the lower chest and probably account for the subcarinal/right infrahilar mass seen by chest CT. 4. Diffuse wall thickening of the colon, colitis versus secondary changes from cirrhosis. 5. Small ascites. Body wall edema/anasarca. David Quintero MD Liver Ultrasound 05/30/17 0000 Signed Impressions: Service Date/Time: May 09:04 - CONCLUSION: Cirrhotic liver appearance. Question focal right lobe mass. Recommend further evaluation with hepatic MRI with Eovist. David Terrazas MD Physical Exam HEENT: Normocephalic; atraumatic; CHEST: Respirations even/unlabored. Diminished CARDIAC: RR ABDOMEN: Soft, distended with ascites, hepatosplenomegaly; bowel sounds are present in all four quadrants. 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 S/P EGD (05/31/17)-----> Bleeding esophageal varices. Rpt. EGD with OGT placement (06/04/17)---> 1. Esophageal varices grade 3 old bands seen over variceal columns, og tube placed in stomach under direct visualization 2. Retroflexed views revealed a hiatal hernia 3. Retroflexed views revealed gastric varices. S/ P 6 units PRBC, HH 7.7/24.1. No active bleeding. PPI. - Anemia acute blood loss. S/P 6 units PRBC, HH 7.7/24.1. PPI. STABLE. - Coagulopathy/thrombocytopenia. Plt 93,000. INR 1.1. IMPROVING - Elevated LFTs. Liver US (05/30/17)---> Cirrhotic liver appearance. Question focal right lobe mass. Recommend further evaluation with hepatic MRI with Eovist. Hepatitis profile negative. STEPHANIE negative. AMA <20.0, ASMA neg. AFP 1.8. Ceruloplasmin 24, ALpha [address] Scan abdomen and pelvis to further evaluation. CT scan abdomen and pelvis with iv contrast (06/01/17)----> cirrhosis, heterogeneously enhancing liver without a distinct/measurable focal lesion, marked splenomegaly, 10.3 x 17.6 x 18.1 cm, very severe portosystemic collaterals including gastroesophageal varices. The varices extend into the lower chest and probably account for the subcarinal/right infrahilar mass seen by chest CT, diffuse wall thickening of the colon, colitis versus secondary changes from cirrhosis. Small ascites, body wall edema/anasarca. LFTs slowly trending down. T. Bili 1.9, AST 73, ALT 118, ALk PHosph 112. Pentoxifylline. - Hepatic encephalopathy with ammonia. Improved. Lactulose, Xifaxan. - AKIKO. Improved - Resp. Failure, PE, PNA. S/P IVC filter. S/P Extubation per CCM - Family hx colon ca. Mother dx age 60 PLAN - Heart healthy 2 gram sodium diet - Protonix 40mg po BID - Cont. Xifaxan - Cont. Lactulose - Cont. Pentoxifylline - Monitor labs - Transfuse as needed - Supportive care - ETOH Cessation - Further recommendations to follow based on results of above - Pt seen and examined by myself and Dr. Pfeiffer and this note is written on his behalf (Mercedes Richards) Physician Comments Seen and examined with OPEN END SPINNING OPERATOR, no active bleeding reported. Advance diet as tolerated. Monitor labs. (Goran Pfeiffer MD) Mercedes Richards Jun 08, 2017 10:03 Goran Pfeiffer MD Jun 08, 2017 12:06
--- NOTE | 2017-06-08 10:24 | PD.ONC.PN ---
Subjective Subjective Remarks Afebrile overnight. patient resting in bed in nad. No obvious bleeding. tx to med/surg floor. Objective Data Date Time Temp Pulse Resp B/P (MAP) Pulse Ox O2 Delivery O2 Flow Rate FiO2 06/08/17 08:00 97.7 74 21 109/60 (76) 95 06/08/17 05:15 97.8 80 22 132/69 (90) 97 06/08/17 01:35 96.1 74 18 115/56 (75) 96 06/08/17 00:00 98.3 78 25 120/65 (83) 96 06/08/17 00:00 96 06/07/17 20:00 91 06/07/17 20:00 98.8 91 25 120/65 (83) 91 06/07/17 19:20 94 Nasal Cannula 4.00 06/07/17 16:00 98.6 82 16 117/67 (84) 96 06/07/17 16:00 82 06/07/17 12:00 97.3 06/07/17 12:00 87 06/07/17 10:45 100.5 92 25 86/48 (61) 95 06/07/17 10:36 92 Nasal Cannula 4.00 06/08/17 06/08/17 06/08/17 07:00 15:00 23:00 Intake Total 1320 ml Output Total 200 ml Balance 1120 ml Result Diagram: 06/08/17 0650 06/08/17 0650 Laboratory Results Laboratory Tests Test 06/08/17 06:50 White Blood Count 9.3 TH/MM3 Red Blood Count 2.95 MIL/MM3 Hemoglobin 7.7 GM/DL Hematocrit 24.1 % Mean Corpuscular Volume 81.6 FL Mean Corpuscular Hemoglobin 26.2 PG Mean Corpuscular Hemoglobin Concent 32.2 % Red Cell Distribution Width 18.6 % Platelet Count 93 TH/MM3 Mean Platelet Volume 9.0 FL Blood Urea Nitrogen 27 MG/DL Creatinine 0.94 MG/DL Random Glucose 121 MG/DL Total Protein 4.5 GM/DL Albumin 1.5 GM/DL Calcium Level 7.2 MG/DL Magnesium Level 1.9 MG/DL Alkaline Phosphatase 112 U/L Aspartate Amino Transf (AST/SGOT) 73 U/L Alanine Aminotransferase (ALT/SGPT) 118 U/L Total Bilirubin 1.9 MG/DL Direct Bilirubin 1.1 MG/DL Sodium Level 146 MEQ/L Potassium Level 2.8 MEQ/L Chloride Level 109 MEQ/L Carbon Dioxide Level 29.8 MEQ/L Anion Gap 7 MEQ/L Estimat Glomerular Filtration Rate 89 ML/MIN Protein Corrected Calcium 8.7 MG/DL Indirect Bilirubin 0.8 MG/DL Administered Medications Medications (Trade) Dose Ordered Sig/Maksim Route PRN Reason Start Time Stop Time Status Last Admin Dose Admin Sodium Chloride (NS Flush) 2 ml BID IV FLUSH 05/30/17 09:00 06/08/17 09:33 Ondansetron HCl (Zofran Inj) 4 mg Q6HR PRN IV PUSH nausea 05/30/17 01:45 05/30/17 16:53 Miscellaneous Information Patient in critical care unit? Ass... [id number] .XX 05/30/17 04:15 05/30/17 04:15 Lactulose (Lactulose Liq) 30 ml QID PO 06/04/17 18:00 06/08/17 09:32 Rifaximin (Xifaxan) 550 mg BID PO 06/04/17 21:00 06/07/17 21:07 Furosemide (Lasix Inj) 40 mg BID@09,18 IV PUSH 06/05/17 12:00 06/08/17 09:35 Propranolol HCl (Inderal) 10 mg Q8HR PO 06/06/17 22:00 06/08/17 06:38 Dextrose 1,000 ml @ 75 mls/hr [id number] IV 06/07/17 10:00 06/07/17 22:07 Pantoprazole Sodium (Protonix Inj) 40 mg Q12H IV PUSH 06/07/17 16:00 06/08/17 03:32 Objective Remarks GENERAL: Young man, supine in bed in nad. SKIN: Warm and dry. HEAD: Normocephalic. EYES: No injection or drainage. NECK: Supple, trachea midline. CARDIOVASCULAR: Regular rate and rhythm RESPIRATORY: anterior yost clear. GASTROINTESTINAL: Abdomen soft, mildly distended, nontender EXTREMITIES: No cyanosis. +anasarca. NEUROLOGICAL: awake and alert, normal speech. Assessment/Plan Problem List: (1) Pulmonary embolism ICD Codes: I26.99 - Other pulmonary embolism without acute cor pulmonale Plan: 9/16: continue to hold AC 06/07: monitor for bleeding. no anticoagulation 06/06: IVC filter placed yesterday. Monitor CBC. Monitor for bleeding. 06/05: Reconsulted IR for IVC filter. Continue to monitor for bleeding. No anticoagulation. -- CT angiogram showed suspicion for left upper lobe and left lower lobe pulmonary embolism -- Also noted was a right infrahilar subcarinal mass -- Upper and lower ultrasound extremities showed no evidence of DVT. Hx/Workup: Initially presented to the emergency room with hematemesis. Recent upper endoscopy with short bleeding varices. These were banded by the radial saw operator. He has been intubated to protect his airway. (2) GI bleed ICD Codes: K92.2 - Gastrointestinal hemorrhage, unspecified Plan: -- GI following -- EGD showed bleeding esophageal varices. --transfuse as needed --on sandostatin and protonix (3) Liver mass, right lobe ICD Codes: R16.0 - Hepatomegaly, not elsewhere classified Plan: -- Ultrasound of the liver shows a questionable right lobe liver mass -- The radiologist recommends MRI for further evaluation. -- Will do once stabilized (4) Mass of lung ICD Codes: R91.8 - Other nonspecific abnormal finding of lung field Plan: --CTA shows subcarinal mass. may need biopsy once stabilized Assessment 41 y/o male admitted with GI bleeding, found to also have a pulmonary embolism. Plan 1. will need MRI once more stable 2. monitor CBC Attending Statement The exam, history, and the medical decision-making described in the above note were completed with the assistance of the mid-level provider. I reviewed and agree with the findings presented. I attest that I had a [id number] encounter with the patient on the same day, and personally performed and documented my assessment and findings in the medical record. No abdominal pain. No active bleeding noted. Continue supportive care. Await MRI of the liver. Kiara Lange Jun 08, 2017 10:24 Moses Hollis MD Jun 08, 2017 12:28
--- NOTE | 2017-06-08 10:26 | HHI.PR ---
Subjective Remarks Patient denies any GI bleed. He stated he is doing much better. He has no complaints. Deny any chest pain, palpitation, lightheadedness dizziness or any shortness of breathing. Objective Vitals Vital Signs Date Time Temp Pulse Resp B/P (MAP) Pulse Ox O2 Delivery O2 Flow Rate FiO2 06/08/17 08:00 97.7 74 21 109/60 (76) 95 06/08/17 05:15 97.8 80 22 132/69 (90) 97 06/08/17 01:35 96.1 74 18 115/56 (75) 96 06/08/17 00:00 98.3 78 25 120/65 (83) 96 06/08/17 00:00 96 06/07/17 20:00 91 06/07/17 20:00 98.8 91 25 120/65 (83) 91 06/07/17 19:20 94 Nasal Cannula 4.00 06/07/17 16:00 98.6 82 16 117/67 (84) 96 06/07/17 16:00 82 06/07/17 12:00 97.3 06/07/17 12:00 87 06/07/17 10:45 100.5 92 25 86/48 (61) 95 06/07/17 10:36 92 Nasal Cannula 4.00 I/O 06/07/17 06/07/17 06/07/17 06/08/17 06/08/17 06/08/17 07:00 15:00 23:00 07:00 15:00 23:00 Intake Total 1250 ml 1520 ml 1320 ml Output Total 700 ml 400 ml 200 ml Balance 550 ml 1120 ml 1120 ml Intake Oral 600 ml 520 ml 900 ml IV Total 650 ml 1000 ml Tube Feeding 0 ml Packed Cells 400 ml Blood Product IV Normal Saline Flush 20 ml Output Urine Total 700 ml 400 ml 200 ml # Voids 4 # Bowel Movements 0 8 0 Result Diagram: 06/08/1750 06/08/17 0650 Objective Remarks GENERAL: in NAD SKIN: Warm and dry. HEAD: Normocephalic. EYES: No scleral icterus. No injection or drainage. NECK: Supple, trachea midline. No JVD or lymphadenopathy. CARDIOVASCULAR: Regular rate and rhythm without murmurs, gallops, or rubs. RESPIRATORY: Breath sounds equal bilaterally. No accessory muscle use. GASTROINTESTINAL: Abdomen soft, non-tender, nondistended. MUSCULOSKELETAL: No cyanosis, or edema. BACK: Nontender without obvious deformity. No CVA tenderness. Procedures 05/30- EGD 06/04-EGD Medications and IVs Current Medications Ondansetron HCl (Zofran Inj) 4 mg ONCE ONCE IVP Last administered on 05/30/17 00:04; Start 05/30/17 at 00:00; Stop 05/30/17 at 00:01; Status DC Sodium Chloride 1,000 ml @ 1,000 mls/hr Q1H IV Last administered on 05/30/17 00:03; Start 05/29/17 at 23:46; Stop 05/30/17 at 00:45; Status DC Sodium Chloride (NS Flush) 2 ml UNSCH PRN IVF FLUSH AFTER USING IV ACCESS; Start 05/30/17 at 00:00; Stop 05/31/17 at 22:04; Status DC Pantoprazole Sodium 80 mg/ Sodium Chloride 35 ml @ 420 mls/hr Q5M ONCE IV Last administered on 05/30/17 00:05; Start 05/29/17 at 23:46; Stop 05/29/17 at 23: 50; Status DC Pantoprazole Sodium 80 mg/ Sodium Chloride 100 ml @ 10 mls/hr Q10H IV Last administered on 06/07/17 06:00; Start 05/29/17 at 23:46; Stop 06/07/17 at 14:50 ; Status DC Sodium Chloride 1,000 ml @ 100 mls/hr Q10H IV Last administered on 05/31/17 13 :11; Start 05/30/17 at 01:04; Stop 06/01/17 at 05:49; Status DC Sodium Chloride (NS Flush) 2 ml UNSCH PRN IV FLUSH FLUSH AFTER USING IV ACCESS ; Start 05/30/17 at 01:15 Sodium Chloride (NS Flush) 2 ml BID IV FLUSH Last administered on 06/08/17 09: 33; Start 05/30/17 at 09:00 Naloxone HCl (Narcan Inj) 0.4 mg UNSCH PRN IV SEE LABEL COMMENTS; Start at 01:15 Ondansetron HCl (Zofran Inj) 4 mg Q6HR PRN IV PUSH nausea Last administered on 05/30/17 16:53; Start 05/30/17 at 01:45 Ondansetron HCl (Zofran Inj) 4 mg ONCE ONCE IV PUSH Last administered on 02:34; Start 05/30/17 at 02:30; Stop 05/30/17 at 02:31; Status DC Octreotide Acetate (SandoSTATIN INJ) 50 mcg ONCE ONCE IV PUSH Last administered on 05/30/17 05:49; Start 05/30/17 at 03:45; Stop 05/30/17 at 03:46; Status DC Octreotide Acetate 500 mcg/ Sodium Chloride 500 ml @ 50 mls/hr Q10H IV Last administered on 06/07/17 04:19; Start 05/30/17 at 03:31; Stop 06/07/17 at 14:50 ; Status DC Miscellaneous Information Patient in critical care unit? Ass... [id number] .XX Last administered on 05/30/17 04:15; Start 05/30/17 at 04:15 Chlorhexidine Gluconate (Chlorhexidine 2% Cloth) 3 pack DAILY@04 TOPICAL Last administered on 06/05/17 03:23; Start 05/31/17 at 04:00; Stop 06/04/17 at 04:01 ; Status DC Chlorhexidine Gluconate (Chlorhexidine 2% Cloth) 3 pack UNSCH PRN TOPICAL HYGIENIC CARE; Start 05/30/17 at 04:15; Stop 06/04/17 at 04:13; Status DC Magnesium Citrate (Citroma Liq) 300 ml ONCE ONCE PO Last administered on 15:23; Start 05/30/17 at 16:00; Stop 05/30/17 at 17:42; Status DC Magnesium Citrate (Citroma Liq) 300 ml ONCE ONCE PO ; Start 05/30/17 at 18:00; Stop 05/30/17 at 18:00; Status DC Propofol 100 ml @ As Directed STK-MED ONCE .ROUTE Last administered on 20:00; Start 05/30/17 at 19:38; Stop 05/30/17 at 19:39; Status DC Phenylephrine HCl (Neosynephrine Inj) 40 mg STK-MED ONCE .ROUTE ; Start 05/30/17 at 19:45; Stop 05/30/17 at 19:46; Status DC Propofol (Diprivan 200 Mg/20 ml Inj) 290 mg STK-MED ONCE IV PUSH ; Start at 19:50; Stop 05/30/17 at 20:12; Status DC Phenylephrine HCl 40 mg/Dextrose 500 ml @ 30 mls/hr TITRATE PRN IV Blood Pressure Management Last administered on 06/01/17 07:09; Start 05/30/17 at 21:30 ; Stop 06/01/17 at 09:51; Status DC Miscellaneous Information ALL NURSING DEPARTME... UNSCH PRN .XX SEE LABEL COMMENTS; Start 05/30/17 at 19:06; Stop 05/31/17 at 19:05; Status DC Propofol 100 ml @ As Directed STK-MED ONCE .ROUTE Last administered on 22:52; Start 05/30/17 at 22:14; Stop 05/30/17 at 22:15; Status DC Propofol 100 ml @ 3.111 mls/ hr TITRATE PRN IV SEDATION Last administered on 19:02; Start 05/30/17 at 22:30; Stop 06/06/17 at 02:06; Status DC Sodium Chloride 2,000 ml @ 999 mls/hr ONCE ONCE IV Last administered on 01:00; Start 05/31/17 at 04:00; Stop 05/31/17 at 06:00; Status DC Ondansetron HCl (Zofran Inj) 4 mg STK-MED ONCE IV PUSH ; Start 05/30/17 at 12:00 ; Stop 05/31/17 at 10:14; Status DC Sodium Chloride 1,000 ml @ 999 mls/hr BOLUS ONCE IV Last administered on 15:19; Start 05/31/17 at 12:00; Stop 05/31/17 at 13:23; Status DC Fentanyl Citrate 250 ml @ 10 mls/hr TITRATE PRN IV SEDATION; Start 05/31/17 at 19:45; Status UNV Midazolam HCl 100 ml @ 3 mls/hr TITRATE PRN IV SEDATION; Start 05/31/17 at 19:45 ; Status UNV Midazolam HCl (Versed Inj) 2 mg ONCE ONCE IV PUSH Last administered on 19:45; Start 05/31/17 at 19:45; Stop 05/31/17 at 20:04; Status DC Midazolam HCl 100 ml @ 3 mls/hr TITRATE PRN IV SEDATION Last administered on 23:48; Start 05/31/17 at 19:45; Stop 06/03/17 at 14:04; Status DC Midazolam HCl (Versed Inj) 5 mg STK-MED ONCE .ROUTE Last administered on 20:11; Start 05/31/17 at 19:52; Stop 05/31/17 at 19:53; Status DC Fentanyl Citrate 250 ml @ 5 mls/hr TITRATE PRN IV SEDATION Last administered on 06/06/17 06:15; Start 05/31/17 at 21:30; Stop 06/06/17 at 20:34; Status DC Vancomycin HCl 1000 mg/Sodium Chloride 250 ml @ 250 mls/hr ONCE ONCE IV ; Start 05/31/17 at 21:30; Stop 05/31/17 at 21:39; Status DC Pharmacy Profile Note 0 ml @ 0 mls/hr UNSCH OTHER ; Start 05/31/17 at 21:30; Stop 06/02/17 at 11:38; Status DC Cefepime HCl 2000 mg/Sodium Chloride 100 ml @ 200 mls/hr Q12H IV Last administered on 06/02/17 08:34; Start 05/31/17 at 22:00; Stop 06/02/17 at 11:38 ; Status DC Azithromycin 500 mg/Sodium Chloride 250 ml @ 250 mls/hr Q24H IV Last administered on 06/01/17 21:47; Start 05/31/17 at 22:00; Stop 06/02/17 at 11:38; Status DC Calcium Gluconate 2 gm/Sodium Chloride 120 ml @ 120 mls/hr ONCE ONCE IV Last administered on 05/31/17 22:49; Start 05/31/17 at 23:00; Stop 05/31/17 at 23:59; Status DC Acetaminophen (Ofirmev 1000 Mg/ 100 ml Inj) 650 mg ONCE ONCE IV Last administered on 05/31/17 21:45; Start 05/31/17 at 21:45; Stop 05/31/17 at 21:46; Status DC Sodium Chloride 1,000 ml @ 999 mls/hr BOLUS ONCE IV Last administered on 21:30; Start 05/31/17 at 21:30; Stop 05/31/17 at 22:30; Status DC Sodium Chloride 1,000 ml @ 999 mls/hr BOLUS ONCE IV Last administered on 21:48; Start 05/31/17 at 22:30; Stop 05/31/17 at 23:30; Status DC Vancomycin HCl 2500 mg/Sodium Chloride 525 ml @ 250 mls/hr ONCE ONCE IV Last administered on 06/01/17 02:12; Start 05/31/17 at 23:00; Stop 06/01/17 at 01:05; Status DC Vancomycin HCl 1500 mg/Sodium Chloride 515 ml @ 257.5 mls/ hr Q12H IV Last administered on 06/02/17 12:13; Start 06/01/17 at 12:00; Stop 06/02/17 at 15:46 ; Status DC Miscellaneous Information SPECIFIC LAB TO BE NICOLE... ONCE ONCE .XX Last administered on 06/02/17 11:45; Start 06/02/17 at 11:45; Stop 06/02/17 at 11:46 ; Status DC Iodixanol (VISIPAQUE 320 INJ (Rad CT)) 89 ml STK-MED ONCE IV Last administered on 06/01/17 02:45; Start 06/01/17 at 02:45; Stop 06/01/17 at 02:46; Status DC Sodium Bicarbonate 150 meq/Dextrose 1,150 ml @ 75 mls/hr [id number] IV Last administered on 06/03/17 07:43; Start 06/01/17 at 06:00; Stop 06/03/17 at 14:04 ; Status DC Phenylephrine HCl 160 mg/Dextrose 500 ml @ 7.5 mls/hr TITRATE PRN IV Blood Pressure Management Last administered on 06/03/17 04:34; Start 06/01/17 at 10:00 ; Stop 06/03/17 at 23:56; Status DC Pharmacy Profile Note 0 ml @ 0 mls/hr UNSCH OTHER ; Start 06/02/17 at 11:45; Stop 06/02/17 at 15:46; Status DC Lactulose (Lactulose Liq) 30 ml QID PO ; Start 06/02/17 at 13:00; Stop 06/02/17 at 14:05; Status DC Rifaximin (Xifaxan) 550 mg BID PO ; Start 06/02/17 at 12:15; Stop 06/02/17 at 14 :05; Status DC Lactulose 300 ml/ Sterile Water 1,000 ml @ 0 mls/hr Q6H RECTAL Last administered on 06/04/17 14:18; Start 06/02/17 at 14:00; Stop 06/04/17 at 15:02 ; Status DC Linezolid 300 ml @ 300 mls/hr Q12H IV Last administered on 06/03/17 04:25; Start 06/02/17 at 16:00; Stop 06/03/17 at 12:12; Status DC Cefepime HCl 2000 mg/Sodium Chloride 100 ml @ 200 mls/hr Q8HR IV Last administered on 06/04/17 14:18; Start 06/03/17 at 14:00; Stop 06/04/17 at 16:20 ; Status DC Pharmacy Profile Note 0 ml @ 0 mls/hr UNSCH OTHER ; Start 06/03/17 at 12:15; Stop 06/04/17 at 16:20; Status DC Lactated Ringer's 1,000 ml @ 84 mls/hr [id number] IV Last administered on 03:21; Start 06/03/17 at 14:15; Stop 06/05/17 at 11:45; Status DC Vancomycin HCl 1500 mg/Sodium Chloride 515 ml @ 257.5 mls/ hr Q12H IV Last administered on 06/04/17 16:17; Start 06/03/17 at 16:00; Stop 06/04/17 at 16:20 ; Status DC Miscellaneous Information SPECIFIC LAB TO BE NICOLE... ONCE ONCE .XX ; Start 06/05 at 03:45; Stop 06/05/17 at 03:46; Status Cancel Acetylcysteine (Acetadote Inj) search Sets Overdose- ONCE IV ; Start 06/03/17 at 17:30; Status UNV Acetylcysteine 76521 mg/Dextrose 275 ml @ 200 mls/hr ONCE ONCE IV Last administered on 06/03/17 19:43; Start 06/03/17 at 19:00; Stop 06/03/17 at 20:22 ; Status DC Acetylcysteine 5000 mg/Dextrose 525 ml @ 125 mls/hr ONCE ONCE IV Last administered on 06/03/17 21:15; Start 06/03/17 at 20:00; Stop 06/04/17 at 00:11 ; Status DC Acetylcysteine 58368 mg/Dextrose 1,050 ml @ 62.5 mls/hr ONCE ONCE IV Last administered on 06/04/17 00:09; Start 06/04/17 at 00:00; Stop 06/04/17 at 16:47 ; Status DC Lactated Ringer's 1,000 ml @ 999 mls/hr BOLUS ONCE IV Last administered on 00:08; Start 06/04/17 at 00:00; Stop 06/04/17 at 01:00; Status DC Sodium Chloride 250 ml @ 15 mls/hr ONCE ONCE IV Last administered on 06:07; Start 06/04/17 at 01:45; Stop 06/04/17 at 18:24; Status DC Sodium Chloride 250 ml @ 15 mls/hr ONCE ONCE IV Last administered on 10:05; Start 06/04/17 at 07:00; Stop 06/04/17 at 23:39; Status DC Propofol (Diprivan 200 Mg/20 ml Inj) 100 mg STK-MED ONCE IV PUSH ; Start at 14:53; Stop 06/04/17 at 14:54; Status DC Lactulose (Lactulose Liq) 30 ml QID PO Last administered on 06/08/17 09:32; Start 06/04/17 at 18:00 Rifaximin (Xifaxan) 550 mg BID PO Last administered on 06/07/17 21:07; Start 06/04/17 at 21:00 Cefazolin Sodium/ Dextrose 50 ml @ 150 mls/hr Q8H IV Last administered on 06/08 09:33; Start 06/04/17 at 17:00; Stop 06/08/17 at 09:00; Status DC Potassium Chloride/Dextrose 1,000 ml @ 84 mls/hr [id number] IV Last administered on 06/06/17 12:07; Start 06/05/17 at 13:00; Stop 06/06/17 at 20:34; Status DC Furosemide (Lasix Inj) 40 mg BID@09,18 IV PUSH Last administered on 06/08/17t 09:35; Start 06/05/17 at 12:00 Iohexol (Omnipaque 350 Inj) 20 ml STK-MED ONCE IVCONTRAST Last administered on 06/05/17t 16:43; Start 06/05/17 at 16:59; Stop 06/05/17 at 17:01; Status DC Potassium Chloride 100 ml @ 50 mls/hr Q2H PRN IV For Potassium 2.8 - 3.2 mEq/L ; Start 06/06/17 at 01:00; Stop 06/07/17 at 23:44; Status DC Potassium Chloride 100 ml @ 50 mls/hr Q2H PRN IV For Potassium 2.8 - 3.2 mEq/L ; Start 06/06/17 at 01:00; Stop 06/07/17 at 23:45; Status DC Potassium Bicarb/ Potassium Chloride (K-Lyte Cl Eff) 50 meq UNSCH PRN PO For Potassium 3.3 - 3.5 mEq/L; Start 06/06/17 at 01:00; Stop 06/07/17 at 23:45; Status DC Potassium Chloride 100 ml @ 25 mls/hr UNSCH PRN IV For Potassium 3.3 - 3.5 mEq /L; Start 06/06/17 at 01:00; Stop 06/07/17 at 23:45; Status DC Potassium Chloride 100 ml @ 50 mls/hr Q2H PRN IV For Potassium 3.3 - 3.5 mEq/L ; Start 06/06/17 at 01:00; Stop 06/07/17 at 23:45; Status DC Magnesium Sulfate 4 gm/Sodium Chloride 100 ml @ 50 mls/hr UNSCH PRN IV For Magnesium 0.9 - 1.1 mg/dL; Start 06/06/17 at 01:00; Stop 06/07/17 at 23:44; Status DC Magnesium Oxide (Mag-Ox) 800 mg UNSCH PRN PO For Magnesium 1.2 - 1.6 mg/dL; Start 06/06/17 at 01:00; Stop 06/07/17 at 23:45; Status DC Magnesium Sulfate 2 gm/Sodium Chloride 100 ml @ 50 mls/hr UNSCH PRN IV For Magnesium 1.2 - 1.6 mg/dL; Start 06/06/17 at 01:00; Stop 06/07/17 at 23:44; Status DC Potassium Phosphate (K-Phos) 2,000 mg Q4H PRN PO For Phosphorus < 2.5 mg/dL; Start 06/06/17 at 01:00; Stop 06/07/17 at 23:45; Status DC Sodium Phosphate 30 mmol/Sodium Chloride 250 ml @ 42 mls/hr UNSCH PRN IV For Phosphorus < 2.5 mg/dL Last administered on 06/06/17 02:12; Start 06/06/17 at 01:00; Stop 06/07/17 at 23:45; Status DC Potassium Phosphate (K-Phos) 2,000 mg UNSCH PRN PO/TUBE SEE LABEL COMMENTS; Start 06/06/17 at 01:00; Stop 06/07/17 at 23:45; Status DC Potassium Phosphate 30 mmol/ Sodium Chloride 260 ml @ 42 mls/hr UNSCH PRN IV SEE LABEL COMMENTS; Start 06/06/17 at 01:00; Stop 06/07/17 at 23:45; Status DC Propofol 100 ml @ 3.78 mls/hr TITRATE PRN IV SEDATION Last administered on 06:15; Start 06/06/17 at 02:15; Stop 06/06/17 at 07:00; Status DC Oxycodone HCl (Roxicodone) 5 mg Q4H PRN PO pain 1-7; Start 06/06/17 at 20:30 Propranolol HCl (Inderal) 10 mg Q8HR PO Last administered on 06/08/17 06:38; Start 06/06/17 at 22:00 Dextrose 1,000 ml @ 75 mls/hr [id number] IV Last administered on 06/07/17 22:07 ; Start 06/07/17 at 10:00 Pantoprazole Sodium (Protonix Inj) 40 mg Q12H IV PUSH Last administered on 06/08 03:32; Start 06/07/17 at 16:00 Side: Right Location: Subclavian A/P Problem List: (1) GI bleed ICD Code: K92.2 - Gastrointestinal hemorrhage, unspecified (2) Melena ICD Code: K92.1 - Melena Status: Acute (3) Hematemesis ICD Code: K92.0 - Hematemesis Status: Acute (4) Transaminitis ICD Code: R74.0 - Nonspecific elevation of levels of transaminase and lactic acid dehydrogenase [LDH] (5) Thrombocytopenia ICD Code: D69.6 - Thrombocytopenia, unspecified Status: Acute Assessment and Plan Hypoxic Respiratory failure 06/01 CTA pulmonary-suspected left upper lobe, left lower lobe pulmonary emboli, no pulmonary emboli on the right. Bilateral lower lobe atelectasis. Patchy pneumonia right lower lobe. Noted ill-defined right infrahilar/subcarinal mass 4.2 x 4.8 cm (likely esophageal varices- per CT abdomen report). Extensive discussion with Dr. Terrazas (IR) patient is not a candidate for catheter directed TPA in the setting of GI bleeding. Intubated 05/29 and extubated 06/06. Ultrasound bilateral lower extremities negative for DVT. 06/01 ECHO ejection fraction 55-60%. No RWMA. Trace TR. - Maintain O2 saturation greater than 92%. - DuoNeb's every 6 hours scheduled every 2 hours when necessary. - Patient on Ancef for MSSA pneumonia. d/c 06/07. - S/p IVC filter. - Pulmonology following. - Incentive spirometry. - PT/ OT. GI bleed/ Hematemesis 06/01 CT abdomen-splenomegaly, ascites, esophageal varices extend into the lower chest and may account for subcarinal and infrahilar masses. [place] portosystemic collaterals. Large esophageal varix. 3 bands applied by GI. 06/05 repeat EGD varices no active bleeding. Ammonia decreasing. - Status post protonic and octreotide gtt. - Further management per GI. - Monitor CBC and transfuse as needed. Transaminitis/liver cirrhosis Due to daily Tylenol use. S/p Mucomyst. AST 692, ALT 593, T bili 2.1. Liver ultrasound reveals cirrhotic liver image. Tylenol level negative. Hepatitis profile negative. - Workup per gastroenterology - Monitor PT/INR. - continue rifaximin, lactulose and pentoxifylline. Thrombocytopenia S/t liver disease. - Monitor CBC. - transfuse platelets if signs of acute bleeding, or less than 50,000. - Hematology following. Hypernatremia Sodium level has been elevated. - start D5W at 75 ml/hr and monitor. Hypokalemia Possibly s/t decreased PO intake. - Will replenish as needed. - monitor and replete as needed. Liver mass Noted on imaging. - MRI per oncology. PPx: IVC filter Problem Qualifiers (1) Hematemesis: Qualified Codes: K92.0 - Hematemesis; R11.0 - Nausea Ericka Menard MD Jun 08, 2017 10:26
[2017-06-08] MEDS ORDERED: POTASSIUM CHLORIDE 25 MEQ EFFERVESCENT TAB PO ONE ×2 (11:00→20:00)
[2017-06-08] MEDS: RIFAXIMIN 550 MG TAB PO SCH ×2 (12:58→20:20)
[2017-06-08] MEDS: DEXTROSE 5% IN WATE 1000ML INJ 1,000 ML IV SCH ×2 (12:59→23:20)
[2017-06-09] VITALS (15 sets, daily range): BP systolic 95–119; BP diastolic 51–63; PULSE 73–82; RESP 18–22; TEMP 97–99.1; O2SAT 90–96
[2017-06-09] MEDS: PANTOPRAZOLE SODIUM 40 MG VIAL IV PUSH SCH (03:14)
[2017-06-09] MEDS: PROPRANOLOL HCL 10 MG TAB PO SCH ×3 (06:14→21:33)
[2017-06-09 07:24] LABS: MEAN CORPUSCULAR HEMOGLOBIN 26.4 PG (27.0-34.0); MEAN CORPUSCULAR HGB CONC 32.6 % (32.0-36.0); PLATELET COUNT 99 TH/MM3 (150-450); RED BLOOD COUNT 2.84 MIL/MM3 (4.50-5.90); RED CELL DISTRIBUTION WIDTH 18.5 % (11.6-17.2); WHITE BLOOD COUNT 9.5 TH/MM3 (4.0-11.0)
[2017-06-09 07:39] LABS: REVIEW FLAG FINAL
[2017-06-09 08:05] LABS: BICARBONATE 30.3 MEQ/L (21.0-32.0)
[2017-06-09 08:24] LABS: POTASSIUM 2.9 MEQ/L (3.5-5.1)
[2017-06-09 08:40] LABS: CALCIUM-PROTEIN CORRECTED 8.1 MG/DL (8.5-10.1)
[2017-06-09] MEDS ORDERED: POTASSIUM CHLORIDE 25 MEQ EFFERVESCENT TAB PO ONE (09:00)
[2017-06-09] MEDS: FUROSEMIDE 40 MG/4 ML VIAL IV PUSH SCH (09:56)
[2017-06-09] MEDS: SODIUM CHLORIDE 0.9% FLUSH 10 ML FLUSH IV FLUSH SCH ×2 (09:56→20:17)
[2017-06-09] MEDS: RIFAXIMIN 550 MG TAB PO SCH ×2 (09:57→20:16)
[2017-06-09] MEDS: LACTULOSE SYRUP 20 GM/30 ML CUP PO SCH ×4 (09:57→20:17)
--- NOTE | 2017-06-09 10:07 | HHI.PR ---
Subjective Remarks Patient has no complaints. Denied any GI bleed. He feels like he is doing well. Objective Vitals Vital Signs Date Time Temp Pulse Resp B/P (MAP) Pulse Ox O2 Delivery O2 Flow Rate FiO2 06/09/17 04:23 98.4 77 20 106/51 (69) 90 06/09/17 04:12 98.4 77 20 106/51 (69) 90 06/09/17 04:00 79 06/09/17 00:18 99.1 76 18 103/55 (71) 91 06/09/17 00:00 74 06/08/17 20:28 97.6 82 20 116/56 (76) 90 06/08/17 20:00 87 06/08/17 16:40 98.2 78 21 112/55 (74) 90 06/08/17 16:31 80 06/08/17 12:29 97.6 74 23 110/60 (77) 91 06/08/17 12:00 75 I/O 06/08/17 06/08/17 06/08/17 06/09/17 06/09/17 06/09/17 07:00 15:00 23:00 07:00 15:00 23:00 Intake Total 1320 ml 530 ml Output Total 200 ml 250 ml 250 ml Balance 1120 ml 280 ml -250 ml Intake Oral 900 ml 480 ml IV Total 50 ml Packed Cells 400 ml Blood Product IV Normal Saline Flush 20 ml Output Urine Total 200 ml 250 ml 250 ml # Voids 5 # Bowel Movements 0 6 1 Result Diagram: 06/09/1745 06/09/17644 Objective Remarks GENERAL: in NAD SKIN: Warm and dry. HEAD: Normocephalic. EYES: No scleral icterus. No injection or drainage. NECK: Supple, trachea midline. No JVD or lymphadenopathy. CARDIOVASCULAR: Regular rate and rhythm without murmurs, gallops, or rubs. RESPIRATORY: Breath sounds equal bilaterally. No accessory muscle use. GASTROINTESTINAL: Abdomen soft, non-tender, nondistended. MUSCULOSKELETAL: No cyanosis, or edema. BACK: Nontender without obvious deformity. No CVA tenderness. Procedures 05/30- EGD 06/04-EGD Medications and IVs Current Medications Ondansetron HCl (Zofran Inj) 4 mg ONCE ONCE IVP Last administered on 05/30/17t 00:04; Start 05/30/17 at 00:00; Stop 05/30/17 at 00:01; Status DC Sodium Chloride 1,000 ml @ 1,000 mls/hr Q1H IV Last administered on 05/30/17 00:03; Start 05/29/17 at 23:46; Stop 05/30/17 at 00:45; Status DC Sodium Chloride (NS Flush) 2 ml UNSCH PRN IVF FLUSH AFTER USING IV ACCESS; Start 05/30/17 at 00:00; Stop 05/31/17 at 22:04; Status DC Pantoprazole Sodium 80 mg/ Sodium Chloride 35 ml @ 420 mls/hr Q5M ONCE IV Last administered on 05/30/17 00:05; Start 05/29/17 at 23:46; Stop 05/29/17 at 23: 50; Status DC Pantoprazole Sodium 80 mg/ Sodium Chloride 100 ml @ 10 mls/hr Q10H IV Last administered on 06/07/17 06:00; Start 05/29/17 at 23:46; Stop 06/07/17 at 14:50 ; Status DC Sodium Chloride 1,000 ml @ 100 mls/hr Q10H IV Last administered on 05/31/17 13 :11; Start 05/30/17 at 01:04; Stop 06/01/17 at 05:49; Status DC Sodium Chloride (NS Flush) 2 ml UNSCH PRN IV FLUSH FLUSH AFTER USING IV ACCESS ; Start 05/30/17 at 01:15 Sodium Chloride (NS Flush) 2 ml BID IV FLUSH Last administered on 06/09/17 09: 56; Start 05/30/17 at 09:00 Naloxone HCl (Narcan Inj) 0.4 mg UNSCH PRN IV SEE LABEL COMMENTS; Start at 01:15 Ondansetron HCl (Zofran Inj) 4 mg Q6HR PRN IV PUSH nausea Last administered on 05/30/17 16:53; Start 05/30/17 at 01:45 Ondansetron HCl (Zofran Inj) 4 mg ONCE ONCE IV PUSH Last administered on 02:34; Start 05/30/17 at 02:30; Stop 05/30/17 at 02:31; Status DC Octreotide Acetate (SandoSTATIN INJ) 50 mcg ONCE ONCE IV PUSH Last administered on 05/30/17 05:49; Start 05/30/17 at 03:45; Stop 05/30/17 at 03:46; Status DC Octreotide Acetate 500 mcg/ Sodium Chloride 500 ml @ 50 mls/hr Q10H IV Last administered on 06/07/17 04:19; Start 05/30/17 at 03:31; Stop 06/07/17 at 14:50 ; Status DC Miscellaneous Information Patient in critical care unit? Ass... [id number] .XX Last administered on 05/30/17 04:15; Start 05/30/17 at 04:15 Chlorhexidine Gluconate (Chlorhexidine 2% Cloth) 3 pack DAILY@04 TOPICAL Last administered on 06/05/17 03:23; Start 05/31/17 at 04:00; Stop 06/04/17 at 04:01 ; Status DC Chlorhexidine Gluconate (Chlorhexidine 2% Cloth) 3 pack UNSCH PRN TOPICAL HYGIENIC CARE; Start 05/30/17 at 04:15; Stop 06/04/17 at 04:13; Status DC Magnesium Citrate (Citroma Liq) 300 ml ONCE ONCE PO Last administered on 15:23; Start 05/30/17 at 16:00; Stop 05/30/17 at 17:42; Status DC Magnesium Citrate (Citroma Liq) 300 ml ONCE ONCE PO ; Start 05/30/17 at 18:00; Stop 05/30/17 at 18:00; Status DC Propofol 100 ml @ As Directed STK-MED ONCE .ROUTE Last administered on 20:00; Start 05/30/17 at 19:38; Stop 05/30/17 at 19:39; Status DC Phenylephrine HCl (Neosynephrine Inj) 40 mg STK-MED ONCE .ROUTE ; Start 05/30/17 at 19:45; Stop 05/30/17 at 19:46; Status DC Propofol (Diprivan 200 Mg/20 ml Inj) 290 mg STK-MED ONCE IV PUSH ; Start at 19:50; Stop 05/30/17 at 20:12; Status DC Phenylephrine HCl 40 mg/Dextrose 500 ml @ 30 mls/hr TITRATE PRN IV Blood Pressure Management Last administered on 06/01/17 07:09; Start 05/30/17 at 21:30 ; Stop 06/01/17 at 09:51; Status DC Miscellaneous Information ALL NURSING DEPARTME... UNSCH PRN .XX SEE LABEL COMMENTS; Start 05/30/17 at 19:06; Stop 05/31/17 at 19:05; Status DC Propofol 100 ml @ As Directed STK-MED ONCE .ROUTE Last administered on 22:52; Start 05/30/17 at 22:14; Stop 05/30/17 at 22:15; Status DC Propofol 100 ml @ 3.111 mls/ hr TITRATE PRN IV SEDATION Last administered on 19:02; Start 05/30/17 at 22:30; Stop 06/06/17 at 02:06; Status DC Sodium Chloride 2,000 ml @ 999 mls/hr ONCE ONCE IV Last administered on 01:00; Start 05/31/17 at 04:00; Stop 05/31/17 at 06:00; Status DC Ondansetron HCl (Zofran Inj) 4 mg STK-MED ONCE IV PUSH ; Start 05/30/17 at 12:00 ; Stop 05/31/17 at 10:14; Status DC Sodium Chloride 1,000 ml @ 999 mls/hr BOLUS ONCE IV Last administered on 15:19; Start 05/31/17 at 12:00; Stop 05/31/17 at 13:23; Status DC Fentanyl Citrate 250 ml @ 10 mls/hr TITRATE PRN IV SEDATION; Start 05/31/17 at 19:45; Status UNV Midazolam HCl 100 ml @ 3 mls/hr TITRATE PRN IV SEDATION; Start 05/31/17 at 19:45 ; Status UNV Midazolam HCl (Versed Inj) 2 mg ONCE ONCE IV PUSH Last administered on 19:45; Start 05/31/17 at 19:45; Stop 05/31/17 at 20:04; Status DC Midazolam HCl 100 ml @ 3 mls/hr TITRATE PRN IV SEDATION Last administered on 23:48; Start 05/31/17 at 19:45; Stop 06/03/17 at 14:04; Status DC Midazolam HCl (Versed Inj) 5 mg STK-MED ONCE .ROUTE Last administered on 20:11; Start 05/31/17 at 19:52; Stop 05/31/17 at 19:53; Status DC Fentanyl Citrate 250 ml @ 5 mls/hr TITRATE PRN IV SEDATION Last administered on 06/06/17 06:15; Start 05/31/17 at 21:30; Stop 06/06/17 at 20:34; Status DC Vancomycin HCl 1000 mg/Sodium Chloride 250 ml @ 250 mls/hr ONCE ONCE IV ; Start 05/31/17 at 21:30; Stop 05/31/17 at 21:39; Status DC Pharmacy Profile Note 0 ml @ 0 mls/hr UNSCH OTHER ; Start 05/31/17 at 21:30; Stop 06/02/17 at 11:38; Status DC Cefepime HCl 2000 mg/Sodium Chloride 100 ml @ 200 mls/hr Q12H IV Last administered on 06/02/17 08:34; Start 05/31/17 at 22:00; Stop 06/02/17 at 11:38 ; Status DC Azithromycin 500 mg/Sodium Chloride 250 ml @ 250 mls/hr Q24H IV Last administered on 06/01/17 21:47; Start 05/31/17 at 22:00; Stop 06/02/17 at 11:38; Status DC Calcium Gluconate 2 gm/Sodium Chloride 120 ml @ 120 mls/hr ONCE ONCE IV Last administered on 05/31/17 22:49; Start 05/31/17 at 23:00; Stop 05/31/17 at 23:59; Status DC Acetaminophen (Ofirmev 1000 Mg/ 100 ml Inj) 650 mg ONCE ONCE IV Last administered on 05/31/17 21:45; Start 05/31/17 at 21:45; Stop 05/31/17 at 21:46; Status DC Sodium Chloride 1,000 ml @ 999 mls/hr BOLUS ONCE IV Last administered on 21:30; Start 05/31/17 at 21:30; Stop 05/31/17 at 22:30; Status DC Sodium Chloride 1,000 ml @ 999 mls/hr BOLUS ONCE IV Last administered on 21:48; Start 05/31/17 at 22:30; Stop 05/31/17 at 23:30; Status DC Vancomycin HCl 2500 mg/Sodium Chloride 525 ml @ 250 mls/hr ONCE ONCE IV Last administered on 06/01/17 02:12; Start 05/31/17 at 23:00; Stop 06/01/17 at 01:05; Status DC Vancomycin HCl 1500 mg/Sodium Chloride 515 ml @ 257.5 mls/ hr Q12H IV Last administered on 06/02/17 12:13; Start 06/01/17 at 12:00; Stop 06/02/17 at 15:46 ; Status DC Miscellaneous Information SPECIFIC LAB TO BE NICOLE... ONCE ONCE .XX Last administered on 06/02/17 11:45; Start 06/02/17 at 11:45; Stop 06/02/17 at 11:46 ; Status DC Iodixanol (VISIPAQUE 320 INJ (Rad CT)) 89 ml STK-MED ONCE IV Last administered on 06/01/17 02:45; Start 06/01/17 at 02:45; Stop 06/01/17 at 02:46; Status DC Sodium Bicarbonate 150 meq/Dextrose 1,150 ml @ 75 mls/hr [id number] IV Last administered on 06/03/17 07:43; Start 06/01/17 at 06:00; Stop 06/03/17 at 14:04 ; Status DC Phenylephrine HCl 160 mg/Dextrose 500 ml @ 7.5 mls/hr TITRATE PRN IV Blood Pressure Management Last administered on 06/03/17 04:34; Start 06/01/17 at 10:00 ; Stop 06/03/17 at 23:56; Status DC Pharmacy Profile Note 0 ml @ 0 mls/hr UNSCH OTHER ; Start 06/02/17 at 11:45; Stop 06/02/17 at 15:46; Status DC Lactulose (Lactulose Liq) 30 ml QID PO ; Start 06/02/17 at 13:00; Stop 06/02/17 at 14:05; Status DC Rifaximin (Xifaxan) 550 mg BID PO ; Start 06/02/17 at 12:15; Stop 06/02/17 at 14 :05; Status DC Lactulose 300 ml/ Sterile Water 1,000 ml @ 0 mls/hr Q6H RECTAL Last administered on 06/04/17 14:18; Start 06/02/17 at 14:00; Stop 06/04/17 at 15:02 ; Status DC Linezolid 300 ml @ 300 mls/hr Q12H IV Last administered on 06/03/17 04:25; Start 06/02/17 at 16:00; Stop 06/03/17 at 12:12; Status DC Cefepime HCl 2000 mg/Sodium Chloride 100 ml @ 200 mls/hr Q8HR IV Last administered on 06/04/17 14:18; Start 06/03/17 at 14:00; Stop 06/04/17 at 16:20 ; Status DC Pharmacy Profile Note 0 ml @ 0 mls/hr UNSCH OTHER ; Start 06/03/17 at 12:15; Stop 06/04/17 at 16:20; Status DC Lactated Ringer's 1,000 ml @ 84 mls/hr [id number] IV Last administered on 03:21; Start 06/03/17 at 14:15; Stop 06/05/17 at 11:45; Status DC Vancomycin HCl 1500 mg/Sodium Chloride 515 ml @ 257.5 mls/ hr Q12H IV Last administered on 06/04/17 16:17; Start 06/03/17 at 16:00; Stop 06/04/17 at 16:20 ; Status DC Miscellaneous Information SPECIFIC LAB TO BE NICOLE... ONCE ONCE .XX ; Start 06/05 at 03:45; Stop 06/05/17 at 03:46; Status Cancel Acetylcysteine (Acetadote Inj) search Sets Overdose- ONCE IV ; Start 06/03/17 at 17:30; Status UNV Acetylcysteine 43635 mg/Dextrose 275 ml @ 200 mls/hr ONCE ONCE IV Last administered on 06/03/17 19:43; Start 06/03/17 at 19:00; Stop 06/03/17 at 20:22 ; Status DC Acetylcysteine 5000 mg/Dextrose 525 ml @ 125 mls/hr ONCE ONCE IV Last administered on 06/03/17 21:15; Start 06/03/17 at 20:00; Stop 06/04/17 at 00:11 ; Status DC Acetylcysteine 14532 mg/Dextrose 1,050 ml @ 62.5 mls/hr ONCE ONCE IV Last administered on 06/04/17 00:09; Start 06/04/17 at 00:00; Stop 06/04/17 at 16:47 ; Status DC Lactated Ringer's 1,000 ml @ 999 mls/hr BOLUS ONCE IV Last administered on 00:08; Start 06/04/17 at 00:00; Stop 06/04/17 at 01:00; Status DC Sodium Chloride 250 ml @ 15 mls/hr ONCE ONCE IV Last administered on 06:07; Start 06/04/17 at 01:45; Stop 06/04/17 at 18:24; Status DC Sodium Chloride 250 ml @ 15 mls/hr ONCE ONCE IV Last administered on 10:05; Start 06/04/17 at 07:00; Stop 06/04/17 at 23:39; Status DC Propofol (Diprivan 200 Mg/20 ml Inj) 100 mg STK-MED ONCE IV PUSH ; Start at 14:53; Stop 06/04/17 at 14:54; Status DC Lactulose (Lactulose Liq) 30 ml QID PO Last administered on 06/08/17 09:32; Start 06/04/17 at 18:00 Rifaximin (Xifaxan) 550 mg BID PO Last administered on 06/09/17 09:57; Start 06/04/17 at 21:00 Cefazolin Sodium/ Dextrose 50 ml @ 150 mls/hr Q8H IV Last administered on 06/08 09:33; Start 06/04/17 at 17:00; Stop 06/08/17 at 09:00; Status DC Potassium Chloride/Dextrose 1,000 ml @ 84 mls/hr [id number] IV Last administered on 06/06/17 12:07; Start 06/05/17 at 13:00; Stop 06/06/17 at 20:34; Status DC Furosemide (Lasix Inj) 40 mg BID@09,18 IV PUSH Last administered on 06/09/17 09:56; Start 06/05/17 at 12:00 Iohexol (Omnipaque 350 Inj) 20 ml STK-MED ONCE IVCONTRAST Last administered on 06/05/17 16:43; Start 06/05/17 at 16:59; Stop 06/05/17 at 17:01; Status DC Potassium Chloride 100 ml @ 50 mls/hr Q2H PRN IV For Potassium 2.8 - 3.2 mEq/L ; Start 06/06/17 at 01:00; Stop 06/07/17 at 23:44; Status DC Potassium Chloride 100 ml @ 50 mls/hr Q2H PRN IV For Potassium 2.8 - 3.2 mEq/L ; Start 06/06/17 at 01:00; Stop 06/07/17 at 23:45; Status DC Potassium Bicarb/ Potassium Chloride (K-Lyte Cl Eff) 50 meq UNSCH PRN PO For Potassium 3.3 - 3.5 mEq/L; Start 06/06/17 at 01:00; Stop 06/07/17 at 23:45; Status DC Potassium Chloride 100 ml @ 25 mls/hr UNSCH PRN IV For Potassium 3.3 - 3.5 mEq /L; Start 06/06/17 at 01:00; Stop 06/07/17 at 23:45; Status DC Potassium Chloride 100 ml @ 50 mls/hr Q2H PRN IV For Potassium 3.3 - 3.5 mEq/L ; Start 06/06/17 at 01:00; Stop 06/07/17 at 23:45; Status DC Magnesium Sulfate 4 gm/Sodium Chloride 100 ml @ 50 mls/hr UNSCH PRN IV For Magnesium 0.9 - 1.1 mg/dL; Start 06/06/17 at 01:00; Stop 06/07/17 at 23:44; Status DC Magnesium Oxide (Mag-Ox) 800 mg UNSCH PRN PO For Magnesium 1.2 - 1.6 mg/dL; Start 06/06/17 at 01:00; Stop 06/07/17 at 23:45; Status DC Magnesium Sulfate 2 gm/Sodium Chloride 100 ml @ 50 mls/hr UNSCH PRN IV For Magnesium 1.2 - 1.6 mg/dL; Start 06/06/17 at 01:00; Stop 06/07/17 at 23:44; Status DC Potassium Phosphate (K-Phos) 2,000 mg Q4H PRN PO For Phosphorus < 2.5 mg/dL; Start 06/06/17 at 01:00; Stop 06/07/17 at 23:45; Status DC Sodium Phosphate 30 mmol/Sodium Chloride 250 ml @ 42 mls/hr UNSCH PRN IV For Phosphorus < 2.5 mg/dL Last administered on 06/06/17 02:12; Start 06/06/17 at 01:00; Stop 06/07/17 at 23:45; Status DC Potassium Phosphate (K-Phos) 2,000 mg UNSCH PRN PO/TUBE SEE LABEL COMMENTS; Start 06/06/17 at 01:00; Stop 06/07/17 at 23:45; Status DC Potassium Phosphate 30 mmol/ Sodium Chloride 260 ml @ 42 mls/hr UNSCH PRN IV SEE LABEL COMMENTS; Start 06/06/17 at 01:00; Stop 06/07/17 at 23:45; Status DC Propofol 100 ml @ 3.78 mls/hr TITRATE PRN IV SEDATION Last administered on 06:15; Start 06/06/17 at 02:15; Stop 06/06/17 at 07:00; Status DC Oxycodone HCl (Roxicodone) 5 mg Q4H PRN PO pain 1-7; Start 06/06/17 at 20:30 Propranolol HCl (Inderal) 10 mg Q8HR PO Last administered on 06/09/17 06:14; Start 06/06/17 at 22:00 Dextrose 1,000 ml @ 75 mls/hr [id number] IV Last administered on 06/08/17 23:20 ; Start 06/07/17 at 10:00 Pantoprazole Sodium (Protonix Inj) 40 mg Q12H IV PUSH Last administered on 06/09 03:14; Start 06/07/17 at 16:00 Potassium Bicarb/ Potassium Chloride (K-Lyte Cl Eff) 75 meq ONCE ONCE PO Last administered on 06/08/17 12:59; Start 06/08/17 at 11:00; Stop 06/08/17 at 11:01; Status DC Potassium Bicarb/ Potassium Chloride (K-Lyte Cl Eff) 75 meq ONCE ONCE PO Last administered on 06/08/17 20:21; Start 06/08/17 at 20:00; Stop 06/08/17 at 20:05; Status DC Potassium Bicarb/ Potassium Chloride (K-Lyte Cl Eff) 75 meq ONCE ONCE PO Last administered on 06/09/17t 09:57; Start 06/09/17 at 09:00; Stop 06/09/17 at 09:01; Status DC Side: Right Location: Subclavian A/P Problem List: (1) GI bleed ICD Code: K92.2 - Gastrointestinal hemorrhage, unspecified (2) Melena ICD Code: K92.1 - Melena Status: Acute (3) Hematemesis ICD Code: K92.0 - Hematemesis Status: Acute (4) Transaminitis ICD Code: R74.0 - Nonspecific elevation of levels of transaminase and lactic acid dehydrogenase [LDH] (5) Thrombocytopenia ICD Code: D69.6 - Thrombocytopenia, unspecified Status: Acute Assessment and Plan Hypoxic Respiratory failure 06/01 CTA pulmonary-suspected left upper lobe, left lower lobe pulmonary emboli, no pulmonary emboli on the right. Bilateral lower lobe atelectasis. Patchy pneumonia right lower lobe. Noted ill-defined right infrahilar/subcarinal mass 4.2 x 4.8 cm (likely esophageal varices- per CT abdomen report). Extensive discussion with Dr. Terrazas (IR) patient is not a candidate for catheter directed TPA in the setting of GI bleeding. Intubated 05/29 and extubated 06/06. Ultrasound bilateral lower extremities negative for DVT. 06/01 ECHO ejection fraction 55-60%. No RWMA. Trace TR. - Maintain O2 saturation greater than 92%. - DuoNeb's every 6 hours scheduled every 2 hours when necessary. - Patient on Ancef for MSSA pneumonia. d/c 06/07. - S/p IVC filter. - Pulmonology following. - Incentive spirometry. - PT/ OT. GI bleed/ Hematemesis 06/01 CT abdomen-splenomegaly, ascites, esophageal varices extend into the lower chest and may account for subcarinal and infrahilar masses. [place] portosystemic collaterals. Large esophageal varix. 3 bands applied by GI. 06/05 repeat EGD varices no active bleeding. Ammonia decreasing. - Status post protonic and octreotide gtt. -Patient on sandostatin and protonix - Monitor CBC and transfuse as needed. Transaminitis/liver cirrhosis Due to daily Tylenol use. S/p Mucomyst. AST 692, ALT 593, T bili 2.1. Liver ultrasound reveals cirrhotic liver image. Tylenol level negative. Hepatitis profile negative. - Workup per gastroenterology - Monitor PT/INR. - continue rifaximin, lactulose and pentoxifylline. Thrombocytopenia S/t liver disease. - Monitor CBC. - transfuse platelets if signs of acute bleeding, or less than 50,000. - Hematology following. Hypernatremia Sodium level has been elevated. - start D5W at 75 ml/hr and monitor. Hypokalemia Possibly s/t decreased PO intake. - Will replenish as needed. May need to schedule potassium. - monitor and replete as needed. Liver mass Noted on imaging. - Radiologist recommend hepatic MRI with Eovist. Dealt with MRI and they stated that we do not have Eovist here and he will have to get that done in a different facility. PPx: IVC filter Problem Qualifiers (1) Hematemesis: Qualified Codes: K92.0 - Hematemesis; R11.0 - Nausea Ericka Menard MD Jun 09, 2017 10:06
[2017-06-09] MEDS: FUROSEMIDE 20 MG TAB PO SCH (18:34)
--- NOTE | 2017-06-09 19:23 | RADRPT ---
EXAM DATE/TIME: 06/09/2017 18:58 [facility] COMPARISON: CHEST SINGLE AP, June 05, 2017, 4:25. INDICATIONS : Shortness of breath. MEDICAL HISTORY : None. SURGICAL HISTORY : None. ENCOUNTER: Initial ACUITY: 1 day PAIN SCORE: 0/10 LOCATION: Bilateral chest FINDINGS: Mild basilar consolidation and small pleural effusions are again seen, left more so than right and epifanio th sides similar in the interim. No pneumothorax. Heart size stable, upper limits of normal. Endotracheal tube and nasogastric tube have been removed. A right IJ line has also been taken out. CONCLUSION: 1. Left greater than right basilar consolidation and small effusions are not significantly changed. 2. Mildly enlarged heart similar to before. 3. Interim extubation. Nasogastric tube and right IJ central venous catheter also out. David Quintero MD on June 09, 2017 at 19:20 Board Certified Radiologist. This report was verified electronically.
[2017-06-09] MEDS: PANTOPRAZOLE SOD 40 MG DELAYED RELEASE TAB PO SCH (20:16)
[2017-06-09] MEDS: POTASSIUM CHLORIDE 25 MEQ EFFERVESCENT TAB PO SCH (20:17)
[2017-06-10] VITALS (13 sets, daily range): BP systolic 99–116; BP diastolic 52–64; PULSE 78–86; RESP 16–19; TEMP 97.5–100.1; O2SAT 90–94
[2017-06-10] MEDS: PROPRANOLOL HCL 10 MG TAB PO SCH ×3 (05:05→20:41)
[2017-06-10 08:07] LABS: HEMATOCRIT 22.7 % (39.0-51.0); MEAN CELL VOLUME 79.9 FL (80.0-100.0); MEAN CORPUSCULAR HEMOGLOBIN 26.1 PG (27.0-34.0); MEAN CORPUSCULAR HGB CONC 32.6 % (32.0-36.0); PLATELET COUNT 110 TH/MM3 (150-450); RED BLOOD COUNT 2.84 MIL/MM3 (4.50-5.90); RED CELL DISTRIBUTION WIDTH 18.9 % (11.6-17.2); REVIEW FLAG FINAL; WHITE BLOOD COUNT 9.9 TH/MM3 (4.0-11.0)
[2017-06-10 08:33] LABS: BICARBONATE 30.1 MEQ/L (21.0-32.0); POTASSIUM 3.3 MEQ/L (3.5-5.1)
[2017-06-10] MEDS ORDERED: POTASSIUM CHLORIDE 10 MEQ CONTROLLED RELEASE TAB PO ONE (08:45)
[2017-06-10 08:52] LABS: CALCIUM-PROTEIN CORRECTED 8.3 MG/DL (8.5-10.1)
[2017-06-10] MEDS: PANTOPRAZOLE SOD 40 MG DELAYED RELEASE TAB PO SCH ×2 (08:55→20:41)
[2017-06-10] MEDS: FUROSEMIDE 20 MG TAB PO SCH ×2 (08:57→18:43)
[2017-06-10] MEDS: LACTULOSE SYRUP 20 GM/30 ML CUP PO SCH ×4 (08:57→20:42)
[2017-06-10] MEDS: RIFAXIMIN 550 MG TAB PO SCH ×2 (08:57→20:41)
[2017-06-10] MEDS: SODIUM CHLORIDE 0.9% FLUSH 10 ML FLUSH IV FLUSH SCH ×2 (08:58→20:45)
[2017-06-10] MEDS: POTASSIUM CHLORIDE 25 MEQ EFFERVESCENT TAB PO SCH ×2 (08:58→20:45)
--- NOTE | 2017-06-10 09:47 | HHI.PR ---
Subjective Remarks Patient had fall yesterday. When I asked him in regards to this he stated that he thought he was able to get up on his own and use the commode. He stated that he just felt weak from being in his bed during his hospitalization and deconditioned. He stated that he knows he needs to work on getting stronger. Patient did not hit his head. Denied any pain. Otherwise he denies any GI bleed. Dealt with patient's nurse. Objective Vitals Vital Signs Date Time Temp Pulse Resp B/P (MAP) Pulse Ox O2 Delivery O2 Flow Rate FiO2 06/10/17 04:40 99.0 83 19 103/55 (71) 94 06/10/17 04:00 83 06/10/17 00:40 99.5 79 19 99/52 (68) 93 06/10/17 00:00 79 06/09/17 20:35 98.5 80 19 109/54 (72) 90 06/09/17 20:00 74 06/09/17 16:10 97.4 73 20 107/57 (74) 95 06/09/17 16:06 75 06/09/17 15:55 97.7 79 18 115/60 (78) 96 06/09/17 15:40 97.3 76 20 119/63 (81) 95 06/09/17 15:25 78 114/56 (75) 94 06/09/17 12:00 98.6 82 18 111/55 (73) 92 06/09/17 12:00 80 I/O 06/09/17 06/09/17 06/09/17 06/10/17 06/10/17 06/10/17 07:00 15:00 23:00 07:00 15:00 23:00 Intake Total 1000 ml 600 ml 720 ml Output Total 250 ml 700 ml 275 ml Balance -250 ml 1000 ml -100 ml 445 ml Intake Oral 600 ml 720 ml IV Total 1000 ml Output Urine Total 250 ml 700 ml 275 ml # Voids 2 1 # Bowel Movements 1 5 2 Result Diagram: 06/10/1772006/10/17720 Objective Remarks GENERAL: in NAD SKIN: Warm and dry. HEAD: Normocephalic. EYES: No scleral icterus. No injection or drainage. NECK: Supple, trachea midline. No JVD or lymphadenopathy. CARDIOVASCULAR: Regular rate and rhythm without murmurs, gallops, or rubs. RESPIRATORY: Breath sounds equal bilaterally. No accessory muscle use. GASTROINTESTINAL: Abdomen soft, non-tender, nondistended. MUSCULOSKELETAL: No cyanosis, or edema. BACK: Nontender without obvious deformity. No CVA tenderness. Procedures 05/30- EGD 06/04-EGD Medications and IVs Current Medications Ondansetron HCl (Zofran Inj) 4 mg ONCE ONCE IVP Last administered on 05/30/17 00:04; Start 05/30/17 at 00:00; Stop 05/30/17 at 00:01; Status DC Sodium Chloride 1,000 ml @ 1,000 mls/hr Q1H IV Last administered on 05/30/17 00:03; Start 05/29/17 at 23:46; Stop 05/30/17 at 00:45; Status DC Sodium Chloride (NS Flush) 2 ml UNSCH PRN IVF FLUSH AFTER USING IV ACCESS; Start 05/30/17 at 00:00; Stop 05/31/17 at 22:04; Status DC Pantoprazole Sodium 80 mg/ Sodium Chloride 35 ml @ 420 mls/hr Q5M ONCE IV Last administered on 05/30/17 00:05; Start 05/29/17 at 23:46; Stop 05/29/17 at 23: 50; Status DC Pantoprazole Sodium 80 mg/ Sodium Chloride 100 ml @ 10 mls/hr Q10H IV Last administered on 06/07/17 06:00; Start 05/29/17 at 23:46; Stop 06/07/17 at 14:50 ; Status DC Sodium Chloride 1,000 ml @ 100 mls/hr Q10H IV Last administered on 05/31/17 13 :11; Start 05/30/17 at 01:04; Stop 06/01/17 at 05:49; Status DC Sodium Chloride (NS Flush) 2 ml UNSCH PRN IV FLUSH FLUSH AFTER USING IV ACCESS ; Start 05/30/17 at 01:15 Sodium Chloride (NS Flush) 2 ml BID IV FLUSH Last administered on 06/10/17 08: 58; Start 05/30/17 at 09:00 Naloxone HCl (Narcan Inj) 0.4 mg UNSCH PRN IV SEE LABEL COMMENTS; Start at 01:15 Ondansetron HCl (Zofran Inj) 4 mg Q6HR PRN IV PUSH nausea Last administered on 05/30/17 16:53; Start 05/30/17 at 01:45 Ondansetron HCl (Zofran Inj) 4 mg ONCE ONCE IV PUSH Last administered on 02:34; Start 05/30/17 at 02:30; Stop 05/30/17 at 02:31; Status DC Octreotide Acetate (SandoSTATIN INJ) 50 mcg ONCE ONCE IV PUSH Last administered on 05/30/17 05:49; Start 05/30/17 at 03:45; Stop 05/30/17 at 03:46; Status DC Octreotide Acetate 500 mcg/ Sodium Chloride 500 ml @ 50 mls/hr Q10H IV Last administered on 06/07/17 04:19; Start 05/30/17 at 03:31; Stop 06/07/17 at 14:50 ; Status DC Miscellaneous Information Patient in critical care unit? Ass... [id number] .XX Last administered on 05/30/17 04:15; Start 05/30/17 at 04:15 Chlorhexidine Gluconate (Chlorhexidine 2% Cloth) 3 pack DAILY@04 TOPICAL Last administered on 06/05/17 03:23; Start 05/31/17 at 04:00; Stop 06/04/17 at 04:01 ; Status DC Chlorhexidine Gluconate (Chlorhexidine 2% Cloth) 3 pack UNSCH PRN TOPICAL HYGIENIC CARE; Start 05/30/17 at 04:15; Stop 06/04/17 at 04:13; Status DC Magnesium Citrate (Citroma Liq) 300 ml ONCE ONCE PO Last administered on 15:23; Start 05/30/17 at 16:00; Stop 05/30/17 at 17:42; Status DC Magnesium Citrate (Citroma Liq) 300 ml ONCE ONCE PO ; Start 05/30/17 at 18:00; Stop 05/30/17 at 18:00; Status DC Propofol 100 ml @ As Directed STK-MED ONCE .ROUTE Last administered on 20:00; Start 05/30/17 at 19:38; Stop 05/30/17 at 19:39; Status DC Phenylephrine HCl (Neosynephrine Inj) 40 mg STK-MED ONCE .ROUTE ; Start 05/30/17 at 19:45; Stop 05/30/17 at 19:46; Status DC Propofol (Diprivan 200 Mg/20 ml Inj) 290 mg STK-MED ONCE IV PUSH ; Start at 19:50; Stop 05/30/17 at 20:12; Status DC Phenylephrine HCl 40 mg/Dextrose 500 ml @ 30 mls/hr TITRATE PRN IV Blood Pressure Management Last administered on 06/01/17 07:09; Start 05/30/17 at 21:30 ; Stop 06/01/17 at 09:51; Status DC Miscellaneous Information ALL NURSING DEPARTME... UNSCH PRN .XX SEE LABEL COMMENTS; Start 05/30/17 at 19:06; Stop 05/31/17 at 19:05; Status DC Propofol 100 ml @ As Directed STK-MED ONCE .ROUTE Last administered on 22:52; Start 05/30/17 at 22:14; Stop 05/30/17 at 22:15; Status DC Propofol 100 ml @ 3.111 mls/ hr TITRATE PRN IV SEDATION Last administered on 19:02; Start 05/30/17 at 22:30; Stop 06/06/17 at 02:06; Status DC Sodium Chloride 2,000 ml @ 999 mls/hr ONCE ONCE IV Last administered on 01:00; Start 05/31/17 at 04:00; Stop 05/31/17 at 06:00; Status DC Ondansetron HCl (Zofran Inj) 4 mg STK-MED ONCE IV PUSH ; Start 05/30/17 at 12:00 ; Stop 05/31/17 at 10:14; Status DC Sodium Chloride 1,000 ml @ 999 mls/hr BOLUS ONCE IV Last administered on 15:19; Start 05/31/17 at 12:00; Stop 05/31/17 at 13:23; Status DC Fentanyl Citrate 250 ml @ 10 mls/hr TITRATE PRN IV SEDATION; Start 05/31/17 at 19:45; Status UNV Midazolam HCl 100 ml @ 3 mls/hr TITRATE PRN IV SEDATION; Start 05/31/17 at 19:45 ; Status UNV Midazolam HCl (Versed Inj) 2 mg ONCE ONCE IV PUSH Last administered on 19:45; Start 05/31/17 at 19:45; Stop 05/31/17 at 20:04; Status DC Midazolam HCl 100 ml @ 3 mls/hr TITRATE PRN IV SEDATION Last administered on 23:48; Start 05/31/17 at 19:45; Stop 06/03/17 at 14:04; Status DC Midazolam HCl (Versed Inj) 5 mg STK-MED ONCE .ROUTE Last administered on 20:11; Start 05/31/17 at 19:52; Stop 05/31/17 at 19:53; Status DC Fentanyl Citrate 250 ml @ 5 mls/hr TITRATE PRN IV SEDATION Last administered on 06/06/17 06:15; Start 05/31/17 at 21:30; Stop 06/06/17 at 20:34; Status DC Vancomycin HCl 1000 mg/Sodium Chloride 250 ml @ 250 mls/hr ONCE ONCE IV ; Start 05/31/17 at 21:30; Stop 05/31/17 at 21:39; Status DC Pharmacy Profile Note 0 ml @ 0 mls/hr UNSCH OTHER ; Start 05/31/17 at 21:30; Stop 06/02/17 at 11:38; Status DC Cefepime HCl 2000 mg/Sodium Chloride 100 ml @ 200 mls/hr Q12H IV Last administered on 06/02/17 08:34; Start 05/31/17 at 22:00; Stop 06/02/17 at 11:38 ; Status DC Azithromycin 500 mg/Sodium Chloride 250 ml @ 250 mls/hr Q24H IV Last administered on 06/01/17 21:47; Start 05/31/17 at 22:00; Stop 06/02/17 at 11:38; Status DC Calcium Gluconate 2 gm/Sodium Chloride 120 ml @ 120 mls/hr ONCE ONCE IV Last administered on 05/31/17 22:49; Start 05/31/17 at 23:00; Stop 05/31/17 at 23:59; Status DC Acetaminophen (Ofirmev 1000 Mg/ 100 ml Inj) 650 mg ONCE ONCE IV Last administered on 05/31/17 21:45; Start 05/31/17 at 21:45; Stop 05/31/17 at 21:46; Status DC Sodium Chloride 1,000 ml @ 999 mls/hr BOLUS ONCE IV Last administered on 21:30; Start 05/31/17 at 21:30; Stop 05/31/17 at 22:30; Status DC Sodium Chloride 1,000 ml @ 999 mls/hr BOLUS ONCE IV Last administered on 21:48; Start 05/31/17 at 22:30; Stop 05/31/17 at 23:30; Status DC Vancomycin HCl 2500 mg/Sodium Chloride 525 ml @ 250 mls/hr ONCE ONCE IV Last administered on 06/01/17 02:12; Start 05/31/17 at 23:00; Stop 06/01/17 at 01:05; Status DC Vancomycin HCl 1500 mg/Sodium Chloride 515 ml @ 257.5 mls/ hr Q12H IV Last administered on 06/02/17 12:13; Start 06/01/17 at 12:00; Stop 06/02/17 at 15:46 ; Status DC Miscellaneous Information SPECIFIC LAB TO BE NICOLE... ONCE ONCE .XX Last administered on 06/02/17 11:45; Start 06/02/17 at 11:45; Stop 06/02/17 at 11:46 ; Status DC Iodixanol (VISIPAQUE 320 INJ (Rad CT)) 89 ml STK-MED ONCE IV Last administered on 06/01/17 02:45; Start 06/01/17 at 02:45; Stop 06/01/17 at 02:46; Status DC Sodium Bicarbonate 150 meq/Dextrose 1,150 ml @ 75 mls/hr [id number] IV Last administered on 06/03/17 07:43; Start 06/01/17 at 06:00; Stop 06/03/17 at 14:04 ; Status DC Phenylephrine HCl 160 mg/Dextrose 500 ml @ 7.5 mls/hr TITRATE PRN IV Blood Pressure Management Last administered on 06/03/17 04:34; Start 06/01/17 at 10:00 ; Stop 06/03/17 at 23:56; Status DC Pharmacy Profile Note 0 ml @ 0 mls/hr UNSCH OTHER ; Start 06/02/17 at 11:45; Stop 06/02/17 at 15:46; Status DC Lactulose (Lactulose Liq) 30 ml QID PO ; Start 06/02/17 at 13:00; Stop 06/02/17 at 14:05; Status DC Rifaximin (Xifaxan) 550 mg BID PO ; Start 06/02/17 at 12:15; Stop 06/02/17 at 14 :05; Status DC Lactulose 300 ml/ Sterile Water 1,000 ml @ 0 mls/hr Q6H RECTAL Last administered on 06/04/17 14:18; Start 06/02/17 at 14:00; Stop 06/04/17 at 15:02 ; Status DC Linezolid 300 ml @ 300 mls/hr Q12H IV Last administered on 06/03/17 04:25; Start 06/02/17 at 16:00; Stop 06/03/17 at 12:12; Status DC Cefepime HCl 2000 mg/Sodium Chloride 100 ml @ 200 mls/hr Q8HR IV Last administered on 06/04/17 14:18; Start 06/03/17 at 14:00; Stop 06/04/17 at 16:20 ; Status DC Pharmacy Profile Note 0 ml @ 0 mls/hr UNSCH OTHER ; Start 06/03/17 at 12:15; Stop 06/04/17 at 16:20; Status DC Lactated Ringer's 1,000 ml @ 84 mls/hr [id number] IV Last administered on 03:21; Start 06/03/17 at 14:15; Stop 06/05/17 at 11:45; Status DC Vancomycin HCl 1500 mg/Sodium Chloride 515 ml @ 257.5 mls/ hr Q12H IV Last administered on 06/04/17 16:17; Start 06/03/17 at 16:00; Stop 06/04/17 at 16:20 ; Status DC Miscellaneous Information SPECIFIC LAB TO BE NICOLE... ONCE ONCE .XX ; Start 06/05 at 03:45; Stop 06/05/17 at 03:46; Status Cancel Acetylcysteine (Acetadote Inj) search Sets Overdose- ONCE IV ; Start 06/03/17 at 17:30; Status UNV Acetylcysteine 05755 mg/Dextrose 275 ml @ 200 mls/hr ONCE ONCE IV Last administered on 06/03/17 19:43; Start 06/03/17 at 19:00; Stop 06/03/17 at 20:22 ; Status DC Acetylcysteine 5000 mg/Dextrose 525 ml @ 125 mls/hr ONCE ONCE IV Last administered on 06/03/17 21:15; Start 06/03/17 at 20:00; Stop 06/04/17 at 00:11 ; Status DC Acetylcysteine 63648 mg/Dextrose 1,050 ml @ 62.5 mls/hr ONCE ONCE IV Last administered on 06/04/17 00:09; Start 06/04/17 at 00:00; Stop 06/04/17 at 16:47 ; Status DC Lactated Ringer's 1,000 ml @ 999 mls/hr BOLUS ONCE IV Last administered on 00:08; Start 06/04/17 at 00:00; Stop 06/04/17 at 01:00; Status DC Sodium Chloride 250 ml @ 15 mls/hr ONCE ONCE IV Last administered on 06:07; Start 06/04/17 at 01:45; Stop 06/04/17 at 18:24; Status DC Sodium Chloride 250 ml @ 15 mls/hr ONCE ONCE IV Last administered on 10:05; Start 06/04/17 at 07:00; Stop 06/04/17 at 23:39; Status DC Propofol (Diprivan 200 Mg/20 ml Inj) 100 mg STK-MED ONCE IV PUSH ; Start at 14:53; Stop 06/04/17 at 14:54; Status DC Lactulose (Lactulose Liq) 30 ml QID PO Last administered on 06/10/17 08:57; Start 06/04/17 at 18:00 Rifaximin (Xifaxan) 550 mg BID PO Last administered on 06/10/17 08:57; Start 06/04/17 at 21:00 Cefazolin Sodium/ Dextrose 50 ml @ 150 mls/hr Q8H IV Last administered on 06/08 09:33; Start 06/04/17 at 17:00; Stop 06/08/17 at 09:00; Status DC Potassium Chloride/Dextrose 1,000 ml @ 84 mls/hr [id number] IV Last administered on 06/06/17 12:07; Start 06/05/17 at 13:00; Stop 06/06/17 at 20:34; Status DC Furosemide (Lasix Inj) 40 mg BID@09,18 IV PUSH Last administered on 06/09/17 09:56; Start 06/05/17 at 12:00; Stop 06/09/17 at 10:11; Status DC Iohexol (Omnipaque 350 Inj) 20 ml STK-MED ONCE IVCONTRAST Last administered on 06/05/17t 16:43; Start 06/05/17 at 16:59; Stop 06/05/17 at 17:01; Status DC Potassium Chloride 100 ml @ 50 mls/hr Q2H PRN IV For Potassium 2.8 - 3.2 mEq/L ; Start 06/06/17 at 01:00; Stop 06/07/17 at 23:44; Status DC Potassium Chloride 100 ml @ 50 mls/hr Q2H PRN IV For Potassium 2.8 - 3.2 mEq/L ; Start 06/06/17 at 01:00; Stop 06/07/17 at 23:45; Status DC Potassium Bicarb/ Potassium Chloride (K-Lyte Cl Eff) 50 meq UNSCH PRN PO For Potassium 3.3 - 3.5 mEq/L; Start 06/06/17 at 01:00; Stop 06/07/17 at 23:45; Status DC Potassium Chloride 100 ml @ 25 mls/hr UNSCH PRN IV For Potassium 3.3 - 3.5 mEq /L; Start 06/06/17 at 01:00; Stop 06/07/17 at 23:45; Status DC Potassium Chloride 100 ml @ 50 mls/hr Q2H PRN IV For Potassium 3.3 - 3.5 mEq/L ; Start 06/06/17 at 01:00; Stop 06/07/17 at 23:45; Status DC Magnesium Sulfate 4 gm/Sodium Chloride 100 ml @ 50 mls/hr UNSCH PRN IV For Magnesium 0.9 - 1.1 mg/dL; Start 06/06/17 at 01:00; Stop 06/07/17 at 23:44; Status DC Magnesium Oxide (Mag-Ox) 800 mg UNSCH PRN PO For Magnesium 1.2 - 1.6 mg/dL; Start 06/06/17 at 01:00; Stop 06/07/17 at 23:45; Status DC Magnesium Sulfate 2 gm/Sodium Chloride 100 ml @ 50 mls/hr UNSCH PRN IV For Magnesium 1.2 - 1.6 mg/dL; Start 06/06/17 at 01:00; Stop 06/07/17 at 23:44; Status DC Potassium Phosphate (K-Phos) 2,000 mg Q4H PRN PO For Phosphorus < 2.5 mg/dL; Start 06/06/17 at 01:00; Stop 06/07/17 at 23:45; Status DC Sodium Phosphate 30 mmol/Sodium Chloride 250 ml @ 42 mls/hr UNSCH PRN IV For Phosphorus < 2.5 mg/dL Last administered on 06/06/17 02:12; Start 06/06/17 at 01:00; Stop 06/07/17 at 23:45; Status DC Potassium Phosphate (K-Phos) 2,000 mg UNSCH PRN PO/TUBE SEE LABEL COMMENTS; Start 06/06/17 at 01:00; Stop 06/07/17 at 23:45; Status DC Potassium Phosphate 30 mmol/ Sodium Chloride 260 ml @ 42 mls/hr UNSCH PRN IV SEE LABEL COMMENTS; Start 06/06/17 at 01:00; Stop 06/07/17 at 23:45; Status DC Propofol 100 ml @ 3.78 mls/hr TITRATE PRN IV SEDATION Last administered on 06:15; Start 06/06/17 at 02:15; Stop 06/06/17 at 07:00; Status DC Oxycodone HCl (Roxicodone) 5 mg Q4H PRN PO pain 1-7; Start 06/06/17 at 20:30 Propranolol HCl (Inderal) 10 mg Q8HR PO Last administered on 06/10/17 05:05; Start 06/06/17 at 22:00 Dextrose 1,000 ml @ 75 mls/hr [id number] IV Last administered on 06/08/17 23:20 ; Start 06/07/17 at 10:00; Stop 06/09/17 at 10:11; Status DC Pantoprazole Sodium (Protonix Inj) 40 mg Q12H IV PUSH Last administered on 06/09 03:14; Start 06/07/17 at 16:00; Stop 06/09/17 at 10:11; Status DC Potassium Bicarb/ Potassium Chloride (K-Lyte Cl Eff) 75 meq ONCE ONCE PO Last administered on 06/08/17 12:59; Start 06/08/17 at 11:00; Stop 06/08/17 at 11:01; Status DC Potassium Bicarb/ Potassium Chloride (K-Lyte Cl Eff) 75 meq ONCE ONCE PO Last administered on 06/08/17 20:21; Start 06/08/17 at 20:00; Stop 06/08/17 at 20:05; Status DC Potassium Bicarb/ Potassium Chloride (K-Lyte Cl Eff) 75 meq ONCE ONCE PO Last administered on 06/09/17 09:57; Start 06/09/17 at 09:00; Stop 06/09/17 at 09:01; Status DC Furosemide (Lasix) 20 mg BID@ PO Last administered on 06/10/17 08:57; Start 06/09/17 at 18:00 Pantoprazole Sodium (Protonix) 40 mg Q12HR PO Last administered on 06/10/17 08 :55; Start 06/09/17 at 21:00 Potassium Bicarb/ Potassium Chloride (K-Lyte Cl Eff) 50 meq Q12HR PO Last administered on 06/10/17 08:58; Start 06/09/17 at 21:00 Potassium Chloride (KCl) 30 meq ONCE ONCE PO Last administered on 06/10/17 08 :56; Start 06/10/17 at 08:45; Stop 06/10/17 at 08:46; Status DC Side: Right Location: Subclavian A/P Problem List: (1) GI bleed ICD Code: K92.2 - Gastrointestinal hemorrhage, unspecified (2) Melena ICD Code: K92.1 - Melena Status: Acute (3) Hematemesis ICD Code: K92.0 - Hematemesis Status: Acute (4) Transaminitis ICD Code: R74.0 - Nonspecific elevation of levels of transaminase and lactic acid dehydrogenase [LDH] (5) Thrombocytopenia ICD Code: D69.6 - Thrombocytopenia, unspecified Status: Acute Assessment and Plan Hypoxic Respiratory failure 06/01 CTA pulmonary-suspected left upper lobe, left lower lobe pulmonary emboli, no pulmonary emboli on the right. Bilateral lower lobe atelectasis. Patchy pneumonia right lower lobe. Noted ill-defined right infrahilar/subcarinal mass 4.2 x 4.8 cm (likely esophageal varices- per CT abdomen report). Extensive discussion with Dr. Terrazas (IR) patient is not a candidate for catheter directed TPA in the setting of GI bleeding. Intubated 05/29 and extubated 06/06. Ultrasound bilateral lower extremities negative for DVT. 06/01 ECHO ejection fraction 55-60%. No RWMA. Trace TR. - Maintain O2 saturation greater than 92%. - DuoNeb's every 6 hours scheduled every 2 hours when necessary. - Patient on Ancef for MSSA pneumonia. d/c 06/07. - S/p IVC filter. - Pulmonology following. - Incentive spirometry. - PT/ OT. GI bleed/ Hematemesis 06/01 CT abdomen-splenomegaly, ascites, esophageal varices extend into the lower chest and may account for subcarinal and infrahilar masses. [place] portosystemic collaterals. Large esophageal varix. 3 bands applied by GI. 06/05 repeat EGD varices no active bleeding. Ammonia decreasing. - Status post protonic and octreotide gtt. -Patient on sandostatin and protonix - Monitor CBC and transfuse as needed. Transaminitis/liver cirrhosis Due to daily Tylenol use. S/p Mucomyst. AST 692, ALT 593, T bili 2.1. Liver ultrasound reveals cirrhotic liver image. Tylenol level negative. Hepatitis profile negative. - Workup per gastroenterology - Monitor PT/INR. - continue rifaximin, lactulose and pentoxifylline. Thrombocytopenia S/t liver disease. - Monitor CBC. - transfuse platelets if signs of acute bleeding, or less than 50,000. - Hematology following. Hypernatremia Most likely secondary to dehydration. Resolved. -s/p D5W at 75 ml/hr Hypokalemia Possibly s/t decreased PO intake. - Potassium scheduled. - monitor and replete as needed. Liver mass Noted on imaging. - Radiologist recommend hepatic MRI with Eovist. Dealt with MRI and they stated that we do not have Eovist here and he will have to get that done in a different facility. PPx: IVC filter Deconditioning -Patient does not have funding for SNF placement. Need to do aggressive therapy while hospitalized. Discharge Planning -Patient does not have funding for SNF placement. Need to do aggressive therapy while hospitalized. Will have physical therapist worker patient at least 5 times a week. Problem Qualifiers (1) Hematemesis: Qualified Codes: K92.0 - Hematemesis; R11.0 - Nausea Ericka Menard MD Jun 10, 2017 09:47
--- NOTE | 2017-06-10 10:15 | HHI.GIFU ---
Subjective Remarks Resting in bed. Mild epigastric discomfort after eating, but no n/v and no bleeding. States this subsides quickly. (Mercedes Richards) Objective Vitals I&O Vital Signs Date Time Temp Pulse Resp B/P (MAP) Pulse Ox O2 Delivery O2 Flow Rate FiO2 06/10/17 04:40 99.0 83 19 103/55 (71) 94 06/10/17 04:00 83 06/10/17 00:40 99.5 79 19 99/52 (68) 93 06/10/17 00:00 79 06/09/17 20:35 98.5 80 19 109/54 (72) 90 06/09/17 20:00 74 06/09/17 16:10 97.4 73 20 107/57 (74) 95 06/09/17 16:06 75 06/09/17 15:55 97.7 79 18 115/60 (78) 96 06/09/17 15:40 97.3 76 20 119/63 (81) 95 06/09/17 15:25 78 114/56 (75) 94 06/09/17 12:00 98.6 82 18 111/55 (73) 92 06/09/17 12:00 80 I/O 06/09/17 06/09/17 06/09/17 06/10/17 06/10/17 06/10/17 07:00 15:00 23:00 07:00 15:00 23:00 Intake Total 1000 ml 600 ml 720 ml Output Total 250 ml 700 ml 275 ml Balance -250 ml 1000 ml -100 ml 445 ml Intake Oral 600 ml 720 ml IV Total 1000 ml Output Urine Total 250 ml 700 ml 275 ml # Voids 2 1 # Bowel Movements 1 5 2 Laboratory Laboratory Tests Test 06/09/17 15:54 06/10/17 07:21 Potassium Level 3.1 3.3 White Blood Count 9.9 Red Blood Count 2.84 Hemoglobin 7.4 Hematocrit 22.7 Mean Corpuscular Volume 79.9 Mean Corpuscular Hemoglobin 26.1 Mean Corpuscular Hemoglobin Concent 32.6 Red Cell Distribution Width 18.9 Platelet Count 110 Mean Platelet Volume 8.9 Blood Urea Nitrogen 20 Creatinine 0.80 Random Glucose 97 Total Protein 5.1 Calcium Level 7.2 Sodium Level 143 Chloride Level 106 Carbon Dioxide Level 30.1 Anion Gap 7 Estimat Glomerular Filtration Rate 108 Protein Corrected Calcium 8.3 Date/Time Source Procedure Growth Status 06/04/17 05:35 Blood Peripheral Aerobic Blood Culture - Preliminary NO GROWTH IN 4 DAYS Resulted 06/04/17 05:35 Blood Peripheral Anaerobic Blood Culture - Preliminary NO GROWTH IN 4 DAYS Resulted 06/01/17 03:30 Sputum Endotracheal Gram Stain - Final Complete 06/01/17 03:30 Sputum Culture - Final Staphylococcus Aureus Complete 06/03/17 12:40 Urine Catheterized Urine Urine Culture - Final NO GROWTH IN 48 HOURS. Complete Imaging Last Impressions Chest X-Ray 06/09/17 0000 Signed Impressions: Service Date/Time: Friday, June 09, 2017 18:58 - CONCLUSION: 1. Left greater than right basilar consolidation and small effusions are not significantly changed. 2. Mildly enlarged heart similar to before. 3. Interim extubation. Nasogastric tube and right IJ central venous catheter also out. David Quintero MD IVC Filter Placement X-Ray 06/05/17 0000 Signed Impressions: Service Date/Time: Monday, June 05, 2017 16:23 - CONCLUSION: Uncomplicated inferior vena cava filter placement as above. A Bard Jamee retrievable filter was placed. Chetan Aguila MD Upper Extremity Ultrasound 06/01/17 0000 Signed Impressions: Service Date/Time: Thursday, June 01, 2017 13:47 - CONCLUSION: No evidence of upper extremity DVT on the right or left. Angel Paredes MD Lower Extremity Ultrasound 06/01/17 0000 Signed Impressions: Service Date/Time: Thursday, June 01, 2017 13:30 - CONCLUSION: No evidence of lower extremity DVT on the right or left. Angel Paredes MD CT Angiography 06/01/17 0000 Signed Impressions: Service Date/Time: Thursday, June 01, 2017 02:39 - CONCLUSION: 1. Suspected left upper lobe and left lower lobe pulmonary emboli. No pulmonary embolus on the right. 2. Right infrahilar/subcarinal mass. 3. Bilateral lower lobe atelectasis, right worse than left. Also patchy pneumonia of the right lower lobe. David Quintero MD Abdomen/Pelvis CT 06/01/17 0000 Signed Impressions: Service Date/Time: Thursday, June 01, 2017 02:39 - CONCLUSION: 1. Cirrhosis. Heterogeneously enhancing liver without a distinct/measurable focal lesion. 2. Marked splenomegaly, 10.3 x 17.6 x 18.1 cm. 3. Very severe portosystemic collaterals including gastroesophageal varices. The varices extend into the lower chest and probably account for the subcarinal/right infrahilar mass seen by chest CT. 4. Diffuse wall thickening of the colon, colitis versus secondary changes from cirrhosis. 5. Small ascites. Body wall edema/anasarca. David Quintero MD Liver Ultrasound 05/30/17 0000 Signed Impressions: Service Date/Time: May 09:04 - CONCLUSION: Cirrhotic liver appearance. Question focal right lobe mass. Recommend further evaluation with hepatic MRI with [facility]. David Terrazas MD Physical Exam HEENT: Normocephalic; atraumatic; CHEST: Respirations even/unlabored. Diminished CARDIAC: RRR ABDOMEN: Soft, distended with ascites (improving), hepatosplenomegaly; bowel sounds are present in all four quadrants. 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 S/P EGD (05/31/17)-----> Bleeding esophageal varices. Rpt. EGD with OGT placement (06/04/17)---> 1. Esophageal varices grade 3 old bands seen over variceal columns, og tube placed in stomach under direct visualization 2. Retroflexed views revealed a hiatal hernia 3. Retroflexed views revealed gastric varices. S/ P 6 units PRBC, HH 7.7/24.1. No active bleeding. PPI. - Anemia acute blood loss. S/P 6 units PRBC, HH 7.4/22.7. PPI. STABLE. - Coagulopathy/thrombocytopenia. Plt 110,000. INR 1.1. IMPROVING - Elevated LFTs. Liver US (05/30/17)---> Cirrhotic liver appearance. Question focal right lobe mass. Recommend further evaluation with hepatic MRI with [facility]. Hepatitis profile negative. STEPHANIE negative. AMA <20.0, ASMA neg. AFP 1.8. Ceruloplasmin 24, ALpha [address] Scan abdomen and pelvis to further evaluation. CT scan abdomen and pelvis with iv contrast (06/01/17)----> cirrhosis, heterogeneously enhancing liver without a distinct/measurable focal lesion, marked splenomegaly, 10.3 x 17.6 x 18.1 cm, very severe portosystemic collaterals including gastroesophageal varices. The varices extend into the lower chest and probably account for the subcarinal/right infrahilar mass seen by chest CT, diffuse wall thickening of the colon, colitis versus secondary changes from cirrhosis. Small ascites, body wall edema/anasarca. LFTs slowly trending down. T. Bili 1.9, AST 73, ALT 118, ALk PHosph 112 on 06/08. Pentoxifylline. - Hepatic encephalopathy with ammonia. Improved. Lactulose, Xifaxan. - AKIKO. Improved - Resp. Failure, PE, PNA. S/P IVC filter. S/P Extubation per [facility] - Family hx colon ca. Mother dx age 60 PLAN - Heart healthy 2 gram sodium diet - Protonix 40mg po BID - Cont. Xifaxan - Cont. Lactulose - Cont. Pentoxifylline - Monitor labs - Transfuse as needed - Supportive care - ETOH Cessation - Further recommendations to follow based on results of above - Pt seen and examined by myself and Dr. Mcdowell and this note is written on his behalf (Mercedes Richards) Physician Comments Patient seen and examined Agree with above Monitor labs Continue with current supportive care MRI suboptimal due to motion patient will need repeat MRI in the near future (Villa Mcdowell MD) Mercedes Richards Jun 10, 2017 10:15 Villa Mcdowell MD Jun 10, 2017 21:15
[2017-06-10 11:15] LABS: INDIRECT BILIRUBIN 1.1 MG/DL (0.0-0.8); TOTAL BILIRUBIN ADULT 2.7 MG/DL (0.2-1.0)
--- NOTE | 2017-06-10 12:09 | PD.ONC.PN ---
Subjective Subjective Remarks Afebrile overnight. patient resting in bed in nad. tired of being in the hospital. no appetite. Objective Data Date Time Temp Pulse Resp B/P (MAP) Pulse Ox O2 Delivery O2 Flow Rate FiO2 06/10/17 08:00 97.5 83 16 108/59 (75) 92 06/10/17 04:40 99.0 83 19 103/55 (71) 94 06/10/17 04:00 83 06/10/17 00:40 99.5 79 19 99/52 (68) 93 06/10/17 00:00 79 06/09/17 20:35 98.5 80 19 109/54 (72) 90 06/09/17 20:00 74 06/09/17 16:10 97.4 73 20 107/57 (74) 95 06/09/17 16:06 75 06/09/17 15:55 97.7 79 18 115/60 (78) 96 06/09/17 15:40 97.3 76 20 119/63 (81) 95 06/09/17 15:25 78 114/56 (75) 94 06/09/17 12:00 98.6 82 18 111/55 (73) 92 06/09/17 12:00 80 06/10/17 06/10/17 06/10/17 07:00 15:00 23:00 Intake Total 720 ml Output Total 275 ml Balance 445 ml Result Diagram: 06/10/1772006/10/17720 Laboratory Results Laboratory Tests Test 06/09/17 15:54 06/10/17 07:21 Potassium Level 3.1 MEQ/L 3.3 MEQ/L White Blood Count 9.9 TH/MM3 Red Blood Count 2.84 MIL/MM3 Hemoglobin 7.4 GM/DL Hematocrit 22.7 % Mean Corpuscular Volume 79.9 FL Mean Corpuscular Hemoglobin 26.1 PG Mean Corpuscular Hemoglobin Concent 32.6 % Red Cell Distribution Width 18.9 % Platelet Count 110 TH/MM3 Mean Platelet Volume 8.9 FL Blood Urea Nitrogen 20 MG/DL Creatinine 0.80 MG/DL Random Glucose 97 MG/DL Total Protein 5.1 GM/DL Calcium Level 7.2 MG/DL Sodium Level 143 MEQ/L Chloride Level 106 MEQ/L Carbon Dioxide Level 30.1 MEQ/L Anion Gap 7 MEQ/L Estimat Glomerular Filtration Rate 108 ML/MIN Protein Corrected Calcium 8.3 MG/DL Total Bilirubin 2.7 MG/DL Direct Bilirubin 1.6 MG/DL Indirect Bilirubin 1.1 MG/DL Aspartate Amino Transf (AST/SGOT) 60 U/L Alanine Aminotransferase (ALT/SGPT) 100 U/L Alkaline Phosphatase 138 U/L Albumin 1.6 GM/DL Administered Medications Medications (Trade) Dose Ordered Sig/Maksim Route PRN Reason Start Time Stop Time Status Last Admin Dose Admin Sodium Chloride (NS Flush) 2 ml BID IV FLUSH 05/30/17 09:00 06/10/17 08:58 Ondansetron HCl (Zofran Inj) 4 mg Q6HR PRN IV PUSH nausea 05/30/17 01:45 05/30/17 16:53 Miscellaneous Information Patient in critical care unit? Ass... [id number] .XX 05/30/17 04:15 05/30/17 04:15 Lactulose (Lactulose Liq) 30 ml QID PO 06/04/17 18:00 06/10/17 08:57 Rifaximin (Xifaxan) 550 mg BID PO 06/04/17 21:00 06/10/17 08:57 Propranolol HCl (Inderal) 10 mg Q8HR PO 06/06/17 22:00 06/10/17 05:05 Furosemide (Lasix) 20 mg BID@ PO 06/09/17 18:00 06/10/17 08:57 Pantoprazole Sodium (Protonix) 40 mg Q12HR PO 06/09/17 21:00 06/10/17 08:55 Objective Remarks GENERAL: Young man, lying in bed in nad. SKIN: Warm and dry. HEAD: Normocephalic. EYES: No injection or drainage. NECK: Supple, trachea midline. CARDIOVASCULAR: Regular rate and rhythm RESPIRATORY: anterior yost clear. GASTROINTESTINAL: Abdomen soft, mildly distended, nontender EXTREMITIES: No cyanosis. +anasarca. NEUROLOGICAL: awake and alert, normal speech. moving all extremities. Assessment/Plan Problem List: (1) Liver mass, right lobe ICD Codes: R16.0 - Hepatomegaly, not elsewhere classified Plan: 06/10: MRI hepatic protocol to evaluate liver mass. d/w MRI, they do not do MRI with [facility] inpatient. will obtain MRI with hepatic protocol for now. -- Ultrasound of the liver shows a questionable right lobe liver mass -- The radiologist recommends MRI for further evaluation. (2) Pulmonary embolism ICD Codes: I26.99 - Other pulmonary embolism without acute cor pulmonale Plan: 06/10: monitor CBC. 06/05: IVC filter placed -- CT angiogram showed suspicion for left upper lobe and left lower lobe pulmonary embolism -- Also noted was a right infrahilar subcarinal mass -- Upper and lower ultrasound extremities showed no evidence of DVT. Hx/Workup: Initially presented to the emergency room with hematemesis. Recent upper endoscopy with short bleeding varices. 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 He has been intubated to protect his airway. (3) GI bleed ICD Codes: K92.2 - Gastrointestinal hemorrhage, unspecified Plan: -- GI following -- EGD showed bleeding esophageal varices. --transfuse as needed --on sandostatin and protonix (4) Mass of lung ICD Codes: R91.8 - Other nonspecific abnormal finding of lung field Plan: --CTA shows subcarinal mass. may need biopsy once stabilized Assessment 41 y/o male admitted with GI bleeding, found to also have a pulmonary embolism. Attending Statement awake and alert Denies h/o heavy alcohol states that his cousin also has cirrhosis ( familial cirrhosis??). GI to follow for cause of cirrhosis MRI liver for mass. The exam, history, and the medical decision-making described in the above note were completed with the assistance of the mid-level provider. I reviewed and agree with the findings presented. I attest that I had a [id number] encounter with the patient on the same day, and personally performed and documented my assessment and findings in the medical record. Kiara Lange Jun 10, 2017 11:34 Irma Pierson MD Jun 10, 2017 15:52
[2017-06-10] MEDS ORDERED: GADODIAMIDE PF 287 MG/ML 5 ML VIAL (for RAD MRI) IVCONTRAST ONE (12:37)
[2017-06-10] MEDS: CALCIUM CARBONATE 1.25 GM (CA 500 MG) TAB PO SCH ×2 (13:04→20:42)
--- NOTE | 2017-06-10 14:32 | RADRPT ---
EXAM DATE/TIME: 06/10/2017 12:01 [place] COMPARISON: CT ABDOMEN & PELVIS W CONTRAST, June 01, 2017, 2:39. INDICATIONS : Liver mass. CONTRAST: 20 cc Omniscan (gadodiamide) IV MEDICAL HISTORY : Cirrhosis. SURGICAL HISTORY : None. ENCOUNTER: Subsequent ACUITY: 4-6 days PAIN SCORE: 4/10 LOCATION: Abdomen TECHNIQUE: Multiplanar, multisequence magnetic resonance imaging of the abdomen was performed without and with i ntravenous contrast. FINDINGS: Imaging quality is severely degraded secondary to patient's size, motion artifact, and poor contrast- enhancement. LIVER: The liver measures 19.2 cm and demonstrates a lobulated contour. There is poor evaluation of the live r parenchyma, as described above. Based mainly on the diffusion sequence, no focal liver lesion is id entified. BILIARY: There is no intra- or extra-hepatic biliary ductal dilatation. Gallbladder contains no stones. SPLEEN: Enlarged measuring 20 cm in length. No focal lesion is seen. PANCREAS: No acute abnormality is identified. ADRENALS: No acute abnormality is identified. KIDNEYS: No hydronephrosis or mass. OTHER: Aorta is nonaneurysmal. There is small volume of ascites. Enlarged collateral vessels are present in the upper abdomen including esophageal varices. CONCLUSION: 1. This examination is limited secondary to artifact related to patient motion, patient size, and poo r contrast-enhancement from uncertain etiology. There is mild hepatomegaly with features characterist ic of cirrhosis. However, no liver lesion is identified. Given the quality of the examination, sugges t followup liver MRI when patient condition permits for a better examination. 2. There are findings related to portal hypertension including splenomegaly, ascites, and esophageal varices. David Rhodes MD on June 10, 2017 at 14:21 Board Certified Radiologist. This report was verified electronically.
--- NOTE | 2017-06-10 17:32 | HHI.PR ---
Subjective Remarks alert no sob [facility] Objective Vital Signs Date Time Temp Pulse Resp B/P (MAP) Pulse Ox O2 Delivery O2 Flow Rate FiO2 06/10/17 14:26 78 06/10/17 12:45 98.6 84 18 109/59 (76) 90 06/10/17 09:26 85 06/10/17 08:00 97.5 83 16 108/59 (75) 92 06/10/17 04:40 99.0 83 19 103/55 (71) 94 06/10/17 04:00 83 06/10/17 00:40 99.5 79 19 99/52 (68) 93 06/10/17 00:00 79 06/09/17 20:35 98.5 80 19 109/54 (72) 90 06/09/17 20:00 74 I/O 06/09/17 06/09/17 06/09/17 06/10/17 06/10/17 06/10/17 07:00 15:00 23:00 07:00 15:00 23:00 Intake Total 1000 ml 600 ml 720 ml Output Total 250 ml 700 ml 275 ml Balance -250 ml 1000 ml -100 ml 445 ml Intake Oral 600 ml 720 ml IV Total 1000 ml Output Urine Total 250 ml 700 ml 275 ml # Voids 2 1 # Bowel Movements 1 5 2 Result Diagram: 06/10/1772006/10/17720 Objective Remarks GENERAL: SKIN: Warm and dry. HEAD: Atraumatic. Normocephalic. EYES: Pupils equal and round. No scleral icterus. No injection or drainage. ENT: No nasal bleeding or discharge. Mucous membranes pink and moist. NECK: Trachea midline. No JVD. CARDIOVASCULAR: Regular rate and rhythm. RESPIRATORY: No accessory muscle use. Clear to auscultation. Breath sounds equal bilaterally. GASTROINTESTINAL: Abdomen soft, non-tender, nondistended. Hepatic and splenic margins not palpable. MUSCULOSKELETAL: Extremities without clubbing, cyanosis, or edema. No obvious deformities. NEUROLOGICAL: Awake and alert. No obvious cranial nerve deficits. Motor grossly within normal limits. Five out of 5 muscle strength in the arms and legs. Normal speech. PSYCHIATRIC: Appropriate mood and affect; insight and judgment normal. Assessment and Plan Assessment and Plan respiratory failure pneumonia pulmonary embolism Gi bleed portal htn CHEST [id number] STABLE PLAN o2 as needed ANTIBIOTICS IVC FILTER Yosef,Yosef Wadie MD Jun 10, 2017 17:32
[2017-06-11] VITALS (9 sets, daily range): BP systolic 105–116; BP diastolic 55–73; PULSE 78–91; RESP 17–19; TEMP 97.1–99.9; O2SAT 90–98
[2017-06-11] MEDS: PROPRANOLOL HCL 10 MG TAB PO SCH ×3 (05:34→21:40)
[2017-06-11 08:42] LABS: AUTOMATED NEUTROPHIL # 5.5 TH/MM3 (1.8-7.7); BASOPHIL % 0.6 % (0.0-2.0); EOSINOPHIL # 0.3 TH/MM3 (0-0.4); EOSINOPHIL % 3.7 % (0.0-4.0); HEMATOCRIT 23.2 % (39.0-51.0); HEMO FLAGS DIFF FINAL; LYMPH % 12.8 % (9.0-44.0); LYMPHOCYTE # 0.9 TH/MM3 (1.0-4.8); MEAN CORPUSCULAR HEMOGLOBIN 25.5 PG (27.0-34.0); MEAN CORPUSCULAR HGB CONC 31.5 % (32.0-36.0); MONO % 6.2 % (0.0-8.0); NEUT % 76.7 % (16.0-70.0); PLATELET COUNT 117 TH/MM3 (150-450); RED BLOOD COUNT 2.87 MIL/MM3 (4.50-5.90); RED CELL DISTRIBUTION WIDTH 18.6 % (11.6-17.2); WHITE BLOOD COUNT 7.2 TH/MM3 (4.0-11.0)
[2017-06-11 09:16] LABS: BICARBONATE 28.4 MEQ/L (21.0-32.0); CALCIUM-PROTEIN CORRECTED 8.2 MG/DL (8.5-10.1); TOTAL BILIRUBIN ADULT 2.5 MG/DL (0.2-1.0)
[2017-06-11] MEDS: FUROSEMIDE 20 MG TAB PO SCH ×2 (09:45→18:14)
[2017-06-11] MEDS: RIFAXIMIN 550 MG TAB PO SCH ×2 (09:45→21:40)
[2017-06-11] MEDS: CALCIUM CARBONATE 1.25 GM (CA 500 MG) TAB PO SCH ×2 (09:45→21:40)
[2017-06-11] MEDS: PANTOPRAZOLE SOD 40 MG DELAYED RELEASE TAB PO SCH ×2 (09:45→21:40)
[2017-06-11] MEDS: POTASSIUM CHLORIDE 25 MEQ EFFERVESCENT TAB PO SCH ×2 (09:46→21:00)
[2017-06-11] MEDS: SODIUM CHLORIDE 0.9% FLUSH 10 ML FLUSH IV FLUSH SCH ×2 (09:47→21:40)
--- NOTE | 2017-06-11 10:30 | HHI.PR ---
Subjective Remarks Follow-up for severe liver disease and hematemesis Patient denies any GI bleed. He stated he is doing well. He remains afebrile and has no other complaints. Objective Vitals Vital Signs Date Time Temp Pulse Resp B/P (MAP) Pulse Ox O2 Delivery O2 Flow Rate FiO2 06/11/17 08:00 97.1 78 18 109/59 (76) 90 06/11/17 07:15 84 06/11/17 04:00 98.9 82 17 110/58 (75) 94 06/11/17 00:00 99.2 88 17 108/55 (72) 93 06/10/17 21:06 80 06/10/17 21:02 96 Nasal Cannula 5.00 06/10/17 20:00 99.1 86 17 105/52 (69) 92 06/10/17 18:15 Nasal Cannula 5.00 06/10/17 18:15 98.7 16 92 06/10/17 17:03 83 06/10/17 16:00 100.1 84 18 116/64 (81) 93 06/10/17 14:26 78 06/10/17 12:45 98.6 84 18 109/59 (76) 90 I/O 06/10/17 06/10/17 06/10/17 06/11/17 06/11/17 06/11/17 07:00 15:00 23:00 07:00 15:00 23:00 Intake Total 720 ml 480 ml Output Total 275 ml 1200 ml 400 ml 650 ml Balance 445 ml -720 ml -400 ml -650 ml Intake Oral 720 ml 480 ml Output Urine Total 275 ml 1200 ml 400 ml 650 ml # Voids 1 # Bowel Movements 2 4 1 Result Diagram: 06/11/17 0730 06/11/17 0730 Imaging Last Impressions Abdomen MRI 06/10/17 0000 Signed Impressions: Service Date/Time: Saturday, June 10, 2017 12:01 - CONCLUSION: 1. This examination is limited secondary to artifact related to patient motion, patient size, and poor contrast-enhancement from uncertain etiology. There is mild hepatomegaly with features characteristic of cirrhosis. However, no liver lesion is identified. Given the quality of the examination, suggest followup liver MRI when patient condition permits for a better examination. 2. There are findings related to portal hypertension including splenomegaly, ascites, and esophageal varices. David Rhodes MD Chest X-Ray 06/09/17 Signed Impressions: Service Date/Time: Friday, June 09, 2017 18:58 - CONCLUSION: 1. Left greater than right basilar consolidation and small effusions are not significantly changed. 2. Mildly enlarged heart similar to before. 3. Interim extubation. Nasogastric tube and right IJ central venous catheter also out. David Quintero MD IVC Filter Placement X-Ray 06/05/17 Signed Impressions: Service Date/Time: Monday, June 05, 2017 16:23 - CONCLUSION: Uncomplicated inferior vena cava filter placement as above. A Bard Tucker retrievable filter was placed. Chetan Aguila MD Upper Extremity Ultrasound 06/01/17 Signed Impressions: Service Date/Time: Thursday, June 01, 2017 13:47 - CONCLUSION: No evidence of upper extremity DVT on the right or left. Angel Paredes MD Lower Extremity Ultrasound 06/01/17 Signed Impressions: Service Date/Time: Thursday, June 01, 2017 13:30 - CONCLUSION: No evidence of lower extremity DVT on the right or left. Angel Paredes MD CT Angiography 06/01/17 Signed Impressions: Service Date/Time: Thursday, June 01, 2017 02:39 - CONCLUSION: 1. Suspected left upper lobe and left lower lobe pulmonary emboli. No pulmonary embolus on the right. 2. Right infrahilar/subcarinal mass. 3. Bilateral lower lobe atelectasis, right worse than left. Also patchy pneumonia of the right lower lobe. David Quintero MD Abdomen/Pelvis CT 06/01/17 Signed Impressions: Service Date/Time: Thursday, June 01, 2017 02:39 - CONCLUSION: 1. Cirrhosis. Heterogeneously enhancing liver without a distinct/measurable focal lesion. 2. Marked splenomegaly, 10.3 x 17.6 x 18.1 cm. 3. Very severe portosystemic collaterals including gastroesophageal varices. The varices extend into the lower chest and probably account for the subcarinal/right infrahilar mass seen by chest CT. 4. Diffuse wall thickening of the colon, colitis versus secondary changes from cirrhosis. 5. Small ascites. Body wall edema/anasarca. David Quintero MD Liver Ultrasound 05/30/17 Signed Impressions: Service Date/Time: May 09:04 - CONCLUSION: Cirrhotic liver appearance. Question focal right lobe mass. Recommend further evaluation with hepatic MRI with Eovist. David Terrazas MD Objective Remarks GENERAL: in NAD SKIN: Warm and dry. HEAD: Normocephalic. EYES: No scleral icterus. No injection or drainage. NECK: Supple, trachea midline. No JVD or lymphadenopathy. CARDIOVASCULAR: Regular rate and rhythm without murmurs, gallops, or rubs. RESPIRATORY: Breath sounds equal bilaterally. No accessory muscle use. GASTROINTESTINAL: Abdomen soft, non-tender, nondistended. MUSCULOSKELETAL: No cyanosis, or edema. BACK: Nontender without obvious deformity. No CVA tenderness. Procedures 05/30- EGD 06/04-EGD Medications and IVs Current Medications Ondansetron HCl (Zofran Inj) 4 mg ONCE ONCE IVP Last administered on 05/30/17 00:04; Start 05/30/17 at 00:00; Stop 05/30/17 at 00:01; Status DC Sodium Chloride 1,000 ml @ 1,000 mls/hr Q1H IV Last administered on 05/30/17 00:03; Start 05/29/17 at 23:46; Stop 05/30/17 at 00:45; Status DC Sodium Chloride (NS Flush) 2 ml UNSCH PRN IVF FLUSH AFTER USING IV ACCESS; Start 05/30/17 at 00:00; Stop 05/31/17 at 22:04; Status DC Pantoprazole Sodium 80 mg/ Sodium Chloride 35 ml @ 420 mls/hr Q5M ONCE IV Last administered on 05/30/17 00:05; Start 05/29/17 at 23:46; Stop 05/29/17 at 23: 50; Status DC Pantoprazole Sodium 80 mg/ Sodium Chloride 100 ml @ 10 mls/hr Q10H IV Last administered on 06/07/17 06:00; Start 05/29/17 at 23:46; Stop 06/07/17 at 14:50 ; Status DC Sodium Chloride 1,000 ml @ 100 mls/hr Q10H IV Last administered on 05/31/17 13 :11; Start 05/30/17 at 01:04; Stop 06/01/17 at 05:49; Status DC Sodium Chloride (NS Flush) 2 ml UNSCH PRN IV FLUSH FLUSH AFTER USING IV ACCESS ; Start 05/30/17 at 01:15 Sodium Chloride (NS Flush) 2 ml BID IV FLUSH Last administered on 06/11/17 09: 47; Start 05/30/17 at 09:00 Naloxone HCl (Narcan Inj) 0.4 mg UNSCH PRN IV SEE LABEL COMMENTS; Start at 01:15 Ondansetron HCl (Zofran Inj) 4 mg Q6HR PRN IV PUSH nausea Last administered on 05/30/17 16:53; Start 05/30/17 at 01:45 Ondansetron HCl (Zofran Inj) 4 mg ONCE ONCE IV PUSH Last administered on 02:34; Start 05/30/17 at 02:30; Stop 05/30/17 at 02:31; Status DC Octreotide Acetate (SandoSTATIN INJ) 50 mcg ONCE ONCE IV PUSH Last administered on 05/30/17 05:49; Start 05/30/17 at 03:45; Stop 05/30/17 at 03:46; Status DC Octreotide Acetate 500 mcg/ Sodium Chloride 500 ml @ 50 mls/hr Q10H IV Last administered on 06/07/17 04:19; Start 05/30/17 at 03:31; Stop 06/07/17 at 14:50 ; Status DC Miscellaneous Information Patient in critical care unit? Ass... [id number] .XX Last administered on 05/30/17 04:15; Start 05/30/17 at 04:15 Chlorhexidine Gluconate (Chlorhexidine 2% Cloth) 3 pack DAILY@04 TOPICAL Last administered on 06/05/17 03:23; Start 05/31/17 at 04:00; Stop 06/04/17 at 04:01 ; Status DC Chlorhexidine Gluconate (Chlorhexidine 2% Cloth) 3 pack UNSCH PRN TOPICAL HYGIENIC CARE; Start 05/30/17 at 04:15; Stop 06/04/17 at 04:13; Status DC Magnesium Citrate (Citroma Liq) 300 ml ONCE ONCE PO Last administered on 15:23; Start 05/30/17 at 16:00; Stop 05/30/17 at 17:42; Status DC Magnesium Citrate (Citroma Liq) 300 ml ONCE ONCE PO ; Start 05/30/17 at 18:00; Stop 05/30/17 at 18:00; Status DC Propofol 100 ml @ As Directed STK-MED ONCE .ROUTE Last administered on 20:00; Start 05/30/17 at 19:38; Stop 05/30/17 at 19:39; Status DC Phenylephrine HCl (Neosynephrine Inj) 40 mg STK-MED ONCE .ROUTE ; Start 05/30/17 at 19:45; Stop 05/30/17 at 19:46; Status DC Propofol (Diprivan 200 Mg/20 ml Inj) 290 mg STK-MED ONCE IV PUSH ; Start at 19:50; Stop 05/30/17 at 20:12; Status DC Phenylephrine HCl 40 mg/Dextrose 500 ml @ 30 mls/hr TITRATE PRN IV Blood Pressure Management Last administered on 06/01/17 07:09; Start 05/30/17 at 21:30 ; Stop 06/01/17 at 09:51; Status DC Miscellaneous Information ALL NURSING DEPARTME... UNSCH PRN .XX SEE LABEL COMMENTS; Start 05/30/17 at 19:06; Stop 05/31/17 at 19:05; Status DC Propofol 100 ml @ As Directed STK-MED ONCE .ROUTE Last administered on 22:52; Start 05/30/17 at 22:14; Stop 05/30/17 at 22:15; Status DC Propofol 100 ml @ 3.111 mls/ hr TITRATE PRN IV SEDATION Last administered on 19:02; Start 05/30/17 at 22:30; Stop 06/06/17 at 02:06; Status DC Sodium Chloride 2,000 ml @ 999 mls/hr ONCE ONCE IV Last administered on 01:00; Start 05/31/17 at 04:00; Stop 05/31/17 at 06:00; Status DC Ondansetron HCl (Zofran Inj) 4 mg STK-MED ONCE IV PUSH ; Start 05/30/17 at 12:00 ; Stop 05/31/17 at 10:14; Status DC Sodium Chloride 1,000 ml @ 999 mls/hr BOLUS ONCE IV Last administered on 15:19; Start 05/31/17 at 12:00; Stop 05/31/17 at 13:23; Status DC Fentanyl Citrate 250 ml @ 10 mls/hr TITRATE PRN IV SEDATION; Start 05/31/17 at 19:45; Status UNV Midazolam HCl 100 ml @ 3 mls/hr TITRATE PRN IV SEDATION; Start 05/31/17 at 19:45 ; Status UNV Midazolam HCl (Versed Inj) 2 mg ONCE ONCE IV PUSH Last administered on 19:45; Start 05/31/17 at 19:45; Stop 05/31/17 at 20:04; Status DC Midazolam HCl 100 ml @ 3 mls/hr TITRATE PRN IV SEDATION Last administered on 23:48; Start 05/31/17 at 19:45; Stop 06/03/17 at 14:04; Status DC Midazolam HCl (Versed Inj) 5 mg STK-MED ONCE .ROUTE Last administered on 20:11; Start 05/31/17 at 19:52; Stop 05/31/17 at 19:53; Status DC Fentanyl Citrate 250 ml @ 5 mls/hr TITRATE PRN IV SEDATION Last administered on 06/06/17 06:15; Start 05/31/17 at 21:30; Stop 06/06/17 at 20:34; Status DC Vancomycin HCl 1000 mg/Sodium Chloride 250 ml @ 250 mls/hr ONCE ONCE IV ; Start 05/31/17 at 21:30; Stop 05/31/17 at 21:39; Status DC Pharmacy Profile Note 0 ml @ 0 mls/hr UNSCH OTHER ; Start 05/31/17 at 21:30; Stop 06/02/17 at 11:38; Status DC Cefepime HCl 2000 mg/Sodium Chloride 100 ml @ 200 mls/hr Q12H IV Last administered on 06/02/17 08:34; Start 05/31/17 at 22:00; Stop 06/02/17 at 11:38 ; Status DC Azithromycin 500 mg/Sodium Chloride 250 ml @ 250 mls/hr Q24H IV Last administered on 06/01/17 21:47; Start 05/31/17 at 22:00; Stop 06/02/17 at 11:38; Status DC Calcium Gluconate 2 gm/Sodium Chloride 120 ml @ 120 mls/hr ONCE ONCE IV Last administered on 05/31/17 22:49; Start 05/31/17 at 23:00; Stop 05/31/17 at 23:59; Status DC Acetaminophen (Ofirmev 1000 Mg/ 100 ml Inj) 650 mg ONCE ONCE IV Last administered on 05/31/17 21:45; Start 05/31/17 at 21:45; Stop 05/31/17 at 21:46; Status DC Sodium Chloride 1,000 ml @ 999 mls/hr BOLUS ONCE IV Last administered on 21:30; Start 05/31/17 at 21:30; Stop 05/31/17 at 22:30; Status DC Sodium Chloride 1,000 ml @ 999 mls/hr BOLUS ONCE IV Last administered on 21:48; Start 05/31/17 at 22:30; Stop 05/31/17 at 23:30; Status DC Vancomycin HCl 2500 mg/Sodium Chloride 525 ml @ 250 mls/hr ONCE ONCE IV Last administered on 06/01/17 02:12; Start 05/31/17 at 23:00; Stop 06/01/17 at 01:05; Status DC Vancomycin HCl 1500 mg/Sodium Chloride 515 ml @ 257.5 mls/ hr Q12H IV Last administered on 06/02/17 12:13; Start 06/01/17 at 12:00; Stop 06/02/17 at 15:46 ; Status DC Miscellaneous Information SPECIFIC LAB TO BE ... ONCE ONCE .XX Last administered on 06/02/17 11:45; Start 06/02/17 at 11:45; Stop 06/02/17 at 11:46 ; Status DC Iodixanol (VISIPAQUE 320 INJ (Rad CT)) 89 ml STK-MED ONCE IV Last administered on 06/01/17 02:45; Start 06/01/17 at 02:45; Stop 06/01/17 at 02:46; Status DC Sodium Bicarbonate 150 meq/Dextrose 1,150 ml @ 75 mls/hr [id number] IV Last administered on 06/03/17 07:43; Start 06/01/17 at 06:00; Stop 06/03/17 at 14:04 ; Status DC Phenylephrine HCl 160 mg/Dextrose 500 ml @ 7.5 mls/hr TITRATE PRN IV Blood Pressure Management Last administered on 06/03/17 04:34; Start 06/01/17 at 10:00 ; Stop 06/03/17 at 23:56; Status DC Pharmacy Profile Note 0 ml @ 0 mls/hr UNSCH OTHER ; Start 06/02/17 at 11:45; Stop 06/02/17 at 15:46; Status DC Lactulose (Lactulose Liq) 30 ml QID PO ; Start 06/02/17 at 13:00; Stop 06/02/17 at 14:05; Status DC Rifaximin (Xifaxan) 550 mg BID PO ; Start 06/02/17 at 12:15; Stop 06/02/17 at 14 :05; Status DC Lactulose 300 ml/ Sterile Water 1,000 ml @ 0 mls/hr Q6H RECTAL Last administered on 06/04/17 14:18; Start 06/02/17 at 14:00; Stop 06/04/17 at 15:02 ; Status DC Linezolid 300 ml @ 300 mls/hr Q12H IV Last administered on 06/03/17 04:25; Start 06/02/17 at 16:00; Stop 06/03/17 at 12:12; Status DC Cefepime HCl 2000 mg/Sodium Chloride 100 ml @ 200 mls/hr Q8HR IV Last administered on 06/04/17 14:18; Start 06/03/17 at 14:00; Stop 06/04/17 at 16:20 ; Status DC Pharmacy Profile Note 0 ml @ 0 mls/hr UNSCH OTHER ; Start 06/03/17 at 12:15; Stop 06/04/17 at 16:20; Status DC Lactated Ringer's 1,000 ml @ 84 mls/hr [id number] IV Last administered on 03:21; Start 06/03/17 at 14:15; Stop 06/05/17 at 11:45; Status DC Vancomycin HCl 1500 mg/Sodium Chloride 515 ml @ 257.5 mls/ hr Q12H IV Last administered on 06/04/17 16:17; Start 06/03/17 at 16:00; Stop 06/04/17 at 16:20 ; Status DC Miscellaneous Information SPECIFIC LAB TO BE NICOLE... ONCE ONCE .XX ; Start 06/05 at 03:45; Stop 06/05/17 at 03:46; Status Cancel Acetylcysteine (Acetadote Inj) search Sets Overdose- ONCE IV ; Start 06/03/17 at 17:30; Status UNV Acetylcysteine 17839 mg/Dextrose 275 ml @ 200 mls/hr ONCE ONCE IV Last administered on 06/03/17 19:43; Start 06/03/17 at 19:00; Stop 06/03/17 at 20:22 ; Status DC Acetylcysteine 5000 mg/Dextrose 525 ml @ 125 mls/hr ONCE ONCE IV Last administered on 06/03/17 21:15; Start 06/03/17 at 20:00; Stop 06/04/17 at 00:11 ; Status DC Acetylcysteine 41685 mg/Dextrose 1,050 ml @ 62.5 mls/hr ONCE ONCE IV Last administered on 06/04/17 00:09; Start 06/04/17 at 00:00; Stop 06/04/17 at 16:47 ; Status DC Lactated Ringer's 1,000 ml @ 999 mls/hr BOLUS ONCE IV Last administered on 00:08; Start 06/04/17 at 00:00; Stop 06/04/17 at 01:00; Status DC Sodium Chloride 250 ml @ 15 mls/hr ONCE ONCE IV Last administered on 06:07; Start 06/04/17 at 01:45; Stop 06/04/17 at 18:24; Status DC Sodium Chloride 250 ml @ 15 mls/hr ONCE ONCE IV Last administered on 10:05; Start 06/04/17 at 07:00; Stop 06/04/17 at 23:39; Status DC Propofol (Diprivan 200 Mg/20 ml Inj) 100 mg STK-MED ONCE IV PUSH ; Start at 14:53; Stop 06/04/17 at 14:54; Status DC Lactulose (Lactulose Liq) 30 ml QID PO Last administered on 06/10/17 20:42; Start 06/04/17 at 18:00; Stop 06/11/17 at 09:23; Status DC Rifaximin (Xifaxan) 550 mg BID PO Last administered on 06/11/17 09:45; Start 06/04/17 at 21:00 Cefazolin Sodium/ Dextrose 50 ml @ 150 mls/hr Q8H IV Last administered on 06/08 09:33; Start 06/04/17 at 17:00; Stop 06/08/17 at 09:00; Status DC Potassium Chloride/Dextrose 1,000 ml @ 84 mls/hr [id number] IV Last administered on 06/06/17 12:07; Start 06/05/17 at 13:00; Stop 06/06/17 at 20:34; Status DC Furosemide (Lasix Inj) 40 mg BID@09,18 IV PUSH Last administered on 06/09/17 09:56; Start 06/05/17 at 12:00; Stop 06/09/17 at 10:11; Status DC Iohexol (Omnipaque 350 Inj) 20 ml STK-MED ONCE IVCONTRAST Last administered on 06/05/17 16:43; Start 06/05/17 at 16:59; Stop 06/05/17 at 17:01; Status DC Potassium Chloride 100 ml @ 50 mls/hr Q2H PRN IV For Potassium 2.8 - 3.2 mEq/L ; Start 06/06/17 at 01:00; Stop 06/07/17 at 23:44; Status DC Potassium Chloride 100 ml @ 50 mls/hr Q2H PRN IV For Potassium 2.8 - 3.2 mEq/L ; Start 06/06/17 at 01:00; Stop 06/07/17 at 23:45; Status DC Potassium Bicarb/ Potassium Chloride (K-Lyte Cl Eff) 50 meq UNSCH PRN PO For Potassium 3.3 - 3.5 mEq/L; Start 06/06/17 at 01:00; Stop 06/07/17 at 23:45; Status DC Potassium Chloride 100 ml @ 25 mls/hr UNSCH PRN IV For Potassium 3.3 - 3.5 mEq /L; Start 06/06/17 at 01:00; Stop 06/07/17 at 23:45; Status DC Potassium Chloride 100 ml @ 50 mls/hr Q2H PRN IV For Potassium 3.3 - 3.5 mEq/L ; Start 06/06/17 at 01:00; Stop 06/07/17 at 23:45; Status DC Magnesium Sulfate 4 gm/Sodium Chloride 100 ml @ 50 mls/hr UNSCH PRN IV For Magnesium 0.9 - 1.1 mg/dL; Start 06/06/17 at 01:00; Stop 06/07/17 at 23:44; Status DC Magnesium Oxide (Mag-Ox) 800 mg UNSCH PRN PO For Magnesium 1.2 - 1.6 mg/dL; Start 06/06/17 at 01:00; Stop 06/07/17 at 23:45; Status DC Magnesium Sulfate 2 gm/Sodium Chloride 100 ml @ 50 mls/hr UNSCH PRN IV For Magnesium 1.2 - 1.6 mg/dL; Start 06/06/17 at 01:00; Stop 06/07/17 at 23:44; Status DC Potassium Phosphate (K-Phos) 2,000 mg Q4H PRN PO For Phosphorus < 2.5 mg/dL; Start 06/06/17 at 01:00; Stop 06/07/17 at 23:45; Status DC Sodium Phosphate 30 mmol/Sodium Chloride 250 ml @ 42 mls/hr UNSCH PRN IV For Phosphorus < 2.5 mg/dL Last administered on 06/06/17 02:12; Start 06/06/17 at 01:00; Stop 06/07/17 at 23:45; Status DC Potassium Phosphate (K-Phos) 2,000 mg UNSCH PRN PO/TUBE SEE LABEL COMMENTS; Start 06/06/17 at 01:00; Stop 06/07/17 at 23:45; Status DC Potassium Phosphate 30 mmol/ Sodium Chloride 260 ml @ 42 mls/hr UNSCH PRN IV SEE LABEL COMMENTS; Start 06/06/17 at 01:00; Stop 06/07/17 at 23:45; Status DC Propofol 100 ml @ 3.78 mls/hr TITRATE PRN IV SEDATION Last administered on t 06:15; Start 06/06/17 at 02:15; Stop 06/06/17 at 07:00; Status DC Oxycodone HCl (Roxicodone) 5 mg Q4H PRN PO pain 1-7; Start 06/06/17 at 20:30 Propranolol HCl (Inderal) 10 mg Q8HR PO Last administered on 06/11/17 05:34; Start 06/06/17 at 22:00 Dextrose 1,000 ml @ 75 mls/hr [id number] IV Last administered on 06/08/17 23:20 ; Start 06/07/17 at 10:00; Stop 06/09/17 at 10:11; Status DC Pantoprazole Sodium (Protonix Inj) 40 mg Q12H IV PUSH Last administered on 06/09 03:14; Start 06/07/17 at 16:00; Stop 06/09/17 at 10:11; Status DC Potassium Bicarb/ Potassium Chloride (K-Lyte Cl Eff) 75 meq ONCE ONCE PO Last administered on 06/08/17 12:59; Start 06/08/17 at 11:00; Stop 06/08/17 at 11:01; Status DC Potassium Bicarb/ Potassium Chloride (K-Lyte Cl Eff) 75 meq ONCE ONCE PO Last administered on 06/08/17 20:21; Start 06/08/17 at 20:00; Stop 06/08/17 at 20:05; Status DC Potassium Bicarb/ Potassium Chloride (K-Lyte Cl Eff) 75 meq ONCE ONCE PO Last administered on 06/09/17 09:57; Start 06/09/17 at 09:00; Stop 06/09/17 at 09:01; Status DC Furosemide (Lasix) 20 mg BID@09,18 PO Last administered on 06/11/17 09:45; Start 06/09/17 at 18:00 Pantoprazole Sodium (Protonix) 40 mg Q12HR PO Last administered on 06/11/17 09 :45; Start 06/09/17 at 21:00 Potassium Bicarb/ Potassium Chloride (K-Lyte Cl Eff) 50 meq Q12HR PO Last administered on 06/10/17 08:58; Start 06/09/17 at 21:00; Stop 06/10/17 at 09:44 ; Status DC Potassium Chloride (KCl) 30 meq ONCE ONCE PO Last administered on 06/10/17 08 :56; Start 06/10/17 at 08:45; Stop 06/10/17 at 08:46; Status DC Calcium Carbonate (Oscal) 500 mg Q12HR PO Last administered on 06/11/17 09:45 ; Start 06/10/17 at 10:00 Potassium Bicarb/ Potassium Chloride (K-Lyte Cl Eff) 75 meq Q12HR PO Last administered on 06/11/17 09:46; Start 06/10/17 at 21:00 Gadodiamide (Omniscan Pf Inj) 19 ml STK-MED ONCE IVCONTRAST Last administered on 06/10/17 12:37; Start 06/10/17 at 12:37; Stop 06/10/17 at 12:39; Status DC Lactulose (Lactulose Liq) 30 ml BID PO ; Start 06/11/17 at 21:00 Side: Right Location: Subclavian A/P Problem List: (1) GI bleed ICD Code: K92.2 - Gastrointestinal hemorrhage, unspecified (2) Melena ICD Code: K92.1 - Melena Status: Acute (3) Hematemesis ICD Code: K92.0 - Hematemesis Status: Acute (4) Transaminitis ICD Code: R74.0 - Nonspecific elevation of levels of transaminase and lactic acid dehydrogenase [LDH] (5) Thrombocytopenia ICD Code: D69.6 - Thrombocytopenia, unspecified Status: Acute Assessment and Plan Hypoxic Respiratory failure 06/01 CTA pulmonary-suspected left upper lobe, left lower lobe pulmonary emboli, no pulmonary emboli on the right. Bilateral lower lobe atelectasis. Patchy pneumonia right lower lobe. Noted ill-defined right infrahilar/subcarinal mass 4.2 x 4.8 cm (likely esophageal varices- per CT abdomen report). Extensive discussion with Dr. Terrazas (IR) patient is not a candidate for catheter directed TPA in the setting of GI bleeding. Intubated 05/29 and extubated 06/06. Ultrasound bilateral lower extremities negative for DVT. 06/01 ECHO ejection fraction 55-60%. No RWMA. Trace TR. - Maintain O2 saturation greater than 92%. - DuoNeb's every 6 hours scheduled every 2 hours when necessary. - Patient on Ancef for MSSA pneumonia. d/c 06/07. - S/p IVC filter. - Pulmonology following. - Incentive spirometry. - PT/ OT. GI bleed/ Hematemesis 06/01 CT abdomen-splenomegaly, ascites, esophageal varices extend into the lower chest and may account for subcarinal and infrahilar masses. [place] portosystemic collaterals. Large esophageal varix. 3 bands applied by GI. 06/05 repeat EGD varices no active bleeding. Ammonia decreasing. - Status post protonic and octreotide gtt. -Patient on sandostatin and protonix - Monitor CBC and transfuse as needed. Transaminitis/liver cirrhosis complicatef by portal hypertension, esophageal varices and ascites. Due to daily Tylenol use. S/p Mucomyst. AST 692, ALT 593, T bili 2.1. Liver ultrasound reveals cirrhotic liver image. Tylenol level negative. Hepatitis profile negative. - Workup per gastroenterology - Monitor PT/INR. - continue rifaximin, lactulose and pentoxifylline. -MRI showed portal hypertension, esophageal varices, and ascites. Dealt with patient in regards to the results and severity of his liver disease. Lung mass -CTA showed shows subcarinal mass. Per electrician wiring may need biopsy once stabilized. Thrombocytopenia S/t liver disease. - Monitor CBC. - transfuse platelets if signs of acute bleeding, or less than 50,000. - Hematology following. Hypernatremia Most likely secondary to dehydration. Resolved. -s/p D5W at 75 ml/hr Hypokalemia Possibly s/t decreased PO intake. - Potassium scheduled. - monitor and replete as needed. Liver mass Noted on imaging. - Radiologist recommend hepatic MRI with Eovist. MRI of the liver was done which was a poor study. It did not showed any hepatic lesions but stated that patient has cirrhosis, portal hypertension, ascites, esophageal varices. Management per electrician wiring. PPx: IVC filter Deconditioning -Patient does not have funding for SNF placement. Need to do aggressive therapy while hospitalized. Discharge Planning -Patient does not have funding for SNF placement. Need to do aggressive therapy while hospitalized. Will have physical therapist worker patient at least 5 times a week. Problem Qualifiers (1) Hematemesis: Qualified Codes: K92.0 - Hematemesis; R11.0 - Nausea Ericka Menard MD Jun 11, 2017 10:30
--- NOTE | 2017-06-11 11:02 | HHI.GIFU ---
Subjective Remarks Resting in bed. Tolerating diet. No active bleeding. Spoke to patient about repeat MRI, would like to wait a few days. (Mercedes Richards) Objective Vitals I&O Vital Signs Date Time Temp Pulse Resp B/P (MAP) Pulse Ox O2 Delivery O2 Flow Rate FiO2 06/11/17 08:00 97.1 78 18 109/59 (76) 90 06/11/17 07:15 84 06/11/17 04:00 98.9 82 17 110/58 (75) 94 06/11/17 00:00 99.2 88 17 108/55 (72) 93 06/10/17 21:06 80 06/10/17 21:02 96 Nasal Cannula 5.00 06/10/17 20:00 99.1 86 17 105/52 (69) 92 06/10/17 18:15 Nasal Cannula 5.00 06/10/17 18:15 98.7 16 92 06/10/17 17:03 83 06/10/17 16:00 100.1 84 18 116/64 (81) 93 06/10/17 14:26 78 06/10/17 12:45 98.6 84 18 109/59 (76) 90 I/O 06/10/17 06/10/17 06/10/17 06/11/17 06/11/17 06/11/17 07:00 15:00 23:00 07:00 15:00 23:00 Intake Total 720 ml 480 ml Output Total 275 ml 1200 ml 400 ml 650 ml Balance 445 ml -720 ml -400 ml -650 ml Intake Oral 720 ml 480 ml Output Urine Total 275 ml 1200 ml 400 ml 650 ml # Voids 1 # Bowel Movements 2 4 1 Laboratory Laboratory Tests Test 06/11/17 07:30 White Blood Count 7.2 Red Blood Count 2.87 Hemoglobin 7.3 Hematocrit 23.2 Mean Corpuscular Volume 81.0 Mean Corpuscular Hemoglobin 25.5 Mean Corpuscular Hemoglobin Concent 31.5 Red Cell Distribution Width 18.6 Platelet Count 117 Mean Platelet Volume 9.1 Neutrophils (%) (Auto) 76.7 Lymphocytes (%) (Auto) 12.8 Monocytes (%) (Auto) 6.2 Eosinophils (%) (Auto) 3.7 Basophils (%) (Auto) 0.6 Neutrophils # (Auto) 5.5 Lymphocytes # (Auto) 0.9 Monocytes # (Auto) 0.5 Eosinophils # (Auto) 0.3 Basophils # (Auto) 0.0 CBC Comment DIFF FINAL Differential Comment Blood Urea Nitrogen 17 Creatinine 0.78 Random Glucose 97 Total Protein 5.3 Albumin 1.7 Calcium Level 7.2 Alkaline Phosphatase 150 Aspartate Amino Transf (AST/SGOT) 57 Alanine Aminotransferase (ALT/SGPT) 67 Total Bilirubin 2.5 Sodium Level 142 Potassium Level 4.0 Chloride Level 108 Carbon Dioxide Level 28.4 Anion Gap 6 Estimat Glomerular Filtration Rate 111 Protein Corrected Calcium 8.2 Date/Time Source Procedure Growth Status 06/04/17 05:35 Blood Peripheral Aerobic Blood Culture - Final NO GROWTH IN 5 DAYS Complete 06/04/17 05:35 Blood Peripheral Anaerobic Blood Culture - Final NO GROWTH IN 5 DAYS Complete 06/01/17 03:30 Sputum Endotracheal Gram Stain - Final Complete 06/01/17 03:30 Sputum Culture - Final Staphylococcus Aureus Complete 06/03/17 12:40 Urine Catheterized Urine Urine Culture - Final NO GROWTH IN 48 HOURS. Complete Imaging Last Impressions Abdomen MRI 06/10/17 0000 Signed Impressions: Service Date/Time: Saturday, June 10, 2017 12:01 - CONCLUSION: 1. This examination is limited secondary to artifact related to patient motion, patient size, and poor contrast-enhancement from uncertain etiology. There is mild hepatomegaly with features characteristic of cirrhosis. However, no liver lesion is identified. Given the quality of the examination, suggest followup liver MRI when patient condition permits for a better examination. 2. There are findings related to portal hypertension including splenomegaly, ascites, and esophageal varices. David Rhodes MD Chest X-Ray 06/09/17 0000 Signed Impressions: Service Date/Time: Friday, June 09, 2017 18:58 - CONCLUSION: 1. Left greater than right basilar consolidation and small effusions are not significantly changed. 2. Mildly enlarged heart similar to before. 3. Interim extubation. Nasogastric tube and right IJ central venous catheter also out. David Quintero MD IVC Filter Placement X-Ray 06/05/17 0000 Signed Impressions: Service Date/Time: Monday, June 05, 2017 16:23 - CONCLUSION: Uncomplicated inferior vena cava filter placement as above. A Bard Dolores retrievable filter was placed. Chetan gAuila MD Upper Extremity Ultrasound 9/9/17 0000 Signed Impressions: Service Date/Time: Thursday, June 01, 2017 13:47 - CONCLUSION: No evidence of upper extremity DVT on the right or left. Agnel Paredes MD Lower Extremity Ultrasound 06/01/17 Signed Impressions: Service Date/Time: Thursday, June 01, 2017 13:30 - CONCLUSION: No evidence of lower extremity DVT on the right or left. Angel Paredes MD CT Angiography 06/01/17 Signed Impressions: Service Date/Time: Thursday, June 01, 2017 02:39 - CONCLUSION: 1. Suspected left upper lobe and left lower lobe pulmonary emboli. No pulmonary embolus on the right. 2. Right infrahilar/subcarinal mass. 3. Bilateral lower lobe atelectasis, right worse than left. Also patchy pneumonia of the right lower lobe. David Quintero MD Abdomen/Pelvis CT 06/01/17 0000 Signed Impressions: Service Date/Time: Thursday, June 01, 2017 02:39 - CONCLUSION: 1. Cirrhosis. Heterogeneously enhancing liver without a distinct/measurable focal lesion. 2. Marked splenomegaly, 10.3 x 17.6 x 18.1 cm. 3. Very severe portosystemic collaterals including gastroesophageal varices. The varices extend into the lower chest and probably account for the subcarinal/right infrahilar mass seen by chest CT. 4. Diffuse wall thickening of the colon, colitis versus secondary changes from cirrhosis. 5. Small ascites. Body wall edema/anasarca. David Quintero MD Liver Ultrasound 05/30/17 0000 Signed Impressions: Service Date/Time: May 09:04 - CONCLUSION: Cirrhotic liver appearance. Question focal right lobe mass. Recommend further evaluation with hepatic MRI with Eovist. David Terrazas MD Physical Exam HEENT: Normocephalic; atraumatic; CHEST: Respirations even/unlabored. Diminished CARDIAC: RRR ABDOMEN: Soft, distended with ascites (improving), hepatosplenomegaly; bowel sounds are present in all four quadrants. 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 S/P EGD (05/31/17)-----> Bleeding esophageal varices. Rpt. EGD with OGT placement (06/04/17)---> 1. Esophageal varices grade 3 old bands seen over variceal columns, og tube placed in stomach under direct visualization 2. Retroflexed views revealed a hiatal hernia 3. Retroflexed views revealed gastric varices. S/ P 6 units PRBC, HH 7.3/23.2. No active bleeding. PPI. - Anemia acute blood loss. S/P 6 units PRBC, HH 7.3/23.2. PPI. STABLE. - Coagulopathy/thrombocytopenia. Plt 117,000. INR 1.1. IMPROVING - Elevated LFTs. Liver US (05/30/17)---> Cirrhotic liver appearance. Question focal right lobe mass. Recommend further evaluation with hepatic MRI with Eovist. Hepatitis profile negative. STEPHANIE negative. AMA <20.0, ASMA neg. AFP 1.8. Ceruloplasmin 24, ALpha [address] Scan abdomen and pelvis to further evaluation. CT scan abdomen and pelvis with iv contrast (06/01/17)----> cirrhosis, heterogeneously enhancing liver without a distinct/measurable focal lesion, marked splenomegaly, 10.3 x 17.6 x 18.1 cm, very severe portosystemic collaterals including gastroesophageal varices. The varices extend into the lower chest and probably account for the subcarinal/right infrahilar mass seen by chest CT, diffuse wall thickening of the colon, colitis versus secondary changes from cirrhosis. Small ascites, body wall edema/anasarca. LFTs slowly trending down. T. Bili 2.5, AST 57, ALT 67, ALk PHosph 150 on 06/08. Pentoxifylline. - Hepatic encephalopathy with ammonia. Improved. Lactulose, Xifaxan. - AKIKO. Improved - Resp. Failure, PE, PNA. S/P IVC filter. S/P Extubation per CCM - Family hx colon ca. Mother dx age 60 PLAN - Heart healthy 2 gram sodium diet - Protonix 40mg po BID - Cont. Xifaxan - Cont. Lactulose - Cont. Pentoxifylline - Monitor labs - Transfuse as needed - Supportive care - ETOH Cessation - MRI Abdomen in 1-2 days - Further recommendations to follow based on results of above - Pt seen and examined by durgaelf and Dr. Mcdowell and this note is written on his behalf (Mercedes Richards) Physician Comments Patient seen and examined Agree with above Continue with current supportive care Monitor labs Etiology for the cirrhosis is not clear at this point with the workup negative The patient reports that he has a first-degree cousin who was diagnosed at a very young age with cirrhosis therefore we will check A1A The patient asked his cousin for her diagnosis so us to assist in the workup We should seriously consider liver biopsy to further evaluate for causes of cirrhosis especially that the patient denies any heavy alcohol intake at any point in the past We will await decision on liver biopsy on the results of the A1A and his cousin' s diagnosis As for the elevation of liver function test which has for the most part been steadily declining looking back at his vital signs he was significantly with low blood pressure just before the surgeon his liver function tests and therefore my assumption at this point would be that he has had shocked liver and an ischemic event that led to the rise in elevation (Villa Mcdowell MD) Mercedes Richards Jun 11, 2017 11:02 Villa Mcdowell MD Jun 11, 2017 23:05
--- NOTE | 2017-06-11 11:08 | PD.ONC.PN ---
Subjective Subjective Remarks Afebrile overnight. Patient resting in bed in nad. Denies pain. Objective Data Date Time Temp Pulse Resp B/P (MAP) Pulse Ox O2 Delivery O2 Flow Rate FiO2 06/11/17 08:00 97.1 78 18 109/59 (76) 90 06/11/17 07:15 84 06/11/17 04:00 98.9 82 17 110/58 (75) 94 06/11/17 00:00 99.2 88 17 108/55 (72) 93 06/10/17 21:06 80 06/10/17 21:02 96 Nasal Cannula 5.00 06/10/17 20:00 99.1 86 17 105/52 (69) 92 06/10/17 18:15 Nasal Cannula 5.00 06/10/17 18:15 98.7 16 92 06/10/17 17:03 83 06/10/17 16:00 100.1 84 18 116/64 (81) 93 06/10/17 14:26 78 06/10/17 12:45 98.6 84 18 109/59 (76) 90 06/11/17 06/11/17 06/11/17 07:00 15:00 23:00 Output Total 400 ml 650 ml Balance -400 ml -650 ml Result Diagram: 06/11/1772906/11/17 07 Laboratory Results Laboratory Tests Test 06/11/17 07:30 White Blood Count 7.2 TH/MM3 Red Blood Count 2.87 MIL/MM3 Hemoglobin 7.3 GM/DL Hematocrit 23.2 % Mean Corpuscular Volume 81.0 FL Mean Corpuscular Hemoglobin 25.5 PG Mean Corpuscular Hemoglobin Concent 31.5 % Red Cell Distribution Width 18.6 % Platelet Count 117 TH/MM3 Mean Platelet Volume 9.1 FL Neutrophils (%) (Auto) 76.7 % Lymphocytes (%) (Auto) 12.8 % Monocytes (%) (Auto) 6.2 % Eosinophils (%) (Auto) 3.7 % Basophils (%) (Auto) 0.6 % Neutrophils # (Auto) 5.5 TH/MM3 Lymphocytes # (Auto) 0.9 TH/MM3 Monocytes # (Auto) 0.5 TH/MM3 Eosinophils # (Auto) 0.3 TH/MM3 Basophils # (Auto) 0.0 TH/MM3 CBC Comment DIFF FINAL Differential Comment Blood Urea Nitrogen 17 MG/DL Creatinine 0.78 MG/DL Random Glucose 97 MG/DL Total Protein 5.3 GM/DL Albumin 1.7 GM/DL Calcium Level 7.2 MG/DL Alkaline Phosphatase 150 U/L Aspartate Amino Transf (AST/SGOT) 57 U/L Alanine Aminotransferase (ALT/SGPT) 67 U/L Total Bilirubin 2.5 MG/DL Sodium Level 142 MEQ/L Potassium Level 4.0 MEQ/L Chloride Level 108 MEQ/L Carbon Dioxide Level 28.4 MEQ/L Anion Gap 6 MEQ/L Estimat Glomerular Filtration Rate 111 ML/MIN Protein Corrected Calcium 8.2 MG/DL Administered Medications Medications (Trade) Dose Ordered Sig/Maksim Route PRN Reason Start Time Stop Time Status Last Admin Dose Admin Sodium Chloride (NS Flush) 2 ml BID IV FLUSH 05/30/17 09:00 06/11/17 09:47 Ondansetron HCl (Zofran Inj) 4 mg Q6HR PRN IV PUSH nausea 05/30/17 01:45 05/30/17 16:53 Miscellaneous Information Patient in critical care unit? Ass... [id number] .XX 05/30/17 04:15 05/30/17 04:15 Rifaximin (Xifaxan) 550 mg BID PO 06/04/17 21:00 06/11/17 09:45 Propranolol HCl (Inderal) 10 mg Q8HR PO 06/06/17 22:00 06/11/17 05:34 Furosemide (Lasix) 20 mg BID@,18 PO 06/09/17 18:00 06/11/17 09:45 Pantoprazole Sodium (Protonix) 40 mg Q12HR PO 06/09/17 21:00 06/11/17 09:45 Calcium Carbonate (Oscal) 500 mg Q12HR PO 06/10/17 10:00 06/11/17 09:45 Potassium Bicarb/ Potassium Chloride (K-Lyte Cl Eff) 75 meq Q12HR PO 06/10/17 21:00 06/11/17 09:46 Objective Remarks GENERAL: Young man, sitting up in bed in nad. SKIN: Warm and dry. HEAD: Normocephalic. EYES: No injection or drainage. NECK: Supple, trachea midline. CARDIOVASCULAR: Regular rate and rhythm RESPIRATORY: anterior yost clear. GASTROINTESTINAL: Abdomen soft, non-tender, mild distension EXTREMITIES: No cyanosis. +LE edema NEUROLOGICAL: aox3. normal speech. moving extremities. Assessment/Plan Problem List: (1) Liver mass, right lobe ICD Codes: R16.0 - Hepatomegaly, not elsewhere classified Plan: 06/11: MRI Abdomen shows no liver mass/lesion. patient advised to follow up with PCP/GI for repeat MRI outpatient. oncology will sign off at this time. please call or reconsult if needed. -- Ultrasound of the liver shows a questionable right lobe liver mass (2) Pulmonary embolism ICD Codes: I26.99 - Other pulmonary embolism without acute cor pulmonale Plan: 06/10: monitor CBC. 06/05: IVC filter placed -- CT angiogram showed suspicion for left upper lobe and left lower lobe pulmonary embolism -- Also noted was a right infrahilar subcarinal mass -- Upper and lower ultrasound extremities showed no evidence of DVT. Hx/Workup: Initially presented to the emergency room with hematemesis. Recent upper endoscopy with short bleeding varices. 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 He has been intubated to protect his airway. (3) GI bleed ICD Codes: K92.2 - Gastrointestinal hemorrhage, unspecified Plan: -- GI following -- EGD showed bleeding esophageal varices. --transfuse as needed --on Sandostatin and Protonix (4) Mass of lung ICD Codes: R91.8 - Other nonspecific abnormal finding of lung field Plan: --CTA shows subcarinal mass. may need biopsy once stabilized Assessment 41 y/o male admitted with GI bleeding, found to also have a pulmonary embolism. Attending Statement no c/o offer MRI abd = no liver mass. Pt to follow with GI for cirrhosis as outpt. Sign off Available prn. The exam, history, and the medical decision-making described in the above note were completed with the assistance of the mid-level provider. I reviewed and agree with the findings presented. I attest that I had a [id number] encounter with the patient on the same day, and personally performed and documented my assessment and findings in the medical record. Kiara Lange Jun 11, 2017 11:08 Irma Pierson MD Jun 12, 2017 01:10
--- NOTE | 2017-06-11 18:47 | HHI.PR ---
Subjective Remarks alert no sob [facility] Objective Vital Signs Date Time Temp Pulse Resp B/P (MAP) Pulse Ox O2 Delivery O2 Flow Rate FiO2 06/11/17 16:00 98.8 87 18 105/62 (76) 95 06/11/17 12:53 97.5 81 18 107/60 (76) 98 06/11/17 11:32 85 06/11/17 09:45 Nasal Cannula 5.00 06/11/17 08:00 97.1 78 18 109/59 (76) 90 06/11/17 07:15 84 06/11/17 04:00 98.9 82 17 110/58 (75) 94 06/11/17 00:00 99.2 88 17 108/55 (72) 93 06/10/17 21:06 80 06/10/17 21:02 96 Nasal Cannula 5.00 06/10/17 20:00 99.1 86 17 105/52 (69) 92 I/O 06/10/17 06/10/17 06/10/17 06/11/17 06/11/17 06/11/17 07:00 15:00 23:00 07:00 15:00 23:00 Intake Total 720 ml 480 ml 600 ml Output Total 275 ml 1200 ml 400 ml 650 ml Balance 445 ml -720 ml -400 ml -650 ml 600 ml Intake Oral 720 ml 480 ml 600 ml Output Urine Total 275 ml 1200 ml 400 ml 650 ml # Voids 1 # Bowel Movements 2 4 1 3 Result Diagram: 06/11/1730 06/11/17 0730 Objective Remarks GENERAL: SKIN: Warm and dry. HEAD: Atraumatic. Normocephalic. EYES: Pupils equal and round. No scleral icterus. No injection or drainage. ENT: No nasal bleeding or discharge. Mucous membranes pink and moist. NECK: Trachea midline. No JVD. CARDIOVASCULAR: Regular rate and rhythm. RESPIRATORY: No accessory muscle use. Clear to auscultation. Breath sounds equal bilaterally. GASTROINTESTINAL: Abdomen soft, non-tender, nondistended. Hepatic and splenic margins not palpable. MUSCULOSKELETAL: Extremities without clubbing, cyanosis, or edema. No obvious deformities. NEUROLOGICAL: Awake and alert. No obvious cranial nerve deficits. Motor grossly within normal limits. Five out of 5 muscle strength in the arms and legs. Normal speech. PSYCHIATRIC: Appropriate mood and affect; insight and judgment normal. Assessment and Plan Assessment and Plan pulmonary embolism post IVC filter Gi bleed portal htn CHEST [id number] STABLE PLAN o2 as needed ANTIBIOTICS Yosef Navas MD Jun 11, 2017 18:47
[2017-06-11] MEDS: LACTULOSE SYRUP 20 GM/30 ML CUP PO SCH (21:40)
[2017-06-12] VITALS (11 sets, daily range): BP systolic 106–120; BP diastolic 55–70; PULSE 58–89; RESP 17–20; TEMP 97–99.1; O2SAT 90–98
[2017-06-12] MEDS: PROPRANOLOL HCL 10 MG TAB PO SCH ×3 (05:48→22:00)
[2017-06-12 09:28] LABS: AUTOMATED NEUTROPHIL # 4.6 TH/MM3 (1.8-7.7); BASOPHIL % 0.6 % (0.0-2.0); EOSINOPHIL # 0.3 TH/MM3 (0-0.4); EOSINOPHIL % 4.8 % (0.0-4.0); HEMATOCRIT 22.6 % (39.0-51.0); HEMO FLAGS DIFF FINAL; LYMPH % 14.8 % (9.0-44.0); LYMPHOCYTE # 0.9 TH/MM3 (1.0-4.8); MEAN CELL VOLUME 80.3 FL (80.0-100.0); MEAN CORPUSCULAR HEMOGLOBIN 25.8 PG (27.0-34.0); MEAN CORPUSCULAR HGB CONC 32.1 % (32.0-36.0); MONO % 7.6 % (0.0-8.0); NEUT % 72.2 % (16.0-70.0); PLATELET COUNT 115 TH/MM3 (150-450); RED BLOOD COUNT 2.81 MIL/MM3 (4.50-5.90); RED CELL DISTRIBUTION WIDTH 18.3 % (11.6-17.2); WHITE BLOOD COUNT 6.3 TH/MM3 (4.0-11.0)
[2017-06-12] MEDS: POTASSIUM CHLORIDE 25 MEQ EFFERVESCENT TAB PO SCH ×2 (09:42→20:19)
[2017-06-12] MEDS: RIFAXIMIN 550 MG TAB PO SCH ×2 (09:42→20:19)
[2017-06-12] MEDS: PANTOPRAZOLE SOD 40 MG DELAYED RELEASE TAB PO SCH ×2 (09:42→20:18)
[2017-06-12] MEDS: FUROSEMIDE 20 MG TAB PO SCH ×2 (09:42→18:07)
[2017-06-12] MEDS: CALCIUM CARBONATE 1.25 GM (CA 500 MG) TAB PO SCH ×2 (09:42→20:18)
[2017-06-12] MEDS: SODIUM CHLORIDE 0.9% FLUSH 10 ML FLUSH IV FLUSH SCH ×2 (09:43→20:19)
[2017-06-12] MEDS: LACTULOSE SYRUP 20 GM/30 ML CUP PO SCH ×2 (09:43→20:20)
--- NOTE | 2017-06-12 10:02 | HHI.PR ---
Subjective Remarks Follow-up for GI bleed and erosive the liver. Patient states he feels great. Denies any nausea/vomiting. Denied any GI bleed. He stated that he is working with physical therapy and getting stronger every day. Objective Vitals Vital Signs Date Time Temp Pulse Resp B/P (MAP) Pulse Ox O2 Delivery O2 Flow Rate FiO2 06/12/17 04:10 98.4 84 17 120/70 (87) 96 06/12/17 04:00 58 06/12/17 00:10 99.1 86 17 107/59 (75) 95 06/12/17 00:00 79 06/11/17 21:37 98 Nasal Cannula 3.00 06/11/17 20:05 99.9 86 19 116/73 (87) 95 06/11/17 20:00 91 06/11/17 16:00 98.8 87 18 105/62 (76) 95 06/11/17 12:53 97.5 81 18 107/60 (76) 98 06/11/17 11:32 85 I/O 06/11/17 06/11/17 06/11/17 06/12/17 06/12/17 06/12/17 07:00 15:00 23:00 07:00 15:00 23:00 Intake Total 822 ml Output Total 400 ml 650 ml 675 ml 1300 ml Balance -400 ml -650 ml 147 ml -1300 ml Intake Oral 822 ml Output Urine Total 400 ml 650 ml 675 ml 1300 ml # Voids 1 3 # Bowel Movements 1 4 3 Result Diagram: 06/12/17 0836 06/11/17 0730 Objective Remarks GENERAL: in NAD SKIN: Warm and dry. HEAD: Normocephalic. EYES: No scleral icterus. No injection or drainage. NECK: Supple, trachea midline. No JVD or lymphadenopathy. CARDIOVASCULAR: Regular rate and rhythm without murmurs, gallops, or rubs. RESPIRATORY: Breath sounds equal bilaterally. No accessory muscle use. GASTROINTESTINAL: Abdomen soft, non-tender, nondistended. MUSCULOSKELETAL: No cyanosis, or edema. BACK: Nontender without obvious deformity. No CVA tenderness. Procedures 05/30- EGD 06/04-EGD Medications and IVs Current Medications Ondansetron HCl (Zofran Inj) 4 mg ONCE ONCE IVP Last administered on 05/30/17 00:04; Start 05/30/17 at 00:00; Stop 05/30/17 at 00:01; Status DC Sodium Chloride 1,000 ml @ 1,000 mls/hr Q1H IV Last administered on 05/30/17 00:03; Start 05/29/17 at 23:46; Stop 05/30/17 at 00:45; Status DC Sodium Chloride (NS Flush) 2 ml UNSCH PRN IVF FLUSH AFTER USING IV ACCESS; Start 05/30/17 at 00:00; Stop 05/31/17 at 22:04; Status DC Pantoprazole Sodium 80 mg/ Sodium Chloride 35 ml @ 420 mls/hr Q5M ONCE IV Last administered on 05/30/17 00:05; Start 05/29/17 at 23:46; Stop 05/29/17 at 23: 50; Status DC Pantoprazole Sodium 80 mg/ Sodium Chloride 100 ml @ 10 mls/hr Q10H IV Last administered on 06/07/17 06:00; Start 05/29/17 at 23:46; Stop 06/07/17 at 14:50 ; Status DC Sodium Chloride 1,000 ml @ 100 mls/hr Q10H IV Last administered on 05/31/17 13 :11; Start 05/30/17 at 01:04; Stop 06/01/17 at 05:49; Status DC Sodium Chloride (NS Flush) 2 ml UNSCH PRN IV FLUSH FLUSH AFTER USING IV ACCESS ; Start 05/30/17 at 01:15 Sodium Chloride (NS Flush) 2 ml BID IV FLUSH Last administered on 06/12/17 09: 43; Start 05/30/17 at 09:00 Naloxone HCl (Narcan Inj) 0.4 mg UNSCH PRN IV SEE LABEL COMMENTS; Start at 01:15 Ondansetron HCl (Zofran Inj) 4 mg Q6HR PRN IV PUSH nausea Last administered on 05/30/17 16:53; Start 05/30/17 at 01:45 Ondansetron HCl (Zofran Inj) 4 mg ONCE ONCE IV PUSH Last administered on 02:34; Start 05/30/17 at 02:30; Stop 05/30/17 at 02:31; Status DC Octreotide Acetate (SandoSTATIN INJ) 50 mcg ONCE ONCE IV PUSH Last administered on 05/30/17 05:49; Start 05/30/17 at 03:45; Stop 05/30/17 at 03:46; Status DC Octreotide Acetate 500 mcg/ Sodium Chloride 500 ml @ 50 mls/hr Q10H IV Last administered on 06/07/17 04:19; Start 05/30/17 at 03:31; Stop 06/07/17 at 14:50 ; Status DC Miscellaneous Information Patient in critical care unit? Ass... [id number] .XX Last administered on 05/30/17 04:15; Start 05/30/17 at 04:15 Chlorhexidine Gluconate (Chlorhexidine 2% Cloth) 3 pack DAILY@04 TOPICAL Last administered on 06/05/17 03:23; Start 05/31/17 at 04:00; Stop 06/04/17 at 04:01 ; Status DC Chlorhexidine Gluconate (Chlorhexidine 2% Cloth) 3 pack UNSCH PRN TOPICAL HYGIENIC CARE; Start 05/30/17 at 04:15; Stop 06/04/17 at 04:13; Status DC Magnesium Citrate (Citroma Liq) 300 ml ONCE ONCE PO Last administered on 15:23; Start 05/30/17 at 16:00; Stop 05/30/17 at 17:42; Status DC Magnesium Citrate (Citroma Liq) 300 ml ONCE ONCE PO ; Start 05/30/17 at 18:00; Stop 05/30/17 at 18:00; Status DC Propofol 100 ml @ As Directed STK-MED ONCE .ROUTE Last administered on 20:00; Start 05/30/17 at 19:38; Stop 05/30/17 at 19:39; Status DC Phenylephrine HCl (Neosynephrine Inj) 40 mg STK-MED ONCE .ROUTE ; Start 05/30/17 at 19:45; Stop 05/30/17 at 19:46; Status DC Propofol (Diprivan 200 Mg/20 ml Inj) 290 mg STK-MED ONCE IV PUSH ; Start at 19:50; Stop 05/30/17 at 20:12; Status DC Phenylephrine HCl 40 mg/Dextrose 500 ml @ 30 mls/hr TITRATE PRN IV Blood Pressure Management Last administered on 06/01/17 07:09; Start 05/30/17 at 21:30 ; Stop 06/01/17 at 09:51; Status DC Miscellaneous Information ALL NURSING DEPARTME... UNSCH PRN .XX SEE LABEL COMMENTS; Start 05/30/17 at 19:06; Stop 05/31/17 at 19:05; Status DC Propofol 100 ml @ As Directed STK-MED ONCE .ROUTE Last administered on 22:52; Start 05/30/17 at 22:14; Stop 05/30/17 at 22:15; Status DC Propofol 100 ml @ 3.111 mls/ hr TITRATE PRN IV SEDATION Last administered on 19:02; Start 05/30/17 at 22:30; Stop 06/06/17 at 02:06; Status DC Sodium Chloride 2,000 ml @ 999 mls/hr ONCE ONCE IV Last administered on 01:00; Start 05/31/17 at 04:00; Stop 05/31/17 at 06:00; Status DC Ondansetron HCl (Zofran Inj) 4 mg STK-MED ONCE IV PUSH ; Start 05/30/17 at 12:00 ; Stop 05/31/17 at 10:14; Status DC Sodium Chloride 1,000 ml @ 999 mls/hr BOLUS ONCE IV Last administered on 15:19; Start 05/31/17 at 12:00; Stop 05/31/17 at 13:23; Status DC Fentanyl Citrate 250 ml @ 10 mls/hr TITRATE PRN IV SEDATION; Start 05/31/17 at 19:45; Status UNV Midazolam HCl 100 ml @ 3 mls/hr TITRATE PRN IV SEDATION; Start 05/31/17 at 19:45 ; Status UNV Midazolam HCl (Versed Inj) 2 mg ONCE ONCE IV PUSH Last administered on 19:45; Start 05/31/17 at 19:45; Stop 05/31/17 at 20:04; Status DC Midazolam HCl 100 ml @ 3 mls/hr TITRATE PRN IV SEDATION Last administered on 23:48; Start 05/31/17 at 19:45; Stop 06/03/17 at 14:04; Status DC Midazolam HCl (Versed Inj) 5 mg STK-MED ONCE .ROUTE Last administered on 20:11; Start 05/31/17 at 19:52; Stop 05/31/17 at 19:53; Status DC Fentanyl Citrate 250 ml @ 5 mls/hr TITRATE PRN IV SEDATION Last administered on 06/06/17 06:15; Start 05/31/17 at 21:30; Stop 06/06/17 at 20:34; Status DC Vancomycin HCl 1000 mg/Sodium Chloride 250 ml @ 250 mls/hr ONCE ONCE IV ; Start 05/31/17 at 21:30; Stop 05/31/17 at 21:39; Status DC Pharmacy Profile Note 0 ml @ 0 mls/hr UNSCH OTHER ; Start 05/31/17 at 21:30; Stop 06/02/17 at 11:38; Status DC Cefepime HCl 2000 mg/Sodium Chloride 100 ml @ 200 mls/hr Q12H IV Last administered on 06/02/17 08:34; Start 05/31/17 at 22:00; Stop 06/02/17 at 11:38 ; Status DC Azithromycin 500 mg/Sodium Chloride 250 ml @ 250 mls/hr Q24H IV Last administered on 06/01/17 21:47; Start 05/31/17 at 22:00; Stop 06/02/17 at 11:38; Status DC Calcium Gluconate 2 gm/Sodium Chloride 120 ml @ 120 mls/hr ONCE ONCE IV Last administered on 05/31/17 22:49; Start 05/31/17 at 23:00; Stop 05/31/17 at 23:59; Status DC Acetaminophen (Ofirmev 1000 Mg/ 100 ml Inj) 650 mg ONCE ONCE IV Last administered on 05/31/17 21:45; Start 05/31/17 at 21:45; Stop 05/31/17 at 21:46; Status DC Sodium Chloride 1,000 ml @ 999 mls/hr BOLUS ONCE IV Last administered on 21:30; Start 05/31/17 at 21:30; Stop 05/31/17 at 22:30; Status DC Sodium Chloride 1,000 ml @ 999 mls/hr BOLUS ONCE IV Last administered on 21:48; Start 05/31/17 at 22:30; Stop 05/31/17 at 23:30; Status DC Vancomycin HCl 2500 mg/Sodium Chloride 525 ml @ 250 mls/hr ONCE ONCE IV Last administered on 06/01/17 02:12; Start 05/31/17 at 23:00; Stop 06/01/17 at 01:05; Status DC Vancomycin HCl 1500 mg/Sodium Chloride 515 ml @ 257.5 mls/ hr Q12H IV Last administered on 06/02/17 12:13; Start 06/01/17 at 12:00; Stop 06/02/17 at 15:46 ; Status DC Miscellaneous Information SPECIFIC LAB TO BE NICOLE... ONCE ONCE .XX Last administered on 06/02/17 11:45; Start 06/02/17 at 11:45; Stop 06/02/17 at 11:46 ; Status DC Iodixanol (VISIPAQUE 320 INJ (Rad CT)) 89 ml STK-MED ONCE IV Last administered on 06/01/17 02:45; Start 06/01/17 at 02:45; Stop 06/01/17 at 02:46; Status DC Sodium Bicarbonate 150 meq/Dextrose 1,150 ml @ 75 mls/hr [id number] IV Last administered on 06/03/17 07:43; Start 06/01/17 at 06:00; Stop 06/03/17 at 14:04 ; Status DC Phenylephrine HCl 160 mg/Dextrose 500 ml @ 7.5 mls/hr TITRATE PRN IV Blood Pressure Management Last administered on 06/03/17 04:34; Start 06/01/17 at 10:00 ; Stop 06/03/17 at 23:56; Status DC Pharmacy Profile Note 0 ml @ 0 mls/hr UNSCH OTHER ; Start 06/02/17 at 11:45; Stop 06/02/17 at 15:46; Status DC Lactulose (Lactulose Liq) 30 ml QID PO ; Start 06/02/17 at 13:00; Stop 06/02/17 at 14:05; Status DC Rifaximin (Xifaxan) 550 mg BID PO ; Start 06/02/17 at 12:15; Stop 06/02/17 at 14 :05; Status DC Lactulose 300 ml/ Sterile Water 1,000 ml @ 0 mls/hr Q6H RECTAL Last administered on 06/04/17 14:18; Start 06/02/17 at 14:00; Stop 06/04/17 at 15:02 ; Status DC Linezolid 300 ml @ 300 mls/hr Q12H IV Last administered on 06/03/17 04:25; Start 06/02/17 at 16:00; Stop 06/03/17 at 12:12; Status DC Cefepime HCl 2000 mg/Sodium Chloride 100 ml @ 200 mls/hr Q8HR IV Last administered on 06/04/17 14:18; Start 06/03/17 at 14:00; Stop 06/04/17 at 16:20 ; Status DC Pharmacy Profile Note 0 ml @ 0 mls/hr UNSCH OTHER ; Start 06/03/17 at 12:15; Stop 06/04/17 at 16:20; Status DC Lactated Ringer's 1,000 ml @ 84 mls/hr [id number] IV Last administered on 03:21; Start 06/03/17 at 14:15; Stop 06/05/17 at 11:45; Status DC Vancomycin HCl 1500 mg/Sodium Chloride 515 ml @ 257.5 mls/ hr Q12H IV Last administered on 06/04/17 16:17; Start 06/03/17 at 16:00; Stop 06/04/17 at 16:20 ; Status DC Miscellaneous Information SPECIFIC LAB TO BE NICOLE... ONCE ONCE .XX ; Start 06/05 at 03:45; Stop 06/05/17 at 03:46; Status Cancel Acetylcysteine (Acetadote Inj) search Sets Overdose- ONCE IV ; Start 06/03/17 at 17:30; Status UNV Acetylcysteine 79515 mg/Dextrose 275 ml @ 200 mls/hr ONCE ONCE IV Last administered on 06/03/17 19:43; Start 06/03/17 at 19:00; Stop 06/03/17 at 20:22 ; Status DC Acetylcysteine 5000 mg/Dextrose 525 ml @ 125 mls/hr ONCE ONCE IV Last administered on 06/03/17 21:15; Start 06/03/17 at 20:00; Stop 06/04/17 at 00:11 ; Status DC Acetylcysteine 82159 mg/Dextrose 1,050 ml @ 62.5 mls/hr ONCE ONCE IV Last administered on 06/04/17 00:09; Start 06/04/17 at 00:00; Stop 06/04/17 at 16:47 ; Status DC Lactated Ringer's 1,000 ml @ 999 mls/hr BOLUS ONCE IV Last administered on 00:08; Start 06/04/17 at 00:00; Stop 06/04/17 at 01:00; Status DC Sodium Chloride 250 ml @ 15 mls/hr ONCE ONCE IV Last administered on 06:07; Start 06/04/17 at 01:45; Stop 06/04/17 at 18:24; Status DC Sodium Chloride 250 ml @ 15 mls/hr ONCE ONCE IV Last administered on 10:05; Start 06/04/17 at 07:00; Stop 06/04/17 at 23:39; Status DC Propofol (Diprivan 200 Mg/20 ml Inj) 100 mg STK-MED ONCE IV PUSH ; Start at 14:53; Stop 06/04/17 at 14:54; Status DC Lactulose (Lactulose Liq) 30 ml QID PO Last administered on 06/10/17 20:42; Start 06/04/17 at 18:00; Stop 06/11/17 at 09:23; Status DC Rifaximin (Xifaxan) 550 mg BID PO Last administered on 06/12/17 09:42; Start 06/04/17 at 21:00 Cefazolin Sodium/ Dextrose 50 ml @ 150 mls/hr Q8H IV Last administered on 06/08 09:33; Start 06/04/17 at 17:00; Stop 06/08/17 at 09:00; Status DC Potassium Chloride/Dextrose 1,000 ml @ 84 mls/hr [id number] IV Last administered on 06/06/17 12:07; Start 06/05/17 at 13:00; Stop 06/06/17 at 20:34; Status DC Furosemide (Lasix Inj) 40 mg BID@09,18 IV PUSH Last administered on 06/09/17 09:56; Start 06/05/17 at 12:00; Stop 06/09/17 at 10:11; Status DC Iohexol (Omnipaque 350 Inj) 20 ml STK-MED ONCE IVCONTRAST Last administered on 06/05/17t 16:43; Start 06/05/17 at 16:59; Stop 06/05/17 at 17:01; Status DC Potassium Chloride 100 ml @ 50 mls/hr Q2H PRN IV For Potassium 2.8 - 3.2 mEq/L ; Start 06/06/17 at 01:00; Stop 06/07/17 at 23:44; Status DC Potassium Chloride 100 ml @ 50 mls/hr Q2H PRN IV For Potassium 2.8 - 3.2 mEq/L ; Start 06/06/17 at 01:00; Stop 06/07/17 at 23:45; Status DC Potassium Bicarb/ Potassium Chloride (K-Lyte Cl Eff) 50 meq UNSCH PRN PO For Potassium 3.3 - 3.5 mEq/L; Start 06/06/17 at 01:00; Stop 06/07/17 at 23:45; Status DC Potassium Chloride 100 ml @ 25 mls/hr UNSCH PRN IV For Potassium 3.3 - 3.5 mEq /L; Start 06/06/17 at 01:00; Stop 06/07/17 at 23:45; Status DC Potassium Chloride 100 ml @ 50 mls/hr Q2H PRN IV For Potassium 3.3 - 3.5 mEq/L ; Start 06/06/17 at 01:00; Stop 06/07/17 at 23:45; Status DC Magnesium Sulfate 4 gm/Sodium Chloride 100 ml @ 50 mls/hr UNSCH PRN IV For Magnesium 0.9 - 1.1 mg/dL; Start 06/06/17 at 01:00; Stop 06/07/17 at 23:44; Status DC Magnesium Oxide (Mag-Ox) 800 mg UNSCH PRN PO For Magnesium 1.2 - 1.6 mg/dL; Start 06/06/17 at 01:00; Stop 06/07/17 at 23:45; Status DC Magnesium Sulfate 2 gm/Sodium Chloride 100 ml @ 50 mls/hr UNSCH PRN IV For Magnesium 1.2 - 1.6 mg/dL; Start 06/06/17 at 01:00; Stop 06/07/17 at 23:44; Status DC Potassium Phosphate (K-Phos) 2,000 mg Q4H PRN PO For Phosphorus < 2.5 mg/dL; Start 06/06/17 at 01:00; Stop 06/07/17 at 23:45; Status DC Sodium Phosphate 30 mmol/Sodium Chloride 250 ml @ 42 mls/hr UNSCH PRN IV For Phosphorus < 2.5 mg/dL Last administered on 06/06/17 02:12; Start 06/06/17 at 01:00; Stop 06/07/17 at 23:45; Status DC Potassium Phosphate (K-Phos) 2,000 mg UNSCH PRN PO/TUBE SEE LABEL COMMENTS; Start 06/06/17 at 01:00; Stop 06/07/17 at 23:45; Status DC Potassium Phosphate 30 mmol/ Sodium Chloride 260 ml @ 42 mls/hr UNSCH PRN IV SEE LABEL COMMENTS; Start 06/06/17 at 01:00; Stop 06/07/17 at 23:45; Status DC Propofol 100 ml @ 3.78 mls/hr TITRATE PRN IV SEDATION Last administered on 06:15; Start 06/06/17 at 02:15; Stop 06/06/17 at 07:00; Status DC Oxycodone HCl (Roxicodone) 5 mg Q4H PRN PO pain 1-7; Start 06/06/17 at 20:30 Propranolol HCl (Inderal) 10 mg Q8HR PO Last administered on 06/12/17 05:48; Start 06/06/17 at 22:00 Dextrose 1,000 ml @ 75 mls/hr [id number] IV Last administered on 06/08/17 23:20 ; Start 06/07/17 at 10:00; Stop 06/09/17 at 10:11; Status DC Pantoprazole Sodium (Protonix Inj) 40 mg Q12H IV PUSH Last administered on 06/09 03:14; Start 06/07/17 at 16:00; Stop 06/09/17 at 10:11; Status DC Potassium Bicarb/ Potassium Chloride (K-Lyte Cl Eff) 75 meq ONCE ONCE PO Last administered on 06/08/17 12:59; Start 06/08/17 at 11:00; Stop 06/08/17 at 11:01; Status DC Potassium Bicarb/ Potassium Chloride (K-Lyte Cl Eff) 75 meq ONCE ONCE PO Last administered on 06/08/17 20:21; Start 06/08/17 at 20:00; Stop 06/08/17 at 20:05; Status DC Potassium Bicarb/ Potassium Chloride (K-Lyte Cl Eff) 75 meq ONCE ONCE PO Last administered on 06/09/17 09:57; Start 06/09/17 at 09:00; Stop 06/09/17 at 09:01; Status DC Furosemide (Lasix) 20 mg BID@ PO Last administered on 06/12/17 09:42; Start 06/09/17 at 18:00 Pantoprazole Sodium (Protonix) 40 mg Q12HR PO Last administered on 06/12/17 09 :42; Start 06/09/17 at 21:00 Potassium Bicarb/ Potassium Chloride (K-Lyte Cl Eff) 50 meq Q12HR PO Last administered on 06/10/17 08:58; Start 06/09/17 at 21:00; Stop 06/10/17 at 09:44 ; Status DC Potassium Chloride (KCl) 30 meq ONCE ONCE PO Last administered on 06/10/17 08 :56; Start 06/10/17 at 08:45; Stop 06/10/17 at 08:46; Status DC Calcium Carbonate (Oscal) 500 mg Q12HR PO Last administered on 06/12/17 09:42 ; Start 06/10/17 at 10:00 Potassium Bicarb/ Potassium Chloride (K-Lyte Cl Eff) 75 meq Q12HR PO Last administered on 06/12/17 09:42; Start 06/10/17 at 21:00 Gadodiamide (Omniscan Pf Inj) 19 ml STK-MED ONCE IVCONTRAST Last administered on 06/10/17 12:37; Start 06/10/17 at 12:37; Stop 06/10/17 at 12:39; Status DC Lactulose (Lactulose Liq) 30 ml BID PO Last administered on 06/12/17 09:43; Start 06/11/17 at 21:00 Side: Right Location: Subclavian A/P Problem List: (1) GI bleed ICD Code: K92.2 - Gastrointestinal hemorrhage, unspecified (2) Melena ICD Code: K92.1 - Melena Status: Acute (3) Hematemesis ICD Code: K92.0 - Hematemesis Status: Acute (4) Transaminitis ICD Code: R74.0 - Nonspecific elevation of levels of transaminase and lactic acid dehydrogenase [LDH] (5) Thrombocytopenia ICD Code: D69.6 - Thrombocytopenia, unspecified Status: Acute Assessment and Plan Hypoxic Respiratory failure 06/01 CTA pulmonary-suspected left upper lobe, left lower lobe pulmonary emboli, no pulmonary emboli on the right. Bilateral lower lobe atelectasis. Patchy pneumonia right lower lobe. Noted ill-defined right infrahilar/subcarinal mass 4.2 x 4.8 cm (likely esophageal varices- per CT abdomen report). Extensive discussion with Dr. Terrazas (IR) patient is not a candidate for catheter directed TPA in the setting of GI bleeding. Intubated 05/29 and extubated 06/06. Ultrasound bilateral lower extremities negative for DVT. 06/01 ECHO ejection fraction 55-60%. No RWMA. Trace TR. - Maintain O2 saturation greater than 92%. - DuoNeb's every 6 hours scheduled every 2 hours when necessary. - Patient on Ancef for MSSA pneumonia. d/c 06/07. - S/p IVC filter. - Pulmonology following. - Incentive spirometry. - PT/ OT. GI bleed/ Hematemesis 06/01 CT abdomen-splenomegaly, ascites, esophageal varices extend into the lower chest and may account for subcarinal and infrahilar masses. [place] portosystemic collaterals. Large esophageal varix. 3 bands applied by GI. 06/05 repeat EGD varices no active bleeding. Ammonia decreasing. - Status post protonic and octreotide gtt. -Patient on sandostatin and protonix - Monitor CBC and transfuse as needed. Transaminitis/liver cirrhosis complicatef by portal hypertension, esophageal varices and ascites. Due to daily Tylenol use. S/p Mucomyst. AST 692, ALT 593, T bili 2.1. Liver ultrasound reveals cirrhotic liver image. Tylenol level negative. Hepatitis profile negative. - Workup per gastroenterology - Monitor PT/INR. - continue rifaximin, lactulose and pentoxifylline. -MRI showed portal hypertension, esophageal varices, and ascites. GI wants to repeat MRI of the liver and a few days. They are also considering a liver biopsy if a 1A is negative. Subcarinal mass on CTA -Dealt with [facility] transport specialist, she stated that mass on CTA more likely esophageal varices if for patient to follow with Dr. Casey as outpatient regards to this. Mixed [employer] Farmer/oncologist signed off. Thrombocytopenia S/t liver disease. - Monitor CBC. - transfuse platelets if signs of acute bleeding, or less than 50,000. - Hematology following. Hypernatremia Most likely secondary to dehydration. Resolved. -s/p D5W at 75 ml/hr Hypokalemia Possibly s/t decreased PO intake. - Potassium scheduled. - monitor and replete as needed. Liver mass Noted on imaging. - Radiologist recommend hepatic MRI with [facility]. MRI of the liver was done which was a poor study. It did not showed any hepatic lesions but stated that patient has cirrhosis, portal hypertension, ascites, esophageal varices. GI wants to repeat MRI in a few days. Management per GI. PPx: IVC filter Discharge Planning Patient does not have funding for SNF placement. Need to do aggressive therapy while hospitalized. Will have physical therapist worker patient at least 5 times a week. Problem Qualifiers (1) Hematemesis: Qualified Codes: K92.0 - Hematemesis; R11.0 - Nausea Ericka Menard MD Jun 12, 2017 10:02
--- NOTE | 2017-06-12 13:38 | HHI.GIFU ---
Subjective Remarks Pt resting in bed, tired from PT. Mother at bedside. No bleeding. No complaints. Mother to d/w pts cousin re her w/u for cirrhosis. (Ruchi Casas) Objective Vitals I&O Vital Signs Date Time Temp Pulse Resp B/P (MAP) Pulse Ox O2 Delivery O2 Flow Rate FiO2 06/12/17 12:56 78 06/12/17 08:00 2.00 06/12/17 08:00 79 06/12/17 07:50 97.0 80 20 107/58 (74) 95 06/12/17 04:10 98.4 84 17 120/70 (87) 96 06/12/17 04:00 58 06/12/17 00:10 99.1 86 17 107/59 (75) 95 06/12/17 00:00 79 06/11/17 21:37 98 Nasal Cannula 3.00 06/11/17 20:05 99.9 86 19 116/73 (87) 95 06/11/17 20:00 91 06/11/17 16:00 98.8 87 18 105/62 (76) 95 I/O 06/11/17 06/11/17 06/11/17 06/12/17 06/12/17 06/12/17 07:00 15:00 23:00 07:00 15:00 23:00 Intake Total 822 ml Output Total 400 ml 650 ml 675 ml 1300 ml Balance -400 ml -650 ml 147 ml -1300 ml Intake Oral 822 ml Output Urine Total 400 ml 650 ml 675 ml 1300 ml # Voids 1 3 # Bowel Movements 1 4 3 Laboratory Laboratory Tests Test 06/12/17 08:36 White Blood Count 6.3 Red Blood Count 2.81 Hemoglobin 7.2 Hematocrit 22.6 Mean Corpuscular Volume 80.3 Mean Corpuscular Hemoglobin 25.8 Mean Corpuscular Hemoglobin Concent 32.1 Red Cell Distribution Width 18.3 Platelet Count 115 Mean Platelet Volume 8.8 Neutrophils (%) (Auto) 72.2 Lymphocytes (%) (Auto) 14.8 Monocytes (%) (Auto) 7.6 Eosinophils (%) (Auto) 4.8 Basophils (%) (Auto) 0.6 Neutrophils # (Auto) 4.6 Lymphocytes # (Auto) 0.9 Monocytes # (Auto) 0.5 Eosinophils # (Auto) 0.3 Basophils # (Auto) 0.0 CBC Comment DIFF FINAL Differential Comment Date/Time Source Procedure Growth Status 06/04/17 05:35 Blood Peripheral Aerobic Blood Culture - Final NO GROWTH IN 5 DAYS Complete 06/04/17 05:35 Blood Peripheral Anaerobic Blood Culture - Final NO GROWTH IN 5 DAYS Complete 06/01/17 03:30 Sputum Endotracheal Gram Stain - Final Complete 06/01/17 03:30 Sputum Culture - Final Staphylococcus Aureus Complete 06/03/17 12:40 Urine Catheterized Urine Urine Culture - Final NO GROWTH IN 48 HOURS. Complete Imaging Last Impressions Abdomen MRI 06/10/17 0000 Signed Impressions: Service Date/Time: Saturday, June 10, 2017 12:01 - CONCLUSION: 1. This examination is limited secondary to artifact related to patient motion, patient size, and poor contrast-enhancement from uncertain etiology. There is mild hepatomegaly with features characteristic of cirrhosis. However, no liver lesion is identified. Given the quality of the examination, suggest followup liver MRI when patient condition permits for a better examination. 2. There are findings related to portal hypertension including splenomegaly, ascites, and esophageal varices. David Rhodes MD Chest X-Ray 06/09/17 0000 Signed Impressions: Service Date/Time: Friday, June 09, 2017 18:58 - CONCLUSION: 1. Left greater than right basilar consolidation and small effusions are not significantly changed. 2. Mildly enlarged heart similar to before. 3. Interim extubation. Nasogastric tube and right IJ central venous catheter also out. David Quintero MD IVC Filter Placement X-Ray 06/05/17 0000 Signed Impressions: Service Date/Time: Monday, June 05, 2017 16:23 - CONCLUSION: Uncomplicated inferior vena cava filter placement as above. A Bard Jamee retrievable filter was placed. Chetan Aguila MD Upper Extremity Ultrasound 06/01/17 0000 Signed Impressions: Service Date/Time: Thursday, June 01, 2017 13:47 - CONCLUSION: No evidence of upper extremity DVT on the right or left. Angel Paredes MD Lower Extremity Ultrasound 06/01/17 0000 Signed Impressions: Service Date/Time: Thursday, June 01, 2017 13:30 - CONCLUSION: No evidence of lower extremity DVT on the right or left. Angel Paredes MD CT Angiography 06/01/17 0000 Signed Impressions: Service Date/Time: Thursday, June 01, 2017 02:39 - CONCLUSION: 1. Suspected left upper lobe and left lower lobe pulmonary emboli. No pulmonary embolus on the right. 2. Right infrahilar/subcarinal mass. 3. Bilateral lower lobe atelectasis, right worse than left. Also patchy pneumonia of the right lower lobe. David Quintero MD Abdomen/Pelvis CT 06/01/17 0000 Signed Impressions: Service Date/Time: Thursday, June 01, 2017 02:39 - CONCLUSION: 1. Cirrhosis. Heterogeneously enhancing liver without a distinct/measurable focal lesion. 2. Marked splenomegaly, 10.3 x 17.6 x 18.1 cm. 3. Very severe portosystemic collaterals including gastroesophageal varices. The varices extend into the lower chest and probably account for the subcarinal/right infrahilar mass seen by chest CT. 4. Diffuse wall thickening of the colon, colitis versus secondary changes from cirrhosis. 5. Small ascites. Body wall edema/anasarca. David Quintero MD Liver Ultrasound 05/30/17 0000 Signed Impressions: Service Date/Time: May 09:04 - CONCLUSION: Cirrhotic liver appearance. Question focal right lobe mass. Recommend further evaluation with hepatic MRI with Eovist. David Terrazas MD Physical Exam HEENT: Normocephalic; atraumatic; CHEST: Respirations even/unlabored. Diminished CARDIAC: RRR ABDOMEN: Soft, distended with ascites , hepatosplenomegaly; bowel sounds are present in all four quadrants. EXTREMITIES: pitting edema BLE BIOMETRICS TECHNICIAN: alert (Ruchi Casas SHIRT FOLDER) Assessment and Plan Plan - Upper GIB with hematemesis on admission. S/P EGD (05/31/17)-----> Bleeding esophageal varices. Rpt. EGD with OGT placement (06/04/17)---> 1. Esophageal varices grade 3 old bands seen over variceal columns, og tube placed in stomach under direct visualization 2. Retroflexed views revealed a hiatal hernia 3. Retroflexed views revealed gastric varices. S/ P 6 units PRBC, No active bleeding. PPI. - Anemia acute blood loss. S/P 6 units PRBC, PPI. STABLE. - Coagulopathy/thrombocytopenia. Plt 115,000. INR 1.1. IMPROVING - Elevated LFTs. Liver US (05/30/17)---> Cirrhotic liver appearance. Question focal right lobe mass. Recommend further evaluation with hepatic MRI with Eovist. Hepatitis profile negative. STEPHANIE negative. AMA <20.0, ASMA neg. AFP 1.8. Ceruloplasmin 24, ALpha [address] Scan abdomen and pelvis to further evaluation. CT scan abdomen and pelvis with iv contrast (06/01/17)----> cirrhosis, heterogeneously enhancing liver without a distinct/measurable focal lesion, marked splenomegaly, 10.3 x 17.6 x 18.1 cm, very severe portosystemic collaterals including gastroesophageal varices. The varices extend into the lower chest and probably account for the subcarinal/right infrahilar mass seen by chest CT, diffuse wall thickening of the colon, colitis versus secondary changes from cirrhosis. Small ascites, body wall edema/anasarca. LFTs trending down. Pentoxifylline. - Hepatic encephalopathy with ammonia. Improved. Lactulose, Xifaxan. - AKIKO. Improved - Resp. Failure, PE, PNA. S/P IVC filter. S/P Extubation per CCM - Family hx colon ca. Mother dx age 60 PLAN - await information re cousin's dx cirrhosis, d/w pt & mother - Heart healthy 2 gram sodium diet - Protonix 40mg po BID - Cont. Xifaxan - Cont. Lactulose - Cont. Pentoxifylline - Monitor labs - Transfuse as needed - Supportive care - ETOH Cessation - MRI as outpatient - pt unable to lay flat and stay still - Pt seen and examined by myself and Dr. Mcdowell and this note is written on his behalf (Ruchi Casas) Physician Comments Patient seen and examined Agree with above Continue with current supportive care Monitor labs Await information from cousin regarding her diagnosis (Villa Mcdowell MD) Ruchi Casas Jun 12, 2017 13:38 Villa Mcdowell MD Jun 12, 2017 20:44
--- NOTE | 2017-06-12 16:56 | HHI.PR ---
Subjective Remarks alert no sob [facility] Objective Vital Signs Date Time Temp Pulse Resp B/P (MAP) Pulse Ox O2 Delivery O2 Flow Rate FiO2 06/12/17 12:56 78 06/12/17 11:50 97.2 82 20 107/60 (76) 90 06/12/17 08:00 2.00 06/12/17 08:00 79 06/12/17 07:50 97.0 80 20 107/58 (74) 95 06/12/17 04:10 98.4 84 17 120/70 (87) 96 06/12/17 04:00 58 06/12/17 00:10 99.1 86 17 107/59 (75) 95 06/12/17 00:00 79 06/11/17 21:37 98 Nasal Cannula 3.00 06/11/17 20:05 99.9 86 19 116/73 (87) 95 06/11/17 20:00 91 I/O 06/11/17 06/11/17 06/11/17 06/12/17 06/12/17 06/12/17 06:59 14:59 22:59 06:59 14:59 22:59 Intake Total 822 ml Output Total 400 ml 650 ml 675 ml 1300 ml Balance -400 ml -650 ml 147 ml -1300 ml Intake Oral 822 ml Output Urine Total 400 ml 650 ml 675 ml 1300 ml # Voids 1 3 # Bowel Movements 1 4 3 Result Diagram: 06/12/17 0836 06/11/17 0730 Objective Remarks GENERAL: SKIN: Warm and dry. HEAD: Atraumatic. Normocephalic. EYES: Pupils equal and round. No scleral icterus. No injection or drainage. ENT: No nasal bleeding or discharge. Mucous membranes pink and moist. NECK: Trachea midline. No JVD. CARDIOVASCULAR: Regular rate and rhythm. RESPIRATORY: No accessory muscle use. Clear to auscultation. Breath sounds equal bilaterally. GASTROINTESTINAL: Abdomen soft, non-tender, nondistended. Hepatic and splenic margins not palpable. MUSCULOSKELETAL: Extremities without clubbing, cyanosis, or edema. No obvious deformities. NEUROLOGICAL: Awake and alert. No obvious cranial nerve deficits. Motor grossly within normal limits. Five out of 5 muscle strength in the arms and legs. Normal speech. PSYCHIATRIC: Appropriate mood and affect; insight and judgment normal. Assessment and Plan Assessment and Plan pulmonary embolism post IVC filter Gi bleed portal htn CHEST [id number] STABLE PLAN o2 as needed ANTIBIOTICS Yosef Navas MD Jun 12, 2017 16:56
[2017-06-13] VITALS (10 sets, daily range): BP systolic 107–113; BP diastolic 54–65; PULSE 77–97; RESP 18–20; TEMP 97–98.3; O2SAT 93–96
[2017-06-13] MEDS: PROPRANOLOL HCL 10 MG TAB PO SCH ×3 (05:47→23:06)
--- NOTE | 2017-06-13 08:22 | HHI.PR ---
Subjective Remarks Pt has no complaints today. No hematemesis, nausea or vomiting, no pain states that his cousin will be touching base w GI today regarding diagnosis. Has been working w PT as much as he can Objective Vitals Vital Signs Date Time Temp Pulse Resp B/P (MAP) Pulse Ox O2 Delivery O2 Flow Rate FiO2 06/13/17 04:00 97.1 89 18 113/59 (77) 94 06/13/17 00:00 98.3 93 18 107/54 (71) 93 06/13/17 00:00 81 06/12/17 20:15 93 Nasal Cannula 2.00 06/12/17 20:00 87 06/12/17 20:00 97.1 89 18 106/55 (72) 94 06/12/17 18:48 76 06/12/17 15:50 98.0 86 20 116/60 (78) 98 06/12/17 12:56 78 06/12/17 11:50 97.2 82 20 107/60 (76) 90 I/O 06/12/17 06/12/17 06/12/17 06/13/17 06/13/17 06/13/17 07:00 15:00 23:00 07:00 15:00 23:00 Intake Total 480 ml Output Total 1300 ml 1150 ml 700 ml Balance -1300 ml -670 ml -700 ml Intake Oral 480 ml Output Urine Total 1300 ml 1150 ml 700 ml # Voids 3 # Bowel Movements 3 2 Result Diagram: 06/12/17 0836 06/11/17 0730 Imaging Last Impressions Abdomen MRI 06/10/17 0000 Signed Impressions: Service Date/Time: Saturday, June 10, 2017 12:01 - CONCLUSION: 1. This examination is limited secondary to artifact related to patient motion, patient size, and poor contrast-enhancement from uncertain etiology. There is mild hepatomegaly with features characteristic of cirrhosis. However, no liver lesion is identified. Given the quality of the examination, suggest followup liver MRI when patient condition permits for a better examination. 2. There are findings related to portal hypertension including splenomegaly, ascites, and esophageal varices. David Rhodes MD Chest X-Ray 06/09/17 0000 Signed Impressions: Service Date/Time: Friday, June 09, 2017 18:58 - CONCLUSION: 1. Left greater than right basilar consolidation and small effusions are not significantly changed. 2. Mildly enlarged heart similar to before. 3. Interim extubation. Nasogastric tube and right IJ central venous catheter also out. David Quintero MD IVC Filter Placement X-Ray 06/05/17 Signed Impressions: Service Date/Time: Monday, June 05, 2017 16:23 - CONCLUSION: Uncomplicated inferior vena cava filter placement as above. A Bard Jamee retrievable filter was placed. Chetan Aguila MD Upper Extremity Ultrasound 06/01/17 Signed Impressions: Service Date/Time: Thursday, June 01, 2017 13:47 - CONCLUSION: No evidence of upper extremity DVT on the right or left. Angel Paredes MD Lower Extremity Ultrasound 06/01/17 Signed Impressions: Service Date/Time: Thursday, June 01, 2017 13:30 - CONCLUSION: No evidence of lower extremity DVT on the right or left. Angel Paredes MD CT Angiography 06/01/17 Signed Impressions: Service Date/Time: Thursday, June 01, 2017 02:39 - CONCLUSION: 1. Suspected left upper lobe and left lower lobe pulmonary emboli. No pulmonary embolus on the right. 2. Right infrahilar/subcarinal mass. 3. Bilateral lower lobe atelectasis, right worse than left. Also patchy pneumonia of the right lower lobe. David Quintero MD Abdomen/Pelvis CT 06/01/17 Signed Impressions: Service Date/Time: Thursday, June 01, 2017 02:39 - CONCLUSION: 1. Cirrhosis. Heterogeneously enhancing liver without a distinct/measurable focal lesion. 2. Marked splenomegaly, 10.3 x 17.6 x 18.1 cm. 3. Very severe portosystemic collaterals including gastroesophageal varices. The varices extend into the lower chest and probably account for the subcarinal/right infrahilar mass seen by chest CT. 4. Diffuse wall thickening of the colon, colitis versus secondary changes from cirrhosis. 5. Small ascites. Body wall edema/anasarca. David Quintero MD Liver Ultrasound 05/30/17 Signed Impressions: Service Date/Time: May 09:04 - CONCLUSION: Cirrhotic liver appearance. Question focal right lobe mass. Recommend further evaluation with hepatic MRI with Eovist. David Terrazas MD Objective Remarks GENERAL: in NAD SKIN: Warm and dry. HEAD: Normocephalic. NECK: Supple, trachea midline. CARDIOVASCULAR: Regular rate and rhythm without murmurs RESPIRATORY: Breath sounds equal bilaterally. No accessory muscle use. GASTROINTESTINAL: Abdomen soft, non-tender, nondistended. MUSCULOSKELETAL: +1 edema noted in lower extremities Procedures 05/30- EGD 06/04-EGD Side: Right Location: Subclavian A/P Problem List: (1) GI bleed ICD Code: K92.2 - Gastrointestinal hemorrhage, unspecified (2) Melena ICD Code: K92.1 - Melena Status: Acute (3) Hematemesis ICD Code: K92.0 - Hematemesis Status: Acute (4) Transaminitis ICD Code: R74.0 - Nonspecific elevation of levels of transaminase and lactic acid dehydrogenase [LDH] (5) Thrombocytopenia ICD Code: D69.6 - Thrombocytopenia, unspecified Status: Acute Assessment and Plan Hypoxic Respiratory failure 06/01 CTA pulmonary-suspected left upper lobe, left lower lobe pulmonary emboli, no pulmonary emboli on the right. Bilateral lower lobe atelectasis. Patchy pneumonia right lower lobe. Noted ill-defined right infrahilar/subcarinal mass 4.2 x 4.8 cm (likely esophageal varices- per CT abdomen report). Extensive discussion with Dr. Terrazas (IR) patient is not a candidate for catheter directed TPA in the setting of GI bleeding. Intubated 05/29 and extubated 06/06. Ultrasound bilateral lower extremities negative for DVT. 06/01 ECHO ejection fraction 55-60%. No RWMA. Trace TR. - Maintain O2 saturation greater than 92%. - DuoNeb's every 6 hours scheduled every 2 hours when necessary. - Patient was on Ancef for MSSA pneumonia. d/c 06/07. - S/p IVC filter. - Pulmonology following. - Incentive spirometry. - PT/ OT. GI bleed/ Hematemesis 06/01 CT abdomen-splenomegaly, ascites, esophageal varices extend into the lower chest and may account for subcarinal and infrahilar masses. [place] portosystemic collaterals. Large esophageal varix. 3 bands applied by GI. 06/05 repeat EGD varices no active bleeding. Ammonia decreasing. - Status post protonic and octreotide gtt. -Patient on sandostatin and protonix - Monitor CBC and transfuse as needed. Transaminitis/liver cirrhosis complicatef by portal hypertension, esophageal varices and ascites. Due to daily Tylenol use. S/p Mucomyst. AST 692, ALT 593, T bili 2.1. Liver ultrasound reveals cirrhotic liver image. Tylenol level negative. Hepatitis profile negative. - Workup per gastroenterology - Monitor PT/INR. - continue rifaximin, lactulose and pentoxifylline. -MRI showed portal hypertension, esophageal varices, and ascites. GI wants to repeat MRI of the liver and a few days. They are also considering a liver biopsy if a 1A is negative. Subcarinal mass on CTA -previous hospitalist discussed w Kiara, from hematology, she stated that mass on CTA more likely esophageal varices if for patient to follow with Dr. Casey as outpatient regards to this. Peer Financial Counselor/oncologist signed off. Thrombocytopenia S/t liver disease. - Monitor CBC. - transfuse platelets if signs of acute bleeding, or less than 50,000. - Hematology following. Hypernatremia Most likely secondary to dehydration. Resolved. -s/p D5W at 75 ml/hr Hypokalemia Possibly s/t decreased PO intake. - Potassium scheduled. - monitor and replete as needed. Liver mass Noted on imaging. - Radiologist recommend hepatic MRI with Eovist. MRI of the liver was done which was a poor study. It did not showed any hepatic lesions but stated that patient has cirrhosis, portal hypertension, ascites, esophageal varices. GI wants to repeat MRI in a few days. Management per GI. PPx: IVC filter Discharge Planning Patient does not have funding for SNF placement. Need to do aggressive therapy while hospitalized. Will have physical therapist work w patient at least 5 times a week. give one time dose of lasix 20mg po, elevate legs Problem Qualifiers (1) Hematemesis: Qualified Codes: K92.0 - Hematemesis; R11.0 - Nausea Dominga Agee MD Jun 13, 2017 08:22
[2017-06-13] MEDS ORDERED: FUROSEMIDE 20 MG TAB PO ONE (08:30)
[2017-06-13] MEDS: POTASSIUM CHLORIDE 25 MEQ EFFERVESCENT TAB PO SCH ×2 (09:00→20:47)
[2017-06-13] MEDS: FUROSEMIDE 20 MG TAB PO SCH ×2 (09:50→18:32)
[2017-06-13] MEDS: LACTULOSE SYRUP 20 GM/30 ML CUP PO SCH ×2 (09:50→20:48)
[2017-06-13] MEDS: RIFAXIMIN 550 MG TAB PO SCH ×2 (09:50→20:48)
[2017-06-13] MEDS: PANTOPRAZOLE SOD 40 MG DELAYED RELEASE TAB PO SCH ×2 (09:50→20:48)
[2017-06-13] MEDS: CALCIUM CARBONATE 1.25 GM (CA 500 MG) TAB PO SCH ×2 (09:50→20:48)
[2017-06-13] MEDS: SODIUM CHLORIDE 0.9% FLUSH 10 ML FLUSH IV FLUSH SCH ×2 (09:51→20:57)
[2017-06-13 13:39] LABS: AUTOMATED NEUTROPHIL # 4.9 TH/MM3 (1.8-7.7); BASOPHIL % 0.7 % (0.0-2.0); EOSINOPHIL # 0.3 TH/MM3 (0-0.4); EOSINOPHIL % 4.7 % (0.0-4.0); HEMATOCRIT 26.4 % (39.0-51.0); HEMO FLAGS DIFF FINAL; LYMPH % 15.7 % (9.0-44.0); LYMPHOCYTE # 1.1 TH/MM3 (1.0-4.8); MEAN CELL VOLUME 79.3 FL (80.0-100.0); MEAN CORPUSCULAR HEMOGLOBIN 25.5 PG (27.0-34.0); MEAN CORPUSCULAR HGB CONC 32.1 % (32.0-36.0); MONO % 9.1 % (0.0-8.0); NEUT % 69.8 % (16.0-70.0); PLATELET COUNT 183 TH/MM3 (150-450); RED BLOOD COUNT 3.32 MIL/MM3 (4.50-5.90)
--- NOTE | 2017-06-13 14:09 | HHI.GIFU ---
Subjective Remarks Up in chair. No GI bleeding. No abdominal pain. Swelling going down. States that he learned that his maternal uncle also had liver disease- still waiting records on the details of his uncles and cousin's liver disease. (Mercedes Richards) Objective Vitals I&O Vital Signs Date Time Temp Pulse Resp B/P (MAP) Pulse Ox O2 Delivery O2 Flow Rate FiO2 06/13/17 08:00 Nasal Cannula 1.00 06/13/17 08:00 79 06/13/17 07:50 97.0 77 20 112/59 (76) 96 06/13/17 04:00 97.1 89 18 113/59 (77) 94 06/13/17 00:00 98.3 93 18 107/54 (71) 93 06/13/17 00:00 81 06/12/17 20:15 93 Nasal Cannula 2.00 06/12/17 20:00 87 06/12/17 20:00 97.1 89 18 106/55 (72) 94 06/12/17 18:48 76 06/12/17 15:50 98.0 86 20 116/60 (78) 98 I/O 06/12/17 06/12/17 06/12/17 06/13/17 06/13/17 06/13/17 07:00 15:00 23:00 07:00 15:00 23:00 Intake Total 480 ml Output Total 1300 ml 1150 ml 700 ml Balance -1300 ml -670 ml -700 ml Intake Oral 480 ml Output Urine Total 1300 ml 1150 ml 700 ml # Voids 3 # Bowel Movements 3 2 Laboratory Laboratory Tests Test 06/13/17 13:15 White Blood Count 7.0 Red Blood Count 3.32 Hemoglobin 8.5 Hematocrit 26.4 Mean Corpuscular Volume 79.3 Mean Corpuscular Hemoglobin 25.5 Mean Corpuscular Hemoglobin Concent 32.1 Red Cell Distribution Width 18.0 Platelet Count 183 Mean Platelet Volume 8.8 Neutrophils (%) (Auto) 69.8 Lymphocytes (%) (Auto) 15.7 Monocytes (%) (Auto) 9.1 Eosinophils (%) (Auto) 4.7 Basophils (%) (Auto) 0.7 Neutrophils # (Auto) 4.9 Lymphocytes # (Auto) 1.1 Monocytes # (Auto) 0.6 Eosinophils # (Auto) 0.3 Basophils # (Auto) 0.0 CBC Comment DIFF FINAL Differential Comment Date/Time Source Procedure Growth Status 06/04/17 05:35 Blood Peripheral Aerobic Blood Culture - Final NO GROWTH IN 5 DAYS Complete 06/04/17 05:35 Blood Peripheral Anaerobic Blood Culture - Final NO GROWTH IN 5 DAYS Complete 06/01/17 03:30 Sputum Endotracheal Gram Stain - Final Complete 06/01/17 03:30 Sputum Culture - Final Staphylococcus Aureus Complete 06/03/17 12:40 Urine Catheterized Urine Urine Culture - Final NO GROWTH IN 48 HOURS. Complete Imaging Last Impressions Abdomen MRI 06/10/17 0000 Signed Impressions: Service Date/Time: Saturday, June 10, 2017 12:01 - CONCLUSION: 1. This examination is limited secondary to artifact related to patient motion, patient size, and poor contrast-enhancement from uncertain etiology. There is mild hepatomegaly with features characteristic of cirrhosis. However, no liver lesion is identified. Given the quality of the examination, suggest followup liver MRI when patient condition permits for a better examination. 2. There are findings related to portal hypertension including splenomegaly, ascites, and esophageal varices. David Rhodes MD Chest X-Ray 06/09/17 0000 Signed Impressions: Service Date/Time: Friday, June 09, 2017 18:58 - CONCLUSION: 1. Left greater than right basilar consolidation and small effusions are not significantly changed. 2. Mildly enlarged heart similar to before. 3. Interim extubation. Nasogastric tube and right IJ central venous catheter also out. David Quintero MD IVC Filter Placement X-Ray 06/05/17 0000 Signed Impressions: Service Date/Time: Monday, June 05, 2017 16:23 - CONCLUSION: Uncomplicated inferior vena cava filter placement as above. A Bard Jamee retrievable filter was placed. Chetan Aguila MD Upper Extremity Ultrasound 06/01/17 0000 Signed Impressions: Service Date/Time: Thursday, June 01, 2017 13:47 - CONCLUSION: No evidence of upper extremity DVT on the right or left. Angel Paredes MD Lower Extremity Ultrasound 06/01/17 0000 Signed Impressions: Service Date/Time: Thursday, June 01, 2017 13:30 - CONCLUSION: No evidence of lower extremity DVT on the right or left. Angel Paredes MD CT Angiography 06/01/17 0000 Signed Impressions: Service Date/Time: Thursday, June 01, 2017 02:39 - CONCLUSION: 1. Suspected left upper lobe and left lower lobe pulmonary emboli. No pulmonary embolus on the right. 2. Right infrahilar/subcarinal mass. 3. Bilateral lower lobe atelectasis, right worse than left. Also patchy pneumonia of the right lower lobe. David Quintero MD Abdomen/Pelvis CT 06/01/17 0000 Signed Impressions: Service Date/Time: Thursday, June 01, 2017 02:39 - CONCLUSION: 1. Cirrhosis. Heterogeneously enhancing liver without a distinct/measurable focal lesion. 2. Marked splenomegaly, 10.3 x 17.6 x 18.1 cm. 3. Very severe portosystemic collaterals including gastroesophageal varices. The varices extend into the lower chest and probably account for the subcarinal/right infrahilar mass seen by chest CT. 4. Diffuse wall thickening of the colon, colitis versus secondary changes from cirrhosis. 5. Small ascites. Body wall edema/anasarca. David Quintero MD Liver Ultrasound 05/30/17 0000 Signed Impressions: Service Date/Time: May 09:04 - CONCLUSION: Cirrhotic liver appearance. Question focal right lobe mass. Recommend further evaluation with hepatic MRI with Eovist. David Terrazas MD Physical Exam HEENT: Normocephalic; atraumatic; CHEST: Respirations even/unlabored. Diminished CARDIAC: RRR ABDOMEN: Soft, distended with ascites improved , hepatosplenomegaly; bowel sounds are present in all four quadrants. EXTREMITIES:BLE edema, improving [employer]: alert (Mercedes Richards) Assessment and Plan Plan - Upper GIB with hematemesis on admission. S/P EGD (05/31/17)-----> Bleeding esophageal varices. Rpt. EGD with OGT placement (06/04/17)---> 1. Esophageal varices grade 3 old bands seen over variceal columns, og tube placed in stomach under direct visualization 2. Retroflexed views revealed a hiatal hernia 3. Retroflexed views revealed gastric varices. S/ P 6 units PRBC, No active bleeding. PPI. - Anemia acute blood loss. S/P 6 units PRBC, HH 8.5/26.4. PPI. STABLE. - Coagulopathy/thrombocytopenia. Plt 183,000. INR 1.1. IMPROVING - Elevated LFTs. Liver US (05/30/17)---> Cirrhotic liver appearance. Question focal right lobe mass. Recommend further evaluation with hepatic MRI with Eovist. Hepatitis profile negative. STEPHANIE negative. AMA <20.0, ASMA neg. AFP 1.8. Ceruloplasmin 24, ALpha [address] Scan abdomen and pelvis to further evaluation. CT scan abdomen and pelvis with iv contrast (06/01/17)----> cirrhosis, heterogeneously enhancing liver without a distinct/measurable focal lesion, marked splenomegaly, 10.3 x 17.6 x 18.1 cm, very severe portosystemic collaterals including gastroesophageal varices. The varices extend into the lower chest and probably account for the subcarinal/right infrahilar mass seen by chest CT, diffuse wall thickening of the colon, colitis versus secondary changes from cirrhosis. Small ascites, body wall edema/anasarca. LFTs trending down. Pentoxifylline. Refusing repeat MRI as inpatient, requesting to have as outpatient. Awaiting records from family members- Maternal uncle and his maternal 1st cousin both with liver cirrhosis and no significant ETOH abuse. - Hepatic encephalopathy with ammonia. Improved. Lactulose, Xifaxan. - AKIKO. Improved - Resp. Failure, PE, PNA. S/P IVC filter. S/P Extubation per CCM - Family hx colon ca. Mother dx age 60 PLAN - Heart healthy 2 gram sodium diet - Cont. Protonix - Cont. Xifaxan - Cont. Lactulose - Cont. Pentoxifylline - Monitor labs - Transfuse as needed - Supportive care - ETOH Cessation - MRI as outpatient - refusing as inpatient - Awaiting records from other family members with liver disease (without ETOH abuse- Maternal uncle, 1st cousin) - Pt seen and examined by myself and Dr. Mcdowell and this note is written on his behalf (Mercedes Richards) Physician Comments Patient seen and examined Agree with above Continue with current supportive care Monitor labs Await further information from the family members Patient may be discharged from a GI standpoint follow-up with GI post discharge Liver cirrhosis etiology unclear at this point (Villa Mcdowell MD) Mercedes Richards Jun 13, 2017 14:09 Vlila Mcdowell MD Jun 13, 2017 16:12
--- NOTE | 2017-06-13 15:56 | HHI.PR ---
Subjective Remarks alert no sob [facility] Objective Vital Signs Date Time Temp Pulse Resp B/P (MAP) Pulse Ox O2 Delivery O2 Flow Rate FiO2 06/13/17 14:53 95 06/13/17 11:50 97.3 95 20 108/65 (79) 93 06/13/17 08:00 Nasal Cannula 1.00 06/13/17 08:00 79 06/13/17 07:50 97.0 77 20 112/59 (76) 96 06/13/17 04:00 97.1 89 18 113/59 (77) 94 06/13/17 00:00 98.3 93 18 107/54 (71) 93 06/13/17 00:00 81 06/12/17 20:15 93 Nasal Cannula 2.00 06/12/17 20:00 87 06/12/17 20:00 97.1 89 18 106/55 (72) 94 06/12/17 18:48 76 I/O 06/12/17 06/12/17 06/12/17 06/13/17 06/13/17 06/13/17 07:00 15:00 23:00 07:00 15:00 23:00 Intake Total 480 ml Output Total 1300 ml 1150 ml 700 ml Balance -1300 ml -670 ml -700 ml Intake Oral 480 ml Output Urine Total 1300 ml 1150 ml 700 ml # Voids 3 # Bowel Movements 3 2 Result Diagram: 06/13/17 1315 06/11/17 0730 Objective Remarks GENERAL: SKIN: Warm and dry. HEAD: Atraumatic. Normocephalic. EYES: Pupils equal and round. No scleral icterus. No injection or drainage. ENT: No nasal bleeding or discharge. Mucous membranes pink and moist. NECK: Trachea midline. No JVD. CARDIOVASCULAR: Regular rate and rhythm. RESPIRATORY: No accessory muscle use. Clear to auscultation. Breath sounds equal bilaterally. GASTROINTESTINAL: Abdomen soft, non-tender, nondistended. Hepatic and splenic margins not palpable. MUSCULOSKELETAL: Extremities without clubbing, cyanosis, or edema. No obvious deformities. NEUROLOGICAL: Awake and alert. No obvious cranial nerve deficits. Motor grossly within normal limits. Five out of 5 muscle strength in the arms and legs. Normal speech. PSYCHIATRIC: Appropriate mood and affect; insight and judgment normal. Assessment and Plan Assessment and Plan pulmonary embolism post IVC filter Gi bleed portal htn CHEST [id number] STABLE PLAN o2 as needed INCREASE ACTIVITY Yosef Navas MD Jun 13, 2017 15:56
[2017-06-14] VITALS (11 sets, daily range): BP systolic 102–135; BP diastolic 60–78; PULSE 78–99; RESP 16–20; TEMP 96.9–98.3; O2SAT 92–100
[2017-06-14 06:47] LABS: AUTOMATED NEUTROPHIL # 2.3 TH/MM3 (1.8-7.7); BASOPHIL % 0.9 % (0.0-2.0); EOSINOPHIL # 0.2 TH/MM3 (0-0.4); EOSINOPHIL % 4.8 % (0.0-4.0); LYMPH % 21.7 % (9.0-44.0); LYMPHOCYTE # 0.8 TH/MM3 (1.0-4.8); MEAN CELL VOLUME 79.4 FL (80.0-100.0); MEAN CORPUSCULAR HEMOGLOBIN 25.4 PG (27.0-34.0); MONO % 9.6 % (0.0-8.0); PLATELET COUNT 99 TH/MM3 (150-450); RED BLOOD COUNT 2.73 MIL/MM3 (4.50-5.90); RED CELL DISTRIBUTION WIDTH 17.6 % (11.6-17.2); WHITE BLOOD COUNT 3.7 TH/MM3 (4.0-11.0)
[2017-06-14 06:54] LABS: HEMO FLAGS AUTO DIFF
[2017-06-14 06:55] LABS: HEMATOCRIT 21.7 % (39.0-51.0)
[2017-06-14] MEDS: PROPRANOLOL HCL 10 MG TAB PO SCH ×3 (07:01→21:20)
[2017-06-14 07:12] LABS: BICARBONATE 25.7 MEQ/L (21.0-32.0); POTASSIUM 3.9 MEQ/L (3.5-5.1)
[2017-06-14 08:04] LABS: ACANTHOCYTES OCC (NORMAL); OVALOCYTES 1+ (NORMAL)
[2017-06-14 08:05] LABS: PLATELET ESTIMATE SMEAR LOW (NORMAL); PLATELET MORPHOLOGY ENLARGED (NORMAL); SCAN/DIFF AUTO DIFF CONFIRMED
[2017-06-14] MEDS: CALCIUM CARBONATE 1.25 GM (CA 500 MG) TAB PO SCH ×2 (09:38→20:15)
[2017-06-14] MEDS: PANTOPRAZOLE SOD 40 MG DELAYED RELEASE TAB PO SCH ×2 (09:38→20:15)
[2017-06-14] MEDS: FUROSEMIDE 20 MG TAB PO SCH ×2 (09:38→17:53)
[2017-06-14] MEDS: RIFAXIMIN 550 MG TAB PO SCH ×2 (09:39→20:15)
[2017-06-14] MEDS: LACTULOSE SYRUP 20 GM/30 ML CUP PO SCH ×2 (09:39→20:15)
[2017-06-14] MEDS: POTASSIUM CHLORIDE 25 MEQ EFFERVESCENT TAB PO SCH ×2 (09:39→20:16)
[2017-06-14] MEDS: SODIUM CHLORIDE 0.9% FLUSH 10 ML FLUSH IV FLUSH SCH ×2 (09:40→20:16)
[2017-06-14] MEDS ORDERED: SODIUM CHLOR 0.9% 250 ML INJ 250 ML IV ONE (10:15)
[2017-06-14] MEDS ORDERED: FUROSEMIDE 20 MG/2 ML VIAL IV ONE ×2 (11:00→20:30)
--- NOTE | 2017-06-14 11:59 | HHI.PR ---
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 HAS FAMILY HX OF LIVER DISEASE NO NEW COMPLAINTS Objective Vitals Vital Signs Date Time Temp Pulse Resp B/P (MAP) Pulse Ox O2 Delivery O2 Flow Rate FiO2 06/14/17 08:00 97.0 86 16 121/69 (86) 98 06/14/17 05:03 20 06/14/17 04:00 97.2 83 16 102/66 (78) 93 06/14/17 00:00 98.3 99 18 116/60 (78) 95 06/13/17 21:00 92 06/13/17 21:00 95 Nasal Cannula 1.00 35 06/13/17 20:00 97.5 97 18 113/60 (77) 95 06/13/17 16:28 89 06/13/17 15:50 98.2 89 20 113/56 (75) 93 06/13/17 14:53 95 06/13/17 11:50 97.3 95 20 108/65 (79) 93 I/O 06/13/17 06/13/17 06/13/17 06/14/17 06/14/17 06/14/17 07:00 15:00 23:00 07:00 15:00 23:00 Intake Total 720 ml 400 ml Output Total 700 ml 500 ml 1150 ml Balance -700 ml 220 ml -1150 ml 400 ml Intake Oral 720 ml Packed Cells 400 ml Output Urine Total 700 ml 500 ml 1150 ml # Voids 3 # Bowel Movements 2 Result Diagram: 06/14/1762006/14/17 0621 Other Results Laboratory Tests Test 06/12/17 08:36 06/13/17 13:15 06/14/17 06:21 White Blood Count 6.3 TH/MM3 7.0 TH/MM3 3.7 TH/MM3 Red Blood Count 2.81 MIL/MM3 3.32 MIL/MM3 2.73 MIL/MM3 Hemoglobin 7.2 GM/DL 8.5 GM/DL 6.9 GM/DL Hematocrit 22.6 % 26.4 % 21.7 % Mean Corpuscular Volume 80.3 FL 79.3 FL 79.4 FL Mean Corpuscular Hemoglobin 25.8 PG 25.5 PG 25.4 PG Mean Corpuscular Hemoglobin Concent 32.1 % 32.1 % 32.0 % Red Cell Distribution Width 18.3 % 18.0 % 17.6 % Platelet Count 115 TH/MM3 183 TH/MM3 99 TH/MM3 Mean Platelet Volume 8.8 FL 8.8 FL 8.3 FL Neutrophils (%) (Auto) 72.2 % 69.8 % 63.0 % Lymphocytes (%) (Auto) 14.8 % 15.7 % 21.7 % Monocytes (%) (Auto) 7.6 % 9.1 % 9.6 % Eosinophils (%) (Auto) 4.8 % 4.7 % 4.8 % Basophils (%) (Auto) 0.6 % 0.7 % 0.9 % Neutrophils # (Auto) 4.6 TH/MM3 4.9 TH/MM3 2.3 TH/MM3 Lymphocytes # (Auto) 0.9 TH/MM3 1.1 TH/MM3 0.8 TH/MM3 Monocytes # (Auto) 0.5 TH/MM3 0.6 TH/MM3 0.4 TH/MM3 Eosinophils # (Auto) 0.3 TH/MM3 0.3 TH/MM3 0.2 TH/MM3 Basophils # (Auto) 0.0 TH/MM3 0.0 TH/MM3 0.0 TH/MM3 CBC Comment DIFF FINAL DIFF FINAL AUTO DIFF Differential Comment AUTO DIFF CONFIRMED [id number] 178 mg/dL Platelet Estimate LOW Platelet Morphology Comment ENLARGED Polychromasia 2.0 % Ovalocytes 1+ Acanthocytes OCC Blood Urea Nitrogen 11 MG/DL Creatinine 0.67 MG/DL Random Glucose 106 MG/DL Calcium Level 7.6 MG/DL Sodium Level 140 MEQ/L Potassium Level 3.9 MEQ/L Chloride Level 109 MEQ/L Carbon Dioxide Level 25.7 MEQ/L Anion Gap 5 MEQ/L Estimat Glomerular Filtration Rate 132 ML/MIN Imaging Last Impressions Abdomen MRI 06/10/17 0000 Signed Impressions: Service Date/Time: Saturday, June 10, 2017 12:01 - CONCLUSION: 1. This examination is limited secondary to artifact related to patient motion, patient size, and poor contrast-enhancement from uncertain etiology. There is mild hepatomegaly with features characteristic of cirrhosis. However, no liver lesion is identified. Given the quality of the examination, suggest followup liver MRI when patient condition permits for a better examination. 2. There are findings related to portal hypertension including splenomegaly, ascites, and esophageal varices. David Rhodes MD Chest X-Ray 06/09/17 Signed Impressions: Service Date/Time: Friday, June 09, 2017 18:58 - CONCLUSION: 1. Left greater than right basilar consolidation and small effusions are not significantly changed. 2. Mildly enlarged heart similar to before. 3. Interim extubation. Nasogastric tube and right IJ central venous catheter also out. David Quintero MD IVC Filter Placement X-Ray 06/05/17 Signed Impressions: Service Date/Time: Monday, June 05, 2017 16:23 - CONCLUSION: Uncomplicated inferior vena cava filter placement as above. A Bard Jamee retrievable filter was placed. Chetan Aguila MD Upper Extremity Ultrasound 06/01/17 Signed Impressions: Service Date/Time: Thursday, June 01, 2017 13:47 - CONCLUSION: No evidence of upper extremity DVT on the right or left. Angel Paredes MD Lower Extremity Ultrasound 06/01/17 Signed Impressions: Service Date/Time: Thursday, June 01, 2017 13:30 - CONCLUSION: No evidence of lower extremity DVT on the right or left. Angel Paredes MD CT Angiography 06/01/17 Signed Impressions: Service Date/Time: Thursday, June 01, 2017 02:39 - CONCLUSION: 1. Suspected left upper lobe and left lower lobe pulmonary emboli. No pulmonary embolus on the right. 2. Right infrahilar/subcarinal mass. 3. Bilateral lower lobe atelectasis, right worse than left. Also patchy pneumonia of the right lower lobe. David Quintero MD Abdomen/Pelvis CT 06/01/17 Signed Impressions: Service Date/Time: Thursday, June 01, 2017 02:39 - CONCLUSION: 1. Cirrhosis. Heterogeneously enhancing liver without a distinct/measurable focal lesion. 2. Marked splenomegaly, 10.3 x 17.6 x 18.1 cm. 3. Very severe portosystemic collaterals including gastroesophageal varices. The varices extend into the lower chest and probably account for the subcarinal/right infrahilar mass seen by chest CT. 4. Diffuse wall thickening of the colon, colitis versus secondary changes from cirrhosis. 5. Small ascites. Body wall edema/anasarca. David Quintero MD Liver Ultrasound 9/7/17 0000 Signed Impressions: Service Date/Time: May 09:04 - CONCLUSION: Cirrhotic liver appearance. Question focal right lobe mass. Recommend further evaluation with hepatic MRI with E[facility]. David Terrazas MD Objective Remarks GENERAL: AWAKE ALERT AND ORIENTED AND TALKATIVE AND COOPERATIVE SKIN: Warm and dry. HEAD: Atraumatic. Normocephalic. EYES: Pupils equal and round. No scleral icterus. No injection or drainage. EOMI ENT: No nasal bleeding or discharge. Mucous membranes pink and moist. TONGUE MIDLINE NECK: Trachea midline. No JVD. SUPPLE CARDIOVASCULAR: Regular rate and rhythm. S1, S2, NO S3 OR S4 NO HEAVE OR THRILL RESPIRATORY: No accessory muscle use. Clear to auscultation. Breath sounds equal bilaterally. GASTROINTESTINAL: Abdomen soft, non-tender, nondistended. Hepatic and splenic margins not palpable. OBESE MUSCULOSKELETAL: Extremities without clubbing, cyanosis, No obvious deformities. EDEMA 2 TO 3 BL LE NEUROLOGICAL: Awake and alert. No obvious cranial nerve deficits. Motor grossly within normal limits. Five out of 5 muscle strength in the arms and legs. Normal speech. PSYCHIATRIC: Appropriate mood and affect; insight and judgment normal. Procedures 05/30- EGD 06/04-EGD Medications and IVs Current Medications Ondansetron HCl (Zofran Inj) 4 mg ONCE ONCE IVP Last administered on 05/30/17 00:04; Start 05/30/17 at 00:00; Stop 05/30/17 at 00:01; Status DC Sodium Chloride 1,000 ml @ 1,000 mls/hr Q1H IV Last administered on 05/30/17 00:03; Start 05/29/17 at 23:46; Stop 05/30/17 at 00:45; Status DC Sodium Chloride (NS Flush) 2 ml UNSCH PRN IVF FLUSH AFTER USING IV ACCESS; Start 05/30/17 at 00:00; Stop 05/31/17 at 22:04; Status DC Pantoprazole Sodium 80 mg/ Sodium Chloride 35 ml @ 420 mls/hr Q5M ONCE IV Last administered on 05/30/17 00:05; Start 05/29/17 at 23:46; Stop 05/29/17 at 23: 50; Status DC Pantoprazole Sodium 80 mg/ Sodium Chloride 100 ml @ 10 mls/hr Q10H IV Last administered on 06/07/17 06:00; Start 05/29/17 at 23:46; Stop 06/07/17 at 14:50 ; Status DC Sodium Chloride 1,000 ml @ 100 mls/hr Q10H IV Last administered on 05/31/17 13 :11; Start 05/30/17 at 01:04; Stop 06/01/17 at 05:49; Status DC Sodium Chloride (NS Flush) 2 ml UNSCH PRN IV FLUSH FLUSH AFTER USING IV ACCESS ; Start 05/30/17 at 01:15 Sodium Chloride (NS Flush) 2 ml BID IV FLUSH Last administered on 06/14/17 09: 40; Start 05/30/17 at 09:00 Naloxone HCl (Narcan Inj) 0.4 mg UNSCH PRN IV SEE LABEL COMMENTS; Start at 01:15 Ondansetron HCl (Zofran Inj) 4 mg Q6HR PRN IV PUSH nausea Last administered on 05/30/17 16:53; Start 05/30/17 at 01:45 Ondansetron HCl (Zofran Inj) 4 mg ONCE ONCE IV PUSH Last administered on 02:34; Start 05/30/17 at 02:30; Stop 05/30/17 at 02:31; Status DC Octreotide Acetate (SandoSTATIN INJ) 50 mcg ONCE ONCE IV PUSH Last administered on 05/30/17 05:49; Start 05/30/17 at 03:45; Stop 05/30/17 at 03:46; Status DC Octreotide Acetate 500 mcg/ Sodium Chloride 500 ml @ 50 mls/hr Q10H IV Last administered on 06/07/17 04:19; Start 05/30/17 at 03:31; Stop 06/07/17 at 14:50 ; Status DC Miscellaneous Information Patient in critical care unit? Ass... [id number] .XX Last administered on 05/30/17 04:15; Start 05/30/17 at 04:15 Chlorhexidine Gluconate (Chlorhexidine 2% Cloth) 3 pack DAILY@04 TOPICAL Last administered on 06/05/17 03:23; Start 05/31/17 at 04:00; Stop 06/04/17 at 04:01 ; Status DC Chlorhexidine Gluconate (Chlorhexidine 2% Cloth) 3 pack UNSCH PRN TOPICAL HYGIENIC CARE; Start 05/30/17 at 04:15; Stop 06/04/17 at 04:13; Status DC Magnesium Citrate (Citroma Liq) 300 ml ONCE ONCE PO Last administered on 15:23; Start 05/30/17 at 16:00; Stop 05/30/17 at 17:42; Status DC Magnesium Citrate (Citroma Liq) 300 ml ONCE ONCE PO ; Start 05/30/17 at 18:00; Stop 05/30/17 at 18:00; Status DC Propofol 100 ml @ As Directed STK-MED ONCE .ROUTE Last administered on 20:00; Start 05/30/17 at 19:38; Stop 05/30/17 at 19:39; Status DC Phenylephrine HCl (Neosynephrine Inj) 40 mg STK-MED ONCE .ROUTE ; Start 05/30/17 at 19:45; Stop 05/30/17 at 19:46; Status DC Propofol (Diprivan 200 Mg/20 ml Inj) 290 mg STK-MED ONCE IV PUSH ; Start at 19:50; Stop 05/30/17 at 20:12; Status DC Phenylephrine HCl 40 mg/Dextrose 500 ml @ 30 mls/hr TITRATE PRN IV Blood Pressure Management Last administered on 06/01/17 07:09; Start 05/30/17 at 21:30 ; Stop 06/01/17 at 09:51; Status DC Miscellaneous Information ALL NURSING DEPARTME... UNSCH PRN .XX SEE LABEL COMMENTS; Start 05/30/17 at 19:06; Stop 05/31/17 at 19:05; Status DC Propofol 100 ml @ As Directed STK-MED ONCE .ROUTE Last administered on 22:52; Start 05/30/17 at 22:14; Stop 05/30/17 at 22:15; Status DC Propofol 100 ml @ 3.111 mls/ hr TITRATE PRN IV SEDATION Last administered on 19:02; Start 05/30/17 at 22:30; Stop 06/06/17 at 02:06; Status DC Sodium Chloride 2,000 ml @ 999 mls/hr ONCE ONCE IV Last administered on 01:00; Start 05/31/17 at 04:00; Stop 05/31/17 at 06:00; Status DC Ondansetron HCl (Zofran Inj) 4 mg STK-MED ONCE IV PUSH ; Start 05/30/17 at 12:00 ; Stop 05/31/17 at 10:14; Status DC Sodium Chloride 1,000 ml @ 999 mls/hr BOLUS ONCE IV Last administered on 15:19; Start 05/31/17 at 12:00; Stop 05/31/17 at 13:23; Status DC Fentanyl Citrate 250 ml @ 10 mls/hr TITRATE PRN IV SEDATION; Start 05/31/17 at 19:45; Status UNV Midazolam HCl 100 ml @ 3 mls/hr TITRATE PRN IV SEDATION; Start 05/31/17 at 19:45 ; Status UNV Midazolam HCl (Versed Inj) 2 mg ONCE ONCE IV PUSH Last administered on 19:45; Start 05/31/17 at 19:45; Stop 05/31/17 at 20:04; Status DC Midazolam HCl 100 ml @ 3 mls/hr TITRATE PRN IV SEDATION Last administered on 23:48; Start 05/31/17 at 19:45; Stop 06/03/17 at 14:04; Status DC Midazolam HCl (Versed Inj) 5 mg STK-MED ONCE .ROUTE Last administered on 20:11; Start 05/31/17 at 19:52; Stop 05/31/17 at 19:53; Status DC Fentanyl Citrate 250 ml @ 5 mls/hr TITRATE PRN IV SEDATION Last administered on 06/06/17 06:15; Start 05/31/17 at 21:30; Stop 06/06/17 at 20:34; Status DC Vancomycin HCl 1000 mg/Sodium Chloride 250 ml @ 250 mls/hr ONCE ONCE IV ; Start 05/31/17 at 21:30; Stop 05/31/17 at 21:39; Status DC Pharmacy Profile Note 0 ml @ 0 mls/hr UNSCH OTHER ; Start 05/31/17 at 21:30; Stop 06/02/17 at 11:38; Status DC Cefepime HCl 2000 mg/Sodium Chloride 100 ml @ 200 mls/hr Q12H IV Last administered on 06/02/17 08:34; Start 05/31/17 at 22:00; Stop 06/02/17 at 11:38 ; Status DC Azithromycin 500 mg/Sodium Chloride 250 ml @ 250 mls/hr Q24H IV Last administered on 06/01/17 21:47; Start 05/31/17 at 22:00; Stop 06/02/17 at 11:38; Status DC Calcium Gluconate 2 gm/Sodium Chloride 120 ml @ 120 mls/hr ONCE ONCE IV Last administered on 05/31/17 22:49; Start 05/31/17 at 23:00; Stop 05/31/17 at 23:59; Status DC Acetaminophen (Ofirmev 1000 Mg/ 100 ml Inj) 650 mg ONCE ONCE IV Last administered on 05/31/17 21:45; Start 05/31/17 at 21:45; Stop 05/31/17 at 21:46; Status DC Sodium Chloride 1,000 ml @ 999 mls/hr BOLUS ONCE IV Last administered on 21:30; Start 05/31/17 at 21:30; Stop 05/31/17 at 22:30; Status DC Sodium Chloride 1,000 ml @ 999 mls/hr BOLUS ONCE IV Last administered on 21:48; Start 05/31/17 at 22:30; Stop 05/31/17 at 23:30; Status DC Vancomycin HCl 2500 mg/Sodium Chloride 525 ml @ 250 mls/hr ONCE ONCE IV Last administered on 06/01/17 02:12; Start 05/31/17 at 23:00; Stop 06/01/17 at 01:05; Status DC Vancomycin HCl 1500 mg/Sodium Chloride 515 ml @ 257.5 mls/ hr Q12H IV Last administered on 06/02/17 12:13; Start 06/01/17 at 12:00; Stop 06/02/17 at 15:46 ; Status DC Miscellaneous Information SPECIFIC LAB TO BE NICOLE... ONCE ONCE .XX Last administered on 06/02/17 11:45; Start 06/02/17 at 11:45; Stop 06/02/17 at 11:46 ; Status DC Iodixanol (VISIPAQUE 320 INJ (Rad CT)) 89 ml STK-MED ONCE IV Last administered on 06/01/17 02:45; Start 06/01/17 at 02:45; Stop 06/01/17 at 02:46; Status DC Sodium Bicarbonate 150 meq/Dextrose 1,150 ml @ 75 mls/hr [id number] IV Last administered on 06/03/17 07:43; Start 06/01/17 at 06:00; Stop 06/03/17 at 14:04 ; Status DC Phenylephrine HCl 160 mg/Dextrose 500 ml @ 7.5 mls/hr TITRATE PRN IV Blood Pressure Management Last administered on 06/03/17 04:34; Start 06/01/17 at 10:00 ; Stop 06/03/17 at 23:56; Status DC Pharmacy Profile Note 0 ml @ 0 mls/hr UNSCH OTHER ; Start 06/02/17 at 11:45; Stop 06/02/17 at 15:46; Status DC Lactulose (Lactulose Liq) 30 ml QID PO ; Start 06/02/17 at 13:00; Stop 06/02/17 at 14:05; Status DC Rifaximin (Xifaxan) 550 mg BID PO ; Start 06/02/17 at 12:15; Stop 06/02/17 at 14 :05; Status DC Lactulose 300 ml/ Sterile Water 1,000 ml @ 0 mls/hr Q6H RECTAL Last administered on 06/04/17 14:18; Start 06/02/17 at 14:00; Stop 06/04/17 at 15:02 ; Status DC Linezolid 300 ml @ 300 mls/hr Q12H IV Last administered on 06/03/17 04:25; Start 06/02/17 at 16:00; Stop 06/03/17 at 12:12; Status DC Cefepime HCl 2000 mg/Sodium Chloride 100 ml @ 200 mls/hr Q8HR IV Last administered on 06/04/17 14:18; Start 06/03/17 at 14:00; Stop 06/04/17 at 16:20 ; Status DC Pharmacy Profile Note 0 ml @ 0 mls/hr UNSCH OTHER ; Start 06/03/17 at 12:15; Stop 06/04/17 at 16:20; Status DC Lactated Ringer's 1,000 ml @ 84 mls/hr [id number] IV Last administered on 03:21; Start 06/03/17 at 14:15; Stop 06/05/17 at 11:45; Status DC Vancomycin HCl 1500 mg/Sodium Chloride 515 ml @ 257.5 mls/ hr Q12H IV Last administered on 06/04/17 16:17; Start 06/03/17 at 16:00; Stop 06/04/17 at 16:20 ; Status DC Miscellaneous Information SPECIFIC LAB TO BE NICOLE... ONCE ONCE .XX ; Start 06/05 at 03:45; Stop 06/05/17 at 03:46; Status Cancel Acetylcysteine (Acetadote Inj) search Sets Overdose- ONCE IV ; Start 06/03/17 at 17:30; Status UNV Acetylcysteine 99939 mg/Dextrose 275 ml @ 200 mls/hr ONCE ONCE IV Last administered on 06/03/17 19:43; Start 06/03/17 at 19:00; Stop 06/03/17 at 20:22 ; Status DC Acetylcysteine 5000 mg/Dextrose 525 ml @ 125 mls/hr ONCE ONCE IV Last administered on 06/03/17 21:15; Start 06/03/17 at 20:00; Stop 06/04/17 at 00:11 ; Status DC Acetylcysteine 90077 mg/Dextrose 1,050 ml @ 62.5 mls/hr ONCE ONCE IV Last administered on 06/04/17 00:09; Start 06/04/17 at 00:00; Stop 06/04/17 at 16:47 ; Status DC Lactated Ringer's 1,000 ml @ 999 mls/hr BOLUS ONCE IV Last administered on 00:08; Start 06/04/17 at 00:00; Stop 06/04/17 at 01:00; Status DC Sodium Chloride 250 ml @ 15 mls/hr ONCE ONCE IV Last administered on 06:07; Start 06/04/17 at 01:45; Stop 06/04/17 at 18:24; Status DC Sodium Chloride 250 ml @ 15 mls/hr ONCE ONCE IV Last administered on 10:05; Start 06/04/17 at 07:00; Stop 06/04/17 at 23:39; Status DC Propofol (Diprivan 200 Mg/20 ml Inj) 100 mg STK-MED ONCE IV PUSH ; Start at 14:53; Stop 06/04/17 at 14:54; Status DC Lactulose (Lactulose Liq) 30 ml QID PO Last administered on 06/10/17 20:42; Start 06/04/17 at 18:00; Stop 06/11/17 at 09:23; Status DC Rifaximin (Xifaxan) 550 mg BID PO Last administered on 06/14/17 09:39; Start 06/04/17 at 21:00 Cefazolin Sodium/ Dextrose 50 ml @ 150 mls/hr Q8H IV Last administered on 06/08 09:33; Start 06/04/17 at 17:00; Stop 06/08/17 at 09:00; Status DC Potassium Chloride/Dextrose 1,000 ml @ 84 mls/hr [id number] IV Last administered on 06/06/17 12:07; Start 06/05/17 at 13:00; Stop 06/06/17 at 20:34; Status DC Furosemide (Lasix Inj) 40 mg BID@09,18 IV PUSH Last administered on 06/09/17 09:56; Start 06/05/17 at 12:00; Stop 06/09/17 at 10:11; Status DC Iohexol (Omnipaque 350 Inj) 20 ml STK-MED ONCE IVCONTRAST Last administered on 06/05/17 16:43; Start 06/05/17 at 16:59; Stop 06/05/17 at 17:01; Status DC Potassium Chloride 100 ml @ 50 mls/hr Q2H PRN IV For Potassium 2.8 - 3.2 mEq/L ; Start 06/06/17 at 01:00; Stop 06/07/17 at 23:44; Status DC Potassium Chloride 100 ml @ 50 mls/hr Q2H PRN IV For Potassium 2.8 - 3.2 mEq/L ; Start 06/06/17 at 01:00; Stop 06/07/17 at 23:45; Status DC Potassium Bicarb/ Potassium Chloride (K-Lyte Cl Eff) 50 meq UNSCH PRN PO For Potassium 3.3 - 3.5 mEq/L; Start 06/06/17 at 01:00; Stop 06/07/17 at 23:45; Status DC Potassium Chloride 100 ml @ 25 mls/hr UNSCH PRN IV For Potassium 3.3 - 3.5 mEq /L; Start 06/06/17 at 01:00; Stop 06/07/17 at 23:45; Status DC Potassium Chloride 100 ml @ 50 mls/hr Q2H PRN IV For Potassium 3.3 - 3.5 mEq/L ; Start 06/06/17 at 01:00; Stop 06/07/17 at 23:45; Status DC Magnesium Sulfate 4 gm/Sodium Chloride 100 ml @ 50 mls/hr UNSCH PRN IV For Magnesium 0.9 - 1.1 mg/dL; Start 06/06/17 at 01:00; Stop 06/07/17 at 23:44; Status DC Magnesium Oxide (Mag-Ox) 800 mg UNSCH PRN PO For Magnesium 1.2 - 1.6 mg/dL; Start 06/06/17 at 01:00; Stop 06/07/17 at 23:45; Status DC Magnesium Sulfate 2 gm/Sodium Chloride 100 ml @ 50 mls/hr UNSCH PRN IV For Magnesium 1.2 - 1.6 mg/dL; Start 06/06/17 at 01:00; Stop 06/07/17 at 23:44; Status DC Potassium Phosphate (K-Phos) 2,000 mg Q4H PRN PO For Phosphorus < 2.5 mg/dL; Start 06/06/17 at 01:00; Stop 06/07/17 at 23:45; Status DC Sodium Phosphate 30 mmol/Sodium Chloride 250 ml @ 42 mls/hr UNSCH PRN IV For Phosphorus < 2.5 mg/dL Last administered on 06/06/17t 02:12; Start 06/06/17 at 01:00; Stop 06/07/17 at 23:45; Status DC Potassium Phosphate (K-Phos) 2,000 mg UNSCH PRN PO/TUBE SEE LABEL COMMENTS; Start 06/06/17 at 01:00; Stop 06/07/17 at 23:45; Status DC Potassium Phosphate 30 mmol/ Sodium Chloride 260 ml @ 42 mls/hr UNSCH PRN IV SEE LABEL COMMENTS; Start 06/06/17 at 01:00; Stop 06/07/17 at 23:45; Status DC Propofol 100 ml @ 3.78 mls/hr TITRATE PRN IV SEDATION Last administered on 06:15; Start 06/06/17 at 02:15; Stop 06/06/17 at 07:00; Status DC Oxycodone HCl (Roxicodone) 5 mg Q4H PRN PO pain 1-7 Last administered on 03:54; Start 06/06/17 at 20:30 Propranolol HCl (Inderal) 10 mg Q8HR PO Last administered on 06/14/17 07:01; Start 06/06/17 at 22:00 Dextrose 1,000 ml @ 75 mls/hr [id number] IV Last administered on 06/08/17 23:20 ; Start 06/07/17 at 10:00; Stop 06/09/17 at 10:11; Status DC Pantoprazole Sodium (Protonix Inj) 40 mg Q12H IV PUSH Last administered on 06/09 03:14; Start 06/07/17 at 16:00; Stop 06/09/17 at 10:11; Status DC Potassium Bicarb/ Potassium Chloride (K-Lyte Cl Eff) 75 meq ONCE ONCE PO Last administered on 06/08/17 12:59; Start 06/08/17 at 11:00; Stop 06/08/17 at 11:01; Status DC Potassium Bicarb/ Potassium Chloride (K-Lyte Cl Eff) 75 meq ONCE ONCE PO Last administered on 06/08/17 20:21; Start 06/08/17 at 20:00; Stop 06/08/17 at 20:05; Status DC Potassium Bicarb/ Potassium Chloride (K-Lyte Cl Eff) 75 meq ONCE ONCE PO Last administered on 06/09/17 09:57; Start 06/09/17 at 09:00; Stop 06/09/17 at 09:01; Status DC Furosemide (Lasix) 20 mg BID@09,18 PO Last administered on 06/14/17 09:38; Start 06/09/17 at 18:00 Pantoprazole Sodium (Protonix) 40 mg Q12HR PO Last administered on 06/14/17 09 :38; Start 06/09/17 at 21:00 Potassium Bicarb/ Potassium Chloride (K-Lyte Cl Eff) 50 meq Q12HR PO Last administered on 06/10/17 08:58; Start 06/09/17 at 21:00; Stop 06/10/17 at 09:44 ; Status DC Potassium Chloride (KCl) 30 meq ONCE ONCE PO Last administered on 06/10/17 08 :56; Start 06/10/17 at 08:45; Stop 06/10/17 at 08:46; Status DC Calcium Carbonate (Oscal) 500 mg Q12HR PO Last administered on 06/14/17 09:38 ; Start 06/10/17 at 10:00 Potassium Bicarb/ Potassium Chloride (K-Lyte Cl Eff) 75 meq Q12HR PO Last administered on 06/14/17 09:39; Start 06/10/17 at 21:00 Gadodiamide (Omniscan Pf Inj) 19 ml STK-MED ONCE IVCONTRAST Last administered on 06/10/17 12:37; Start 06/10/17 at 12:37; Stop 06/10/17 at 12:39; Status DC Lactulose (Lactulose Liq) 30 ml BID PO Last administered on 06/14/17 09:39; Start 06/11/17 at 21:00 Furosemide (Lasix) 20 mg ONCE ONCE PO Last administered on 06/13/17 09:50; Start 06/13/17 at 08:30; Stop 06/13/17 at 08:31; Status DC Sodium Chloride 250 ml @ 15 mls/hr ONCE ONCE IV ; Start 06/14/17 at 10:15; Stop 06/15/17 at 02:54 Acetaminophen (Tylenol) 650 mg Q4H PRN PO SEE LABEL COMMENTS; Start 06/14/17 at 10:15; Stop 06/14/17 at 23:59 Diphenhydramine HCl (Benadryl) 25 mg Q4H PRN PO SEE LABEL COMMENTS; Start 06/14 at 10:15; Stop 06/14/17 at 23:59 Furosemide (Lasix Inj) 20 mg ONCE ONCE IV ; Start 06/14/17 at 11:00; Stop 06/14 at 11:01; Status DC Urinary Catheter: No Vascular Central Line Catheter: No Side: Right Location: Subclavian A/P Problem List: (1) GI bleed ICD Code: K92.2 - Gastrointestinal hemorrhage, unspecified (2) Melena ICD Code: K92.1 - Melena Status: Acute (3) Hematemesis ICD Code: K92.0 - Hematemesis Status: Acute (4) Transaminitis ICD Code: R74.0 - Nonspecific elevation of levels of transaminase and lactic acid dehydrogenase [LDH] (5) Thrombocytopenia ICD Code: D69.6 - Thrombocytopenia, unspecified Status: Acute Assessment and Plan Hypoxic Respiratory failure 06/01 CTA pulmonary-suspected left upper lobe, left lower lobe pulmonary emboli, no pulmonary emboli on the right. Bilateral lower lobe atelectasis. Patchy pneumonia right lower lobe. Noted ill-defined right infrahilar/subcarinal mass 4.2 x 4.8 cm (likely esophageal varices- per CT abdomen report). Extensive discussion with Dr. Terrazas (IR) patient is not a candidate for catheter directed TPA in the setting of GI bleeding. Intubated 05/29 and extubated 06/06. Ultrasound bilateral lower extremities negative for DVT. 06/01 ECHO ejection fraction 55-60%. No RWMA. Trace TR. - Maintain O2 saturation greater than 92%. - DuoNeb's every 6 hours scheduled every 2 hours when necessary. - Patient was on Ancef for MSSA pneumonia. d/c 06/07. - S/p IVC filter. - Pulmonology following. - Incentive spirometry. - PT/ OT. GI bleed/ Hematemesis 06/01 CT abdomen-splenomegaly, ascites, esophageal varices extend into the lower chest and may account for subcarinal and infrahilar masses. [place] portosystemic collaterals. Large esophageal varix. 3 bands applied by GI. 06/05 repeat EGD varices no active bleeding. Ammonia decreasing. - Status post protonic and octreotide gtt. -Patient on sandostatin and protonix - Monitor CBC and transfuse as needed. Transaminitis/liver cirrhosis complicatef by portal hypertension, esophageal varices and ascites. Due to daily Tylenol use. S/p Mucomyst. AST 692, ALT 593, T bili 2.1. Liver ultrasound reveals cirrhotic liver image. Tylenol level negative. Hepatitis profile negative. - Workup per gastroenterology - Monitor PT/INR. - continue rifaximin, lactulose and pentoxifylline. -MRI showed portal hypertension, esophageal varices, and ascites. GI wants to repeat MRI of the liver and a few days. They are also considering a liver biopsy if a 1A is negative. Subcarinal mass on CTA -previous hospitalist discussed w Kiara, from hematology, she stated that mass on CTA more likely esophageal varices if for patient to follow with Dr. Casey as outpatient regards to this. [employer]/oncologist signed off. Thrombocytopenia S/t liver disease. - Monitor CBC. - transfuse platelets if signs of acute bleeding, or less than 50,000. - Hematology following. Hypernatremia Most likely secondary to dehydration. Resolved. -s/p D5W at 75 ml/hr Hypokalemia Possibly s/t decreased PO intake. - Potassium scheduled. - monitor and replete as needed. Liver mass Noted on imaging. - Radiologist recommend hepatic MRI with [facility]. MRI of the liver was done which was a poor study. It did not showed any hepatic lesions but stated that patient has cirrhosis, portal hypertension, ascites, esophageal varices. GI wants to repeat MRI in a few days. Management per GI. ANEMIA- TRANSFUSE 2 MORE UNITS PRBC ON 06-14 PPx: IVC filter AM LABS Problem Qualifiers (1) Hematemesis: Qualified Codes: K92.0 - Hematemesis; R11.0 - Nausea Nba Quinonez DO Jun 14, 2017 11:59
--- NOTE | 2017-06-14 14:35 | HHI.GIFU ---
Subjective Remarks Resting in bed. No obvious blood loss- no hematemesis, melena, hematochezia. Tolerating diet. No complaints. (Mercedes Richards) Objective Vitals I&O Vital Signs Date Time Temp Pulse Resp B/P (MAP) Pulse Ox O2 Delivery O2 Flow Rate FiO2 06/14/17 08:00 97.0 86 16 121/69 (86) 98 06/14/17 05:03 20 06/14/17 04:00 97.2 83 16 102/66 (78) 93 06/14/17 00:00 98.3 99 18 116/60 (78) 95 06/13/17 21:00 92 06/13/17 21:00 95 Nasal Cannula 1.00 35 06/13/17 20:00 97.5 97 18 113/60 (77) 95 06/13/17 16:28 89 06/13/17 15:50 98.2 89 20 113/56 (75) 93 06/13/17 14:53 95 I/O 06/13/17 06/13/17 06/13/17 06/14/17 06/14/17 06/14/17 07:00 15:00 23:00 07:00 15:00 23:00 Intake Total 720 ml 400 ml Output Total 700 ml 500 ml 1150 ml Balance -700 ml 220 ml -1150 ml 400 ml Intake Oral 720 ml Packed Cells 400 ml Output Urine Total 700 ml 500 ml 1150 ml # Voids 3 # Bowel Movements 2 Laboratory Laboratory Tests Test 06/14/17 06:21 White Blood Count 3.7 Red Blood Count 2.73 Hemoglobin 6.9 Hematocrit 21.7 Mean Corpuscular Volume 79.4 Mean Corpuscular Hemoglobin 25.4 Mean Corpuscular Hemoglobin Concent 32.0 Red Cell Distribution Width 17.6 Platelet Count 99 Mean Platelet Volume 8.3 Neutrophils (%) (Auto) 63.0 Lymphocytes (%) (Auto) 21.7 Monocytes (%) (Auto) 9.6 Eosinophils (%) (Auto) 4.8 Basophils (%) (Auto) 0.9 Neutrophils # (Auto) 2.3 Lymphocytes # (Auto) 0.8 Monocytes # (Auto) 0.4 Eosinophils # (Auto) 0.2 Basophils # (Auto) 0.0 CBC Comment AUTO DIFF Differential Comment AUTO DIFF CONFIRMED Platelet Estimate LOW Platelet Morphology Comment ENLARGED Polychromasia 2.0 Ovalocytes 1+ Acanthocytes OCC Blood Urea Nitrogen 11 Creatinine 0.67 Random Glucose 106 Calcium Level 7.6 Sodium Level 140 Potassium Level 3.9 Chloride Level 109 Carbon Dioxide Level 25.7 Anion Gap 5 Estimat Glomerular Filtration Rate 132 Date/Time Source Procedure Growth Status 06/04/17 05:35 Blood Peripheral Aerobic Blood Culture - Final NO GROWTH IN 5 DAYS Complete 06/04/17 05:35 Blood Peripheral Anaerobic Blood Culture - Final NO GROWTH IN 5 DAYS Complete 06/01/17 03:30 Sputum Endotracheal Gram Stain - Final Complete 06/01/17 03:30 Sputum Culture - Final Staphylococcus Aureus Complete 06/03/17 12:40 Urine Catheterized Urine Urine Culture - Final NO GROWTH IN 48 HOURS. Complete Imaging Last Impressions Abdomen MRI 06/10/17 0000 Signed Impressions: Service Date/Time: Saturday, June 10, 2017 12:01 - CONCLUSION: 1. This examination is limited secondary to artifact related to patient motion, patient size, and poor contrast-enhancement from uncertain etiology. There is mild hepatomegaly with features characteristic of cirrhosis. However, no liver lesion is identified. Given the quality of the examination, suggest followup liver MRI when patient condition permits for a better examination. 2. There are findings related to portal hypertension including splenomegaly, ascites, and esophageal varices. David Rhodes MD Chest X-Ray 06/09/17 0000 Signed Impressions: Service Date/Time: Friday, June 09, 2017 18:58 - CONCLUSION: 1. Left greater than right basilar consolidation and small effusions are not significantly changed. 2. Mildly enlarged heart similar to before. 3. Interim extubation. Nasogastric tube and right IJ central venous catheter also out. David Quintero MD IVC Filter Placement X-Ray 06/05/17 0000 Signed Impressions: Service Date/Time: Monday, June 05, 2017 16:23 - CONCLUSION: Uncomplicated inferior vena cava filter placement as above. A [employer] [place] retrievable filter was placed. Chetan Aguila MD Upper Extremity Ultrasound 06/01/17 0000 Signed Impressions: Service Date/Time: Thursday, June 01, 2017 13:47 - CONCLUSION: No evidence of upper extremity DVT on the right or left. Angel Paredes MD Lower Extremity Ultrasound 06/01/17 0000 Signed Impressions: Service Date/Time: Thursday, June 01, 2017 13:30 - CONCLUSION: No evidence of lower extremity DVT on the right or left. Angel Paredes MD CT Angiography 06/01/17 0000 Signed Impressions: Service Date/Time: Thursday, June 01, 2017 02:39 - CONCLUSION: 1. Suspected left upper lobe and left lower lobe pulmonary emboli. No pulmonary embolus on the right. 2. Right infrahilar/subcarinal mass. 3. Bilateral lower lobe atelectasis, right worse than left. Also patchy pneumonia of the right lower lobe. David Quintero MD Abdomen/Pelvis CT 06/01/17 0000 Signed Impressions: Service Date/Time: Thursday, June 01, 2017 02:39 - CONCLUSION: 1. Cirrhosis. Heterogeneously enhancing liver without a distinct/measurable focal lesion. 2. Marked splenomegaly, 10.3 x 17.6 x 18.1 cm. 3. Very severe portosystemic collaterals including gastroesophageal varices. The varices extend into the lower chest and probably account for the subcarinal/right infrahilar mass seen by chest CT. 4. Diffuse wall thickening of the colon, colitis versus secondary changes from cirrhosis. 5. Small ascites. Body wall edema/anasarca. David Quintero MD Liver Ultrasound 05/30/17 0000 Signed Impressions: Service Date/Time: May 09:04 - CONCLUSION: Cirrhotic liver appearance. Question focal right lobe mass. Recommend further evaluation with hepatic MRI with Eovist. David Terrazas MD Physical Exam HEENT: Normocephalic; atraumatic; CHEST: Respirations even/unlabored. Diminished CARDIAC: RRR ABDOMEN: Soft, obese, ascites, hepatosplenomegaly; bowel sounds are present in all four quadrants. 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 S/P EGD (05/31/17)-----> Bleeding esophageal varices. Rpt. EGD with OGT placement (06/04/17)---> 1. Esophageal varices grade 3 old bands seen over variceal columns, og tube placed in stomach under direct visualization 2. Retroflexed views revealed a hiatal hernia 3. Retroflexed views revealed gastric varices. S/ P 6 units PRBC. H/H Dropped from 8.5/26.4 to 6.9/21.7, but he is not having any obvious GI blood loss- as in hematemesis, melena, or hematochezia. Recheck HH. PPI. - Anemia acute blood loss. S/P 6 units PRBC, HH 6.9/21.7. No obvious bleeding , will recheck HH. PPI. - Coagulopathy/thrombocytopenia. Plt 99,000. INR 1.1. IMPROVING - Elevated LFTs. Liver US (05/30/17)---> Cirrhotic liver appearance. Question focal right lobe mass. Recommend further evaluation with hepatic MRI with Eovist. Hepatitis profile negative. STEPHANIE negative. AMA <20.0, ASMA neg. AFP 1.8. Ceruloplasmin 24, ALpha [address] Scan abdomen and pelvis to further evaluation. CT scan abdomen and pelvis with iv contrast (06/01/17)----> cirrhosis, heterogeneously enhancing liver without a distinct/measurable focal lesion, marked splenomegaly, 10.3 x 17.6 x 18.1 cm, very severe portosystemic collaterals including gastroesophageal varices. The varices extend into the lower chest and probably account for the subcarinal/right infrahilar mass seen by chest CT, diffuse wall thickening of the colon, colitis versus secondary changes from cirrhosis. Small ascites, body wall edema/anasarca. LFTs trending down. Pentoxifylline. Refusing repeat MRI as inpatient, requesting to have as outpatient. Awaiting records from family members- Maternal uncle, 2 maternal 1st cousins with fatty liver disease (one cousin with cirrhosis related to fatty liver disease). - Hepatic encephalopathy with ammonia. Improved. Lactulose, Xifaxan. - AKIKO. Improved - Resp. Failure, PE, PNA. S/P IVC filter. S/P Extubation per CCM - Family hx colon ca. Mother dx age 60 PLAN - Heart healthy 2 gram sodium diet- D/W patient low fat, low salt diet, exercise , weight loss once he recovers. - Rpt. HH - Cont. Protonix - Cont. Xifaxan - Cont. Lactulose - Cont. Pentoxifylline - Monitor labs - Transfuse as needed - Supportive care - ETOH Cessation - MRI as outpatient - refusing as inpatient - Further recommendations to follow based on results of above - Pt seen and examined by myself and Dr. Mcdowell and this note is written on his behalf (Mercedes Richards) Physician Comments Patient seen and examined Agree with above Continue with current supportive care Monitor labs Repeat hemoglobin appears to be stable (Villa Mcdowell MD) Mercedes Richards Jun 14, 2017 14:35 Villa Mcdowell MD Jun 14, 2017 18:23
[2017-06-14] MEDS: diphenhydrAMINE HCL 25 MG CAP PO PRN ×2 (15:17→20:15)
[2017-06-14] MEDS: ACETAMINOPHEN 325 MG TAB PO PRN ×2 (15:17→20:15)
[2017-06-14 15:35] LABS: HEMATOCRIT 22.8 % (39.0-51.0); REVIEW FLAG FINAL
--- NOTE | 2017-06-14 16:20 | HHI.PR ---
Subjective Remarks alert no sob [facility] Objective Vital Signs Date Time Temp Pulse Resp B/P (MAP) Pulse Ox O2 Delivery O2 Flow Rate FiO2 06/14/17 12:00 98.0 84 16 117/78 (91) 98 06/14/17 08:00 97.0 86 16 121/69 (86) 98 06/14/17 05:03 20 06/14/17 04:00 97.2 83 16 102/66 (78) 93 06/14/17 00:00 98.3 99 18 116/60 (78) 95 06/13/17 21:00 92 06/13/17 21:00 95 Nasal Cannula 1.00 35 06/13/17 20:00 97.5 97 18 113/60 (77) 95 06/13/17 16:28 89 I/O 06/13/17 06/13/17 06/13/17 06/14/17 06/14/17 06/14/17 07:00 15:00 23:00 07:00 15:00 23:00 Intake Total 720 ml 400 ml Output Total 700 ml 500 ml 1150 ml Balance -700 ml 220 ml -1150 ml 400 ml Intake Oral 720 ml Packed Cells 400 ml Output Urine Total 700 ml 500 ml 1150 ml # Voids 3 # Bowel Movements 2 Result Diagram: 06/14/17 1508 06/14/17 0621 Objective Remarks GENERAL: SKIN: Warm and dry. HEAD: Atraumatic. Normocephalic. EYES: Pupils equal and round. No scleral icterus. No injection or drainage. ENT: No nasal bleeding or discharge. Mucous membranes pink and moist. NECK: Trachea midline. No JVD. CARDIOVASCULAR: Regular rate and rhythm. RESPIRATORY: No accessory muscle use. Clear to auscultation. Breath sounds equal bilaterally. GASTROINTESTINAL: Abdomen soft, non-tender, nondistended. Hepatic and splenic margins not palpable. MUSCULOSKELETAL: Extremities without clubbing, cyanosis, or edema. No obvious deformities. NEUROLOGICAL: Awake and alert. No obvious cranial nerve deficits. Motor grossly within normal limits. Five out of 5 muscle strength in the arms and legs. Normal speech. PSYCHIATRIC: Appropriate mood and affect; insight and judgment normal. Assessment and Plan Assessment and Plan pulmonary embolism post IVC filter Gi bleed portal htn CHEST XRA6 STABLE PLAN o2 as needed INCREASE ACTIVITY Yosef Navas MD Jun 14, 2017 16:20
[2017-06-15] VITALS (10 sets, daily range): BP systolic 101–127; BP diastolic 56–94; PULSE 77–88; RESP 18–20; TEMP 96–97.7; O2SAT 93–98
[2017-06-15] MEDS: PROPRANOLOL HCL 10 MG TAB PO SCH ×3 (05:38→21:00)
[2017-06-15 07:02] LABS: AUTOMATED NEUTROPHIL # 1.9 TH/MM3 (1.8-7.7); BASOPHIL % 1.2 % (0.0-2.0); EOSINOPHIL # 0.2 TH/MM3 (0-0.4); EOSINOPHIL % 5.2 % (0.0-4.0); HEMATOCRIT 25.3 % (39.0-51.0); HEMO FLAGS DIFF FINAL; LYMPH % 22.3 % (9.0-44.0); LYMPHOCYTE # 0.7 TH/MM3 (1.0-4.8); MEAN CELL VOLUME 80.3 FL (80.0-100.0); MEAN CORPUSCULAR HEMOGLOBIN 25.9 PG (27.0-34.0); MEAN CORPUSCULAR HGB CONC 32.2 % (32.0-36.0); MONO % 9.2 % (0.0-8.0); NEUT % 62.1 % (16.0-70.0); PLATELET COUNT 102 TH/MM3 (150-450); RED BLOOD COUNT 3.15 MIL/MM3 (4.50-5.90); RED CELL DISTRIBUTION WIDTH 17.3 % (11.6-17.2); WHITE BLOOD COUNT 3.1 TH/MM3 (4.0-11.0)
[2017-06-15 07:20] LABS: ALT (GPT) 49 U/L (12-78); ANION GAP 7 MEQ/L (5-15); AST (GOT) 36 U/L (15-37); BLOOD UREA NITROGEN 10 MG/DL (7-18); CHLORIDE 108 MEQ/L (98-107); GLOMERULAR FILTRATION RATE 109 ML/MIN (>89); MAGNESIUM 1.9 MG/DL (1.5-2.5); POTASSIUM 3.8 MEQ/L (3.5-5.1); SODIUM (NA) 142 MEQ/L (136-145)
[2017-06-15 07:23] LABS: ALKALINE PHOSPHATASE 154 U/L (45-117); TOTAL BILIRUBIN ADULT 2.8 MG/DL (0.2-1.0)
[2017-06-15 07:41] LABS: INTERNATIONAL NORMALIZED RATIO 1.2 RATIO; PROTHROMBIN TIME - PATIENT 13.9 SEC (9.8-11.6)
[2017-06-15] MEDS: SODIUM CHLORIDE 0.9% FLUSH 10 ML FLUSH IV FLUSH SCH ×2 (09:00→20:54)
--- NOTE | 2017-06-15 09:21 | HHI.PR ---
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 HAS FAMILY HX OF LIVER DISEASE NO NEW COMPLAINTS 06-15 hemoglobin only up to 8.1 No new complaints States he's eating well States he is having bowel movements Hopefully discharge for the next 24-48 hours Objective Vitals Vital Signs Date Time Temp Pulse Resp B/P (MAP) Pulse Ox O2 Delivery O2 Flow Rate FiO2 06/15/17 04:00 97.1 85 18 115/69 (84) 95 06/15/17 00:00 96.5 80 18 101/56 (71) 96 06/14/17 21:52 96.9 78 19 107/63 95 06/14/17 21:34 98.1 84 18 135/72 (93) 100 06/14/17 21:27 98.0 79 20 106/60 (75) 96 06/14/17 21:00 86 06/14/17 21:00 96 Room Air 21 06/14/17 17:07 97.6 80 18 108/63 92 06/14/17 16:22 97.5 78 17 105/63 94 06/14/17 16:00 97.5 78 17 105/62 (76) 94 06/14/17 12:00 98.0 84 16 117/78 (91) 98 I/O 06/14/17 06/14/17 06/14/17 06/15/17 06/15/17 06/15/17 07:00 15:00 23:00 07:00 15:00 23:00 Intake Total 400 ml 630 ml 510 ml Output Total 1150 ml 2500 ml 1930 ml Balance -1150 ml 400 ml -1870 ml -1420 ml Intake Oral 340 ml 240 ml Packed Cells 400 ml 250 ml 250 ml Blood Product IV Normal Saline Flush 40 ml 20 ml Output Urine Total 1150 ml 2500 ml 1930 ml # Bowel Movements 2 0 Result Diagram: 06/15/1761606/15/17616 Other Results Laboratory Tests Test 06/13/17 13:15 06/14/17 06:21 06/14/17 15:08 06/15/17 06:17 White Blood Count 7.0 TH/MM3 3.7 TH/MM3 3.1 TH/MM3 Red Blood Count 3.32 MIL/MM3 2.73 MIL/MM3 3.15 MIL/MM3 Hemoglobin 8.5 GM/DL 6.9 GM/DL 7.2 GM/DL 8.1 GM/DL Hematocrit 26.4 % 21.7 % 22.8 % 25.3 % Mean Corpuscular Volume 79.3 FL 79.4 FL 80.3 FL Mean Corpuscular Hemoglobin 25.5 PG 25.4 PG 25.9 PG Mean Corpuscular Hemoglobin Concent 32.1 % 32.0 % 32.2 % Red Cell Distribution Width 18.0 % 17.6 % 17.3 % Platelet Count 183 TH/MM3 99 TH/MM3 102 TH/MM3 Mean Platelet Volume 8.8 FL 8.3 FL 10.1 FL Neutrophils (%) (Auto) 69.8 % 63.0 % 62.1 % Lymphocytes (%) (Auto) 15.7 % 21.7 % 22.3 % Monocytes (%) (Auto) 9.1 % 9.6 % 9.2 % Eosinophils (%) (Auto) 4.7 % 4.8 % 5.2 % Basophils (%) (Auto) 0.7 % 0.9 % 1.2 % Neutrophils # (Auto) 4.9 TH/MM3 2.3 TH/MM3 1.9 TH/MM3 Lymphocytes # (Auto) 1.1 TH/MM3 0.8 TH/MM3 0.7 TH/MM3 Monocytes # (Auto) 0.6 TH/MM3 0.4 TH/MM3 0.3 TH/MM3 Eosinophils # (Auto) 0.3 TH/MM3 0.2 TH/MM3 0.2 TH/MM3 Basophils # (Auto) 0.0 TH/MM3 0.0 TH/MM3 0.0 TH/MM3 CBC Comment DIFF FINAL AUTO DIFF DIFF FINAL Differential Comment AUTO DIFF CONFIRMED Platelet Estimate LOW Platelet Morphology Comment ENLARGED Polychromasia 2.0 % Ovalocytes 1+ Acanthocytes OCC Blood Urea Nitrogen 11 MG/DL 10 MG/DL Creatinine 0.67 MG/DL 0.79 MG/DL Random Glucose 106 MG/DL 102 MG/DL Calcium Level 7.6 MG/DL 7.5 MG/DL Sodium Level 140 MEQ/L 142 MEQ/L Potassium Level 3.9 MEQ/L 3.8 MEQ/L Chloride Level 109 MEQ/L 108 MEQ/L Carbon Dioxide Level 25.7 MEQ/L 27.0 MEQ/L Anion Gap 5 MEQ/L 7 MEQ/L Estimat Glomerular Filtration Rate 132 ML/MIN 109 ML/MIN Prothrombin Time 13.9 SEC Prothromb Time International Ratio 1.2 RATIO Total Protein 5.7 GM/DL Albumin 1.8 GM/DL Phosphorus Level 3.4 MG/DL Magnesium Level 1.9 MG/DL Alkaline Phosphatase 154 U/L Aspartate Amino Transf (AST/SGOT) 36 U/L Alanine Aminotransferase (ALT/SGPT) 49 U/L Total Bilirubin 2.8 MG/DL Imaging Last Impressions Abdomen MRI 06/10/17 0000 Signed Impressions: Service Date/Time: Saturday, June 10, 2017 12:01 - CONCLUSION: 1. This examination is limited secondary to artifact related to patient motion, patient size, and poor contrast-enhancement from uncertain etiology. There is mild hepatomegaly with features characteristic of cirrhosis. However, no liver lesion is identified. Given the quality of the examination, suggest followup liver MRI when patient condition permits for a better examination. 2. There are findings related to portal hypertension including splenomegaly, ascites, and esophageal varices. David Rhodes MD Chest X-Ray 06/09/17 0000 Signed Impressions: Service Date/Time: Friday, June 09, 2017 18:58 - CONCLUSION: 1. Left greater than right basilar consolidation and small effusions are not significantly changed. 2. Mildly enlarged heart similar to before. 3. Interim extubation. Nasogastric tube and right IJ central venous catheter also out. David Quintero MD IVC Filter Placement X-Ray 06/05/17 0000 Signed Impressions: Service Date/Time: Monday, June 05, 2017 16:23 - CONCLUSION: Uncomplicated inferior vena cava filter placement as above. A [employer] retrievable filter was placed. Chetan Aguila MD Upper Extremity Ultrasound 06/01/17 0000 Signed Impressions: Service Date/Time: Thursday, June 01, 2017 13:47 - CONCLUSION: No evidence of upper extremity DVT on the right or left. Angel Paredes MD Lower Extremity Ultrasound 06/01/17 0000 Signed Impressions: Service Date/Time: Thursday, June 01, 2017 13:30 - CONCLUSION: No evidence of lower extremity DVT on the right or left. Angel Paredes MD CT Angiography 06/01/17 0000 Signed Impressions: Service Date/Time: Thursday, June 01, 2017 02:39 - CONCLUSION: 1. Suspected left upper lobe and left lower lobe pulmonary emboli. No pulmonary embolus on the right. 2. Right infrahilar/subcarinal mass. 3. Bilateral lower lobe atelectasis, right worse than left. Also patchy pneumonia of the right lower lobe. David Quintero MD Abdomen/Pelvis CT 06/01/17 0000 Signed Impressions: Service Date/Time: Thursday, June 01, 2017 02:39 - CONCLUSION: 1. Cirrhosis. Heterogeneously enhancing liver without a distinct/measurable focal lesion. 2. Marked splenomegaly, 10.3 x 17.6 x 18.1 cm. 3. Very severe portosystemic collaterals including gastroesophageal varices. The varices extend into the lower chest and probably account for the subcarinal/right infrahilar mass seen by chest CT. 4. Diffuse wall thickening of the colon, colitis versus secondary changes from cirrhosis. 5. Small ascites. Body wall edema/anasarca. David Quintero MD Liver Ultrasound 05/30/17 0000 Signed Impressions: Service Date/Time: May 09:04 - CONCLUSION: Cirrhotic liver appearance. Question focal right lobe mass. Recommend further evaluation with hepatic MRI with [facility]. David Terrazas MD Objective Remarks GENERAL: AWAKE ALERT AND ORIENTED AND TALKATIVE AND COOPERATIVE SKIN: Warm and dry. HEAD: Atraumatic. Normocephalic. EYES: Pupils equal and round. No scleral icterus. No injection or drainage. EOMI ENT: No nasal bleeding or discharge. Mucous membranes pink and moist. TONGUE MIDLINE NECK: Trachea midline. No JVD. SUPPLE CARDIOVASCULAR: Regular rate and rhythm. S1, S2, NO S3 OR S4 NO HEAVE OR THRILL RESPIRATORY: No accessory muscle use. Clear to auscultation. Breath sounds equal bilaterally. GASTROINTESTINAL: Abdomen soft, non-tender, nondistended. Hepatic and splenic margins not palpable. OBESE MUSCULOSKELETAL: Extremities without clubbing, cyanosis, No obvious deformities. EDEMA 2 TO 3 BL LE NEUROLOGICAL: Awake and alert. No obvious cranial nerve deficits. Motor grossly within normal limits. Five out of 5 muscle strength in the arms and legs. Normal speech. PSYCHIATRIC: Appropriate mood and affect; insight and judgment normal. Procedures 05/30- EGD 06/04-EGD Medications and IVs Current Medications Ondansetron HCl (Zofran Inj) 4 mg ONCE ONCE IVP Last administered on 05/30/17 00:04; Start 05/30/17 at 00:00; Stop 05/30/17 at 00:01; Status DC Sodium Chloride 1,000 ml @ 1,000 mls/hr Q1H IV Last administered on 05/30/17 00:03; Start 05/29/17 at 23:46; Stop 05/30/17 at 00:45; Status DC Sodium Chloride (NS Flush) 2 ml UNSCH PRN IVF FLUSH AFTER USING IV ACCESS; Start 05/30/17 at 00:00; Stop 05/31/17 at 22:04; Status DC Pantoprazole Sodium 80 mg/ Sodium Chloride 35 ml @ 420 mls/hr Q5M ONCE IV Last administered on 05/30/17 00:05; Start 05/29/17 at 23:46; Stop 05/29/17 at 23: 50; Status DC Pantoprazole Sodium 80 mg/ Sodium Chloride 100 ml @ 10 mls/hr Q10H IV Last administered on 06/07/17 06:00; Start 05/29/17 at 23:46; Stop 06/07/17 at 14:50 ; Status DC Sodium Chloride 1,000 ml @ 100 mls/hr Q10H IV Last administered on 05/31/17 13 :11; Start 05/30/17 at 01:04; Stop 06/01/17 at 05:49; Status DC Sodium Chloride (NS Flush) 2 ml UNSCH PRN IV FLUSH FLUSH AFTER USING IV ACCESS ; Start 05/30/17 at 01:15 Sodium Chloride (NS Flush) 2 ml BID IV FLUSH Last administered on 06/14/17 20: 16; Start 05/30/17 at 09:00 Naloxone HCl (Narcan Inj) 0.4 mg UNSCH PRN IV SEE LABEL COMMENTS; Start at 01:15 Ondansetron HCl (Zofran Inj) 4 mg Q6HR PRN IV PUSH nausea Last administered on 05/30/17 16:53; Start 05/30/17 at 01:45 Ondansetron HCl (Zofran Inj) 4 mg ONCE ONCE IV PUSH Last administered on 02:34; Start 05/30/17 at 02:30; Stop 05/30/17 at 02:31; Status DC Octreotide Acetate (SandoSTATIN INJ) 50 mcg ONCE ONCE IV PUSH Last administered on 05/30/17 05:49; Start 05/30/17 at 03:45; Stop 05/30/17 at 03:46; Status DC Octreotide Acetate 500 mcg/ Sodium Chloride 500 ml @ 50 mls/hr Q10H IV Last administered on 06/07/17 04:19; Start 05/30/17 at 03:31; Stop 06/07/17 at 14:50 ; Status DC Miscellaneous Information Patient in critical care unit? Ass... [id number] .XX Last administered on 05/30/17 04:15; Start 05/30/17 at 04:15 Chlorhexidine Gluconate (Chlorhexidine 2% Cloth) 3 pack DAILY@04 TOPICAL Last administered on 06/05/17 03:23; Start 05/31/17 at 04:00; Stop 06/04/17 at 04:01 ; Status DC Chlorhexidine Gluconate (Chlorhexidine 2% Cloth) 3 pack UNSCH PRN TOPICAL HYGIENIC CARE; Start 05/30/17 at 04:15; Stop 06/04/17 at 04:13; Status DC Magnesium Citrate (Citroma Liq) 300 ml ONCE ONCE PO Last administered on 15:23; Start 05/30/17 at 16:00; Stop 05/30/17 at 17:42; Status DC Magnesium Citrate (Citroma Liq) 300 ml ONCE ONCE PO ; Start 05/30/17 at 18:00; Stop 05/30/17 at 18:00; Status DC Propofol 100 ml @ As Directed STK-MED ONCE .ROUTE Last administered on 20:00; Start 05/30/17 at 19:38; Stop 05/30/17 at 19:39; Status DC Phenylephrine HCl (Neosynephrine Inj) 40 mg STK-MED ONCE .ROUTE ; Start 05/30/17 at 19:45; Stop 05/30/17 at 19:46; Status DC Propofol (Diprivan 200 Mg/20 ml Inj) 290 mg STK-MED ONCE IV PUSH ; Start at 19:50; Stop 05/30/17 at 20:12; Status DC Phenylephrine HCl 40 mg/Dextrose 500 ml @ 30 mls/hr TITRATE PRN IV Blood Pressure Management Last administered on 06/01/17 07:09; Start 05/30/17 at 21:30 ; Stop 06/01/17 at 09:51; Status DC Miscellaneous Information ALL NURSING DEPARTME... UNSCH PRN .XX SEE LABEL COMMENTS; Start 05/30/17 at 19:06; Stop 05/31/17 at 19:05; Status DC Propofol 100 ml @ As Directed STK-MED ONCE .ROUTE Last administered on 22:52; Start 05/30/17 at 22:14; Stop 05/30/17 at 22:15; Status DC Propofol 100 ml @ 3.111 mls/ hr TITRATE PRN IV SEDATION Last administered on 19:02; Start 05/30/17 at 22:30; Stop 06/06/17 at 02:06; Status DC Sodium Chloride 2,000 ml @ 999 mls/hr ONCE ONCE IV Last administered on 01:00; Start 05/31/17 at 04:00; Stop 05/31/17 at 06:00; Status DC Ondansetron HCl (Zofran Inj) 4 mg STK-MED ONCE IV PUSH ; Start 05/30/17 at 12:00 ; Stop 05/31/17 at 10:14; Status DC Sodium Chloride 1,000 ml @ 999 mls/hr BOLUS ONCE IV Last administered on 15:19; Start 05/31/17 at 12:00; Stop 05/31/17 at 13:23; Status DC Fentanyl Citrate 250 ml @ 10 mls/hr TITRATE PRN IV SEDATION; Start 05/31/17 at 19:45; Status UNV Midazolam HCl 100 ml @ 3 mls/hr TITRATE PRN IV SEDATION; Start 05/31/17 at 19:45 ; Status UNV Midazolam HCl (Versed Inj) 2 mg ONCE ONCE IV PUSH Last administered on 19:45; Start 05/31/17 at 19:45; Stop 05/31/17 at 20:04; Status DC Midazolam HCl 100 ml @ 3 mls/hr TITRATE PRN IV SEDATION Last administered on 23:48; Start 05/31/17 at 19:45; Stop 06/03/17 at 14:04; Status DC Midazolam HCl (Versed Inj) 5 mg STK-MED ONCE .ROUTE Last administered on 20:11; Start 05/31/17 at 19:52; Stop 05/31/17 at 19:53; Status DC Fentanyl Citrate 250 ml @ 5 mls/hr TITRATE PRN IV SEDATION Last administered on 06/06/17 06:15; Start 05/31/17 at 21:30; Stop 06/06/17 at 20:34; Status DC Vancomycin HCl 1000 mg/Sodium Chloride 250 ml @ 250 mls/hr ONCE ONCE IV ; Start 05/31/17 at 21:30; Stop 05/31/17 at 21:39; Status DC Pharmacy Profile Note 0 ml @ 0 mls/hr UNSCH OTHER ; Start 05/31/17 at 21:30; Stop 06/02/17 at 11:38; Status DC Cefepime HCl 2000 mg/Sodium Chloride 100 ml @ 200 mls/hr Q12H IV Last administered on 06/02/17 08:34; Start 05/31/17 at 22:00; Stop 06/02/17 at 11:38 ; Status DC Azithromycin 500 mg/Sodium Chloride 250 ml @ 250 mls/hr Q24H IV Last administered on 06/01/17 21:47; Start 05/31/17 at 22:00; Stop 06/02/17 at 11:38; Status DC Calcium Gluconate 2 gm/Sodium Chloride 120 ml @ 120 mls/hr ONCE ONCE IV Last administered on 05/31/17 22:49; Start 05/31/17 at 23:00; Stop 05/31/17 at 23:59; Status DC Acetaminophen (Ofirmev 1000 Mg/ 100 ml Inj) 650 mg ONCE ONCE IV Last administered on 05/31/17 21:45; Start 05/31/17 at 21:45; Stop 05/31/17 at 21:46; Status DC Sodium Chloride 1,000 ml @ 999 mls/hr BOLUS ONCE IV Last administered on 21:30; Start 05/31/17 at 21:30; Stop 05/31/17 at 22:30; Status DC Sodium Chloride 1,000 ml @ 999 mls/hr BOLUS ONCE IV Last administered on 21:48; Start 05/31/17 at 22:30; Stop 05/31/17 at 23:30; Status DC Vancomycin HCl 2500 mg/Sodium Chloride 525 ml @ 250 mls/hr ONCE ONCE IV Last administered on 06/01/17 02:12; Start 05/31/17 at 23:00; Stop 06/01/17 at 01:05; Status DC Vancomycin HCl 1500 mg/Sodium Chloride 515 ml @ 257.5 mls/ hr Q12H IV Last administered on 06/02/17 12:13; Start 06/01/17 at 12:00; Stop 06/02/17 at 15:46 ; Status DC Miscellaneous Information SPECIFIC LAB TO BE NICOLE... ONCE ONCE .XX Last administered on 06/02/17 11:45; Start 06/02/17 at 11:45; Stop 06/02/17 at 11:46 ; Status DC Iodixanol (VISIPAQUE 320 INJ (Rad CT)) 89 ml STK-MED ONCE IV Last administered on 06/01/17 02:45; Start 06/01/17 at 02:45; Stop 06/01/17 at 02:46; Status DC Sodium Bicarbonate 150 meq/Dextrose 1,150 ml @ 75 mls/hr [id number] IV Last administered on 06/03/17 07:43; Start 06/01/17 at 06:00; Stop 06/03/17 at 14:04 ; Status DC Phenylephrine HCl 160 mg/Dextrose 500 ml @ 7.5 mls/hr TITRATE PRN IV Blood Pressure Management Last administered on 06/03/17 04:34; Start 06/01/17 at 10:00 ; Stop 06/03/17 at 23:56; Status DC Pharmacy Profile Note 0 ml @ 0 mls/hr UNSCH OTHER ; Start 06/02/17 at 11:45; Stop 06/02/17 at 15:46; Status DC Lactulose (Lactulose Liq) 30 ml QID PO ; Start 06/02/17 at 13:00; Stop 06/02/17 at 14:05; Status DC Rifaximin (Xifaxan) 550 mg BID PO ; Start 06/02/17 at 12:15; Stop 06/02/17 at 14 :05; Status DC Lactulose 300 ml/ Sterile Water 1,000 ml @ 0 mls/hr Q6H RECTAL Last administered on 06/04/17 14:18; Start 06/02/17 at 14:00; Stop 06/04/17 at 15:02 ; Status DC Linezolid 300 ml @ 300 mls/hr Q12H IV Last administered on 06/03/17 04:25; Start 06/02/17 at 16:00; Stop 06/03/17 at 12:12; Status DC Cefepime HCl 2000 mg/Sodium Chloride 100 ml @ 200 mls/hr Q8HR IV Last administered on 06/04/17 14:18; Start 06/03/17 at 14:00; Stop 06/04/17 at 16:20 ; Status DC Pharmacy Profile Note 0 ml @ 0 mls/hr UNSCH OTHER ; Start 06/03/17 at 12:15; Stop 06/04/17 at 16:20; Status DC Lactated Ringer's 1,000 ml @ 84 mls/hr [id number] IV Last administered on 03:21; Start 06/03/17 at 14:15; Stop 06/05/17 at 11:45; Status DC Vancomycin HCl 1500 mg/Sodium Chloride 515 ml @ 257.5 mls/ hr Q12H IV Last administered on 06/04/17 16:17; Start 06/03/17 at 16:00; Stop 06/04/17 at 16:20 ; Status DC Miscellaneous Information SPECIFIC LAB TO BE NICOLE... ONCE ONCE .XX ; Start 06/05 at 03:45; Stop 06/05/17 at 03:46; Status Cancel Acetylcysteine (Acetadote Inj) search Sets Overdose- ONCE IV ; Start 06/03/17 at 17:30; Status UNV Acetylcysteine 27538 mg/Dextrose 275 ml @ 200 mls/hr ONCE ONCE IV Last administered on 06/03/17 19:43; Start 06/03/17 at 19:00; Stop 06/03/17 at 20:22 ; Status DC Acetylcysteine 5000 mg/Dextrose 525 ml @ 125 mls/hr ONCE ONCE IV Last administered on 06/03/17 21:15; Start 06/03/17 at 20:00; Stop 06/04/17 at 00:11 ; Status DC Acetylcysteine 83562 mg/Dextrose 1,050 ml @ 62.5 mls/hr ONCE ONCE IV Last administered on 06/04/17 00:09; Start 06/04/17 at 00:00; Stop 06/04/17 at 16:47 ; Status DC Lactated Ringer's 1,000 ml @ 999 mls/hr BOLUS ONCE IV Last administered on 00:08; Start 06/04/17 at 00:00; Stop 06/04/17 at 01:00; Status DC Sodium Chloride 250 ml @ 15 mls/hr ONCE ONCE IV Last administered on 06:07; Start 06/04/17 at 01:45; Stop 06/04/17 at 18:24; Status DC Sodium Chloride 250 ml @ 15 mls/hr ONCE ONCE IV Last administered on 10:05; Start 06/04/17 at 07:00; Stop 06/04/17 at 23:39; Status DC Propofol (Diprivan 200 Mg/20 ml Inj) 100 mg STK-MED ONCE IV PUSH ; Start at 14:53; Stop 06/04/17 at 14:54; Status DC Lactulose (Lactulose Liq) 30 ml QID PO Last administered on 06/10/17 20:42; Start 06/04/17 at 18:00; Stop 06/11/17 at 09:23; Status DC Rifaximin (Xifaxan) 550 mg BID PO Last administered on 06/14/17 20:15; Start 06/04/17 at 21:00 Cefazolin Sodium/ Dextrose 50 ml @ 150 mls/hr Q8H IV Last administered on 06/08 09:33; Start 06/04/17 at 17:00; Stop 06/08/17 at 09:00; Status DC Potassium Chloride/Dextrose 1,000 ml @ 84 mls/hr [id number] IV Last administered on 06/06/17 12:07; Start 06/05/17 at 13:00; Stop 06/06/17 at 20:34; Status DC Furosemide (Lasix Inj) 40 mg BID@09,18 IV PUSH Last administered on 06/09/17 09:56; Start 06/05/17 at 12:00; Stop 06/09/17 at 10:11; Status DC Iohexol (Omnipaque 350 Inj) 20 ml STK-MED ONCE IVCONTRAST Last administered on 06/05/17t 16:43; Start 06/05/17 at 16:59; Stop 06/05/17 at 17:01; Status DC Potassium Chloride 100 ml @ 50 mls/hr Q2H PRN IV For Potassium 2.8 - 3.2 mEq/L ; Start 06/06/17 at 01:00; Stop 06/07/17 at 23:44; Status DC Potassium Chloride 100 ml @ 50 mls/hr Q2H PRN IV For Potassium 2.8 - 3.2 mEq/L ; Start 06/06/17 at 01:00; Stop 06/07/17 at 23:45; Status DC Potassium Bicarb/ Potassium Chloride (K-Lyte Cl Eff) 50 meq UNSCH PRN PO For Potassium 3.3 - 3.5 mEq/L; Start 06/06/17 at 01:00; Stop 06/07/17 at 23:45; Status DC Potassium Chloride 100 ml @ 25 mls/hr UNSCH PRN IV For Potassium 3.3 - 3.5 mEq /L; Start 06/06/17 at 01:00; Stop 06/07/17 at 23:45; Status DC Potassium Chloride 100 ml @ 50 mls/hr Q2H PRN IV For Potassium 3.3 - 3.5 mEq/L ; Start 06/06/17 at 01:00; Stop 06/07/17 at 23:45; Status DC Magnesium Sulfate 4 gm/Sodium Chloride 100 ml @ 50 mls/hr UNSCH PRN IV For Magnesium 0.9 - 1.1 mg/dL; Start 06/06/17 at 01:00; Stop 06/07/17 at 23:44; Status DC Magnesium Oxide (Mag-Ox) 800 mg UNSCH PRN PO For Magnesium 1.2 - 1.6 mg/dL; Start 06/06/17 at 01:00; Stop 06/07/17 at 23:45; Status DC Magnesium Sulfate 2 gm/Sodium Chloride 100 ml @ 50 mls/hr UNSCH PRN IV For Magnesium 1.2 - 1.6 mg/dL; Start 06/06/17 at 01:00; Stop 06/07/17 at 23:44; Status DC Potassium Phosphate (K-Phos) 2,000 mg Q4H PRN PO For Phosphorus < 2.5 mg/dL; Start 06/06/17 at 01:00; Stop 06/07/17 at 23:45; Status DC Sodium Phosphate 30 mmol/Sodium Chloride 250 ml @ 42 mls/hr UNSCH PRN IV For Phosphorus < 2.5 mg/dL Last administered on 06/06/17 02:12; Start 06/06/17 at 01:00; Stop 06/07/17 at 23:45; Status DC Potassium Phosphate (K-Phos) 2,000 mg UNSCH PRN PO/TUBE SEE LABEL COMMENTS; Start 06/06/17 at 01:00; Stop 06/07/17 at 23:45; Status DC Potassium Phosphate 30 mmol/ Sodium Chloride 260 ml @ 42 mls/hr UNSCH PRN IV SEE LABEL COMMENTS; Start 06/06/17 at 01:00; Stop 06/07/17 at 23:45; Status DC Propofol 100 ml @ 3.78 mls/hr TITRATE PRN IV SEDATION Last administered on 06:15; Start 06/06/17 at 02:15; Stop 06/06/17 at 07:00; Status DC Oxycodone HCl (Roxicodone) 5 mg Q4H PRN PO pain 1-7 Last administered on 03:54; Start 06/06/17 at 20:30 Propranolol HCl (Inderal) 10 mg Q8HR PO Last administered on 06/15/17 05:38; Start 06/06/17 at 22:00 Dextrose 1,000 ml @ 75 mls/hr [id number] IV Last administered on 06/08/17 23:20 ; Start 06/07/17 at 10:00; Stop 06/09/17 at 10:11; Status DC Pantoprazole Sodium (Protonix Inj) 40 mg Q12H IV PUSH Last administered on 06/09 03:14; Start 06/07/17 at 16:00; Stop 06/09/17 at 10:11; Status DC Potassium Bicarb/ Potassium Chloride (K-Lyte Cl Eff) 75 meq ONCE ONCE PO Last administered on 06/08/17 12:59; Start 06/08/17 at 11:00; Stop 06/08/17 at 11:01; Status DC Potassium Bicarb/ Potassium Chloride (K-Lyte Cl Eff) 75 meq ONCE ONCE PO Last administered on 06/08/17 20:21; Start 06/08/17 at 20:00; Stop 06/08/17 at 20:05; Status DC Potassium Bicarb/ Potassium Chloride (K-Lyte Cl Eff) 75 meq ONCE ONCE PO Last administered on 06/09/17 09:57; Start 06/09/17 at 09:00; Stop 06/09/17 at 09:01; Status DC Furosemide (Lasix) 20 mg BID@ PO Last administered on 06/14/17 17:53; Start 06/09/17 at 18:00 Pantoprazole Sodium (Protonix) 40 mg Q12HR PO Last administered on 06/14/17 20 :15; Start 06/09/17 at 21:00 Potassium Bicarb/ Potassium Chloride (K-Lyte Cl Eff) 50 meq Q12HR PO Last administered on 06/10/17 08:58; Start 06/09/17 at 21:00; Stop 06/10/17 at 09:44 ; Status DC Potassium Chloride (KCl) 30 meq ONCE ONCE PO Last administered on 06/10/17 08 :56; Start 06/10/17 at 08:45; Stop 06/10/17 at 08:46; Status DC Calcium Carbonate (Oscal) 500 mg Q12HR PO Last administered on 06/14/17 20:15 ; Start 06/10/17 at 10:00 Potassium Bicarb/ Potassium Chloride (K-Lyte Cl Eff) 75 meq Q12HR PO Last administered on 06/14/17 20:16; Start 06/10/17 at 21:00 Gadodiamide (Omniscan Pf Inj) 19 ml STK-MED ONCE IVCONTRAST Last administered on 06/10/17 12:37; Start 06/10/17 at 12:37; Stop 06/10/17 at 12:39; Status DC Lactulose (Lactulose Liq) 30 ml BID PO Last administered on 06/14/17 20:15; Start 06/11/17 at 21:00 Furosemide (Lasix) 20 mg ONCE ONCE PO Last administered on 06/13/17 09:50; Start 06/13/17 at 08:30; Stop 06/13/17 at 08:31; Status DC Sodium Chloride 250 ml @ 15 mls/hr ONCE ONCE IV Last administered on 16:45; Start 06/14/17 at 10:15; Stop 06/15/17 at 02:54; Status DC Acetaminophen (Tylenol) 650 mg Q4H PRN PO SEE LABEL COMMENTS Last administered on 06/14/17 20:15; Start 06/14/17 at 10:15; Stop 06/14/17 at 21:04; Status DC Diphenhydramine HCl (Benadryl) 25 mg Q4H PRN PO SEE LABEL COMMENTS Last administered on 06/14/17 20:15; Start 06/14/17 at 10:15; Stop 06/14/17 at 21:04 ; Status DC Furosemide (Lasix Inj) 20 mg ONCE ONCE IV ; Start 06/14/17 at 11:00; Stop 06/14 at 11:01; Status DC Furosemide (Lasix Inj) 20 mg ONCE ONCE IV Last administered on 06/14/17 21:13 ; Start 06/14/17 at 20:30; Stop 06/14/17 at 21:04; Status DC Urinary Catheter: No Vascular Central Line Catheter: No Side: Right Location: Subclavian A/P Problem List: (1) GI bleed ICD Code: K92.2 - Gastrointestinal hemorrhage, unspecified (2) Melena ICD Code: K92.1 - Melena Status: Acute (3) Hematemesis ICD Code: K92.0 - Hematemesis Status: Acute (4) Transaminitis ICD Code: R74.0 - Nonspecific elevation of levels of transaminase and lactic acid dehydrogenase [LDH] (5) Thrombocytopenia ICD Code: D69.6 - Thrombocytopenia, unspecified Status: Acute Assessment and Plan Hypoxic Respiratory failure 06/01 CTA pulmonary-suspected left upper lobe, left lower lobe pulmonary emboli, no pulmonary emboli on the right. Bilateral lower lobe atelectasis. Patchy pneumonia right lower lobe. Noted ill-defined right infrahilar/subcarinal mass 4.2 x 4.8 cm (likely esophageal varices- per CT abdomen report). Extensive discussion with Dr. Terrazas (IR) patient is not a candidate for catheter directed TPA in the setting of GI bleeding. Intubated 05/29 and extubated 06/06. Ultrasound bilateral lower extremities negative for DVT. 06/01 ECHO ejection fraction 55-60%. No RWMA. Trace TR. - Maintain O2 saturation greater than 92%. - DuoNeb's every 6 hours scheduled every 2 hours when necessary. - Patient was on Ancef for MSSA pneumonia. d/c 06/07. - S/p IVC filter. - Pulmonology following. - Incentive spirometry. - PT/ OT. GI bleed/ Hematemesis 06/01 CT abdomen-splenomegaly, ascites, esophageal varices extend into the lower chest and may account for subcarinal and infrahilar masses. [place]id portosystemic collaterals. Large esophageal varix. 3 bands applied by GI. 06/05 repeat EGD varices no active bleeding. Ammonia decreasing. - Status post protonic and octreotide gtt. -Patient on sandostatin and protonix - Monitor CBC and transfuse as needed. Transaminitis/liver cirrhosis complicatef by portal hypertension, esophageal varices and ascites. Due to daily Tylenol use. S/p Mucomyst. AST 692, ALT 593, T bili 2.1. Liver ultrasound reveals cirrhotic liver image. Tylenol level negative. Hepatitis profile negative. - Workup per gastroenterology - Monitor PT/INR. - continue rifaximin, lactulose and pentoxifylline. -MRI showed portal hypertension, esophageal varices, and ascites. GI wants to repeat MRI of the liver and a few days. They are also considering a liver biopsy if a 1A is negative. Subcarinal mass on CTA -previous hospitalist discussed tam Craig, from hematology, she stated that mass on CTA more likely esophageal varices if for patient to follow with Dr. Casey as outpatient regards to this. Linux Systems Administrator/oncologist signed off. Thrombocytopenia S/t liver disease. - Monitor CBC. - transfuse platelets if signs of acute bleeding, or less than 50,000. - Hematology following. Hypernatremia Most likely secondary to dehydration. Resolved. -s/p D5W at 75 ml/hr Hypokalemia Possibly s/t decreased PO intake. - Potassium scheduled. - monitor and replete as needed. Liver mass Noted on imaging. - Radiologist recommend hepatic MRI with Eovist. MRI of the liver was done which was a poor study. It did not showed any hepatic lesions but stated that patient has cirrhosis, portal hypertension, ascites, esophageal varices. GI wants to repeat MRI in a few days. Management per GI. ANEMIA- TRANSFUSE 2 MORE UNITS PRBC ON 06-14 PPx: IVC filter Repeat AM LABS Problem Qualifiers (1) Hematemesis: Qualified Codes: K92.0 - Hematemesis; R11.0 - Nausea Nba Quinonez DO Jun 15, 2017 09:21
[2017-06-15] MEDS: POTASSIUM CHLORIDE 25 MEQ EFFERVESCENT TAB PO SCH ×2 (11:05→20:54)
[2017-06-15] MEDS: PANTOPRAZOLE SOD 40 MG DELAYED RELEASE TAB PO SCH ×2 (11:05→20:53)
[2017-06-15] MEDS: CALCIUM CARBONATE 1.25 GM (CA 500 MG) TAB PO SCH ×2 (11:05→20:53)
[2017-06-15] MEDS: LACTULOSE SYRUP 20 GM/30 ML CUP PO SCH ×2 (11:05→20:53)
[2017-06-15] MEDS: FUROSEMIDE 20 MG TAB PO SCH ×2 (11:05→18:31)
[2017-06-15] MEDS: RIFAXIMIN 550 MG TAB PO SCH ×2 (11:06→20:53)
--- NOTE | 2017-06-15 21:17 | HHI.GIFU ---
Subjective Remarks Patient laying in bed doing well no complaints getting stronger Objective Vitals I&O Vital Signs Date Time Temp Pulse Resp B/P (MAP) Pulse Ox O2 Delivery O2 Flow Rate FiO2 06/15/17 20:00 97.7 85 20 121/64 (83) 96 06/15/17 16:00 83 06/15/17 15:30 97.6 84 20 108/62 (77) 94 06/15/17 14:41 88 06/15/17 11:45 96.7 81 20 111/65 (80) 95 06/15/17 08:00 Room Air 06/15/17 08:00 78 06/15/17 07:51 96.7 77 20 114/68 (83) 93 06/15/17 04:00 97.1 85 18 115/69 (84) 95 06/15/17 00:00 96.5 80 18 101/56 (71) 96 06/14/17 21:52 96.9 78 19 107/63 95 06/14/17 21:34 98.1 84 18 135/72 (93) 100 06/14/17 21:27 98.0 79 20 106/60 (75) 96 I/O 06/14/17 06/14/17 06/14/17 06/15/17 06/15/17 06/15/17 07:00 15:00 23:00 07:00 15:00 23:00 Intake Total 400 ml 630 ml 510 ml 700 ml Output Total 1150 ml 2500 ml 1930 ml 1450 ml Balance -1150 ml 400 ml -1870 ml -1420 ml -750 ml Intake Oral 340 ml 240 ml 700 ml Packed Cells 400 ml 250 ml 250 ml Blood Product IV Normal Saline Flush 40 ml 20 ml Output Urine Total 1150 ml 2500 ml 1930 ml 1450 ml # Bowel Movements 2 0 1 Laboratory Laboratory Tests Test 06/15/17 06:17 White Blood Count 3.1 Red Blood Count 3.15 Hemoglobin 8.1 Hematocrit 25.3 Mean Corpuscular Volume 80.3 Mean Corpuscular Hemoglobin 25.9 Mean Corpuscular Hemoglobin Concent 32.2 Red Cell Distribution Width 17.3 Platelet Count 102 Mean Platelet Volume 10.1 Neutrophils (%) (Auto) 62.1 Lymphocytes (%) (Auto) 22.3 Monocytes (%) (Auto) 9.2 Eosinophils (%) (Auto) 5.2 Basophils (%) (Auto) 1.2 Neutrophils # (Auto) 1.9 Lymphocytes # (Auto) 0.7 Monocytes # (Auto) 0.3 Eosinophils # (Auto) 0.2 Basophils # (Auto) 0.0 CBC Comment DIFF FINAL Differential Comment Prothrombin Time 13.9 Prothromb Time International Ratio 1.2 Blood Urea Nitrogen 10 Creatinine 0.79 Random Glucose 102 Total Protein 5.7 Albumin 1.8 Calcium Level 7.5 Phosphorus Level 3.4 Magnesium Level 1.9 Alkaline Phosphatase 154 Aspartate Amino Transf (AST/SGOT) 36 Alanine Aminotransferase (ALT/SGPT) 49 Total Bilirubin 2.8 Sodium Level 142 Potassium Level 3.8 Chloride Level 108 Carbon Dioxide Level 27.0 Anion Gap 7 Estimat Glomerular Filtration Rate 109 Date/Time Source Procedure Growth Status 06/04/17 05:35 Blood Peripheral Aerobic Blood Culture - Final NO GROWTH IN 5 DAYS Complete 06/04/17 05:35 Blood Peripheral Anaerobic Blood Culture - Final NO GROWTH IN 5 DAYS Complete 06/01/17 03:30 Sputum Endotracheal Gram Stain - Final Complete 06/01/17 03:30 Sputum Culture - Final Staphylococcus Aureus Complete 06/03/17 12:40 Urine Catheterized Urine Urine Culture - Final NO GROWTH IN 48 HOURS. Complete Physical Exam HEENT: Normocephalic; atraumatic; CHEST: Respirations even/unlabored. Diminished CARDIAC: RRR ABDOMEN: Soft, obese, ascites, hepatosplenomegaly; bowel sounds are present in all four quadrants. EXTREMITIES:BLE edema, improving [employer]ES: alert Assessment and Plan Plan - Upper GIB with hematemesis on admission. S/P EGD (05/31/17)-----> Bleeding esophageal varices. Rpt. EGD with OGT placement (06/04/17)---> 1. Esophageal varices grade 3 old bands seen over variceal columns, og tube placed in stomach under direct visualization 2. Retroflexed views revealed a hiatal hernia 3. Retroflexed views revealed gastric varices. S/ P 6 units PRBC. H/H Dropped from 8.5/26.4 to 6.9/21.7, but he is not having any obvious GI blood loss- as in hematemesis, melena, or hematochezia. Recheck HH. PPI. - Anemia acute blood loss. S/P 6 units PRBC, HH 6.9/21.7. No obvious bleeding , will recheck HH. PPI. - Coagulopathy/thrombocytopenia. Plt 99,000. INR 1.1. IMPROVING - Elevated LFTs. Liver US (05/30/17)---> Cirrhotic liver appearance. Question focal right lobe mass. Recommend further evaluation with hepatic MRI with Eovist. Hepatitis profile negative. STEPHANIE negative. AMA <20.0, ASMA neg. AFP 1.8. Ceruloplasmin 24, ALpha [address] Scan abdomen and pelvis to further evaluation. CT scan abdomen and pelvis with iv contrast (06/01/17)----> cirrhosis, heterogeneously enhancing liver without a distinct/measurable focal lesion, marked splenomegaly, 10.3 x 17.6 x 18.1 cm, very severe portosystemic collaterals including gastroesophageal varices. The varices extend into the lower chest and probably account for the subcarinal/right infrahilar mass seen by chest CT, diffuse wall thickening of the colon, colitis versus secondary changes from cirrhosis. Small ascites, body wall edema/anasarca. LFTs trending down. Pentoxifylline. Refusing repeat MRI as inpatient, requesting to have as outpatient. Awaiting records from family members- Maternal uncle, 2 maternal 1st cousins with fatty liver disease (one cousin with cirrhosis related to fatty liver disease). - Hepatic encephalopathy with ammonia. Improved. Lactulose, Xifaxan. - AKIKO. Improved - Resp. Failure, PE, PNA. S/P IVC filter. S/P Extubation per CCM - Family hx colon ca. Mother dx age 60 PLAN - Heart healthy 2 gram sodium diet- D/W patient low fat, low salt diet, exercise , weight loss once he recovers. - Rpt. HH - Cont. Protonix - Cont. Xifaxan - Cont. Lactulose - Cont. Pentoxifylline - Monitor labs - Transfuse as needed - Supportive care - ETOH Cessation - MRI as outpatient - refusing as inpatient -Patient may be discharged from a GI standpoint, not much to add at this point we will sign off Villa Mcdowell MD Jun 15, 2017 21:17
[2017-06-16] VITALS: BP 102/57; PULSE 83; PULSE 85; RESP 20; TEMP 97.9; O2SAT 93
[2017-06-16 04:00] VITALS: BP 108/64; PULSE 83; RESP 20; TEMP 97.9; O2SAT 93
[2017-06-16] MEDS: PROPRANOLOL HCL 10 MG TAB PO SCH ×2 (05:31→14:12)
[2017-06-16 07:30] VITALS: BP 110/66; PULSE 77; RESP 20; TEMP 97.5; O2SAT 92
[2017-06-16] MEDS: POTASSIUM CHLORIDE 25 MEQ EFFERVESCENT TAB PO SCH (07:49)
[2017-06-16] MEDS: LACTULOSE SYRUP 20 GM/30 ML CUP PO SCH (07:50)
[2017-06-16] MEDS: RIFAXIMIN 550 MG TAB PO SCH (07:50)
[2017-06-16] MEDS: FUROSEMIDE 20 MG TAB PO SCH (07:50)
[2017-06-16] MEDS: CALCIUM CARBONATE 1.25 GM (CA 500 MG) TAB PO SCH (07:50)
[2017-06-16] MEDS: PANTOPRAZOLE SOD 40 MG DELAYED RELEASE TAB PO SCH (07:50)
[2017-06-16] MEDS: SODIUM CHLORIDE 0.9% FLUSH 10 ML FLUSH IV FLUSH SCH (07:53)
[2017-06-16 08:14] VITALS: PULSE 84
[2017-06-16 09:03] LABS: AUTOMATED NEUTROPHIL # 2.9 TH/MM3 (1.8-7.7); BASOPHIL # 0.1 TH/MM3 (0-0.2); BASOPHIL % 1.4 % (0.0-2.0); EOSINOPHIL # 0.3 TH/MM3 (0-0.4); EOSINOPHIL % 6.1 % (0.0-4.0); HEMO FLAGS DIFF FINAL; LYMPH % 19.6 % (9.0-44.0); LYMPHOCYTE # 0.9 TH/MM3 (1.0-4.8); MEAN CELL VOLUME 80.1 FL (80.0-100.0); MEAN CORPUSCULAR HEMOGLOBIN 25.5 PG (27.0-34.0); MEAN CORPUSCULAR HGB CONC 31.8 % (32.0-36.0); MONO % 8.2 % (0.0-8.0); NEUT % 64.7 % (16.0-70.0); PLATELET COUNT 115 TH/MM3 (150-450); RED BLOOD COUNT 3.49 MIL/MM3 (4.50-5.90); RED CELL DISTRIBUTION WIDTH 17.3 % (11.6-17.2); WHITE BLOOD COUNT 4.5 TH/MM3 (4.0-11.0)
--- NOTE | 2017-06-16 09:17 | HHI.PR ---
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 HAS FAMILY HX OF LIVER DISEASE NO NEW COMPLAINTS 06-15 hemoglobin only up to 8.1 No new complaints States he's eating well States he is having bowel movements Hopefully discharge for the next 24-48 hours 06-16 HEMOGLOBIN IS STABLE AT 8.9 DC TO HOME TODAY FOLLOW UP WITH PCP FOLLOW UP WITH GI DC HOME SEE MED REC [facility] AND BEDSIDE COMMODE Objective Vitals Vital Signs Date Time Temp Pulse Resp B/P (MAP) Pulse Ox O2 Delivery O2 Flow Rate FiO2 06/16/17 07:59 Room Air 06/16/17 07:30 97.5 77 20 110/66 (81) 92 06/16/17 04:00 97.9 83 20 108/64 (79) 93 06/16/17 00:00 97.9 85 20 102/57 (72) 93 06/16/17 00:00 83 06/15/17 20:51 96 Room Air 06/15/17 20:00 87 06/15/17 20:00 97.7 85 20 121/64 (83) 96 06/15/17 16:00 83 06/15/17 15:30 97.6 84 20 108/62 (77) 94 06/15/17 14:41 88 06/15/17 11:45 96.7 81 20 111/65 (80) 95 I/O 06/15/17 06/15/17 06/15/17 06/16/17 06/16/17 06/16/17 07:00 15:00 23:00 07:00 15:00 23:00 Intake Total 510 ml 700 ml 360 ml Output Total 1930 ml 2050 ml 340 ml Balance -1420 ml -1350 ml 20 ml Intake Oral 240 ml 700 ml 360 ml Packed Cells 250 ml Blood Product IV Normal Saline Flush 20 ml Output Urine Total 1930 ml 2050 ml 340 ml # Voids 4 # Bowel Movements 0 1 4 Result Diagram: 06/16/17 0832 06/15/17 0617 Other Results Laboratory Tests Test 06/13/17 13:15 06/14/17 06:21 06/14/17 15:08 06/15/17 06:17 White Blood Count 7.0 TH/MM3 3.7 TH/MM3 3.1 TH/MM3 Red Blood Count 3.32 MIL/MM3 2.73 MIL/MM3 3.15 MIL/MM3 Hemoglobin 8.5 GM/DL 6.9 GM/DL 7.2 GM/DL 8.1 GM/DL Hematocrit 26.4 % 21.7 % 22.8 % 25.3 % Mean Corpuscular Volume 79.3 FL 79.4 FL 80.3 FL Mean Corpuscular Hemoglobin 25.5 PG 25.4 PG 25.9 PG Mean Corpuscular Hemoglobin Concent 32.1 % 32.0 % 32.2 % Red Cell Distribution Width 18.0 % 17.6 % 17.3 % Platelet Count 183 TH/MM3 99 TH/MM3 102 TH/MM3 Mean Platelet Volume 8.8 FL 8.3 FL 10.1 FL Neutrophils (%) (Auto) 69.8 % 63.0 % 62.1 % Lymphocytes (%) (Auto) 15.7 % 21.7 % 22.3 % Monocytes (%) (Auto) 9.1 % 9.6 % 9.2 % Eosinophils (%) (Auto) 4.7 % 4.8 % 5.2 % Basophils (%) (Auto) 0.7 % 0.9 % 1.2 % Neutrophils # (Auto) 4.9 TH/MM3 2.3 TH/MM3 1.9 TH/MM3 Lymphocytes # (Auto) 1.1 TH/MM3 0.8 TH/MM3 0.7 TH/MM3 Monocytes # (Auto) 0.6 TH/MM3 0.4 TH/MM3 0.3 TH/MM3 Eosinophils # (Auto) 0.3 TH/MM3 0.2 TH/MM3 0.2 TH/MM3 Basophils # (Auto) 0.0 TH/MM3 0.0 TH/MM3 0.0 TH/MM3 CBC Comment DIFF FINAL AUTO DIFF DIFF FINAL Differential Comment AUTO DIFF CONFIRMED Platelet Estimate LOW Platelet Morphology Comment ENLARGED Polychromasia 2.0 % Ovalocytes 1+ Acanthocytes OCC Blood Urea Nitrogen 11 MG/DL 10 MG/DL Creatinine 0.67 MG/DL 0.79 MG/DL Random Glucose 106 MG/DL 102 MG/DL Calcium Level 7.6 MG/DL 7.5 MG/DL Sodium Level 140 MEQ/L 142 MEQ/L Potassium Level 3.9 MEQ/L 3.8 MEQ/L Chloride Level 109 MEQ/L 108 MEQ/L Carbon Dioxide Level 25.7 MEQ/L 27.0 MEQ/L Anion Gap 5 MEQ/L 7 MEQ/L Estimat Glomerular Filtration Rate 132 ML/MIN 109 ML/MIN Prothrombin Time 13.9 SEC Prothromb Time International Ratio 1.2 RATIO Total Protein 5.7 GM/DL Albumin 1.8 GM/DL Phosphorus Level 3.4 MG/DL Magnesium Level 1.9 MG/DL Alkaline Phosphatase 154 U/L Aspartate Amino Transf (AST/SGOT) 36 U/L Alanine Aminotransferase (ALT/SGPT) 49 U/L Total Bilirubin 2.8 MG/DL Test 06/16/17 08:32 White Blood Count 4.5 TH/MM3 Red Blood Count 3.49 MIL/MM3 Hemoglobin 8.9 GM/DL Hematocrit 28.0 % Mean Corpuscular Volume 80.1 FL Mean Corpuscular Hemoglobin 25.5 PG Mean Corpuscular Hemoglobin Concent 31.8 % Red Cell Distribution Width 17.3 % Platelet Count 115 TH/MM3 Mean Platelet Volume 8.7 FL Neutrophils (%) (Auto) 64.7 % Lymphocytes (%) (Auto) 19.6 % Monocytes (%) (Auto) 8.2 % Eosinophils (%) (Auto) 6.1 % Basophils (%) (Auto) 1.4 % Neutrophils # (Auto) 2.9 TH/MM3 Lymphocytes # (Auto) 0.9 TH/MM3 Monocytes # (Auto) 0.4 TH/MM3 Eosinophils # (Auto) 0.3 TH/MM3 Basophils # (Auto) 0.1 TH/MM3 CBC Comment DIFF FINAL Differential Comment Imaging Last Impressions Abdomen MRI 06/10/17 0000 Signed Impressions: Service Date/Time: Saturday, June 10, 2017 12:01 - CONCLUSION: 1. This examination is limited secondary to artifact related to patient motion, patient size, and poor contrast-enhancement from uncertain etiology. There is mild hepatomegaly with features characteristic of cirrhosis. However, no liver lesion is identified. Given the quality of the examination, suggest followup liver MRI when patient condition permits for a better examination. 2. There are findings related to portal hypertension including splenomegaly, ascites, and esophageal varices. David Rhodes MD Chest X-Ray 06/09/17 0000 Signed Impressions: Service Date/Time: Friday, June 09, 2017 18:58 - CONCLUSION: 1. Left greater than right basilar consolidation and small effusions are not significantly changed. 2. Mildly enlarged heart similar to before. 3. Interim extubation. Nasogastric tube and right IJ central venous catheter also out. David Quintero MD IVC Filter Placement X-Ray 06/05/17 Signed Impressions: Service Date/Time: Monday, June 05, 2017 16:23 - CONCLUSION: Uncomplicated inferior vena cava filter placement as above. A [place] retrievable filter was placed. Chetan Aguila MD Upper Extremity Ultrasound 06/01/17 Signed Impressions: Service Date/Time: Thursday, June 01, 2017 13:47 - CONCLUSION: No evidence of upper extremity DVT on the right or left. Angel Paredes MD Lower Extremity Ultrasound 06/01/17 Signed Impressions: Service Date/Time: Thursday, June 01, 2017 13:30 - CONCLUSION: No evidence of lower extremity DVT on the right or left. Angel Paredes MD CT Angiography 06/01/17 Signed Impressions: Service Date/Time: Thursday, June 01, 2017 02:39 - CONCLUSION: 1. Suspected left upper lobe and left lower lobe pulmonary emboli. No pulmonary embolus on the right. 2. Right infrahilar/subcarinal mass. 3. Bilateral lower lobe atelectasis, right worse than left. Also patchy pneumonia of the right lower lobe. David Quintero MD Abdomen/Pelvis CT 06/01/17 Signed Impressions: Service Date/Time: Thursday, June 01, 2017 02:39 - CONCLUSION: 1. Cirrhosis. Heterogeneously enhancing liver without a distinct/measurable focal lesion. 2. Marked splenomegaly, 10.3 x 17.6 x 18.1 cm. 3. Very severe portosystemic collaterals including gastroesophageal varices. The varices extend into the lower chest and probably account for the subcarinal/right infrahilar mass seen by chest CT. 4. Diffuse wall thickening of the colon, colitis versus secondary changes from cirrhosis. 5. Small ascites. Body wall edema/anasarca. David Quintero MD Liver Ultrasound 05/30/17 Signed Impressions: Service Date/Time: May 09:04 - CONCLUSION: Cirrhotic liver appearance. Question focal right lobe mass. Recommend further evaluation with hepatic MRI with E[facility]. David Terrazas MD Objective Remarks GENERAL: AWAKE ALERT AND ORIENTED AND TALKATIVE AND COOPERATIVE SKIN: Warm and dry. HEAD: Atraumatic. Normocephalic. EYES: Pupils equal and round. No scleral icterus. No injection or drainage. EOMI ENT: No nasal bleeding or discharge. Mucous membranes pink and moist. TONGUE MIDLINE NECK: Trachea midline. No JVD. SUPPLE CARDIOVASCULAR: Regular rate and rhythm. S1, S2, NO S3 OR S4 NO HEAVE OR THRILL RESPIRATORY: No accessory muscle use. Clear to auscultation. Breath sounds equal bilaterally. GASTROINTESTINAL: Abdomen soft, non-tender, nondistended. Hepatic and splenic margins not palpable. OBESE MUSCULOSKELETAL: Extremities without clubbing, cyanosis, No obvious deformities. EDEMA 2 TO 3 BL LE NEUROLOGICAL: Awake and alert. No obvious cranial nerve deficits. Motor grossly within normal limits. Five out of 5 muscle strength in the arms and legs. Normal speech. PSYCHIATRIC: Appropriate mood and affect; insight and judgment normal. Procedures 05/30- EGD 06/04-EGD Medications and IVs Current Medications Ondansetron HCl (Zofran Inj) 4 mg ONCE ONCE IVP Last administered on 05/30/17 00:04; Start 05/30/17 at 00:00; Stop 05/30/17 at 00:01; Status DC Sodium Chloride 1,000 ml @ 1,000 mls/hr Q1H IV Last administered on 05/30/17 00:03; Start 05/29/17 at 23:46; Stop 05/30/17 at 00:45; Status DC Sodium Chloride (NS Flush) 2 ml UNSCH PRN IVF FLUSH AFTER USING IV ACCESS; Start 05/30/17 at 00:00; Stop 05/31/17 at 22:04; Status DC Pantoprazole Sodium 80 mg/ Sodium Chloride 35 ml @ 420 mls/hr Q5M ONCE IV Last administered on 05/30/17 00:05; Start 05/29/17 at 23:46; Stop 05/29/17 at 23: 50; Status DC Pantoprazole Sodium 80 mg/ Sodium Chloride 100 ml @ 10 mls/hr Q10H IV Last administered on 06/07/17 06:00; Start 05/29/17 at 23:46; Stop 06/07/17 at 14:50 ; Status DC Sodium Chloride 1,000 ml @ 100 mls/hr Q10H IV Last administered on 05/31/17 13 :11; Start 05/30/17 at 01:04; Stop 06/01/17 at 05:49; Status DC Sodium Chloride (NS Flush) 2 ml UNSCH PRN IV FLUSH FLUSH AFTER USING IV ACCESS ; Start 05/30/17 at 01:15 Sodium Chloride (NS Flush) 2 ml BID IV FLUSH Last administered on 06/16/17 07: 53; Start 05/30/17 at 09:00 Naloxone HCl (Narcan Inj) 0.4 mg UNSCH PRN IV SEE LABEL COMMENTS; Start at 01:15 Ondansetron HCl (Zofran Inj) 4 mg Q6HR PRN IV PUSH nausea Last administered on 05/30/17 16:53; Start 05/30/17 at 01:45 Ondansetron HCl (Zofran Inj) 4 mg ONCE ONCE IV PUSH Last administered on 02:34; Start 05/30/17 at 02:30; Stop 05/30/17 at 02:31; Status DC Octreotide Acetate (SandoSTATIN INJ) 50 mcg ONCE ONCE IV PUSH Last administered on 05/30/17 05:49; Start 05/30/17 at 03:45; Stop 05/30/17 at 03:46; Status DC Octreotide Acetate 500 mcg/ Sodium Chloride 500 ml @ 50 mls/hr Q10H IV Last administered on 06/07/17 04:19; Start 05/30/17 at 03:31; Stop 06/07/17 at 14:50 ; Status DC Miscellaneous Information Patient in critical care unit? Ass... [id number] .XX Last administered on 05/30/17 04:15; Start 05/30/17 at 04:15 Chlorhexidine Gluconate (Chlorhexidine 2% Cloth) 3 pack DAILY@04 TOPICAL Last administered on 06/05/17 03:23; Start 05/31/17 at 04:00; Stop 06/04/17 at 04:01 ; Status DC Chlorhexidine Gluconate (Chlorhexidine 2% Cloth) 3 pack UNSCH PRN TOPICAL HYGIENIC CARE; Start 05/30/17 at 04:15; Stop 06/04/17 at 04:13; Status DC Magnesium Citrate (Citroma Liq) 300 ml ONCE ONCE PO Last administered on 15:23; Start 05/30/17 at 16:00; Stop 05/30/17 at 17:42; Status DC Magnesium Citrate (Citroma Liq) 300 ml ONCE ONCE PO ; Start 05/30/17 at 18:00; Stop 05/30/17 at 18:00; Status DC Propofol 100 ml @ As Directed STK-MED ONCE .ROUTE Last administered on 20:00; Start 05/30/17 at 19:38; Stop 05/30/17 at 19:39; Status DC Phenylephrine HCl (Neosynephrine Inj) 40 mg STK-MED ONCE .ROUTE ; Start 05/30/17 at 19:45; Stop 05/30/17 at 19:46; Status DC Propofol (Diprivan 200 Mg/20 ml Inj) 290 mg STK-MED ONCE IV PUSH ; Start at 19:50; Stop 05/30/17 at 20:12; Status DC Phenylephrine HCl 40 mg/Dextrose 500 ml @ 30 mls/hr TITRATE PRN IV Blood Pressure Management Last administered on 06/01/17 07:09; Start 05/30/17 at 21:30 ; Stop 06/01/17 at 09:51; Status DC Miscellaneous Information ALL NURSING DEPARTME... UNSCH PRN .XX SEE LABEL COMMENTS; Start 05/30/17 at 19:06; Stop 05/31/17 at 19:05; Status DC Propofol 100 ml @ As Directed STK-MED ONCE .ROUTE Last administered on 22:52; Start 05/30/17 at 22:14; Stop 05/30/17 at 22:15; Status DC Propofol 100 ml @ 3.111 mls/ hr TITRATE PRN IV SEDATION Last administered on 19:02; Start 05/30/17 at 22:30; Stop 06/06/17 at 02:06; Status DC Sodium Chloride 2,000 ml @ 999 mls/hr ONCE ONCE IV Last administered on 01:00; Start 05/31/17 at 04:00; Stop 05/31/17 at 06:00; Status DC Ondansetron HCl (Zofran Inj) 4 mg STK-MED ONCE IV PUSH ; Start 05/30/17 at 12:00 ; Stop 05/31/17 at 10:14; Status DC Sodium Chloride 1,000 ml @ 999 mls/hr BOLUS ONCE IV Last administered on 15:19; Start 05/31/17 at 12:00; Stop 05/31/17 at 13:23; Status DC Fentanyl Citrate 250 ml @ 10 mls/hr TITRATE PRN IV SEDATION; Start 05/31/17 at 19:45; Status UNV Midazolam HCl 100 ml @ 3 mls/hr TITRATE PRN IV SEDATION; Start 05/31/17 at 19:45 ; Status UNV Midazolam HCl (Versed Inj) 2 mg ONCE ONCE IV PUSH Last administered on 19:45; Start 05/31/17 at 19:45; Stop 05/31/17 at 20:04; Status DC Midazolam HCl 100 ml @ 3 mls/hr TITRATE PRN IV SEDATION Last administered on 23:48; Start 05/31/17 at 19:45; Stop 06/03/17 at 14:04; Status DC Midazolam HCl (Versed Inj) 5 mg STK-MED ONCE .ROUTE Last administered on 20:11; Start 05/31/17 at 19:52; Stop 05/31/17 at 19:53; Status DC Fentanyl Citrate 250 ml @ 5 mls/hr TITRATE PRN IV SEDATION Last administered on 06/06/17 06:15; Start 05/31/17 at 21:30; Stop 06/06/17 at 20:34; Status DC Vancomycin HCl 1000 mg/Sodium Chloride 250 ml @ 250 mls/hr ONCE ONCE IV ; Start 05/31/17 at 21:30; Stop 05/31/17 at 21:39; Status DC Pharmacy Profile Note 0 ml @ 0 mls/hr UNSCH OTHER ; Start 05/31/17 at 21:30; Stop 06/02/17 at 11:38; Status DC Cefepime HCl 2000 mg/Sodium Chloride 100 ml @ 200 mls/hr Q12H IV Last administered on 06/02/17 08:34; Start 05/31/17 at 22:00; Stop 06/02/17 at 11:38 ; Status DC Azithromycin 500 mg/Sodium Chloride 250 ml @ 250 mls/hr Q24H IV Last administered on 06/01/17 21:47; Start 05/31/17 at 22:00; Stop 06/02/17 at 11:38; Status DC Calcium Gluconate 2 gm/Sodium Chloride 120 ml @ 120 mls/hr ONCE ONCE IV Last administered on 05/31/17 22:49; Start 05/31/17 at 23:00; Stop 05/31/17 at 23:59; Status DC Acetaminophen (Ofirmev 1000 Mg/ 100 ml Inj) 650 mg ONCE ONCE IV Last administered on 05/31/17 21:45; Start 05/31/17 at 21:45; Stop 05/31/17 at 21:46; Status DC Sodium Chloride 1,000 ml @ 999 mls/hr BOLUS ONCE IV Last administered on 21:30; Start 05/31/17 at 21:30; Stop 05/31/17 at 22:30; Status DC Sodium Chloride 1,000 ml @ 999 mls/hr BOLUS ONCE IV Last administered on 21:48; Start 05/31/17 at 22:30; Stop 05/31/17 at 23:30; Status DC Vancomycin HCl 2500 mg/Sodium Chloride 525 ml @ 250 mls/hr ONCE ONCE IV Last administered on 06/01/17 02:12; Start 05/31/17 at 23:00; Stop 06/01/17 at 01:05; Status DC Vancomycin HCl 1500 mg/Sodium Chloride 515 ml @ 257.5 mls/ hr Q12H IV Last administered on 06/02/17 12:13; Start 06/01/17 at 12:00; Stop 06/02/17 at 15:46 ; Status DC Miscellaneous Information SPECIFIC LAB TO BE NICOLE... ONCE ONCE .XX Last administered on 06/02/17 11:45; Start 06/02/17 at 11:45; Stop 06/02/17 at 11:46 ; Status DC Iodixanol (VISIPAQUE 320 INJ (Rad CT)) 89 ml STK-MED ONCE IV Last administered on 06/01/17 02:45; Start 06/01/17 at 02:45; Stop 06/01/17 at 02:46; Status DC Sodium Bicarbonate 150 meq/Dextrose 1,150 ml @ 75 mls/hr [id number] IV Last administered on 06/03/17 07:43; Start 06/01/17 at 06:00; Stop 06/03/17 at 14:04 ; Status DC Phenylephrine HCl 160 mg/Dextrose 500 ml @ 7.5 mls/hr TITRATE PRN IV Blood Pressure Management Last administered on 06/03/17 04:34; Start 06/01/17 at 10:00 ; Stop 06/03/17 at 23:56; Status DC Pharmacy Profile Note 0 ml @ 0 mls/hr UNSCH OTHER ; Start 06/02/17 at 11:45; Stop 06/02/17 at 15:46; Status DC Lactulose (Lactulose Liq) 30 ml QID PO ; Start 06/02/17 at 13:00; Stop 06/02/17 at 14:05; Status DC Rifaximin (Xifaxan) 550 mg BID PO ; Start 06/02/17 at 12:15; Stop 06/02/17 at 14 :05; Status DC Lactulose 300 ml/ Sterile Water 1,000 ml @ 0 mls/hr Q6H RECTAL Last administered on 06/04/17 14:18; Start 06/02/17 at 14:00; Stop 06/04/17 at 15:02 ; Status DC Linezolid 300 ml @ 300 mls/hr Q12H IV Last administered on 06/03/17 04:25; Start 06/02/17 at 16:00; Stop 06/03/17 at 12:12; Status DC Cefepime HCl 2000 mg/Sodium Chloride 100 ml @ 200 mls/hr Q8HR IV Last administered on 06/04/17 14:18; Start 06/03/17 at 14:00; Stop 06/04/17 at 16:20 ; Status DC Pharmacy Profile Note 0 ml @ 0 mls/hr UNSCH OTHER ; Start 06/03/17 at 12:15; Stop 06/04/17 at 16:20; Status DC Lactated Ringer's 1,000 ml @ 84 mls/hr [id number] IV Last administered on 03:21; Start 06/03/17 at 14:15; Stop 06/05/17 at 11:45; Status DC Vancomycin HCl 1500 mg/Sodium Chloride 515 ml @ 257.5 mls/ hr Q12H IV Last administered on 06/04/17 16:17; Start 06/03/17 at 16:00; Stop 06/04/17 at 16:20 ; Status DC Miscellaneous Information SPECIFIC LAB TO BE NICOLE... ONCE ONCE .XX ; Start 06/05 at 03:45; Stop 06/05/17 at 03:46; Status Cancel Acetylcysteine (Acetadote Inj) search Sets Overdose- ONCE IV ; Start 06/03/17 at 17:30; Status UNV Acetylcysteine 31226 mg/Dextrose 275 ml @ 200 mls/hr ONCE ONCE IV Last administered on 06/03/17 19:43; Start 06/03/17 at 19:00; Stop 06/03/17 at 20:22 ; Status DC Acetylcysteine 5000 mg/Dextrose 525 ml @ 125 mls/hr ONCE ONCE IV Last administered on 06/03/17 21:15; Start 06/03/17 at 20:00; Stop 06/04/17 at 00:11 ; Status DC Acetylcysteine 50245 mg/Dextrose 1,050 ml @ 62.5 mls/hr ONCE ONCE IV Last administered on 06/04/17 00:09; Start 06/04/17 at 00:00; Stop 06/04/17 at 16:47 ; Status DC Lactated Ringer's 1,000 ml @ 999 mls/hr BOLUS ONCE IV Last administered on 00:08; Start 06/04/17 at 00:00; Stop 06/04/17 at 01:00; Status DC Sodium Chloride 250 ml @ 15 mls/hr ONCE ONCE IV Last administered on 06:07; Start 06/04/17 at 01:45; Stop 06/04/17 at 18:24; Status DC Sodium Chloride 250 ml @ 15 mls/hr ONCE ONCE IV Last administered on 10:05; Start 06/04/17 at 07:00; Stop 06/04/17 at 23:39; Status DC Propofol (Diprivan 200 Mg/20 ml Inj) 100 mg STK-MED ONCE IV PUSH ; Start at 14:53; Stop 06/04/17 at 14:54; Status DC Lactulose (Lactulose Liq) 30 ml QID PO Last administered on 06/10/17 20:42; Start 06/04/17 at 18:00; Stop 06/11/17 at 09:23; Status DC Rifaximin (Xifaxan) 550 mg BID PO Last administered on 06/16/17 07:50; Start 06/04/17 at 21:00 Cefazolin Sodium/ Dextrose 50 ml @ 150 mls/hr Q8H IV Last administered on 06/08 09:33; Start 06/04/17 at 17:00; Stop 06/08/17 at 09:00; Status DC Potassium Chloride/Dextrose 1,000 ml @ 84 mls/hr [id number] IV Last administered on 06/06/17 12:07; Start 06/05/17 at 13:00; Stop 06/06/17 at 20:34; Status DC Furosemide (Lasix Inj) 40 mg BID@09,18 IV PUSH Last administered on 06/09/17 09:56; Start 06/05/17 at 12:00; Stop 06/09/17 at 10:11; Status DC Iohexol (Omnipaque 350 Inj) 20 ml STK-MED ONCE IVCONTRAST Last administered on 06/05/17 16:43; Start 06/05/17 at 16:59; Stop 06/05/17 at 17:01; Status DC Potassium Chloride 100 ml @ 50 mls/hr Q2H PRN IV For Potassium 2.8 - 3.2 mEq/L ; Start 06/06/17 at 01:00; Stop 06/07/17 at 23:44; Status DC Potassium Chloride 100 ml @ 50 mls/hr Q2H PRN IV For Potassium 2.8 - 3.2 mEq/L ; Start 06/06/17 at 01:00; Stop 06/07/17 at 23:45; Status DC Potassium Bicarb/ Potassium Chloride (K-Lyte Cl Eff) 50 meq UNSCH PRN PO For Potassium 3.3 - 3.5 mEq/L; Start 06/06/17 at 01:00; Stop 06/07/17 at 23:45; Status DC Potassium Chloride 100 ml @ 25 mls/hr UNSCH PRN IV For Potassium 3.3 - 3.5 mEq /L; Start 06/06/17 at 01:00; Stop 06/07/17 at 23:45; Status DC Potassium Chloride 100 ml @ 50 mls/hr Q2H PRN IV For Potassium 3.3 - 3.5 mEq/L ; Start 06/06/17 at 01:00; Stop 06/07/17 at 23:45; Status DC Magnesium Sulfate 4 gm/Sodium Chloride 100 ml @ 50 mls/hr UNSCH PRN IV For Magnesium 0.9 - 1.1 mg/dL; Start 06/06/17 at 01:00; Stop 06/07/17 at 23:44; Status DC Magnesium Oxide (Mag-Ox) 800 mg UNSCH PRN PO For Magnesium 1.2 - 1.6 mg/dL; Start 06/06/17 at 01:00; Stop 06/07/17 at 23:45; Status DC Magnesium Sulfate 2 gm/Sodium Chloride 100 ml @ 50 mls/hr UNSCH PRN IV For Magnesium 1.2 - 1.6 mg/dL; Start 06/06/17 at 01:00; Stop 06/07/17 at 23:44; Status DC Potassium Phosphate (K-Phos) 2,000 mg Q4H PRN PO For Phosphorus < 2.5 mg/dL; Start 06/06/17 at 01:00; Stop 06/07/17 at 23:45; Status DC Sodium Phosphate 30 mmol/Sodium Chloride 250 ml @ 42 mls/hr UNSCH PRN IV For Phosphorus < 2.5 mg/dL Last administered on 06/06/17 02:12; Start 06/06/17 at 01:00; Stop 06/07/17 at 23:45; Status DC Potassium Phosphate (K-Phos) 2,000 mg UNSCH PRN PO/TUBE SEE LABEL COMMENTS; Start 06/06/17 at 01:00; Stop 06/07/17 at 23:45; Status DC Potassium Phosphate 30 mmol/ Sodium Chloride 260 ml @ 42 mls/hr UNSCH PRN IV SEE LABEL COMMENTS; Start 06/06/17 at 01:00; Stop 06/07/17 at 23:45; Status DC Propofol 100 ml @ 3.78 mls/hr TITRATE PRN IV SEDATION Last administered on t 06:15; Start 06/06/17 at 02:15; Stop 06/06/17 at 07:00; Status DC Oxycodone HCl (Roxicodone) 5 mg Q4H PRN PO pain 1-7 Last administered on 03:54; Start 06/06/17 at 20:30 Propranolol HCl (Inderal) 10 mg Q8HR PO Last administered on 06/16/17 05:31; Start 06/06/17 at 22:00 Dextrose 1,000 ml @ 75 mls/hr [id number] IV Last administered on 06/08/17 23:20 ; Start 06/07/17 at 10:00; Stop 06/09/17 at 10:11; Status DC Pantoprazole Sodium (Protonix Inj) 40 mg Q12H IV PUSH Last administered on 06/09 03:14; Start 06/07/17 at 16:00; Stop 06/09/17 at 10:11; Status DC Potassium Bicarb/ Potassium Chloride (K-Lyte Cl Eff) 75 meq ONCE ONCE PO Last administered on 06/08/17 12:59; Start 06/08/17 at 11:00; Stop 06/08/17 at 11:01; Status DC Potassium Bicarb/ Potassium Chloride (K-Lyte Cl Eff) 75 meq ONCE ONCE PO Last administered on 06/08/17 20:21; Start 06/08/17 at 20:00; Stop 06/08/17 at 20:05; Status DC Potassium Bicarb/ Potassium Chloride (K-Lyte Cl Eff) 75 meq ONCE ONCE PO Last administered on 06/09/17 09:57; Start 06/09/17 at 09:00; Stop 06/09/17 at 09:01; Status DC Furosemide (Lasix) 20 mg BID@,18 PO Last administered on 06/16/17 07:50; Start 06/09/17 at 18:00 Pantoprazole Sodium (Protonix) 40 mg Q12HR PO Last administered on 06/16/17 07 :50; Start 06/09/17 at 21:00 Potassium Bicarb/ Potassium Chloride (K-Lyte Cl Eff) 50 meq Q12HR PO Last administered on 06/10/17 08:58; Start 06/09/17 at 21:00; Stop 06/10/17 at 09:44 ; Status DC Potassium Chloride (KCl) 30 meq ONCE ONCE PO Last administered on 06/10/17 08 :56; Start 06/10/17 at 08:45; Stop 06/10/17 at 08:46; Status DC Calcium Carbonate (Oscal) 500 mg Q12HR PO Last administered on 06/16/17 07:50 ; Start 06/10/17 at 10:00 Potassium Bicarb/ Potassium Chloride (K-Lyte Cl Eff) 75 meq Q12HR PO Last administered on 06/16/17 07:49; Start 06/10/17 at 21:00 Gadodiamide (Omniscan Pf Inj) 19 ml STK-MED ONCE IVCONTRAST Last administered on 06/10/17 12:37; Start 06/10/17 at 12:37; Stop 06/10/17 at 12:39; Status DC Lactulose (Lactulose Liq) 30 ml BID PO Last administered on 06/16/17 07:50; Start 06/11/17 at 21:00 Furosemide (Lasix) 20 mg ONCE ONCE PO Last administered on 06/13/17 09:50; Start 06/13/17 at 08:30; Stop 06/13/17 at 08:31; Status DC Sodium Chloride 250 ml @ 15 mls/hr ONCE ONCE IV Last administered on 16:45; Start 06/14/17 at 10:15; Stop 06/15/17 at 02:54; Status DC Acetaminophen (Tylenol) 650 mg Q4H PRN PO SEE LABEL COMMENTS Last administered on 06/14/17 20:15; Start 06/14/17 at 10:15; Stop 06/14/17 at 21:04; Status DC Diphenhydramine HCl (Benadryl) 25 mg Q4H PRN PO SEE LABEL COMMENTS Last administered on 06/14/17 20:15; Start 06/14/17 at 10:15; Stop 06/14/17 at 21:04 ; Status DC Furosemide (Lasix Inj) 20 mg ONCE ONCE IV ; Start 06/14/17 at 11:00; Stop 06/14 at 11:01; Status DC Furosemide (Lasix Inj) 20 mg ONCE ONCE IV Last administered on 06/14/17 21:13 ; Start 06/14/17 at 20:30; Stop 06/14/17 at 21:04; Status DC Urinary Catheter: No Vascular Central Line Catheter: No Side: Right Location: Subclavian A/P Problem List: (1) GI bleed ICD Code: K92.2 - Gastrointestinal hemorrhage, unspecified (2) Melena ICD Code: K92.1 - Melena Status: Acute (3) Hematemesis ICD Code: K92.0 - Hematemesis Status: Acute (4) Transaminitis ICD Code: R74.0 - Nonspecific elevation of levels of transaminase and lactic acid dehydrogenase [LDH] (5) Thrombocytopenia ICD Code: D69.6 - Thrombocytopenia, unspecified Status: Acute Assessment and Plan Hypoxic Respiratory failure 06/01 CTA pulmonary-suspected left upper lobe, left lower lobe pulmonary emboli, no pulmonary emboli on the right. Bilateral lower lobe atelectasis. Patchy pneumonia right lower lobe. Noted ill-defined right infrahilar/subcarinal mass 4.2 x 4.8 cm (likely esophageal varices- per CT abdomen report). Extensive discussion with Dr. Terrazas (IR) patient is not a candidate for catheter directed TPA in the setting of GI bleeding. Intubated 05/29 and extubated 06/06. Ultrasound bilateral lower extremities negative for DVT. 06/01 ECHO ejection fraction 55-60%. No RWMA. Trace TR. - Maintain O2 saturation greater than 92%. - DuoNeb's every 6 hours scheduled every 2 hours when necessary. - Patient was on Ancef for MSSA pneumonia. d/c 06/07. - S/p IVC filter. - Pulmonology following. - Incentive spirometry. - PT/ OT. GI bleed/ Hematemesis 06/01 CT abdomen-splenomegaly, ascites, esophageal varices extend into the lower chest and may account for subcarinal and infrahilar masses. Florid portosystemic collaterals. Large esophageal varix. 3 bands applied by GI. 06/05 repeat EGD varices no active bleeding. Ammonia decreasing. - Status post protonic and octreotide gtt. -Patient on sandostatin and protonix - Monitor CBC and transfuse as needed. Transaminitis/liver cirrhosis complicatef by portal hypertension, esophageal varices and ascites. Due to daily Tylenol use. S/p Mucomyst. AST 692, ALT 593, T bili 2.1. Liver ultrasound reveals cirrhotic liver image. Tylenol level negative. Hepatitis profile negative. - Workup per gastroenterology - Monitor PT/INR. - continue rifaximin, lactulose and pentoxifylline. -MRI showed portal hypertension, esophageal varices, and ascites. GI wants to repeat MRI of the liver and a few days. They are also considering a liver biopsy if a 1A is negative. Subcarinal mass on CTA -previous hospitalist discussed w Kiara, from hematology, she stated that mass on CTA more likely esophageal varices if for patient to follow with Dr. Casey as outpatient regards to this. Atm Technician/oncologist signed off. Thrombocytopenia S/t liver disease. - Monitor CBC. - transfuse platelets if signs of acute bleeding, or less than 50,000. - Hematology following. Hypernatremia Most likely secondary to dehydration. Resolved. -s/p D5W at 75 ml/hr Hypokalemia Possibly s/t decreased PO intake. - Potassium scheduled. - monitor and replete as needed. Liver mass Noted on imaging. - Radiologist recommend hepatic MRI with Eovist. MRI of the liver was done which was a poor study. It did not showed any hepatic lesions but stated that patient has cirrhosis, portal hypertension, ascites, esophageal varices. GI wants to repeat MRI in a few days. Management per GI. ANEMIA- TRANSFUSE 2 MORE UNITS PRBC ON - PPx: IVC filter LABS ARE STABLE CAN DC TO HOME TODAY FOLLOW UP WITH GI AND PCP NO ALCOHOL OR TOBACCO Discharge Planning DC TO HOME WITH [facility] Problem Qualifiers (1) Hematemesis: Qualified Codes: K92.0 - Hematemesis; R11.0 - Nausea Nba Quinonez DO Jun 16, 2017 09:17
[2017-06-16] MEDS ORDERED: WALKER WHEELS/F1 MIS (09:26)
[2017-06-16] MEDS ORDERED: PANT40TA3 PO (09:26)
[2017-06-16] MEDS ORDERED: OXYC-392 PO (09:26)
[2017-06-16] MEDS ORDERED: COMMODE 3-IN-11 MIS (09:26)
[2017-06-16] MEDS ORDERED: FURO20TA PO (09:26)
[2017-06-16] MEDS ORDERED: Lactulose Liq PO (09:26)
[2017-06-16] MEDS ORDERED: KLYTECL PO (09:26)
[2017-06-16] MEDS ORDERED: XIFA550T4 PO (09:26)
[2017-06-16] MEDS ORDERED: PROP10TA6 PO (09:26)
[2017-06-16] MEDS ORDERED: CALC500T30 PO (09:26)
[2017-06-16 09:28] LABS: ANION GAP 6 MEQ/L (5-15); AST (GOT) 43 U/L (15-37); BICARBONATE 25.6 MEQ/L (21.0-32.0); BLOOD UREA NITROGEN 9 MG/DL (7-18); CHLORIDE 106 MEQ/L (98-107); GLOMERULAR FILTRATION RATE 108 ML/MIN (>89); POTASSIUM 3.8 MEQ/L (3.5-5.1); SODIUM (NA) 138 MEQ/L (136-145)
[2017-06-16 09:29] LABS: ALT (GPT) 49 U/L (12-78)
[2017-06-16 09:31] LABS: ALKALINE PHOSPHATASE 186 U/L (45-117); TOTAL BILIRUBIN ADULT 2.3 MG/DL (0.2-1.0)
--- NOTE | 2017-06-16 09:33 | HHI.DS ---
Discharge Summary Admission Date May 30, 2017 at 01:08 Discharge Date: Jun 16, 2017 Admitting Diagnosis hematemesis, melena, thrombocytopenia (1) GI bleed ICD Code: K92.2 - Gastrointestinal hemorrhage, unspecified Diagnosis: Principal (2) Melena ICD Code: K92.1 - Melena Diagnosis: Secondary Status: Acute (3) Hematemesis ICD Code: K92.0 - Hematemesis Diagnosis: Principal Status: Acute (4) Transaminitis ICD Code: R74.0 - Nonspecific elevation of levels of transaminase and lactic acid dehydrogenase [LDH] Diagnosis: Principal (5) Thrombocytopenia ICD Code: D69.6 - Thrombocytopenia, unspecified Diagnosis: Principal Status: Acute (6) Pulmonary embolism ICD Code: I26.99 - Other pulmonary embolism without acute cor pulmonale Diagnosis: Principal (7) Mass of lung ICD Code: R91.8 - Other nonspecific abnormal finding of lung field Diagnosis: Secondary (8) Liver mass, right lobe ICD Code: R16.0 - Hepatomegaly, not elsewhere classified Diagnosis: Principal Procedures 05/30- EGD 06/04-EGD GI Procedure REFERRING PHYSICIAN Lizette PROCEDURE PERFORMED EGD with banding INDICATION FOR PROCEDURE Hematemesis PROCEDURE: The procedure, risks and benefits were discussed with Mr. Myers and informed consent was obtained. Anesthesia sedated him with Diprivan. He was placed in the left lateral decubitus position. EGD: The Pentax videoscope was introduced through the oropharynx and advanced to the second portion of the duodenum under direct visualization. Retroflexion was performed in the stomach. FINDINGS: The esophagus there was a large esophageal varix extending from top to bottom with active bleeding in the distal portion 3 bands were applied along the length of the varix and especially over the bleeding section The stomach this was filled with blood and it was a limited evaluation The duodenum was unremarkable ESTIMATED BLOOD LOSS: About 300 cc SPECIMENS REMOVED: None COMPLICATIONS: None IMPRESSION: Bleeding esophageal varices PLAN: Continue with current supportive care Monitor labs and transfuse as needed Coagulopathy needs to be corrected Continue with octreotide and Protonix drips We will proceed with CT of the abdomen for the abnormal ultrasound findings We'll evaluate for causes of liver cirrhosis Repeat EGD early next week Centerline placement A time-out was completed verifying correct patient, procedure, site, positioning , and special equipment if applicable. The patient was placed in a dependent position appropriate for central line placement based on the vein to be cannulated. The patients right neck was prepped and draped in sterile fashion. 1% Lidocaine was used to anesthetize the surrounding skin area. A triple lumen 9 -Occitan Cordis catheter was introduced into the the internal jugular vein using the Seldinger technique and under ultrasound guidance. The catheter was threaded smoothly over the guide wire and appropriate blood return was obtained. Each lumen of the catheter was evacuated of air and flushed with sterile saline. The catheter was then sutured in place to the skin and a sterile dressing applied. Perfusion to the extremity distal to the point of catheter insertion was checked and found to be adequate. Estimated Blood Loss: 1ml The patient tolerated the procedure well and there were no complications. Clarence Avendano MD Jun 01, 2017 5:33 am <Electronically signed by Clarence Avendano MD> 06/01/17 0533 Pre Procedure Diagnosis: (1) GI bleed (2) Pulmonary embolism Post Procedure Diagnosis: (1) GI bleed (2) Pulmonary embolism Procedure Date: Jun 05, 2017 Supervising Radiologist: Chetan Aguila Anesthesia: Local Plan of Activity Patient to Unit: Critical Care Patient Condition: Poor Additional Comments: Retrievable IVC filter placed via a right jugular access. Filter is in good position. Full dictated report to follow See PACS Report for procedural detail/treatment Chetan Aguila MD Jun 05, 2017 16:55 Brief History - From Admission Patient reports hematemesis over about an hour and a half. The color was dark; accompanied by nausea but denies abdominal pain. Just had a dark stool. The patient reports taking Tylenol 1000 mg per day 5 days per week. He denies any history of peptic ulcer. He started taking generic Aleve or naproxen 200 mg when extra strength Tylenol wore off over the past week. The patient reports that last week he had "a really nasty flu". He had also put in extra hours at work last week and thought it might be related to work-related exhaustion. He denies chest pain, shortness of breath. . CBC/BMP: 06/16/17 0832 06/15/17 0617 Significant Findings Laboratory Tests Test 06/13/17 13:15 06/14/17 06:21 06/14/17 15:08 06/15/17 06:17 Red Blood Count 3.32 MIL/MM3 (4.50-5.90) 2.73 MIL/MM3 (4.50-5.90) 3.15 MIL/MM3 (4.50-5.90) Hemoglobin 8.5 GM/DL (13.0-17.0) 6.9 GM/DL (13.0-17.0) 7.2 GM/DL (13.0-17.0) 8.1 GM/DL (13.0-17.0) Hematocrit 26.4 % (39.0-51.0) 21.7 % (39.0-51.0) 22.8 % (39.0-51.0) 25.3 % (39.0-51.0) Mean Corpuscular Volume 79.3 FL (80.0-100.0) 79.4 FL (80.0-100.0) Mean Corpuscular Hemoglobin 25.5 PG (27.0-34.0) 25.4 PG (27.0-34.0) 25.9 PG (27.0-34.0) Red Cell Distribution Width 18.0 % (11.6-17.2) 17.6 % (11.6-17.2) 17.3 % (11.6-17.2) Monocytes (%) (Auto) 9.1 % (0.0-8.0) 9.6 % (0.0-8.0) 9.2 % (0.0-8.0) Eosinophils (%) (Auto) 4.7 % (0.0-4.0) 4.8 % (0.0-4.0) 5.2 % (0.0-4.0) White Blood Count 3.7 TH/MM3 (4.0-11.0) 3.1 TH/MM3 (4.0-11.0) Platelet Count 99 TH/MM3 (150-450) 102 TH/MM3 (150-450) Lymphocytes # (Auto) 0.8 TH/MM3 (1.0-4.8) 0.7 TH/MM3 (1.0-4.8) Platelet Estimate LOW (NORMAL) Platelet Morphology Comment ENLARGED (NORMAL) Polychromasia 2.0 % (0.0-1.9) Ovalocytes 1+ (NORMAL) Calcium Level 7.6 MG/DL (8.5-10.1) 7.5 MG/DL (8.5-10.1) Chloride Level 109 MEQ/L (98-107) 108 MEQ/L (98-107) Prothrombin Time 13.9 SEC (9.8-11.6) Total Protein 5.7 GM/DL (6.4-8.2) Albumin 1.8 GM/DL (3.4-5.0) Alkaline Phosphatase 154 U/L (45-117) Total Bilirubin 2.8 MG/DL (0.2-1.0) Test 06/16/17 08:32 Red Blood Count 3.49 MIL/MM3 (4.50-5.90) Hemoglobin 8.9 GM/DL (13.0-17.0) Hematocrit 28.0 % (39.0-51.0) Mean Corpuscular Hemoglobin 25.5 PG (27.0-34.0) Mean Corpuscular Hemoglobin Concent 31.8 % (32.0-36.0) Red Cell Distribution Width 17.3 % (11.6-17.2) Platelet Count 115 TH/MM3 (150-450) Monocytes (%) (Auto) 8.2 % (0.0-8.0) Eosinophils (%) (Auto) 6.1 % (0.0-4.0) Lymphocytes # (Auto) 0.9 TH/MM3 (1.0-4.8) Imaging Last Impressions Abdomen MRI 06/10/17 0000 Signed Impressions: Service Date/Time: Saturday, June 10, 2017 12:01 - CONCLUSION: 1. This examination is limited secondary to artifact related to patient motion, patient size, and poor contrast-enhancement from uncertain etiology. There is mild hepatomegaly with features characteristic of cirrhosis. However, no liver lesion is identified. Given the quality of the examination, suggest followup liver MRI when patient condition permits for a better examination. 2. There are findings related to portal hypertension including splenomegaly, ascites, and esophageal varices. David Rhodes MD Chest X-Ray 06/09/17 Signed Impressions: Service Date/Time: Friday, June 09, 2017 18:58 - CONCLUSION: 1. Left greater than right basilar consolidation and small effusions are not significantly changed. 2. Mildly enlarged heart similar to before. 3. Interim extubation. Nasogastric tube and right IJ central venous catheter also out. David Quintero MD IVC Filter Placement X-Ray 06/05/17 Signed Impressions: Service Date/Time: Monday, June 05, 2017 16:23 - CONCLUSION: Uncomplicated inferior vena cava filter placement as above. A Bard Cowlitz retrievable filter was placed. Chetan Aguila MD Upper Extremity Ultrasound 06/01/17 0000 Signed Impressions: Service Date/Time: Thursday, June 01, 2017 13:47 - CONCLUSION: No evidence of upper extremity DVT on the right or left. Angel Paredes MD Lower Extremity Ultrasound 06/01/17 0000 Signed Impressions: Service Date/Time: Thursday, June 01, 2017 13:30 - CONCLUSION: No evidence of lower extremity DVT on the right or left. Angel Paredes MD CT Angiography 06/01/17 Signed Impressions: Service Date/Time: Thursday, June 01, 2017 02:39 - CONCLUSION: 1. Suspected left upper lobe and left lower lobe pulmonary emboli. No pulmonary embolus on the right. 2. Right infrahilar/subcarinal mass. 3. Bilateral lower lobe atelectasis, right worse than left. Also patchy pneumonia of the right lower lobe. David Quintero MD Abdomen/Pelvis CT 06/01/17 0000 Signed Impressions: Service Date/Time: Thursday, June 01, 2017 02:39 - CONCLUSION: 1. Cirrhosis. Heterogeneously enhancing liver without a distinct/measurable focal lesion. 2. Marked splenomegaly, 10.3 x 17.6 x 18.1 cm. 3. Very severe portosystemic collaterals including gastroesophageal varices. The varices extend into the lower chest and probably account for the subcarinal/right infrahilar mass seen by chest CT. 4. Diffuse wall thickening of the colon, colitis versus secondary changes from cirrhosis. 5. Small ascites. Body wall edema/anasarca. David Quintero MD Liver Ultrasound 05/30/17 0000 Signed Impressions: Service Date/Time: May 09:04 - CONCLUSION: Cirrhotic liver appearance. Question focal right lobe mass. Recommend further evaluation with hepatic MRI with Eovist. David Terrazas MD PE at Discharge GENERAL: AWAKE ALERT AND ORIENTED AND TALKATIVE AND COOPERATIVE SKIN: Warm and dry. HEAD: Atraumatic. Normocephalic. EYES: Pupils equal and round. No scleral icterus. No injection or drainage. EOMI ENT: No nasal bleeding or discharge. Mucous membranes pink and moist. TONGUE MIDLINE NECK: Trachea midline. No JVD. SUPPLE CARDIOVASCULAR: Regular rate and rhythm. S1, S2, NO S3 OR S4 NO HEAVE OR THRILL RESPIRATORY: No accessory muscle use. Clear to auscultation. Breath sounds equal bilaterally. GASTROINTESTINAL: Abdomen soft, non-tender, nondistended. Hepatic and splenic margins not palpable. OBESE MUSCULOSKELETAL: Extremities without clubbing, cyanosis, No obvious deformities. EDEMA 2 TO 3 BL LE NEUROLOGICAL: Awake and alert. No obvious cranial nerve deficits. Motor grossly within normal limits. Five out of 5 muscle strength in the arms and legs. Normal speech. PSYCHIATRIC: Appropriate mood and affect; insight and judgment normal. Hospital Course NOTED TO HAVE ANEMIA AGAIN WILL TRANSFUSE 2 UNITS OF PRBC FOR LOW HGB OF 6.9 DW RN AND PT AND FAMILY HAS FAMILY HX OF LIVER DISEASE NO NEW COMPLAINTS 9-23 hemoglobin only up to 8.1 No new complaints States he's eating well States he is having bowel movements Hopefully discharge for the next 24-48 hours 924 HGB STABLE AT 8.9 DC TO HOME TODAY HAD EGDS AND BANDING DURING THE ADMISSION HAD IVC FILTER PLACED DUE TO UNABLE TO ANTICOAGULATE Pt Condition on Discharge: Stable Discharge Disposition: Disch w/ Home Health Serv Discharge Time: > 30 minutes Discharge Instructions DIET: Follow Instructions for: Heart Healthy Diet Speech Therapy-Diet Recommends: Regular Activities you can perform: Regular-No Restrictions, Weight Bearing as Aly Follow up Referrals: Gastroenterology - 2 Weeks with Sofy Rubin MD PCP Follow-up - 1 Week Pulmonology - 1 Week with Yosef Navas MD New Medications: Commode 3-in-1 (Commode 3-in-1) 1 Mis Mis EA .ROUTE DIRECTED, #1 0 Refills Walker with Front Wheels (Walker with Front Wheels) 1 Mis Mis EA .ROUTE DIRECTED for GAIT INSTABILITY, #1 0 Refills Furosemide (Furosemide) 20 Mg Tab 20 MG PO BID@,18 for Weight Management, #60 TAB Oxycodone (Oxycodone) 5 Mg Tab 5 MG PO Q4H PRN for pain 1-7, #60 TAB Oyster Shell (Calcium Oyster Shell) 500 Mg Calcium (1250 Mg) Tab 500 MG PO Q12HR for Electrolyte Replacement, #60 TAB Pantoprazole (Pantoprazole) 40 Mg Tab 40 MG PO Q12HR for Manage Heartburn, #180 TAB Potassium Bicarb-Chloride Effervescent (Effervescent Potassium Chloride 25 Meq) 25 Meq Tab 75 MEQ PO Q12HR for Electrolyte Replacement, #90 TAB Propranolol (Propranolol) 10 Mg Tab 10 MG PO Q8HR for Blood Pressure Management, #90 TAB Rifaximin (Xifaxan) 550 Mg Tab 550 MG PO BID for Bowel Management, #60 TAB [Lactulose Liq] () 30 ML SYRP 30 ML PO BID for Bowel Management, #2 LITER Discontinued Medications: Acetaminophen (Extra Strength Pain Relief) 500 Mg Tab 1000 MG PO DAILY for Pain Management, TAB Naproxen Sodium (Naproxen Sodium) 220 Mg Tab 220 MG PO DAILY for Pain Management, TAB 0 Refills Nba Quinonez DO Jun 16, 2017 09:33
--- NOTE | 2017-06-16 09:38 | HHI.FF ---
Face to Face Verification Diagnosis: (1) Melena (2) Thrombocytopenia (3) Hematemesis (4) Transaminitis (5) Pulmonary embolism (6) Mass of lung (7) GI bleed (8) Liver mass, right lobe Physical Therapy Order: Evaluate and Treat, Improve ambulation, Strength and gait training Occupational Therapy Order: Evaluate and Treat, Improve ADL, Gross motor coordination, Fine motor coordination Home Health Nursing Order: Signs/symptoms of disease process Nursing assessment with vital signs Telehealth I have seen patient Calvin Myers on 06/16/17. My clinical findings support the need for the requested home health care services because: Deconditioned w/ increased weakness I certify that my clinical findings support that this patient is homebound because: Unsteady gait/balance Nba Quinonez DO Jun 16, 2017 09:38
[2017-06-16 11:30] VITALS: BP 120/64; PULSE 79; RESP 20; TEMP 96.2; O2SAT 96
[2017-06-16 12:21] VITALS: PULSE 79
--- NOTE | 2017-06-30 08:25 | PQ ---
Physician Query Response Document PATIENT: FAHEEM HASKINS : 1975 ADMIT DATE: 05/30/2017 1:08 AM DISCH DATE: 06/16/2017 2:54 PM RESPONDING PROVIDER #: dennis QUERY TEXT: Present On Admission It is unclear whether THE FOLLOWING DIAGNOSES were present on admission. Your help is needed. Pleas e clarify the POA status of PULMONARY EMBOLISM and PNEUMONIA Such as: -- Present on admission -- Not present on admission -- other, please explain PLEASE CALL [facility] @ [phone] FOR ASSISTANCE The patient's Clinical Indicators include: 41-year-old gentleman admitted with complaints of hematemesis, the patient reports that last week he had "a really nasty flu", patient was taken emergently for EGD with banding on 05/30. PER PROGRESS NOTES: 06/01 CTA pulmonary-suspected left upper lobe, left lower lobe pulmonary emboli, no pulmonary emboli on the right. Bilateral lower lobe atelectasis. Patchy pneumonia right lower lobe. 06/01/17 SPUTUM CULTURE POS FOR MSSA Query created by: Sasha West on 06/13/2017 10:49 AM RESPONSE TEXT: Per CTA pt had PE and PNA Electronically signed by: Dominga Agee MD 06/30/2017 8:21 AM
== END 2017-06-16 14:54 | disposition home health service (06) | DRG 356 ==
LOC: NEPE 23:29 → NEDA 05-30 01:08 → N06B 05-30 03:05 → HIME 05-30 04:05 → HIMW 05-31 13:40 → HOCB 06-08 01:30
PROVIDERS: ADMIT Hospitalist; ATTEND Hospitalist
PROC: 06L34CZ Occlusion of Esophageal Vein with Extraluminal Device, Percutaneous Endoscopic Approach (ICD-10-PCS; 2017-05-30)
PROC: 30233N1 Transfusion of Nonautologous Red Blood Cells into Peripheral Vein, Percutaneous Approach (ICD-10-PCS; 2017-05-30)
PROC: 5A1955Z Respiratory Ventilation, Greater than 96 Consecutive Hours (ICD-10-PCS; 2017-05-30)
PROC: 02HV33Z Insertion of Infusion Device into Superior Vena Cava, Percutaneous Approach (ICD-10-PCS; 2017-06-01)
PROC: B548ZZA Ultrasonography of Superior Vena Cava, Guidance (ICD-10-PCS; 2017-06-01)
PROC: 0D9680Z Drainage of Stomach with Drainage Device, Via Natural or Artificial Opening Endoscopic (ICD-10-PCS; 2017-06-04)
PROC: 06H03DZ Insertion of Intraluminal Device into Inferior Vena Cava, Percutaneous Approach (ICD-10-PCS; principal; 2017-06-05)
DX: I85.01 Esophageal varices with bleeding (principal); J15.211 Pneumonia due to Methicillin susceptible Staphylococcus aureus; R57.1 Hypovolemic shock; J96.91 Respiratory failure, unspecified with hypoxia; I26.99 Other pulmonary embolism without acute cor pulmonale; K72.00 Acute and subacute hepatic failure without coma; R18.8 Other ascites; D69.59 Other secondary thrombocytopenia; N17.9 Acute kidney failure, unspecified; E87.0 Hyperosmolality and hypernatremia; K76.6 Portal hypertension; J98.11 Atelectasis; D62 Acute posthemorrhagic anemia; K72.90 Hepatic failure, unspecified without coma; T39.1X5A Adverse effect of 4-Aminophenol derivatives, initial encounter; D73.1 Hypersplenism; K74.60 Unspecified cirrhosis of liver; E87.6 Hypokalemia; K31.89 Other diseases of stomach and duodenum; R00.0 Tachycardia, unspecified; K44.9 Diaphragmatic hernia without obstruction or gangrene; E86.0 Dehydration; I86.4 Gastric varices; Z80.0 Family history of malignant neoplasm of digestive organs; Z80.6 Family history of leukemia
CPT/HCPCS: 36430; 36556; 36600; 37191; 71010; 71275; 74177; 74183; 76705; 76937; 80048; 80053; 80074; 80076; 80202; 80307; 81001; 82103; 82105; 82140; 82378; 82390; 82728; 82784; 82805; 83516; 83520; 83540; 83550; 83735; 84100; 84132; 84155; 85007; 85014; 85018; 85025; 85027; 85384; 85610; 85730; 86038; 86255; 86403; 86850; 86900; 86901; 86920; 87040; 87070; 87086; 87147; 87186; 87205; 87449; 87517; 87522; 87641; 93306; 93970; 94002; 94003; 94150; 94640; 94667; 94668; 96374; 96375; A9579; C1769; C1880; C9113; J0131; J0132; J0456; J0610; J0690; J0692; J1940; J2020; J2250; J2354; J2370; J2405; J3010; J3370; J3480; J7030; J7040; J7050; J7060; J7070; J7120; P9016; Q9967